=== PATIENT | female | born 1980 | race Caucasian/White ===

== ENCOUNTER 2024-05-27 10:08 | Outpatient (OUT) | payer OTHER, SELFPAY ==
[2024-05-27 11:03] LABS: Basophils Absolute Auto 0.1 10^3/uL (0.0-0.1); Basophils Percent Auto 0.7 % (0.2-2.0); Eosinophils Absolute Auto 0.5 10^3/uL (0.0-0.7); Eosinophils Percent Auto 5.2 % (0.9-7.0); Hematocrit 36.9 % (36.0-48.0); Hemoglobin 12.1 g/dL (12.0-16.0); Immature Granulocytes Abs Auto 0.02 10^3/uL (0.00-0.03); Immature Granulocytes Pct Auto 0.2 % (0.0-0.5); Lymphocytes Percent Auto 33.5 % (20.5-60.0); Mean Corpuscular HGB Conc 32.8 g/dL (29.9-35.2); Mean Corpuscular Hemoglobin 28.7 pg (26.7-34.0); Mean Corpuscular Volume 87.6 fL (81.0-99.0); Mean Platelet Volume 10.4 fL (9.5-13.5); Monocytes Absolute Auto 0.7 10^3/uL (0.3-0.8); Monocytes Percent Auto 7.9 % (1.7-12.0); Neutrophils Absolute Auto 4.7 10^3/uL (1.4-6.5); Neutrophils Percent Auto 52.5 % (43.0-75.0); Platelet Count 289 10^3/uL (150-450); Red Blood Count 4.21 10^6/uL (4.20-5.40); Red Cell Distribution Width 13.2 % (11.0-15.0); White Blood Count 8.9 10^3/uL (4.0-11.0)
[2024-05-27 11:13] LABS: Thyroid Stimulating Hormone 3.139 uIU/mL (0.358-3.740)
[2024-05-27 11:19] LABS: HCG Quantitative <1 mIU/mL
[2024-05-27 11:40] LABS: Estimated Average Glucose 143 mg/dL; Glycohemoglobin A1C 6.6 % (4.5-6.2)
[2024-05-28 04:06] LABS: Prolactin 24.6 ng/mL (4.8-33.4)
== END 2024-05-27 10:09 | disposition home or self-care (01) ==
LOC: LAB 10:13
PROVIDERS: Family Provider Family Medicine; Visit Provider Obstetrics & Gynecology
DX: N83.202 Unspecified ovarian cyst, left side (principal); N94.89 Other specified conditions associated with female genital organs and menstrual cycle; N91.2 Amenorrhea, unspecified; R10.2 Pelvic and perineal pain
CPT/HCPCS: 36415; 83036; 84146; 84443; 84702; 85025

== ENCOUNTER 2024-07-02 09:39 | Outpatient (OUT) | payer OTHER, SELFPAY ==
--- OUTSIDE RECORDS SUMMARY | 2024-07-02 09:54 | XMS_ITS | CCD ---
Author Organization [facility] Care Team Providers Care Associate Store Director Name Role Phone Belgica Naranjo H Referring Unavailable Belgica Naranjo H Attending Unavailable Jarrett Naranjoary H Admitting Unavailable NO FAMILY, PHYSICIAN Primary Care Provider Unava ilable FILIBERTO Geronimo Emergency Provider [phone] Zhen Geronimo Attending Unavailable Zhen Geronimo Admitting Unavailable NO FAMILY, PHYSICIAN Primary Care Unavailable Bonifacio Diehl PA-C Primary Care Provider Sampson Pemberton CNM Unavailable Rosa Mittal MD Primary Care Provider Rosa Mittal MD Primary Care Provider STEFANY MIKE Attending Unavailable ROSA MITTAL Referring Unavailable ROSA MITTAL Primary Care Unavailable CHUY FREDERICK Attending Unavailable THALIA CASTANON Referring Unavailable ROSA MITTAL Primary Care Unavailable BONIFACIO DIEHL Attending Unavailable ROSA MITTAL Referring Unavailable BONIFACIO DIEHL Primary Care Unavailable BONIFACIO DIEHL Attending Unavailable BONIFACIO DIEHL Referring Unavailable BONIFACIO DIEHL Primary Care Unavailable CHUY FREDERICK Attending Unavailable ROSA MITTAL Referring Unavailable BONIFACIO DIEHL Primary Care Unavailable BONIFACIO DIEHL Attending Unavailable BONIFACIO DIEHL Referring Unavailable BONIFACIO DIEHL Primary Care Unavailable BONIFACIO DIEHL Attending Unavailable BONIFACIO DIEHL Referring Unavailable BONIFACIO DIEHL Primary Care Unavailable Bonifacio Celaya Primary Care Provider [phone] KAL ROBERTS Attending Unavailable ROSA MITTAL Primary Care Unavailable KAL ROBERTS Attending Unavailable KAL ROBERTS Referring Unavailable ROSA MITTAL Primary Care Unavailable ROSA MITTAL Referring Unavailable ROSA MITTAL Primary Care Unavailable THALIA CASTANON Attending Unavailable ROSA MITTAL Referring Unavailable ROSA MITTAL Primary Care Unavailable BONIFACIO DIEHL Primary Care Unavailabl e DIEHL, BONIFACIO RAI Referring Unavailabl e DIEHL, BONIFACIO RAI Primary Care Unavailabl e CHUY FREDERICK Referring Unavailable DIEHL, BONIFACIO RAI Referring Unavailabl e DIEHL, BONIFACIO RAI Primary Care Unavailabl e FELICIA, BONIFACIO Valenzuela Primary Care Unavailable BONIFACIO DIEHL Referring Unavailable THALIA CASTANON Attending Unavailable Bonifacio Celaya Primary Care Provider ALEX BLANKENSHIP Attending Unavailable LALO MILLER Attending Unavailab LALO Aguilera Attending Unavailab SHELBI Hill Attending Unavailable JUSTINE GOLDBERG Referring Unavailable FRED COTTER Attending Unavailable TANNER RODRIGUEZ Attending Unavailab juan david MILLER, LALO Gomez Attending Unavailab JUSTINE Krishnamurthy Attending Unavailable SAMPSON PEMBERTON Attending Unavailable SAMPSON PEMBERTON Referring Unavailable TANNER RODRIGUEZ Attending Unavailab RAYMOND Mcdonald Attending Unavailable RAYMOND WHITTAKER Attending Unavailable SAMPSON PEMBERTON Referring Unavailable LALO MILLER Attending Unavailab RAYMOND Mcdonald Attending Unavailable SAMPSON PEMBERTON Attending Unavailable REENA PEMBERTONERIE Cady Referring Unavailable ALEX BLANKENSHIP Attending Unavailable SAMPSON PEMBERTON Referring Unavailable Rosa Mittal MD Primary Care Provider THALIA CASTANON Attending Unavailable ROSA MITTAL Referring Unavailable ROSA MITTAL Primary Care Unavailable JOSÉ CAMPOVERDE M Referring Unavailable ROSA MITTAL Primary Care Unavailable ROSA MITTAL Primary Care Unavailable CLAUDIA CARLSON Attending Unavailable CLAUDIA CARLSON Attending Unavailable CLAUDIA CARLSON Referring Unavailable ROSA MITTAL Primary Care Unavailable CHUY FREDERICK Referring Unavailable ROSA MITTAL Primary Care Unavailable ROSA MITTAL Primary Care Unavailable KIRILL ARIAS Attending Unavailable KIRILL ARIAS Attending Unavailable KIRILL ARIAS Referring Unavailable ROSA MITTAL Primary Care Unavailable BONIFACIO DIEHL Referring Unavailable DIEHLBONIFACIO VILLALOBOS Primary Care Unavailable JOSÉ CAMPOVERDE Referring Unavailable DIEHL BONIFACIO N Primary Care Unavailable DIEHL, BONIFACIO N Referring Unavailable DIEHL, BONIFACIO N Primary Care Unavailable DIEHL, BONIFACIO N Primary Care Unavailable JULIUS HUGHES Attending Unavailable BONIFACIO DIEHL Primary Care Unavailable WINSTON SUERO Attending Unavailable Allergies Allergy Classification Reported Allergen(s) Allergy Type Date of Onset Reaction(s) Facility (20 sources) Sulfamethoxazole; Translations: [SULFAMETHOXAZOLE] Drug Allergy 06-09-19 22 [facility] (20 sources) Sulfamethoxazole / Trimethoprim; Translations: [SULFAMETHOXAZOLE-TR IMETHOPRIM] Drug Allergy 09-28-19 19 [facility] (20 sources) Trimethoprim; Translations: [TRIMETHOPRIM] Drug Allergy 06-09-19 22 Unknown [facility] (19 sources) dulaglutide Drug Allergy 11-02-19 23 Headache [facility] (19 sources) levoFLOXacin Drug Allergy 06-09-19 22 GI intolerance [facility] (19 sources) Sulfamethoxazole Allergy to substance 06-09-19 22 Unknown [facility] (9 sources) luspatercept; Translations: [LUSPATERCEPT-AAMT] Drug Allergy 05-20-19 25 [facility] Medications Current Medications Medication Drug Class(es) Dates Sig (Normalized) Sig (Original) acetaminophen 325 mg oral tablet (8 sources) Start: 03-09-2023 End: 09-12-2023 take 2 tablets by mouth every six hours as needed for pain and fever acetaminophen (TYLENOL) 325 mg tablet Take 2 tablets (650 mg total) by mouth every 6 (six) hours as needed for pain or fever. 03/09/2023 09/12/2023 Discontinued (Discontinued by another clinician) [id number] 200 actuat albuterol 0.09 mg/actuat metered dose inhaler (20 sources) beta2-Adrenergic Agonist Start: 04-25-2024 take 2 puff(s) by inhalation every six hours as needed for wheezing albuterol (PROVENTIL HFA;VENTOLIN HFA) 90 mcg/actuation inhaler Inhale 2 puffs every 6 (six) hours as needed for wheezing. 18 g 2 04/25/2024 Active Start: 01-05-2023 take 2 puff(s) by mo uth every four hours as needed for wheezing albuterol HFA 90 mcg/act inhaler Indications: SOB (shortness of breath) INHALE 2 PUFFS BY MOUTH EVERY 4 HOURS NEEDED FOR WHEEZING 18 g 01/05/2023 Active End: 04-25-2024 take 2 puff(s) by inhalation every six hours as needed for wheezing albuterol (PROVENTIL HFA;VENTOLIN HFA) 90 mcg/actuation inhaler Inhale 2 puffs every 6 (six) hours as needed for wheezing. 04/25/2024 Discontinued (Reorder) allopurinol 300 mg oral tablet (20 sources) Xanthine Oxidase Inhibitor allop urinol (Zyloprim) 300 MG tablet 1 (one) time each day at the same time Active End: 04-02-2024 take 3 tablets by mouth in the morning allopurinoL (ZYLOPRIM) 100 mg tablet Take 3 tablets (300 mg total) by mouth in the morning. 04/02/2024 Discontinued (Therapy completed) take 2 tablets by mo uth in the morning allopurinoL (ZYLOPRIM) 100 mg tablet Take 2 tablets (200 mg total) by mouth in the morning. Active atorvastatin 10 mg oral tablet (20 sources) HMG-CoA Reductase Inhibitor Start: 06-05-2023 End: 11-30-2024 take 1 tablet by mouth in the morning atorvastatin (Lipitor) 10 MG tablet Indications: Hypertriglyceridemia (CMS/HCC) Take 1 tablet (10 mg) by mouth in the morning. 90 tablet 1 06/05/2023 Active azithromycin 250 mg oral tablet (1 source) Macrolide Antimicrobial Start: 05-20-2024 End: 05-25-2024 azithromycin (ZITHROMAX) 250 mg tablet Take 2 tablets the first day, then 1 tablet daily for 4 days. 6 tablet 05/20/2024 05/25/2024 Active Blood Glucose Monitoring Suppl (ONE TOUCH ULTRA 2) w/Device kit (19 sources) Start: 05-04-2022 Blood Glucose Monitoring Suppl (ONE TOUCH ULTRA 2) w/Device kit 05/04/2022 Active 12 hr buPROPion hydrochloride 150 mg extended release oral tablet (20 sources) Aminoketone Start: 01-05-2024 take 1 tablet by mouth once daily in the morning, then take 1 tablet by mouth at bedtime buPROPion SR (Wellbutrin SR) 150 MG 12 hr tablet Indications: Major depressive disorder, single episode, mild (HCC) (CMS/HCC) TAKE 1 TABLET BY MOUTH EVERY MORNING AND 1 BEFORE BEDTIME 180 tablet 1 01/05/2024 Active Start: 10-20-2021 End: 01-05-2024 take 1 tablet by mouth every twelve hours in the morning, then take 1 tablet by mouth at bedtime buPROPion SR (WELLBUTRIN SR) 150 mg 12 hr tablet Take 1 tablet (150 mg total) by mouth in the morning and 1 tablet (150 mg total) before bedtime. 10/20/2021 Active cephalexin 500 mg oral capsule (16 sources) Cephalosporin Antibacterial Start: 11-22-2023 End: 05-27-2024 cephalexin (Keflex) 500 MG capsule Four times daily 11/22/2023 05/27/2024 Discontinued cetirizine hydrochloride 10 mg oral tablet (20 sources) Histamine-1 Receptor Antagonist Start: 07-24-2021 End: 10-22-2024 take 1 tablet by mouth once daily cetirizine (ZyrTEC) 10 MG tablet Indications: Allergic rhinitis due to other allergic trigger, unspecified seasonality Take 1 tablet (10 mg) by mouth Daily 90 tablet 1 01/05/2024 07/03/2024 Active dextromethorphan hydrobromide 10 mg / guaiFENesin 200 mg oral capsule (1 source) Uncompetitive X-mzadgo-M-aspartat e Receptor Antagonist, Sigma-1 Agonist Start: 04-02-2024 End: 04-07-2024 take 1 capsule by mouth every six hours dextromethorphan- guaiFENesin (CORICIDIN HBP CHEST JUSTIN-COUGH) 10-200 mg capsule Indications: URI with cough and congestion Take 1 capsule by mouth every 6 (six) hours for 5 days. 20 each 04/02/2024 04/07/2024 Active doxycycline hyclate 100 mg oral capsule (19 sources) Tetracycline-class Drug Start: 11-22-2023 take 1 capsule by mouth once daily in the morning, then take 1 capsule by mouth at bedtime doxycycline (Vibramycin) 100 MG capsule TAKE 1 CAPSULE BY MOUTH EVERY MORNING AND 1 BEFORE BEDTIME 11/22/2023 Active DULoxetine 60 mg delayed release oral capsule (20 sources) Serotonin and Norepinephrine Reuptake Inhibitor Start: 12-19-2023 End: 05-29-2024 take 1 capsule by mouth in the morning, then take 1 capsule by mouth at bedtime DULoxetine (CYMBALTA) 60 mg capsule Indications: Fibromyalgia Take 1 capsule (60 mg total) by mouth in the morning and 1 capsule (60 mg total) before bedtime. 180 capsule 3 05/29/2024 Active Start: 05-04-2023 take 1 capsule by mo uth in the morning DULoxetine 40 mg capsule,delayed release(DR/EC) Indications: Fibromyalgia Take 40 mg by mouth in the morning and 40 mg before bedtime. 180 capsule 1 09/21/2023 Active Start: 04-12-2023 take 1 capsule by mo uth in the morning DULoxetine (CYMBALTA) 20 mg capsule Indications: Fibromyalgia Take 1 capsule (20 mg total) by mouth in the morning. 30 capsule 5 04/12/2023 Active [id number] 0.3 ml EPINEPHrine 1 mg/ml auto-injector (20 sources) alpha-Adrenergic Agonist, beta-Adrenergic Agonist, Catecholamine Start: 01-05-2023 EPINEPHrine (Epip en) 0.3 MG/0.3ML injection syringe Indications: Allergic reaction to insect bite INJECT INTO THE MIDDLE OF THE OUTER THIGH AND HOLD FOR 3 SECONDS NEEDED FOR SEVERE ALLERGIC REACTION THEN CALL 911 IF USED. 2 each 01/05/2023 Active Start: 01-05-2023 EPINEPHrine (E PIPEN) 0.3 mg/0.3 mL auto-injector 0.3 mL (0.3 mg total) as needed. 01/05/2023 Active ergocalciferol 1.25 mg oral capsule (20 sources) Provitamin D2 Compound Start: 06-28-2023 End: 03-27-2025 ergocalciferol (Vitamin D2) 1.25 MG (06694 UT) capsule Indications: Vitamin D insufficiency TAKE 1 CAPSULE(1.25 MG) BY MOUTH 1 TIME EVERY WEEK 12 capsule 12/21/2023 Active escitalopram 20 mg oral tablet (8 sources) Serotonin Reuptake Inhibitor Start: 09-06-2021 End: 09-12-2023 take 1 tablet by mouth in the morning escitalopram (LEXAPRO) 20 mg tablet Take 1 tablet (20 mg total) by mouth in the morning. 09/06/2021 09/12/2023 Discontinued (Discontinued by another clinician) ferrous sulfate 325 mg oral tablet (20 sources) Start: 03-09-2023 End: 02-14-2025 take 1 tablet by mouth in the morning ferrous sulfate (FeroSul) 325 (65 Fe) MG tablet Indications: Iron deficiency Take 1 tablet (325 mg) by mouth in the morning. 90 tablet 1 01/05/2024 Active Fish Oils (19 sources) take 1 capsule by mouth every twelve hours omega-3 (Fish Oil) 500 MG capsule 1 capsule every 12 (twelve) hours. Active fluticasone propionate 0.05 mg/actuat metered dose nasal spray (20 sources) Corticosteroid Start: 01-05-2024 take 1 spray(s) nasal route once daily fluticasone (Flonase) 50 MCG/ACT nasal spray Indications: Allergic rhinitis due to other allergic trigger, unspecified seasonality Administer 1 spray into each nostril Daily Shake gently. Before first use, prime pump. After use, clean tip and replace cap. 48 g 1 01/05/2024 Active Start: 09-25-2023 End: 01-05-2024 take 1 spray(s) nasal route once daily in the morning fluticasone (Flonase) 50 MCG/ACT nasal spray Indications: Allergic rhinitis due to other allergic trigger, unspecified seasonality INSTILL 1 SPRAY INTO EACH NOSTRIL EVERY MORNING 16 g 3 09/25/2023 01/05/2024 Discontinued (Reorder) take 1 spray(s) nasa l route in the morning fluticasone propionate (FLONASE) 50 mcg/actuation nasal spray Administer 1 spray into each nostril in the morning. Active gabapentin 100 mg oral capsule (20 sources) Anti-epileptic Agent Start: 01-09-2024 End: 04-08-2024 take 6 capsules by mouth once daily at bedtime gabapentin (NEURONTIN) 100 mg capsule Indications: Tingling of both feet Take 6 capsules (600 mg total) by mouth once daily at bedtime for 90 days. 180 capsule 2 01/09/2024 03/04/2024 Discontinued Start: 09-21-2023 End: 12-19-2023 gabapentin (NEURONTIN) 100 m g capsule Indications: Fibromyalgia One capsule in the morning 90 capsule 1 09/21/2023 12/19/2023 Discontinued (Reorder) Start: 04-04-2023 End: 05-27-2024 gabapentin (NEURONTIN) 300 m g capsule Indications: Fibromyalgia One capsule in the morning 90 capsule 1 12/19/2023 Active hydroCHLOROthiazide 50 mg oral tablet (8 sources) Thiazide Diuretic Start: 10-19-2021 End: 09-12-2023 take 1 tablet by mouth once daily hydroCHLOROthiazide (HYDRODIURIL) 50 mg tablet Take 1 tablet (50 mg total) by mouth daily. 10/19/2021 09/12/2023 Discontinued (Discontinued by another clinician) hydroCHLOROthiazide 12.5 mg / losartan potassium 50 mg oral tablet (14 sources) Thiazide Diuretic, Angiotensin 2 Receptor Cruz Start: 04-02-2024 End: 11-30-2024 take 1 tablet by mouth once in the morning losartan-hydroCHLOROth iazide (HYZAAR) 50-12.5 mg per tablet Indications: Primary hypertension , High urine sodium level TAKE 1 TABLET BY MOUTH IN THE MORNING 30 tablet 1 05/29/2024 Active isopropyl alcohol 0.7 ml/ml medicated pad (20 sources) Start: 09-24-2021 ALCOHOL PREP PADS pads, medicated 09/24/2021 Active ketoconazole 20 mg/ml medicated shampoo (19 sources) Azole Antifungal Start: 01-05-2023 ketoconazole (NIZOral) 2 % shampoo Indications: Scalp psoriasis (CMS/HCC) APPLY TO AFFECTED AREA(S) TWICE A WEEK, LEAVE ON FOR 3 TO 5 MINUTES THEN RINSE 120 mL 01/05/2023 Active levothyroxine sodium 0.075 mg oral tablet (20 sources) l-Thyroxine Start: 01-12-2024 End: 11-30-2024 take 1 tablet by mouth once daily levothyroxine (Synthroid) 75 MCG tablet Indications: Acquired hypothyroidism (CMS/HCC) Take 1 tablet (75 mcg) by mouth Daily Take on an empty stomach 90 tablet 01/12/2024 Active Start: 09-28-2021 take 1 tablet by xiao th in the morning levothyroxine (SYNTHROID, LEVOTHROID) 25 MCG tablet Take 1 tablet (25 mcg total) by mouth in the morning. 0 09/28/2021 Active Start: 09-28-2021 End: 04-22-2024 take 1.5 tablets by mouth in the morning levothyroxine (SYNTHROID, LEVOTHROID) 50 MCG tablet Take 1.5 tablets (75 mcg total) by mouth in the morning. 09/28/2021 04/22/2024 Discontinued (Therapy completed) Start: 09-28-2021 End: 07-03-2024 take 1 tablet by mouth in the morning levothyroxine (Synthroid, Levoxyl) 50 MCG tablet Indications: Acquired hypothyroidism (CMS/HCC) Take 1 tablet (50 mcg) by mouth in the morning. on an empty stomach. 90 tablet 1 01/05/2024 01/12/2024 Discontinued (Dose adjustment) 3 ml liraglutide 6 mg/ml pen injector (20 sources) GLP-1 Receptor Agonist Start: 02-06-2024 End: 04-06-2024 VICTOZA 3-KELSI 0.6 mg/0.1 mL (18 mg/3 mL) pen injector Inject 0.3 mL (1.8 mg total) under the skin in the morning for 60 days. 9 mL 1 02/06/2024 04/06/2024 Active Start: 11-15-2023 inject 1.8 mg by sub cutaneous injection once daily liraglutide (Victoza) 18 MG/3ML injection Indications: Morbid (severe) obesity due to excess calories (CMS/HCC) , Type 2 diabetes mellitus without complication, without long-term current use of insulin (CMS/HCC) Inject 1.8 mg under the skin Daily 9 pen 1 11/15/2023 Active lisinopril 10 mg oral tablet (6 sources) Angiotensin Converting Enzyme Inhibitor Start: 08-03-2023 take 1 tablet by mouth in the morning lisinopriL (PRINIVIL,ZESTRIL) 10 mg tablet Take 1 tablet (10 mg total) by mouth in the morning. 08/03/2023 Active losartan potassium 50 mg oral tablet (6 sources) Angiotensin 2 Receptor Cruz Start: 02-20-2024 End: 03-21-2024 take 1 tablet by mouth in the morning losartan (COZAAR) 50 mg tablet Take 1 tablet (50 mg total) by mouth in the morning for 30 days. 30 tablet 02/20/2024 03/21/2024 Active Start: 02-06-2024 End: 02-20-2024 take 1 tablet by mouth in the morning losartan (COZAAR) 25 mg tablet Take 1 tablet (25 mg total) by mouth in the morning for 30 days. 30 tablet 02/06/2024 02/20/2024 Discontinued (Reorder) magnesium oxide 400 mg oral tablet (20 sources) Start: 02-06-2024 take 1.5 tablets by mouth once daily in the morning magnesium oxide (MAGOX) 400 mg tablet Take 1.5 tablets (600 mg total) by mouth in the morning and 1.5 tablets (600 mg total) before bedtime. 1200mg daily. 02/06/2024 Active Start: 02-06-2024 take 2 tablets by mo uth once daily in the morning magnesium oxide (MAGOX) 400 mg tablet Take 2 tablets (800 mg total) by mouth in the morning and 2 tablets (800 mg total) before bedtime. 1600mg daily. 02/06/2024 Active Start: 03-09-2023 magnesium oxid e (Mag-Ox) 400 MG tablet Take 1,200 mg by mouth in the morning. 03/09/2023 Active Start: 03-09-2023 take 1 tablet by xiao in the morning magnesium oxide (MAGOX) 400 mg tablet Take 1 tablet (400 mg total) by mouth in the morning. 14 tablet 03/09/2023 Active 24 hr metFORMIN hydrochloride 500 mg extended release oral tablet (20 sources) Biguanide Start: 04-22-2024 End: 07-21-2024 take 1 tablet by mouth once daily at breakfast metFORMIN XR (GLUCOPHAGE XR) 500 mg 24 hr tablet Indications: Type 2 diabetes mellitus with other diabetic kidney complication, without long-term current use of insulin ([facility]) Take 1 tablet (500 mg total) by mouth daily with breakfast for 90 days. 30 tablet 2 04/22/2024 07/21/2024 Active Start: 11-11-2023 End: 04-02-2024 take 1 tablet by mouth twice daily metFORMIN (Glucophage) 1000 MG tablet Indications: Type 2 diabetes mellitus without complication, without long-term current use of insulin (CMS/HCC) TAKE 1 TABLET BY MOUTH TWICE DAILY 180 tablet 11/11/2023 Active metoprolol tartrate 50 mg oral tablet (20 sources) beta-Adrenergic Cruz Start: 11-07-2023 take 1 tablet by mouth in the morning metoprolol tartrate (Lopressor) 50 MG tablet Indications: Benign essential hypertension (CMS/HCC) Take 1 tablet (50 mg) by mouth in the morning and 1 tablet (50 mg) before bedtime. 180 tablet 1 11/07/2023 Active omeprazole 20 mg delayed release oral capsule (20 sources) Proton Pump Inhibitor Start: 04-25-2024 End: 10-22-2024 take 2 capsules by mouth in the morning omeprazole (PriLOSEC) 20 mg capsule Take 2 capsules (40 mg total) by mouth in the morning for 180 days. 180 capsule 1 04/25/2024 10/22/2024 Active Start: 07-11-2023 take 1 capsule by mo uth in the morning omeprazole (PriLOSEC) [address] capsule Indications: Gastroesophageal reflux disease without esophagitis TAKE 1 CAPSULE(40 MG) BY MOUTH IN THE MORNING. DO NOT CRUSH OR CHEW 90 capsule 1 07/11/2023 Active Start: 10-02-2021 End: 04-25-2024 take 1 capsule by mouth in the morning omeprazole (PriLOSEC) 20 mg capsule Take 1 capsule (20 mg total) by mouth in the morning. 90 capsule 3 03/04/2024 04/25/2024 Discontinued (Reorder) ONETOUCH ULTRA2 METER misc (20 sources) Start: 09-24-2021 ONETOUCH ULTRA 2 METER misc 09/24/2021 Active Start: 09-24-2021 ONETOUCH ULTRA 2 METER misc pregabalin 100 mg oral capsule (20 sources) Start: 06-04-2024 End: 05-30-2025 take 3 capsules by mouth in the morning, then take 3 capsules by mouth at bedtime pregabalin (LYRICA) 50 mg capsule Indications: Neuropathy Take 3 capsules (150 mg total) by mouth in the morning and 3 capsules (150 mg total) before bedtime. Do all this for 360 days. 180 capsule 11 06/04/2024 06/10/2024 Discontinued Start: 04-02-2024 End: 06-10-2025 take 1 capsule by mouth in the morning pregabalin (Lyrica) 100 MG capsule Take 100 mg by mouth in the morning and 100 mg in the evening. 04/02/2024 Active Start: 03-04-2024 End: 03-04-2025 take 1 capsule by mouth in the morning, then take 1 capsule by mouth at bedtime pregabalin (LYRICA) 50 mg capsule Indications: Neuropathy Take 1 capsule (50 mg total) by mouth in the morning and 1 capsule (50 mg total) before bedtime. 180 capsule 2 06/10/2024 Active promethazine hydrochloride 12.5 mg oral tablet (13 sources) Phenothiazine Start: 03-17-2023 take 1 tablet by mouth every six hours as needed for nausea and vomiting promethazine (PHENERGAN) 12.5 mg tablet Take 1 tablet (12.5 mg total) by mouth every 6 (six) hours as needed for nausea or vomiting. 30 tablet 03/17/2023 Active riboflavin 400 mg oral tablet (12 sources) take 1 tablet by mouth in the morning riboflavin, vitamin B2, 400 mg tablet Take 400 mg by mouth in the morning. Active tiZANidine 4 mg oral tablet (20 sources) Central alpha-2 Adrenergic Agonist Start: 06-13-2024 End: 06-13-2024 take 1 tablet by mouth every eight hours for muscle spasms tiZANidine (Zanaflex) 4 MG tablet Indications: Arthralgia of lower leg, unspecified laterality Take 1 tablet (4 mg) by mouth every 8 (eight) hours if needed for muscle spasms 30 tablet 06/13/2024 06/13/2024 Active Start: 05-29-2024 tiZANidine (ZA NAFLEX) 4 mg tablet Indications: Fibromyalgia One tab at 8 PM each night 90 tablet 3 05/29/2024 Active Start: 12-19-2023 tiZANidine (ZA NAFLEX) 4 mg tablet Indications: Fibromyalgia One and half tab at 8:00 p.m.each night 135 tablet 1 12/19/2023 Active Start: 04-12-2023 End: 05-27-2024 tiZANidine (ZANAFLEX) 4 mg t ablet Indications: Fibromyalgia One tab at 8:00 p.m.each night 90 tablet 1 09/21/2023 12/19/2023 Discontinued (Reorder) ubidecarenone 30 mg oral capsule (12 sources) coenzyme Q10 30 mg capsule Take 10 capsules (300 mg total) by mouth 3 (three) times a day. Active vitamin b12 0.1 mg oral tablet (13 sources) Vitamin B12 Start: 04-02-2024 End: 04-02-2024 cyanocobalamin (VITAMIN B-12) 100 MCG tablet Take 10 tablets (1,000 mcg total) by mouth in the morning. 04/02/2024 Active Completed/Discontinued Medications Medication Drug Class(es) Dates Sig (Normalized) Sig (Original) docosahexaenoic acid/epa (FISH OIL ORAL) (20 sources) End: 04-02-2024 docosahexaenoic acid/epa (FISH OIL ORAL) Take by mouth daily. 04/02/2024 Discontinued (Therapy completed) docosahexaenoic acid/epa (FISH OIL ORAL) Take by mouth daily. Active docosahexaenoic acid/epa (FISH OIL ORAL) Take by mouth daily. 0 Active Problems Active Problems Problem Classification Problem Date Documented Date Episodic/Chronic Acquired foot deformities (20 sources) Acquired hallux valgus; Translations: [Hallux valgus (acquired), unspecified foot] Onset: 09-03-2020 11-16-2022 Chronic Allergic reactions (19 sources) Atopic dermatitis; Translations: [Intrinsic (allergic) eczema] Onset: 11-06-2020 11-16-2022 Chronic Anxiety disorders (20 sources) Anxiety; Translations: [Anxiety disorder, unspecified] Onset: 04-19-2015 11-16-2022 Chronic Chronic obstructive pulmonary disease and bronchiectasis (19 sources) Mucopurulent chronic bronchitis; Translations: [Mucopurulent chronic bronchitis] Onset: 04-05-2021 12-05-2022 Chronic Conditions associated with dizziness or vertigo (2 sources) Dizziness and giddiness; Translations: [Dizziness] Onset: 06-26-2024 Episodic Diabetes mellitus with complications (2 sources) Renal disorder due to type 2 diabetes mellitus; Translations: [Type 2 diabetes mellitus with other diabetic kidney complication] 04-22-2024 Chronic Diabetes mellitus without complication (20 sources) Diabetes mellitus; Translations: [Type 2 diabetes mellitus without complications] Onset: 11-16-2022 02-06-2024 Chronic Disorders of lipid metabolism (20 sources) Hypertriglyceridemia; Translations: [Pure hyperglyceridemia] Onset: 05-26-2019 11-16-2022 Chronic Esophageal disorders (1 source) Gastroesophageal reflux disease without esophagitis; Translations: [Gastro-esophageal reflux disease without esophagitis] 02-25-2024 Chronic Essential hypertension (20 sources) Essential hypertension; Translations: [Essential (primary) hypertension] Onset: 04-19-2015 02-20-2024 Chronic Genitourinary symptoms and ill-defined conditions (20 sources) Retained ureteric stent; Translations: [Presence of urogenital implants] Onset: 03-30-2023 03-30-2023 Chronic Headache; including migraine (20 sources) Cluster headache; Translations: [Cluster headache syndrome, unspecified, not intractable] Onset: 04-19-2015 11-16-2022 Chronic Headache; including migraine (1 source) Headache Onset: 06-26-2024 Episodic Headache; including migraine (1 source) Headache; including migraine; Translations: [Headache, unspecified] Onset: 06-26-2024 Hypertension with complications and secondary hypertension (19 sources) Hypertensive emergency; Translations: [Hypertensive emergency] Onset: 12-05-2022 12-05-2022 Chronic Influenza (1 source) Influenza Onset: 04-12-2024 Joint disorders and dislocations; trauma-related (19 sources) Derangement of right knee; Translations: [Unspecified internal derangement of right knee] Onset: 11-16-2022 11-16-2022 Chronic Malaise and fatigue (19 sources) Fatigue; Translations: [Chronic fatigue, unspecified] Onset: 11-16-2022 11-16-2022 Chronic Menstrual disorders (20 sources) Dysmenorrhea; Translations: [Dysmenorrhea, unspecified] Onset: 02-10-2020 02-06-2024 Chronic Mood disorders (20 sources) Mild major depression, single episode; Translations: [Major depressive disorder, single episode, mild] Onset: 11-16-2022 11-16-2022 Chronic Nausea and vomiting (1 source) Nausea; Translations: [Nausea] Onset: 06-26-2024 Episodic Nutritional deficiencies (20 sources) Vitamin D deficiency; Translations: [Vitamin D deficiency, unspecified] Onset: 05-04-2023 05-04-2023 Chronic Osteoarthritis (19 sources) Idiopathic osteoarthritis; Translations: [Primary osteoarthritis, unspecified site] Onset: 02-15-2017 12-05-2022 Chronic Other bone disease and musculoskeletal deformities (19 sources) Osteochondritis dissecans; Translations: [Osteochondritis dissecans of unspecified site] Onset: 04-23-2018 11-16-2022 Chronic Other circulatory disease (1 source) Personal history of other diseases of the circulatory system; Translations: [Personal history of other diseases of the circulatory system] Onset: 06-26-2024 Episodic Other connective tissue disease (3 sources) Fibromyalgia; Translations: [Fibromyalgia] 05-29-2024 Episodic Other ear and sense organ disorders (19 sources) Mixed conductive and sensorineural hearing loss, bilateral; Translations: [Mixed conductive and sensorineural hearing loss, bilateral] Onset: 04-05-2021 11-16-2022 Chronic Other endocrine disorders (20 sources) Polycystic ovary syndrome; Translations: [Polycystic ovarian syndrome] Onset: 07-01-2015 12-05-2022 Chronic Other female genital disorders (1 source) Ovarian pain; Translations: [Other specified conditions associated with female genital organs and menstrual cycle] 05-27-2024 Episodic Other inflammatory condition of skin (19 sources) Scalp psoriasis; Translations: [Psoriasis, unspecified] Onset: 11-16-2022 11-16-2022 Chronic Other nervous system disorders (19 sources) Difficulty walking; Translations: [Difficulty in walking, not elsewhere classified] Onset: 04-23-2018 11-16-2022 Chronic Other nervous system disorders (19 sources) Chronic pain; Translations: [Other chronic pain] Onset: 11-07-2016 11-16-2022 Chronic Other nervous system disorders (6 sources) Neuropathy; Translations: [Polyneuropathy, unspecified] 03-04-2024 Chronic Other nervous system disorders (1 source) Other chronic pain; Translations: [Other chronic pain] Onset: 04-02-2024 Chronic Other nervous system disorders (2 sources) Polyneuropathy, unspecified; Translations: [Polyneuropathy, unspecified] Onset: 12-19-2023 Chronic Other non-traumatic joint disorders (20 sources) Pain in lower limb; Translations: [Pain in unspecified knee] Onset: 02-15-2017 12-05-2022 Episodic Other nutritional; endocrine; and metabolic disorders (20 sources) Disorder of mineral metabolism; 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, unspecified] Onset: 10-19-2022 05-22-2023 Chronic Other nutritional; endocrine; and metabolic disorders (18 sources) Body mass index 40+ - severely obese; Translations: [Body mass index (BMI) 45.0-49.9, adult] Onset: 02-06-2024 02-06-2024 Chronic Other nutritional; endocrine; and metabolic disorders (19 sources) Insulin resistance; Translations: [Insulin resistance] Onset: 10-17-2016 11-16-2022 Chronic Other nutritional; endocrine; and metabolic disorders (20 sources) Obesity caused by energy imbalance; Translations: [Morbid (severe) obesity due to excess calories] Onset: 11-16-2022 11-16-2022 Chronic Other nutritional; endocrine; and metabolic disorders (19 sources) Hypomagnesemia; Translations: [Hypomagnesemia] Onset: 05-04-2023 05-04-2023 Chronic Other nutritional; endocrine; and metabolic disorders (1 source) Severe obesity; Translations: [Morbid (severe) obesity due to excess calories] 05-19-2023 Chronic Other nutritional; endocrine; and metabolic disorders (1 source) Hypomagnesemia; Translations: [Hypomagnesemia] Onset: 07-05-2023 Chronic Other screening for suspected conditions (not mental disorders or infectious disease) (1 source) Abnormal findings on diagnostic imaging of other specified body structures; Translations: [Abnormal findings on diagnostic imaging of other specified body structures] Onset: 06-26-2024 Chronic Other upper respiratory disease (20 sources) Allergic rhinitis; Translations: [Allergic rhinitis, unspecified] Onset: 07-28-2020 11-16-2022 Chronic Other upper respiratory disease (19 sources) Seasonal allergy; Translations: [Other seasonal allergic rhinitis] Onset: 11-16-2022 11-16-2022 Chronic Other upper respiratory disease (19 sources) Chronic rhinitis; Translations: [Chronic rhinitis] Onset: 05-31-2021 12-05-2022 Chronic Other upper respiratory infections (20 sources) Chronic maxillary sinusitis; Translations: [Chronic maxillary sinusitis] Onset: 04-05-2021 11-16-2022 Chronic Other upper respiratory infections (3 sources) Upper respiratory infection; Translations: [Acute upper respiratory infection, unspecified] Onset: 04-02-2024 04-02-2024 Episodic Ovarian cyst (19 sources) Cyst of left ovary; Translations: [Unspecified ovarian cyst, left side] Onset: 02-06-2024 02-06-2024 Episodic Residual codes; unclassified (20 sources) Obstructive sleep apnea syndrome; Translations: [Obstructive sleep apnea (adult) (pediatric)] Onset: 07-02-2020 11-16-2022 Chronic Residual codes; unclassified (1 source) Sleep apnea Onset: 09-06-2023 Chronic Residual codes; unclassified (1 source) Daytime somnolence; Translations: [Other hypersomnia] 05-19-2023 Chronic Residual codes; unclassified (1 source) Insomnia; Translations: [Insomnia, unspecified] 02-20-2024 Episodic Spondylosis; intervertebral disc disorders; other back problems (2 sources) Chronic low back pain; Translations: [Chronic left-sided low back pain without sciatica] 04-02-2024 Episodic Thyroid disorders (20 sources) Hypothyroidism; Translations: [Hypothyroidism, unspecified] Onset: 11-16-2022 02-20-2024 Chronic Unclassified (19 sources) Patient on antidepressant monitoring plan Onset: 02-24-2023 02-24-2023 Unclassified (2 sources) Low back pain, unspecified; Translations: [Low back pain, unspecified] Onset: 04-02-2024 Unclassified (1 source) New Patient Onset: 01-09-2024 Unclassified (1 source) Foot Swelling Onset: 11-21-2023 Unclassified (1 source) Wound Infection Onset: 11-21-2023 Unclassified (1 source) foot swollen Onset: 11-21-2023 Unclassified (1 source) Generalized Body Aches Onset: 06-26-2024 Unclassified (1 source) Acute cough; Translations: [Acute cough] Onset: 04-12-2024 Unclassified (1 source) flank pain, bloody urine Onset: 09-27-2023 Past or Other Problems Problem Classification Problem Date Documented Da te Episodic/Chronic Abdominal pain (4 sources) Pain in female pelvis; Translations: [Pelvic and perineal pain] Onset: 4 01-08-2024 Episodic Acquired foot deformities (2 sources) Acquired deformity of toe of left foot; Translations: [Acquired deformities of toe(s), unspecified, left foot] 12-31-2023 Episodic Acute and unspecified renal failure (20 sources) Acute renal failure syndrome; Translations: [Acute kidney failure, unspecified] Onset: 3 Resolved: 5 03-06-2023 Episodic Administrative/social admission (1 source) Patient encounter status; Translations: [Other specified counseling] 09-12-2023 Episodic Allergic reactions (19 sources) Other insect allergy status; Translations: [Allergy to insects and arachnids] Onset: 1 11-16-2022 Episodic Calculus of urinary tract (20 sources) Uric acid renal calculus; Translations: [Calculus of kidney] Onset: 3 Resolved: 4 02-06-2024 Episodic Cancer of cervix (1 source) Cervicovaginal cytology: Low grade squamous intraepithelial lesion; Translations: [Low grade squamous intraepithelial lesion on cytologic smear of cervix (LGSIL)] 01-08-2024 Episodic Deficiency and other anemia (19 sources) Anemia; Translations: [Anemia, unspecified] Onset: 3 11-16-2022 Episodic Deficiency and other anemia (19 sources) Iron deficiency anemia; Translations: [Other iron deficiency anemias] Onset: 3 05-04-2023 Episodic Fluid and electrolyte disorders (1 source) Hypokalemia; Translations: [Hypokalemia] Onset: 4 Episodic Genitourinary symptoms and ill-defined conditions (20 sources) Dysuria; Translations: [Dysuria] Onset: 3 11-16-2022 Episodic Malaise and fatigue (1 source) Fatigue; Translations: [Other fatigue] 05-19-2023 Episodic Mood disorders (20 sources) Mood disorders Onset: 4 Resolved: 4 02-06-2024 Nonspecific chest pain (2 sources) Chest pain, unspecified; Translations: [Chest pain] Onset: 4 Episodic Nutritional deficiencies (20 sources) Iron deficiency; Translations: [Iron deficiency] Onset: 4 02-20-2024 Episodic Open wounds of extremities (1 source) Puncture wound without foreign body, right foot, initial encounter; Translations: [Puncture wound without foreign body, right foot, initial encounter] Onset: 4 Episodic Other and unspecified benign neoplasm (20 sources) Angiomyolipoma of left kidney; Translations: [Benign lipomatous neoplasm of kidney] Onset: 3 05-22-2023 Episodic Other connective tissue disease (2 sources) Fibromyalgia; Translations: [Fibromyalgia] Onset: 4 Episodic Other gastrointestinal disorders (19 sources) Constipation; Translations: [Constipation, unspecified] Onset: 0 11-16-2022 Episodic Other lower respiratory disease (19 sources) Nodule of lung; Translations: [Solitary pulmonary nodule] Onset: 7 11-16-2022 Episodic Other lower respiratory disease (19 sources) Cough; Translations: [Cough] Onset: 3 12-05-2022 Episodic Other lower respiratory disease (1 source) Snoring; Translations: [Snoring] 05-19-2023 Episodic Other nervous system disorders (19 sources) Skin sensation disturbance; Translations: [Unspecified disturbances of skin sensation] Onset: 0 11-16-2022 Episodic Other nervous system disorders (19 sources) Abnormal gait; Translations: [Other abnormalities of gait and mobility] Onset: 3 12-05-2022 Episodic Other nervous system disorders (19 sources) Paresthesia; Translations: [Paresthesia of skin] Onset: 3 12-05-2022 Episodic Other nervous system disorders (2 sources) Paresthesia of skin; Translations: [Paresthesia of skin] Onset: 4 Episodic Other nervous system disorders (2 sources) Abnormal reflex; Translations: [Abnormal reflex] Onset: 4 Episodic Other nervous system disorders (1 source) Paresthesia of foot ; Translations: [Paresthesia of skin] 01-09-2024 Episodic Other nervous system disorders (1 source) Hyperreflexia; Translations: [Abnormal reflex] 01-09-2024 Episodic Other non-traumatic joint disorders (19 sources) Pain in right knee; Translations: [Pain in joint, lower leg] Onset: 3 12-05-2022 Episodic Other screening for suspected conditions (not mental disorders or infectious disease) (20 sources) Electrocardiogram abnormal; Translations: [Abnormal electrocardiogram [ECG] [EKG]] Onset: 2 Resolved: 4 10-13-2021 Episodic Other upper respiratory disease (19 sources) Perforation of nasal septum; Translations: [Other specified disorders of nose and nasal sinuses] Onset: 3 12-05-2022 Episodic Septicemia (except in labor) (20 sources) Sepsis; Translations: [Sepsis, unspecified organism] Onset: 3 Resolved: 4 02-06-2024 Episodic Skin and subcutaneous tissue infections (20 sources) Cellulitis; Translations: [Cellulitis, unspecified] Onset: 4 11-22-2023 Episodic Urinary tract infections (1 source) Acute cystitis without hematuria; Translations: [Acute cystitis without hematuria] Onset: 4 Episodic Viral infection (20 sources) Condyloma acuminatum of the anogenital region; Translations: [Anogenital (venereal) warts] Onset: 0 11-16-2022 Episodic Results Test Name Value Interpretation Reference Range Facility CBC AND AUTO DIFFon 06-26-19 25 ABSOLUTE BASOPHIL 0.0 X10E9/L Normal 0.0-0.2 [facility] Comment on above: Performed By: #### C BCA, PINR, 50139-5, CMP, 18622-7, 46515-6, THYR, 10976-0 ####[facility] ([id number])[address] [place] [address] 79610 ABSOLUTE NEUTROPHIL 7.8 X10E9/L High 1.5-6.6 [facility] [place] Comment on above: Performed By: #### C BCA, PINR, 09216-7, CMP, 46044-1, 40733-4, THYR, 23080-0 ####[facility] ([id number])[address] [place] [address], [place] [address] Basophils/100 WBC (Bld) 0.5 % Normal [facility] Comment on above: Performed By: #### C BCA, PINR, 27644-6, CMP, 07823-9, 84223-3, THYR, 99936-7 ####[facility] ([id number])[address] [place] [address] 41324 Eosinophils (Bld) [#/Vol] 0.3 10*3/uL Normal 0.0-0.4 [facility] Comment on above: Performed By: #### C BCA, PINR, 88874-9, CMP, 40368-9, 09861-9, THYR, 13758-6 ####[facility] ([id number])[address] [place] [address] 77125 Eosinophils/100 WBC (Bld) 3.1 % Normal [facility] Comment on above: Performed By: #### C BCA, PINR, 26219-2, CMP, 01024-0, 14963-5, THYR, 61984-5 ####[facility] ([id number])[address] [place] [address] 55533 Erythrocyte distribution width (RBC) [Ratio] 14.5 % Normal 11.5-15.0 [facility] Comment on above: Performed By: #### C BCA, PINR, 15790-2, CMP, 00763-6, 88050-8, THYR, 88914-1 ####[facility] ([id number])[address] [place] [address] 25895 Hematocrit (Bld) [Volume fraction] 36.2 % Normal 35-47 [facility] Comment on above: Performed By: #### C BCA, PINR, 90888-3, CMP, 22255-1, 91576-0, THYR, 34725-7 ####[facility] ([id number])[address] [place] [address], [place] [address] Hemoglobin (Bld) [Mass/Vol] 12.1 g/dL Normal 11.7-15.5 [facility] Comment on above: Performed By: #### C BCA, PINR, 25890-9, CMP, 74656-8, 11614-3, THYR, 40476-6 ####[facility] ([id number])[address] [place] [address] 38613 Lymphocytes (Bld) [#/Vol] 0.9 10*3/uL Low 1.0-3.5 [facility] Comment on above: Performed By: #### C BCA, PINR, 16498-0, CMP, 31393-1, 33330-3, THYR, 07932-5 ####[facility] ([id number])[address] [place] [address] 52354 Lymphocytes/100 WBC (Bld) 9.3 % Normal [facility] Comment on above: Performed By: #### C BCA, PINR, 73117-9, CMP, 27513-7, 34871-5, THYR, 06353-5 ####[facility] ([id number])[address] [place] [address] 61014 MCH (RBC) [Entitic mass] 28.5 pg Normal 27-34 [facility] Comment on above: Performed By: #### C BCA, PINR, 02759-6, CMP, 55210-6, 22372-1, THYR, 64804-7 ####[facility] ([id number])[address] [place] [address] 85361 MCHC (RBC) [Mass/Vol] 33.5 g/dL Normal 32-36 [facility] Comment on above: Performed By: #### C BCA, PINR, 06318-2, CMP, 79268-8, 76920-9, THYR, 42050-3 ####[facility] ([id number])[address] [place] [address] 77711 MCV (RBC) [Entitic vol] 85 fL Normal 80-100 [facility] Comment on above: Performed By: #### C BCA, PINR, 75801-2, CMP, 50355-0, 48157-1, THYR, 78871-3 ####[facility] ([id number])[address] [place] [address] 42124 Monocytes (Bld) [#/Vol] 0.5 10*3/uL Normal 0-0.9 [facility] Comment on above: Performed By: #### C BCA, PINR, 89064-1, CMP, 89526-8, 40685-4, THYR, 16447-5 ####[facility] ([id number])[address] [place] [address] 48942 Monocytes/100 WBC (Bld) 5.0 % Normal [facility] Comment on above: Performed By: #### C BCA, PINR, 05133-7, CMP, 53609-6, 55980-9, THYR, 13471-6 ####[facility] ([id number])[address] [place] [address] 39392 Neutrophils/100 WBC (Bld) 82.1 % Normal [facility] Comment on above: Performed By: #### C BCA, PINR, 91503-7, CMP, 01157-2, 84388-6, THYR, 81102-4 ####[facility] ([id number])[address] [place] [address] 57236 Platelet mean volume (Bld) [Entitic vol] 8.0 fL Normal 7-12 [facility] Comment on above: Performed By: #### C BCA, PINR, 82066-9, CMP, 12559-5, 53164-7, THYR, 37404-8 ####[facility] ([id number])[address] [place] [address] 21577 Platelets (Bld) [#/Vol] 250 10*3/uL Normal 150-450 [facility] Comment on above: Performed By: #### C BCA, PINR, 61731-3, CMP, 17178-6, 98531-0, THYR, 73345-2 ####[facility] ([id number])[address] [place] [address] 69491 RBC COUNT 4.25 X10E12/L Normal 3.80-5.20 [facility] Comment on above: Performed By: #### C BCA, PINR, 12300-2, CMP, 68008-9, 75690-8, THYR, 34342-4 ####[facility] ([id number])[address] [place] [address] 00789 WBC (Bld) [#/Vol] 9.5 10*3/uL Normal 4.0-11.0 [facility] Comment on above: Performed By: #### C BCA, PINR, 02823-7, CMP, 56648-0, 63186-8, THYR, 14966-2 ####[facility] ([id number])[address] [place] [address] 55254 COMPREHENSIVE METABOLIC PANE Dayron 06-26-2024 Albumin [Mass/Vol] 3.9 g/dL Normal 3.2-5.3 [facility] Comment on above: Performed By: #### C BCA, PINR, 72473-5, CMP, 02604-1, 32662-1, THYR, 81244-7 ####[facility] ([id number])[address] [place] [address] 04702 ALP [Catalytic activity/Vol] 73 U/L Normal 39-130 [facility] Comment on above: Performed By: #### C BCA, PINR, 63072-4, CMP, 35116-1, 22414-8, THYR, 92969-6 ####[facility] ([id number])[address] [place] [address] 84034 ALT [Catalytic activity/Vol] 47 U/L High 0-31 [facility] Comment on above: Performed By: #### C BCA, PINR, 24088-0, CMP, 75010-6, 15952-1, THYR, 00681-9 ####[facility] ([id number])[address] [place] [address] 52887 Anion gap [Moles/Vol] 14 mmol/L Normal 5-15 [facility] Comment on above: Performed By: #### C BCA, PINR, 61909-4, CMP, 95195-1, 12522-5, THYR, 10593-1 ####[facility] ([id number])[address] [place] [address] 98771 AST [Catalytic activity/Vol] 34 U/L Normal 0-41 [facility] Comment on above: Performed By: #### C BCA, PINR, 80784-7, CMP, 35447-2, 50043-9, THYR, 58290-5 ####[facility] ([id number])[address] [place] [address] 49345 Bilirubin [Mass/Vol] 0.4 mg/dL Normal 0.3-1.2 [facility] [place] Comment on above: Performed By: #### C BCA, PINR, 57622-8, CMP, 47406-7, 38977-9, THYR, 35258-3 ####[facility] ([id number])[address] [place] [address] 13778 Calcium [Mass/Vol] 9.0 mg/dL Normal 8.5-10.5 [facility] Comment on above: Performed By: #### C BCA, PINR, 78125-2, CMP, 21154-2, 27919-0, THYR, 87998-1 ####[facility] ([id number])[address] [place] [address] 30273 Chloride [Moles/Vol] 94 mmol/L Low 98-109 [facility] Comment on above: Performed By: #### C BCA, PINR, 22333-1, CMP, 75783-6, 30183-0, THYR, 69610-0 ####[facility] ([id number])[address] [place] [address] 75581 CO2 [Moles/Vol] 25 mmol/L Normal 22-32 [facility] Comment on above: Performed By: #### C BCA, PINR, 85773-5, CMP, 74432-4, 89941-1, THYR, 99134-9 ####[facility] ([id number])[address] [place] [address] 52225 Creatinine [Mass/Vol] 0.88 mg/dL Normal 0.40-1.00 [facility] Comment on above: Result Comment: METH OD TRACEABLE TO IDMS STANDARD Performed By: #### C BCA, PINR, 86628-8, CMP, 63112-0, 39022-1, THYR, 93035-4 ####[facility] ([id number])[address] [place] [address] 47063 GFR/1.73 sq M.predicted among non-blacks MDRD (S/P/Bld) [Vol rate/Area] 84 mL/min/{1.73_m2} Normal >59 [facility] Comment on above: Result Comment: Reported eGFR is based on the CKD-EPI 2020 equation that does not use a race coefficient. Performed By: #### C BCA, PINR, 70400-9, CMP, 00174-0, 30228-3, THYR, 43552-8 ####[facility] ([id number])[address] [place] [address] 00141 Glucose [Mass/Vol] 107 mg/dL High 65-99 [facility] Comment on above: Performed By: #### C BCA, PINR, 99354-3, CMP, 16707-6, 26837-2, THYR, 87522-9 ####[facility] ([id number])[address] [place] [address] 86279 Potassium [Moles/Vol] 4.0 mmol/L Normal 3.5-5.0 [facility] Comment on above: Performed By: #### C BCA, PINR, 62071-6, CMP, 79441-3, 40381-7, THYR, 61255-2 ####[facility] ([id number])[address] [place] [address] 64612 Protein [Mass/Vol] 7.7 g/dL Normal 6.0-8.0 [facility] Comment on above: Performed By: #### C BCA, PINR, 83140-8, CMP, 43458-5, 01220-5, THYR, 75018-6 ####[facility] ([id number])[address] [place] [address] 51806 Sodium [Moles/Vol] 133 mmol/L Low 134-146 [facility] Comment on above: Performed By: #### C BCA, PINR, 18021-1, CMP, 65772-0, 61953-1, THYR, 50180-4 ####[facility] ([id number])[address] [place] [address] 99697 Urea nitrogen [Mass/Vol] 13 mg/dL Normal 5-23 [facility] Comment on above: Performed By: #### C BCA, PINR, 55848-2, CMP, 86898-7, 92676-9, THYR, 31520-5 ####[facility] ([id number])[address] [place] [address] BRAIN WO CONTon 5 CT BRAIN WO CONT CT BRAIN WO CONT Examination: Noncontrast brain CT Date of Exam:06/26/2024 Clinical History:Chronic headache Comparison:07/02/2015 Procedure: Multi-detector CT performed through the brain without IV contrast. Automatic exposure control (AEC) was utilized. Findings: There is no intracranial hemorrhage, extra-axial fluid collection, mass effect, or hydrocephalus. Cai-white matter differentiation is appropriate. Infarcts may be occult on CT, but grossly no acute infarct identified There is no midline shift. IMPRESSION: 1. No acute findings. All CT scans at this facility use dose modulation, iterative reconstruction, and/or weight based dosing when appropriate to reduce radiation dose to as low as reasonably achievable. Finalized by Silvano Winters MD on 06/26/2024 9:54 PM Normal [facility] CT CTA CHESTon 06-26-[address] CTA CHEST CLINICAL INFORMATION: Pulmonary emboli. Shortness of breath. Chest pain.. COMPARISON: 08/15/2016. PROCEDURE: CT angiography of the chest was performed with IV contrast. Sagittal and coronal reformatted images with 3-D Maximum intensity projection reconstructions constructed under concurrent physician supervision on a independent workstation. Automated exposure control was utilized. 3-D reformatted images confirm the source data findings. All CT scans at this facility dose modulation, iterative reconstruction, and/or weight based dosing when appropriate to reduce radiation dose to as low as reasonably achievable. FINDINGS: The heart is normal in size. No pericardial effusion. No significant atherosclerotic calcification the coronary arteries. No thoracic aortic aneurysm or dissection. The pulmonary arteries are patent. No mediastinal or hilar lymphadenopathy. The trachea and mainstem bronchi are patent. No pleural effusion. No pneumothorax. Benign pleural-based nodule left lower lobe measuring 9 mm with central calcification, likely hamartoma or a benign granuloma. No dedicated follow-up necessary. Unchanged from previous study. No suspicious pulmonary nodules or masses. No acute findings in the partially visualized abdomen. No acute osseous abnormalities. IMPRESSION: No acute findings. No evidence of pulmonary embolus. Finalized by Alex Ott MD on 06/26/2024 11:54 PM Normal [facility] Fibrin D-dimer DDU (PPP) [Ma ss/Vol]on 06-26-2024 D DIMER 331 ng/mL DDU High <255 [facility] Comment on above: Result Comment: Results >=255ng/mL DDU: Results may be indicative of the presence of VTE. The use of the Wells score and further diagnostic tests should be considered. Elevated D-Dimer levels can also be associated with DIC, neoplasm, , trauma and liver disease. Elevated levels of rheumatoid factor may lead to an overestimation of the D-Dimer level. Performed By: #### U A #### [facility] ([id number]) [address], [address] [place] [address] HCG ( test) Ql (U)o n 06-26-2024 Beta HCG ( test) Ql (U) Negative Normal NEG [facility] Comment on above: Performed By: #### U A #### [facility] ([id number]) [address], [address] [place] [address] MAGNESIUMon 06-26-2024 Magnesium [Mass/Vol] 1.1 mg/dL Low 1.8-2.6 [facility] [place] Comment on above: Performed By: #### C BCA, PINR, 94692-4, CMP, 52476-1, 24442-7, THYR, 69644-8 ####[facility] ([id number])[address] [place] [address] PROTIME AND INRon 06-26-2024 INR Coag (PPP) [Relative time] 1.1 {INR} Normal 0.8-1.1 [facility] Comment on above: Performed By: #### C BCA, PINR, 14099-7, CMP, 02171-3, 90464-9, THYR, 87819-6 ####[facility] ([id number])[address] [place] [address] PT Coag (PPP) [Time] 12.6 s Normal 9.8-13.2 [facility] [place] Comment on above: Result Comment: NEW REFERENCE RANGE Performed By: #### C BCA, PINR, 37368-0, CMP, 10521-1, 02783-9, [facility], 68552-7 ####[facility] ([id number])[address] [place] [address] SARS/FLU A+B/RSV by NAAT/Mol ecularon 06-26-2024 SARS/FLU A+B/RSV by NAAT/Molecular FLU A PCR Negative (qualifier value) FLU B PCR Negative (qualifier value) RSV by PCR Negative (qualifier value) SARS CoV 2 Not detected (qualifier value) NOTE The Xpert Xpress SARS-CoV-2/Flu/RSV Plus test is a rapid, multiplexed real-time RT-PCR test intended for the simultaneous qualitative detection and differentiation of SARS-CoV-2, influenza A, influenza B and respiratory syncytial virus (RSV) viral RNA from individuals suspected of respiratory viral infection consistent with COVID-19 by their healthcare provider. This test has not been validated in asymptomatic patients. The Xpert Xpress SARS-CoV-2 test is intended for use by qualified and trained operators who are performing tests using either BISON DX or Rad systems and is limited to laboratories that meet the CLIA requirements to perform high and moderate complexity tests. The Xpert Xpress SARS-CoV-2/Flu/RSV Plus is only for use under the Food and Drug Administration's Emergency Use Authorization. Results are for the simultaneous detection and differentiation of SARS-CoV-2, influenza A, influenza B and RSV nucleic acids in clinical specimens. SARS-CoV-2, influenza A, influenza B and RSV RNA identified by this test are generally detectable in upper respiratory samples during the acute phase of infection. Positive results are indicative of the presence of the identified virus, but do not rule out bacterial infection or co-infection with other pathogens not detected by this test. Clinical correlation with patient history and other diagnostic information is necessary to determine patient infection status. The agent detected may not be the definite cause of disease. Negative results do not preclude SARS-CoV-2, influenza A, influenza B and RSV infection and should not be used as the sole basis for treatment or other patient management decisions. Negative results must be combined with clinical observations, patient history and epidemiological information. An Invalid result may occur with specimen-associated inhibition unable to be resolved with specimen repeat. Fact Sheet for Healthcare Providers: https://www.fda.gov/m edia/096557/download Fact Sheet for Patients: https://www.fda.gov/m edia/778671/download Normal [facility] Comment on above: Performed By: #### U A #### [facility] ([id number]) [address], [address] [place] [address] THYROID PROFILEon 06-26-2024 Free T4 [Mass/Vol] 0.93 ng/dL Normal 0.61-1.60 [facility] Comment on above: Performed By: #### U A #### [facility] ([id number]) [address], [address] [place] [address] TSH 1.80 uIU/mL Normal 0.49-4.67 [facility] Comment on above: Performed By: #### U A #### [facility] ([id number]) [address] [place] [address], [address] [place] [address] Troponin I.cardiac High sens itivity method [Mass/Vol]on 06-26-2024 1 HOUR TROP I, HIGH SENSITIVITY 3 ng/L Normal <16 [facility] Comment on above: Performed By: #### U A #### [facility] ([id number]) [address], [address] [place] [address] TROPONIN I, HIGH SENSITIVITY 3 ng/L Normal <16 [facility] Comment on above: Performed By: #### U A #### [facility] ([id number]) [address], [address] [place] [address] URINE CULTUREon 06-26-2024 Bacteria identified Cx Nom (U) CULTURE RESULTS >100,000 ORGANISMS/mL ESCHERICHIA COLI [ S = SUSCEPTIBLE R = RESISTANT I = INTERMEDIATE S-DO = Susceptible-dose dependent NS = Non-suscceptible NO = No Interpretation ] Organism: ESCHERICHIA COLI Antibiotic Interpretation RADHA Status AMPICILLIN R >=32 F AMP/SULBACTAM I 16/8 F CEFAZOLIN R >=64 F CIPROFLOXACIN S <=0.25 F GENTAMICIN S <=1 F LEVOFLOXACIN S <=0.12 F NITROFURANTOIN S <=16 F PIPERACIL/TAZOBACTAM S <=4 F TOBRAMYCIN S <=1 F TRIMETH/SULFAMETHOXAZ OLE S <=06/02 F Susceptible [facility] Comment on above: Performed By: #### U A #### [facility] ([id number]) [address], [address] [place] [address] URN MACROSCOPIC NURon 2024 BILIRUBIN MARGE Negative Normal NEG [facility] Comment on above: Performed By: #### U A #### [facility] ([id number]) [address], [address] [place] [address] BLOOD/HGB MARGE Negative Normal NEG [facility] Comment on above: Performed By: #### U A #### [facility] ([id number]) [address], [address] [place] [address] GLUCOSE MARGE Negative Normal NEG [facility] Comment on above: Performed By: #### U A #### [facility] ([id number]) [address], [address] [place] [address] KETONES MARGE Negative Normal NEG [facility] Comment on above: Performed By: #### U A #### [facility] ([id number]) [address], [address] [place] [address] LEUKOCYTE ESTERASE MARGE Trace Abnormal NEG [facility] Comment on above: Performed By: #### U A #### [facility] ([id number]) [address], [address] [place] [address] NITRITE MARGE Negative Normal NEG [facility] Comment on above: Performed By: #### U A #### [facility] ([id number]) [address], [address] [place] [address] PH MARGE 6.0 Normal 5.0-8.5 [facility] Comment on above: Performed By: #### U A #### [facility] ([id number]) [address], [address] [place] [address] PROTEIN MARGE Negative Normal NEG [facility] Comment on above: Performed By: #### U A #### [facility] ([id number]) [address], [address] [place] [address] SPECIFIC GRAVITY MARGE 1.015 Normal 1.003-1.035 [facility] Comment on above: Performed By: #### U A #### [facility] ([id number]) [address], [address] [place] [address] UROBILINOGEN MARGE 0.2 eu/dL Normal <1.1 [facility] Comment on above: Performed By: #### U A #### [facility] ([id number]) [address], [address] [place] [address] aPTT Coag (PPP) [Time]on aPTT Coag (Bld) [Time] 36 s Normal 26-37 [facility] Comment on above: Result Comment: NEW REFERENCE RANGE Performed By: #### C BCA, PINR, 04865-2, CMP, 32141-9, 44021-7, THYR, 32980-7 ####[facility] ([id number])[address] [place] [address] ALL CBC WITH AUTO DIFFon BASOPHILS ABSOLUTE AUTO 0.1 [facility] Basophils/100 WBC (Bld) 0.7 % 0.2 - 2.0 % [facility] Eosinophils/100 WBC (Bld) 5.2 % 0.9 - 7.0 % [facility] Erythrocyte distribution width (RBC) [Ratio] 13.2 % 11.0 - 15.0 % [facility] Hematocrit (Bld) [Volume fraction] 36.9 % 36.0 - 48.0 % [facility] Hemoglobin (Bld) [Mass/Vol] 12.1 g/dL 12.0 - 16.0 g/dL [facility] IMMATURE GRANULOCYTES ABS AUTO 0.02 [facility] Immature granulocytes/100 WBC (Bld) 0.2 % 0.0 - 0.5 % [facility] LYMPHOCYTES ABSOLUTE AUTO 3 [facility] Lymphocytes/100 WBC (Bld) 33.5 % 20.5 - 60.0 % [facility] MCH (RBC) [Entitic mass] 28.7 pg 26.7 - 34.0 pg [facility] MCHC (RBC) [Mass/Vol] 32.8 g/dL 29.9 - 35.2 g/dL [facility] MCV (RBC) [Entitic vol] 87.6 fL 81.0 - 99.0 fL [facility] MONOCYTES ABSOLUTE AUTO 0.7 [facility] Monocytes/100 WBC (Bld) 7.9 % 1.7 - 12.0 % [facility] NEUTROPHILS ABSOLUTE AUTO 4.7 [facility] Neutrophils/100 WBC (Bld) 52.5 % 43.0 - 75.0 % [facility] Platelet mean volume (Bld) [Entitic vol] 10.4 fL 9.5 - 13.5 fL [facility] TBH EO # 0.5 [facility] TBH PLT 289 [facility] TB RBC 4.21 [facility] TB WBC 8.9 [facility] CLINIS[facility]NC [facility] CBC AND AUTO DIFFon 04-12-20 24 ABSOLUTE BASOPHIL 0.1 X10E9/L Normal 0.0-0.2 [facility] Comment on above: Performed By: #### C ROQUE MAYORGA, , 35372-8 #### [facility] ([id number]) [address] [place] [address] ABSOLUTE NEUTROPHIL 5.3 X10E9/L Normal 1.5-6.6 [facility] Comment on above: Performed By: #### C ROQUE MAYORGA, , 75618-9 #### [facility] ([id number]) [address] [place] [address] Basophils/100 WBC (Bld) 1.0 % Normal [facility] Comment on above: Performed By: #### C ROQUE MAYORGA, , 28363-6 #### [facility] ([id number]) [address] [place] [address] Eosinophils (Bld) [#/Vol] 0.6 10*3/uL High 0.0-0.4 [facility] Comment on above: Performed By: #### C BCA, CMP, , 98824-0 #### [facility] ([id number]) [address] [place] [address] Eosinophils/100 WBC (Bld) 6.1 % Normal [facility] Comment on above: Performed By: #### Festus MAYORGA, CMP, , #### [facility] ([id number]) [address] [place] [address] Erythrocyte distribution width (RBC) [Ratio] 14.1 % Normal 11.5-15.0 [facility] Comment on above: Performed By: #### Festus MAYORGA, CMP, , 49072-5 #### [facility] ([id number]) [address] [place] [address] Hematocrit (Bld) [Volume fraction] 37.0 % Normal 35-47 [facility] Comment on above: Performed By: #### Festus MAYORGA, CMP, , 44727-1 #### [facility] ([id number]) [address] [place] [address] Hemoglobin (Bld) [Mass/Vol] 12.3 g/dL Normal 11.7-15.5 [facility] Comment on above: Performed By: #### Festus BCA, CMP, , 98391-6 #### [facility] ([id number]) [address] [place] [address]107 Lymphocytes (Bld) [#/Vol] 2.8 10*3/uL Normal 1.0-3.5 [facility] Comment on above: Performed By: #### C BCA, CMP, , 79647-7 #### [facility] ([id number]) [address] [place] [address] 72467 Lymphocytes/100 WBC (Bld) 29.4 % Normal [facility] Comment on above: Performed By: #### C BCA, CMP, , 75525-7 #### [facility] ([id number]) [address] [place] [address]42 MCH (RBC) [Entitic mass] 28.8 pg Normal 27-34 [facility] Comment on above: Performed By: #### C BCA, CMP, , 52971-3 #### [facility] ([id number]) [address] [place] [address]48 MCHC (RBC) [Mass/Vol] 33.3 g/dL Normal 32-36 [facility] Comment on above: Performed By: #### C BCA, CMP, , 95577-0 #### [facility] ([id number]) [address] [place] [address]384 MCV (RBC) [Entitic vol] 86 fL Normal 80-100 [facility] Comment on above: Performed By: #### C BCA, CMP, , 27868-0 #### [facility] ([id number]) [address] [place] [address] Monocytes (Bld) [#/Vol] 0.8 10*3/uL Normal 0-0.9 [facility] Comment on above: Performed By: #### C BCA, CMP, , 92081-3 #### [facility] ([id number]) [address] [place] [address]30 Monocytes/100 WBC (Bld) 8.3 % Normal [facility] Comment on above: Performed By: #### C BCA, CMP, , 36238-2 #### [facility] ([id number]) [address] [place] [address]85 Neutrophils/100 WBC (Bld) 55.2 % Normal [facility] Comment on above: Performed By: #### C BCA, CMP, , 68460-5 #### [facility] ([id number]) [address] [place] [address] 10382 Platelet mean volume (Bld) [Entitic vol] 8.1 fL Normal 7-12 [facility] Comment on above: Performed By: #### C BCA, CMP, , 92496-1 #### [facility] ([id number]) [address] [place] [address] 79094 Platelets (Bld) [#/Vol] 360 10*3/uL Normal 150-450 [facility] Comment on above: Performed By: #### C BCA, CMP, , 44593-3 #### [facility] ([id number]) [address] [place] [address] 06102 RBC COUNT 4.28 X10E12/L Normal 3.80-5.20 [facility] Comment on above: Performed By: #### C BCA, CMP, , 18127-7 #### [facility] ([id number]) [address] [place] [address]803 WBC (Bld) [#/Vol] 9.5 10*3/uL Normal 4.0-11.0 [facility] Comment on above: Performed By: #### C BCA, CMP, , 49946-0 #### [facility] ([id number]) [address] [place] [address]123 COMPREHENSIVE METABOLIC PANE [facility] 04-12-2024 Albumin [Mass/Vol] 3.7 g/dL Normal 3.2-5.3 [facility] Comment on above: Performed By: #### C BCA, CMP ####[facility] ([id number])[address] [place] [address], [place] [address] ALP [Catalytic activity/Vol] 78 U/L Normal 39-130 [facility] Comment on above: Performed By: #### C BCA, CMP ####[facility] ([id number])[address] [place] [address] [place] [address] ALT [Catalytic activity/Vol] 63 U/L High 0-31 [facility] Comment on above: Performed By: #### C BCA, CMP ####[facility] ([id number])[address] [place] [address] [place] [address] Anion gap [Moles/Vol] 10 mmol/L Normal 5-15 [facility] Comment on above: Performed By: #### C BCA, CMP ####[facility] ([id number])[address] [place] [address] [place] [address] AST [Catalytic activity/Vol] 78 U/L High 0-41 [facility] Comment on above: Performed By: #### C BCA, CMP ####[facility] ([id number])[address] [place] [address] [place] [address] Bilirubin [Mass/Vol] 0.3 mg/dL Normal 0.3-1.2 [facility] Comment on above: Performed By: #### C BCA, CMP ####[facility] ([id number])[address] [place] [address] [place] [address] Calcium [Mass/Vol] 9.0 mg/dL Normal 8.5-10.5 [facility] Comment on above: Performed By: #### C BCA, CMP ####[facility] ([id number])[address] [place] [address] [place] [address] Chloride [Moles/Vol] 101 mmol/L Normal 98-109 [facility] Comment on above: Performed By: #### C BCA, CMP ####[facility] ([id number])[address] [place] [address] 478[address] CO2 [Moles/Vol] 25 mmol/L Normal 22-32 [facility] Comment on above: Performed By: #### C BCA, CMP ####[facility] ([id number])[address] [place] [address] Creatinine [Mass/Vol] 0.68 mg/dL Normal 0.40-1.00 [facility] Comment on above: Result Comment: METH OD TRACEABLE TO IDMS STANDARD Performed By: #### C TIERRA, CMP ####[facility] ([id number])[address] [place] [address]331 eGFR (CKD-EPI) NON-RACE DEPENDENT >90 Normal >59 [facility] Comment on above: Result Comment: Reported eGFR is based on the CKD-EPI 2020 equation that does not use a race coefficient. Performed By: #### C BCA, CMP ####[facility] ([id number])[address] [place] [address] 98480 Glucose [Mass/Vol] 110 mg/dL High 65-99 [facility] Comment on above: Performed By: #### C BCA, CMP ####[facility] ([id number])[address] [place] [address] 12717 Potassium [Moles/Vol] 3.9 mmol/L Normal 3.5-5.0 [facility] Comment on above: Performed By: #### C BCA, CMP ####[facility] ([id number])[address] [place] [address] 77479 Protein [Mass/Vol] 7.5 g/dL Normal 6.0-8.0 [facility] Comment on above: Performed By: #### C BCA, CMP ####[facility] ([id number])[address] [place] [address] Sodium [Moles/Vol] 136 mmol/L Normal 134-146 [facility] Comment on above: Performed By: #### C BCA, CMP ####[facility] ([id number])[address] [place] [address] Urea nitrogen [Mass/Vol] 12 mg/dL Normal 5-23 [facility] Comment on above: Performed By: #### C BCA, CMP ####[facility] ([id number])[address] [place] [address] ABDOMEN AND PELVIS WO CON Ton 04-12-2024 CT ABDOMEN AND PELVIS WO CONT CT ABDOMEN AND PELVIS WO CONT CLINICAL INFORMATION: Study: CT abdomen and pelvis without contrast History:Flank pain Protocol:CT abdomen and pelvis without contrast Contrast none COMPARISON:09/27/2023 Findings: Lung bases:Normal Liver:Fatty infiltration of liver Spleen:Normal Gallbladder:Removed Bile ducts:No dilatation Pancreas:Normal Adrenals:Normal Kidneys:Subcentimeter hypodensity in the mid polar left kidney likely cyst too small for further characterization unchanged since prior Ureters:Normal no hydroureter or calculi Bladder:Not well distended limited evaluation Bowel:Stomach unremarkable. No small bowel dilatation. Normal appendix. No large bowel dilatation. Reproductive organs:The ovary appears mildly enlarged on the left side and on the previous examination there appear to be an ovarian cyst. Ultrasonography may be helpful for further evaluation. Mesentry:No adenopathy Peritoneum:No free air or free fluid Retroperitoneum:No adenopathy Vessels:No aortic aneurysm mild atherosclerotic changes Abdominal wall:No hernia Bones:No is made of sclerotic changes around the SI joints bilaterally could represent some sacroiliitis. Correlation with history recommended. IMPRESSION: * Patient has a history of left angiomyolipoma there is a small left renal hypodensity unchanged since previous exam but it does not contain fat and likely represents a cyst * Left ovary is mildly enlarged there is a history of prior left ovarian cyst on previous exam pelvic ultrasonography may be helpful for further evaluation * No is made of sclerotic changes around the SI joints bilaterally could represent some sacroiliitis. Correlation with history recommended All CT scans at this facility use dose modulation, iterative reconstruction, and/or weight based dosing when appropriate to reduce radiation dose to as low as reasonably achievably Finalized by Dallin Campos MD on 04/12/2024 5:45 PM [facility] HCG ( test) Ql (U)o n 04-12-2024 Beta HCG ( test) Ql (U) Negative Normal NEG [facility] Comment on above: Performed By: #### C TIERRA CMP, , 49584-6 #### [facility] ([id number]) [address] [place] [address]257 URINE CULTUREon 04-12-2024 Bacteria identified Cx Nom (U) SPECIMEN NOTES URINE RECEIVED WITHOUT PRESERVATIVE CULTURE RESULTS NO GROWTH AT <1000 CFU/mL [facility] Comment on above: Performed By: #### 6 30-4 ####[facility] ([id number])[address] [place] [address], [address] [address] URN MACROSCOPIC NURon 2023 BILIRUBIN MARGE Negative Normal NEG [facility] Comment on above: Performed By: #### C TIERRA CMP, , 39322-6 #### [facility] ([id number]) [address] [place] [address] 39449 BLOOD/HGB MARGE Negative Normal NEG [facility] Comment on above: Performed By: #### C TIERRA CMP, , 25119-6 #### [facility] ([id number]) [address] [place] [address] 94683 GLUCOSE MARGE Negative Normal [facility] Comment on above: Performed By: #### C TIERRA CMP, , 63102-6 #### [facility] ([id number]) [address] [place] [address] 80073 KETONES MARGE Trace Abnormal NEG [facility] Comment on above: Performed By: #### C BCA, CMP, , 07071-4 #### [facility] ([id number]) [address] [place] [address] 10708 LEUKOCYTE ESTERASE MARGE Negative Normal NEG [facility] Comment on above: Performed By: #### C BCA, CMP, , 23209-0 #### [facility] ([id number]) [address] [place] [address] [place] [address] NITRITE MARGE Negative Normal NEG [facility] Comment on above: Performed By: #### C BCA, CMP, , 07206-9 #### [facility] ([id number]) [address] [place] [address] 23043 PH MARGE 5.5 Normal 5.0-8.5 [facility] Comment on above: Performed By: #### C BCA, CMP, , 02556-0 #### [facility] ([id number]) [address] [place] [address] 61658 PROTEIN MARGE Negative Normal NEG [facility] Comment on above: Performed By: #### C BCA, CMP, , 45420-0 #### [facility] ([id number]) [address] [place] [address] 31769 SPECIFIC GRAVITY MARGE 1.025 Normal 1.003-1.035 [facility] Comment on above: Performed By: #### C BCA, CMP, , 75317-3 #### [facility] ([id number]) [address] [place] [address] 79912 UROBILINOGEN MARGE 0.2 eu/dL Normal <1.1 [facility] Comment on above: Performed By: #### C BCA, CMP, , 53102-0 #### [facility] ([id number]) [address] [place] [address] 99425 US PELVIC WITH TRANSVAGINAL AND DUPLEXon 04-12-2024 US PELVIC WITH TRANSVAGINAL AND DUPLEX US PELVIC WITH TRANSVAGINAL AND DUPLEX CLINICAL INFORMATION: Evaluate for Ovarian Torsion. Pelvic pain TECHNIQUE: Real-time transabdominal and transvaginal sonographic evaluation of the pelvis was performed with cai scale and color flow imaging. Transabdominal imaging performed to evaluate for extra adnexal pelvic pathology. Transvaginal imaging performed for better delineation of the adnexal and endometrial contents. Real time cai scale, color flow imaging and duplex spectral Doppler waveform analysis evaluation was performed of the major arterial inflow and venous outflow structures of the ovaries with arterial and venous spectral waveforms obtained and reviewed in view of the clinical history of Evaluate for Ovarian Torsion pelvic pain. Duplex spectral Doppler document arterial and venous spectral waveforms documented within the major arterial inflow and venous outflow of both ovaries. Arterial and venous Doppler duplex spectral waveforms were evaluated. COMPARISON: Same day CT scan. Ultrasound 06/10/2022 FINDINGS: Uterus measures 8.9 x 3.8 x 5.2 cm. Endometrium measures 1 cm in thickness. Small nabothian cysts at the cervix, largest measuring 7 mm. No dedicated follow-up necessary. The right ovary measures 3.8 x 3.1 x 2.1 cm. Normal arterial and venous wave flow visualized. There is a 2.5 cm simple cyst. No dedicated follow-up necessary. Left ovary measures 5.4 x 4.6 x 3.8 cm. Normal arterial and venous waveform visualized. Simple cyst measuring 4.6 cm. No dedicated follow-up necessary. No free fluid in the pelvis. The arterial and venous waveforms are within normal limits. IMPRESSION: * No acute findings. No evidence of ovarian torsion. * Bilateral benign-appearing ovarian cysts. No dedicated follow-up necessary. Finalized by Alex Ott MD on 04/12/2024 8:08 PM Normal [facility] XR CHEST 1 VWon 04-12-2024 XR CHEST 1 VW XR CHEST 1 VW Portable chest: HISTORY: Cough. Single view the chest was obtained Cardiac and mediastinal contours are within normal limits. Lungs are clear. There is no vascular congestion, effusion, or pneumothorax. Osseous structures appear intact. IMPRESSION: No acute findings. Finalized by Lui Vera MD on 04/12/2024 5:32 PM Normal [facility] XR CHEST 2 VWSon 04-03-2024 XR CHEST 2 VWS XR CHEST 2 VWS Clinical history: Cough and shortness of breath x1 week. Wheezing. Body aches. Comparisons: 01/24/2013 through 07/05/2023. Findings: 2 views of the chest obtained. Heart size and pulmonary vasculature appear within normal limits. Lungs appear clear. There is no pleural effusion nor pneumothorax. IMPRESSION: No evidence for acute cardiopulmonary disease. Finalized by Claudia Cyr MD on 04/03/2024 11:47 AM Normal [facility] POCT Influenza A/Influenza B /SARS-COV-2 Veritoron 04-02-2024 External Poct Influenza A Antigen Negative [facility] External Poct Influenza B Antigen Negative [facility] Interpretation and review of laboratory results Normal [facility] SARS-CoV-2 (COVID-19) Ag IA.rapid Ql (Resp) Negative [facility] 24 HR PHOSPHORUS,URINEon URINE PHOSPHORUS 0.8 g/24h Normal 0.4-1.3 [facility] Comment on above: Performed By: #### C ROQUE MAYORGA, , 46573-9 #### [facility] ([id number]) [address] [place] [address] 30459 24 HR UR MAGNESIUMon 024 URINE MAGNESIUM 63 mg/24h Low 72-182 [facility] Comment on above: Performed By: #### C ROQUE MAYORGA, , 37035-4 #### [facility] ([id number]) [address] [place] [address] 23979 24 HR URINE CALCIUMon 2023 URINE CALCIUM 34 mg/24h Low 50-250 [facility] Comment on above: Performed By: #### C TIERRA CMP, 15235-1, 70954-9 #### [facility] ([id number]) [address] [place] [address] 78429 24 HR URINE CREATININEon URINE CREATININE 1.35 g/24h Normal 0.80-1.80 [facility] Comment on above: Performed By: #### C BCA, CMP, , 74652-4 #### [facility] ([id number]) [address] [place] [address] 55990 24 HR URINE POTASSIUMon 03-15 URINE POTASSIUM 56 mmol/24h Normal 25-100 [facility] Comment on above: Performed By: #### C BCA, CMP, , 30043-0 #### [facility] ([id number]) [address] [place] [address] 49933 24 HR URINE SODIUMon 024 URINE SODIUM 329 mmol/24h High 40-220 [facility] Comment on above: Performed By: #### Festus BCA, CMP, , 99403-2 #### [facility] ([id number]) [address] [place] [address] 09998 24 HR URINE URIC ACIDon 03-15 URINE URIC ACID 0.6 g/24h Normal 0.3-0.8 [facility] Comment on above: Performed By: #### C BCA, CMP, , 27873-4 #### [facility] ([id number]) [address] [place] [address] 41572 Laboratory comment Jeremiah (o rt)on 03-31-2024 UNLISTED LAB TEST Sent to reference lab Normal [facility] Comment on above: Performed By: #### C BCA, CMP, , 91162-1 #### [facility] ([id number]) [address] [place] [address] 34159 Supersaturation Profile, 24h fernanda 03-31-2024 Ammonium, 24 HR, U 30 mmol/24 h Normal 15 - 56 [facility] Comment on above: Result Comment: NOTE ADDITIONAL INFORMATION This test has been modified from the sap enterprise portal consultant's instructions. Its performance characteristics were determined by [facility] in a manner consistent with CLIA requirements. This test has not been cleared or approved by the U.S. Food and Drug Administration. Performed By: #### C ROQUE MAYORGA, , 73415-2 #### [facility] ([id number]) [address] [place] [address] 77774 Body height 165 cm Normal [facility] Comment on above: Result Comment: Donell ected on 04/04 AT 0810: Previously reported as 165.1 Performed By: #### C ROQUE MAYORGA, , 45198-1 #### [facility] ([id number]) [address] [place] [address] 29553 Brushite Crystal NEG 2.34 Normal [facility] Comment on above: Result Comment: NOTE REFERENCE VALUE Reference Mean= -0.11 Performed By: #### C ROQUE MAYORGA, , 54367-1 #### [facility] ([id number]) [address] [place] [address] 90641 Calcium Oxalate Crystal NEG 0.34 Normal Reference Mean= 1.59 [facility] Comment on above: Result Comment: NOTE PDF Report available at: [email or web address] Performed By: #### C ROQUE MAYORGA, , #### [facility] ([id number]) [address] [place] [address] 41519 Calcium, 24 HR, U 29 mg/24 h Normal [facility] Comment on above: Performed By: #### C BCA, CMP, , 91416-5 #### [facility] ([id number]) [address] [place] [address] 60385 Chloride, 24 HR, U 293 mmol/24 h High 34 - 286 [facility] Comment on above: Performed By: #### C BCA, CMP, , 82013-0 #### [facility] ([id number]) [address] [place] [address] 00802 Citrate Excretion, 24 HR, U 288 mg/24 h Low 314 - 1191 [facility] Comment on above: Result Comment: NOTE ADDITIONAL INFORMATION This test was developed and its performance characteristics determined by [facility] in a manner consistent with CLIA requirements. This test has not been cleared or approved by the U.S. Food and Drug Administration. Performed By: #### C BCA, CMP, , 68275-8 #### [facility] ([id number]) [address] [place] [address] 73210 Collection duration (U) 24 h Normal [facility] Comment on above: Performed By: #### C BCA, CMP, , 12466-8 #### [facility] ([id number]) [address] [place] [address] 28559 Creatinine, 24 HR, U 1431 mg/24 h Normal 603 - 1783 Pr [facility] Comment on above: Performed By: #### C BCA, CMP, , 36437-4 #### [facility] ([id number]) [address] [place] [address] 92921 Hydroxyapatite Crystal 1.07 DG Normal Refer ence Mean= 3.62 [facility] Comment on above: Performed By: #### C BCA, CMP, , 45690-0 #### [facility] ([id number]) [address] [place] [address] 20221 Interpretation See Note Normal [facility] Comment on above: Result Comment: NOTE The DG is related to supersaturation. DG is negative for undersaturated solutions, zero for solutions at the solubility product, and positive for saturated solutions. Any value greater than the Reference Mean is considered a risk for the respective crystal type formation. In general, a higher calculated SS means the risk for forming that type of stone is increased. A positive DG value indicates that the urine is supersaturated for that crystal type. SSINT is the reportable component of the orderable test code, SUP24. A full copy of the interpretative report is available as a PDF appended to this cover sheet and is ready to review. Performed By: #### C TIERRA CMP, , 32572-1 #### [facility] ([id number]) [address] [place] [address] 27943 Magnesium, 24 HR, U 73 mg/24 h Normal 51 - [address] [facility] Comment on above: Performed By: #### C BCA, CMP, , 01854-4 #### [facility] ([id number]) [address] [place] [address] 71030 Osmolality, 24 HR, U 717 mOsm/kg Normal 150 - 1150 [facility] Comment on above: Performed By: #### C BCA, CMP, , 13218-6 #### [facility] ([id number]) [address] [place] [address] 49635 Oxalate, (mg/24 HR) 27.3 mg/24 h Normal 9.7 - 40.5 [facility] Comment on above: Performed By: #### C BCA, CMP, , 63685-3 #### [facility] ([id number]) [address] [place] [address] 95680 Oxalate, (mmol/24 HR) 0.31 mmol/24 h Normal 0.11 - 0.4 6 [facility] Comment on above: Result Comment: NOTE ADDITIONAL INFORMATION This test was developed and its performance characteristics determined by [facility] in a manner consistent with CLIA requirements. This test has not been cleared or approved by the U.S. Food and Drug Administration. Performed By: #### C BCA, CMP, , 99465-3 #### [facility] ([id number]) [address] [place] [address] 00724 Patient Surface Area See Note Normal [facility] Comment on above: Result Comment: NOTE Adult values are not corrected for body surface area. Performed By: #### C BCA, CMP, , 46982-4 #### [facility] ([id number]) [address] [place] [address] 47349 pH, 24 HR, U 5.9 Normal 4.5 - 8.0 [facility] Comment on above: Performed By: #### C BCA, CMP, , 34912-6 #### [facility] ([id number]) [address] [place] [address] 68021 Phosphorus, 24 HR, U 818 mg/24 h Normal 226 - 1797 [facility] Comment on above: Performed By: #### C BCA, CMP, , 90861-0 #### [facility] ([id number]) [address] [place] [address] 58598 Potassium, 24 HR, U 55 mmol/24 h Normal 16 - 105 [facility] Comment on above: Performed By: #### C BCA, CMP, , 57887-3 #### [facility] ([id number]) [address] [place] [address] 83682 Protein Catabolic Rate, 24 HR, U 76 g/24 h Normal 56 - 125 [facility] Comment on above: Performed By: #### C BCA, CMP, , 15082-8 #### [facility] ([id number]) [address] [place] [address] 94516 Sodium, 24 HR, U 340 mmol/24 h High 22 - [address] [facility] Comment on above: Performed By: #### C BCA, CMP, , 22636-4 #### [facility] ([id number]) [address] [place] [address] 37335 Sulfate, 24 HR, U 14 mmol/24 h Normal 7 - [address] [facility] Comment on above: Result Comment: NOTE ADDITIONAL INFORMATION This test was developed and its performance characteristics determined by [facility] in a manner consistent with CLIA requirements. This test has not been cleared or approved by the U.S. Food and Drug Administration. Performed By: #### C BCA, CMP, , 25301-4 #### [facility] ([id number]) [address] [place] [address] 82325 Urea Nitrogen, 24 HR, U 8.1 g/24 h Normal 7.0-42.0 [facility] Comment on above: Performed By: #### C BCA, CMP, , 65512-2 #### [facility] ([id number]) [address] [place] [address] 00064 Uric Acid Crystal 1.24 DG Normal Reference Mean= 0.89 [facility] Comment on above: Performed By: #### C BCA, CMP, , 48009-8 #### [facility] ([id number]) [address] [place] [address] 42052 Uric Acid, 24 HR, U 511 mg/24 h Normal 250 - 750 [facility] Comment on above: Performed By: #### C BCA, CMP, , 20615-6 #### [facility] ([id number]) [address] [place] [address] [place] [address] Volume 1460 mL Normal [facility] Comment on above: Performed By: #### C BCA, CMP, , 51569-6 #### [facility] ([id number]) [address] [place] [address] [place] [address] URINE VOLUME AND TIMEon 11-1 TIME 24 h Normal [facility] Comment on above: Performed By: #### C BCA, CMP, , 45247-0 #### [facility] ([id number]) [address] [place] [address] 15791 TOTAL VOLUME 1460 mL Normal [facility] Comment on above: Performed By: #### C BCA, CMP, , 64040-7 #### [facility] ([id number]) [address] [place] [address] 32197 CBC AND AUTO DIFFon 03-27-20 24 ABSOLUTE BASOPHIL 0.0 X10E9/L Normal 0.0-0.2 [facility] Comment on above: Performed By: #### C BCA, CMP, , 38567-1 #### [facility] ([id number]) [address] [place] [address] 67309 ABSOLUTE NEUTROPHIL 3.8 X10E9/L Normal 1.5-6.6 [facility] Comment on above: Performed By: #### C BCA, CMP, , 16771-3 #### [facility] ([id number]) [address] [place] [address] 87854 Basophils/100 WBC (Bld) 0.5 % [facility] Comment on above: Performed By: #### C BCA, CMP, , 07774-8 #### [facility] ([id number]) [address] [place] [address] 37840 Eosinophils (Bld) [#/Vol] 0.4 10*3/uL Normal 0.0-0.4 [facility] Comment on above: Performed By: #### C BCA, CMP, , 54108-8 #### [facility] ([id number]) [address] [place] [address] 89281 Eosinophils/100 WBC (Bld) 6.3 % Normal [facility] Comment on above: Performed By: #### C BCA, CMP, , 15975-4 #### [facility] ([id number]) [address] [place] [address] 48486 Erythrocyte distribution width (RBC) [Ratio] 14.2 % Normal 11.5-15.0 [facility] Comment on above: Performed By: #### C BCA, CMP, , 85025-0 #### [facility] ([id number]) [address] [place] [address] 84065 Hematocrit (Bld) [Volume fraction] 36.2 % Normal 35-47 [facility] Comment on above: Performed By: #### C BCA, CMP, , 41952-1 #### [facility] ([id number]) [address] [place] [address] 31119 Hemoglobin (Bld) [Mass/Vol] 12.2 g/dL Normal 11.7-15.5 [facility] Comment on above: Performed By: #### C BCA, CMP, , 84012-3 #### [facility] ([id number]) [address] [place] [address] 12137 Lymphocytes (Bld) [#/Vol] 2.3 10*3/uL Normal 1.0-3.5 [facility] Comment on above: Performed By: #### C BCA, CMP, , 00752-2 #### [facility] ([id number]) [address] [place] [address] 72204 Lymphocytes/100 WBC (Bld) 31.6 % Normal [facility] Comment on above: Performed By: #### C BCA, CMP, , 26095-9 #### [facility] ([id number]) [address] [place] [address] 41258 MCH (RBC) [Entitic mass] 29.8 pg Normal 27-34 [facility] Comment on above: Performed By: #### C BCA, CMP, , 51349-3 #### [facility] ([id number]) [address] [place] [address] 76874 MCHC (RBC) [Mass/Vol] 33.7 g/dL Normal 32-36 [facility] Comment on above: Performed By: #### C BCA, CMP, , 05932-8 #### [facility] ([id number]) [address] [place] [address] 73401 MCV (RBC) [Entitic vol] 89 fL Normal 80-100 [facility] Comment on above: Performed By: #### C BCA, CMP, , 62571-1 #### [facility] ([id number]) [address] [place] [address] 86378 Monocytes (Bld) [#/Vol] 0.6 10*3/uL Normal 0-0.9 [facility] Comment on above: Performed By: #### C BCA, CMP, , 33913-0 #### [facility] ([id number]) [address] [place] [address] 09257 Monocytes/100 WBC (Bld) 8.4 % Normal [facility] Comment on above: Performed By: #### C BCA, CMP, , 91174-1 #### [facility] ([id number]) [address] [place] [address] 64026 Neutrophils/100 WBC (Bld) 53.2 % Normal [facility] Comment on above: Performed By: #### C BCA, CMP, , 71044-3 #### [facility] ([id number]) [address] [place] [address] 43129 Platelet mean volume (Bld) [Entitic vol] 8.6 fL Normal 7-12 [facility] Comment on above: Performed By: #### C BCA, CMP, , 97634-7 #### [facility] ([id number]) [address] [place] [address] 60815 Platelets (Bld) [#/Vol] 285 10*3/uL Normal 150-450 [facility] Comment on above: Performed By: #### Festus BCA, CMP, , 80925-4 #### [facility] ([id number]) [address] [place] [address] 64287 RBC COUNT 4.09 X10E12/L Normal 3.80-5.20 [facility] Comment on above: Performed By: #### Festus BCA, CMP, , 73794-3 #### [facility] ([id number]) [address] [place] [address] 54259 WBC (Bld) [#/Vol] 7.1 10*3/uL Normal 4.0-11.0 [facility] Comment on above: Performed By: #### Festus BCA, CMP, , 49901-3 #### [facility] ([id number]) [address] [place] [address] 73605 IRON PROFILEon 03-27-2024 Iron [Mass/Vol] 57 ug/dL Normal 50-170 [facility] Comment on above: Performed By: #### C BCA, CMP, 59568-0, 43073-6 #### [facility] ([id number]) [address] [place] [address] 70942 IRON BINDING 473 ug/dL High 250-425 [facility] Comment on above: Performed By: #### C BCA, CMP, , 83740-3 #### [facility] ([id number]) [address] [place] [address] 16193 IRON SATURATION 12 % SATURATION Low 15-50 [facility] Comment on above: Performed By: #### C TIERRA, CMP, , 30526-0 #### [facility] ([id number]) [address] [place] [address] 06948 FERRITINon 03-04-2024 Ferritin [Mass/Vol] 57 ng/mL Normal 11-307 [facility] Comment on above: Performed By: #### B EDOUARD, CBCA #### [facility] ([id number]) [address], [address] [place] [address] Homocysteine [Moles/Vol]on 1 HOMOCYSTEINE 4.95 mcmol/L Normal 3.36-20.44 [facility] Comment on above: Performed By: #### B EDOUARD, CBCA #### [facility] ([id number]) [address], [address] [place] [address] IRON PROFILEon 03-04-2024 Iron [Mass/Vol] 70 ug/dL Normal 50-170 [facility] Comment on above: Performed By: #### B EDOUARD, CBCA #### [facility] ([id number]) [address], [address] [place] [address] IRON BINDING 514 ug/dL High 250-425 [facility] Comment on above: Performed By: #### B EDOUARD, CBCA #### [facility] ([id number]) [address], [address] [place] [address] IRON SATURATION 14 % SATURATION Low 15-50 [facility] Comment on above: Performed By: #### B BRIANNA NUNNA #### [facility] ([id number]) [address], [address] [place] [address] Methylmalonate [Moles/Vol]on 03-04-2024 Methylmalonic Acid, QN, P 0.14 nmol/mL Normal <=0.40 [facility] Comment on above: Result Comment: NOTE ADDITIONAL INFORMATION This test was developed and its performance characteristics determined by [facility] in a manner consistent with CLIA requirements. This test has not been cleared or approved by the U.S. Food and Drug Administration. Test Performed by: [facility] [place] [address] Electronics Research Engineer: Jose Schmitz Ph.D.; CLIA# [id number] Performed By: #### B EDOUARD CBCA #### [facility] ([id number]) [address] [address] VITAMIN B12on 03-04-2024 Cobalamin (Vitamin B12) [Mass/Vol] 669 pg/mL Normal 180-914 [facility] Comment on above: Performed By: #### B EDOUARD CBCA #### [facility] ([id number]) [address] [address] [place] [address] CBC AND AUTO DIFFon 02-06-20 ABSOLUTE BASOPHIL 0.0 X10E9/L Normal 0.0-0.2 [facility] Comment on above: Performed By: #### B EDOUARD CBCA #### [facility] ([id number]) [address] [address] [place] [address] ABSOLUTE NEUTROPHIL 4.4 X10E9/L Normal 1.5-6.6 [facility] Comment on above: Performed By: #### B MP, CBCA #### [facility] ([id number]) [address] [place] [address] Basophils/100 WBC (Bld) 0.3 % Normal [facility] Comment on above: Performed By: #### B MP, CBCA #### [facility] ([id number]) [address], [address] [place] [address] Eosinophils (Bld) [#/Vol] 0.7 10*3/uL High 0.0-0.4 [facility] Comment on above: Performed By: #### B MP, CBCA #### [facility] ([id number]) [address], [address] [place] [address] Eosinophils/100 WBC (Bld) 7.6 % Normal [facility] Comment on above: Performed By: #### B MP, CBCA #### [facility] ([id number]) [address], [address] [place] [address] Erythrocyte distribution width (RBC) [Ratio] 14.4 % Normal 11.5-15.0 [facility] Comment on above: Performed By: #### B MP, CBCA #### [facility] ([id number]) [address], [facility] [address] [place] [address] Hematocrit (Bld) [Volume fraction] 36.0 % Normal 35-47 [facility] Comment on above: Performed By: #### B MP, CBCA #### [facility] ([id number]) [address] [address] [place] [address] Hemoglobin (Bld) [Mass/Vol] 12.3 g/dL Normal 11.7-15.5 [facility] Comment on above: Performed By: #### B MP, CBCA #### [facility] ([id number]) [address], [address] [place] [address] Lymphocytes (Bld) [#/Vol] 2.9 10*3/uL Normal 1.0-3.5 [facility] Comment on above: Performed By: #### B MP, CBCA #### [facility] ([id number]) [address], [address] [place] [address] Lymphocytes/100 WBC (Bld) 33.5 % Normal [facility] Comment on above: Performed By: #### B MP, CBCA #### [facility] ([id number]) [address], [address] [place] [address] MCH (RBC) [Entitic mass] 29.9 pg Normal 27-34 [facility] Comment on above: Performed By: #### B MP, CBCA #### [facility] ([id number]) [address], [address] [place] [address] MCHC (RBC) [Mass/Vol] 34.2 g/dL Normal 32-36 [facility] Comment on above: Performed By: #### B EDOUARD, CBCA #### [facility] ([id number]) [address], [address] [place] [address] MCV (RBC) [Entitic vol] 87 fL Normal 80-100 [facility] Comment on above: Performed By: #### B MP, CBCA #### [facility] ([id number]) [address] [address] [place] [address] Monocytes (Bld) [#/Vol] 0.6 10*3/uL Normal 0-0.9 [facility] Comment on above: Performed By: #### B MP, CBCA #### [facility] ([id number]) [address], [address] [place] [address] Monocytes/100 WBC (Bld) 7.4 % Normal [facility] Comment on above: Performed By: #### B MP, CBCA #### [facility] ([id number]) [address], [address] [place] [address] Neutrophils/100 WBC (Bld) 51.2 % Normal [facility] Comment on above: Performed By: #### B MP, CBCA #### [facility] ([id number]) [address] [address] [place] [address] Platelet mean volume (Bld) [Entitic vol] 8.8 fL Normal 7-12 [facility] Comment on above: Performed By: #### B MP, CBCA #### [facility] ([id number]) [address] [address] [place] [address] Platelets (Bld) [#/Vol] 308 10*3/uL Normal 150-450 [facility] Comment on above: Performed By: #### B MP, CBCA #### [facility] ([id number]) [address], [address] [place] [address] RBC COUNT 4.12 X10E12/L Normal 3.80-5.20 [facility] Comment on above: Performed By: #### B MP, CBCA #### [facility] ([id number]) [address] [address] [place] [address] WBC (Bld) [#/Vol] 8.6 10*3/uL Normal 4.0-11.0 [facility] Comment on above: Performed By: #### B MP, CBCA #### [facility] ([id number]) [address] [address] [place] [address] COMPREHENSIVE METABOLIC PANE Dayron 02-06-2024 Albumin [Mass/Vol] 4.3 g/dL Normal 3.2-5.3 [facility] Comment on above: Performed By: #### B MP, CBCA #### [facility] ([id number]) [address], [address] [place] [address] ALP [Catalytic activity/Vol] 60 U/L Normal 39-130 [facility] Comment on above: Performed By: #### B EDOUARD CBCA #### [facility] ([id number]) [address] [place] [address] ALT [Catalytic activity/Vol] 41 U/L High 0-31 [facility] Comment on above: Performed By: #### B EDOUARD, CBCA #### [facility] ([id number]) [address], [address] [place] [address] Anion gap [Moles/Vol] 12 mmol/L Normal 5-15 [facility] Comment on above: Performed By: #### B EDOUARD CBCA #### [facility] ([id number]) [address], [address] [place] [address] AST [Catalytic activity/Vol] 27 U/L Normal 0-41 [facility] Comment on above: Performed By: #### B EDOUARD CBCA #### [facility] ([id number]) [address], [address] [place] [address] Bilirubin [Mass/Vol] 0.2 mg/dL Low 0.3-1.2 [facility] Comment on above: Performed By: #### B EDOUARD CBCA #### [facility] ([id number]) [address], [address] [place] [address] Calcium [Mass/Vol] 9.4 mg/dL Normal 8.5-10.5 [facility] Comment on above: Performed By: #### B EDOUARD CBCA #### [facility] ([id number]) [address], [address] [place] [address] Chloride [Moles/Vol] 103 mmol/L Normal 98-109 [facility] Comment on above: Performed By: #### B EDOUARD CBCA #### [facility] ([id number]) [address], [address] [place] [address] CO2 [Moles/Vol] 23 mmol/L Normal 22-32 [facility] Comment on above: Performed By: #### B RACHELLE NUNN #### [facility] ([id number]) [address], [address] [place] [address] Creatinine [Mass/Vol] 0.72 mg/dL Normal 0.40-1.00 [facility] Comment on above: Result Comment: METH OD TRACEABLE TO IDMS STANDARD Performed By: #### B RACHELLE NUNN #### [facility] ([id number]) [address] [address] [place] [address] eGFR (CKD-EPI) NON-RACE DEPENDENT >90 Normal >59 [facility] Comment on above: Result Comment: Reported eGFR is based on the CKD-EPI 2020 equation that does not use a race coefficient. Performed By: #### B EDOUARD CBCJason #### [facility] ([id number]) [address] [place] [address] Glucose [Mass/Vol] 108 mg/dL High 65-99 [facility] Comment on above: Performed By: #### B RACHELLE NUNN #### [facility] ([id number]) [address] [address] [place] [address] Potassium [Moles/Vol] 4.8 mmol/L Normal 3.5-5.0 [facility] Comment on above: Performed By: #### B EDOUARD CBCJason #### [facility] ([id number]) [address] [address] [place] [address] Protein [Mass/Vol] 7.3 g/dL Normal 6.0-8.0 [facility] Comment on above: Performed By: #### B EDOUARD CBCA #### [facility] ([id number]) [address], [address] [place] [address] Sodium [Moles/Vol] 138 mmol/L Normal 134-146 [facility] Comment on above: Performed By: #### B EDOUARD, CBCA #### [facility] ([id number]) [address] [place] [address] Urea nitrogen [Mass/Vol] 17 mg/dL Normal 5-23 [facility] Comment on above: Performed By: #### B MP, CBCA #### [facility] ([id number]) [address], [address] [place] [address] FREE T4on 02-06-2024 Free T4 [Mass/Vol] 0.86 ng/dL Normal 0.61-1.60 [facility] Comment on above: Performed By: #### B EDOUARD, CBCA #### [facility] ([id number]) [address], [address] [place] [address] IRON PROFILEon 02-06-2024 Iron [Mass/Vol] 55 ug/dL Normal 50-170 [facility] Comment on above: Performed By: #### B EDOUARD CBCA #### [facility] ([id number]) [address], [address] [place] [address] IRON BINDING 533 ug/dL High 250-425 [facility] Comment on above: Performed By: #### B EDOUARD, CBCA #### [facility] ([id number]) [address], [address] [place] [address] IRON SATURATION 10 % SATURATION Low 15-50 [facility] Comment on above: Performed By: #### B MP, CBCA #### [facility] ([id number]) [address], [address] [place] [address] TSH Qnon 02-06-2024 TSH 3.04 uIU/mL Normal 0.49-4.67 [facility] Comment on above: Performed By: #### B MP, CBCA #### [facility] ([id number]) [address] [facility], [address] [place] [address] MR BRAIN WO CONTon MR BRAIN WO CONT MR BRAIN WO CONT HISTORY: A 43-year-old female with the history of the bilateral foot numbness, fibromyalgia, headaches and hyperreflexia. TECHNIQUE: Multiplanar and multisequence MRI examination of brain is performed without intravenous contrast administration. COMPARISON: Comparison is made with the CT scan of the brain of 07/02/2015. FINDINGS: The ventricular system is normal in size and configuration. There is normal differentiation of cai and white matters. Diffusion-weighted study demonstrates no evidence of restricted diffusion to suggest acute or subacute age of infarction. There is no evidence of intracranial mass, hemorrhage or acute pathology. The cerebellum and brainstem are unremarkable. No mass effect, midline shift of the structures or extra-axial fluid collections are noted. The cavernous carotid and and basilar arteries are patent. There is complete opacification of the left maxillary sinus. Mucosal thickening is seen in the right maxillary and ethmoidal sinuses. Mastoid air cells are clear. IMPRESSION: * No evidence of intracranial mass, hemorrhage or acute pathology. * Chronic bilateral maxillary and ethmoidal sinusitis. There is complete opacification of the left maxillary sinus. Finalized by Benson Rubin MD on 01/24/2024 12:57 PM [facility] MR CERVICAL SPINE WO CONTon 01-24-2024 MR CERVICAL SPINE WO CONT MR CERVICAL SPINE WO CONT HISTORY: A 43-year-old female with the history of the hyperreflexia and bilateral foot numbness. TECHNIQUE: Multiplanar and multisequence MRI examination of the cervical spine is performed. COMPARISON: No relevant prior studies are available for comparison. FINDINGS: Vertebral heights are normal. There is loss of normal cervical lordosis. No evidence of spondylolisthesis or acute bony pathology. Sagittal and axial images reveal no evidence of disc herniation, spinal stenosis or narrowing of the neural foramina. Cervical spinal cord is normal in morphology and signal intensity. No evidence of cord edema or myelomalacia. IMPRESSION: * Unremarkable MRI examination of the brain apart from loss of normal cervical lordosis. Finalized by Benson Rubin MD on 01/24/2024 12:59 PM Normal [facility] US PELVISon 01-10-2024 US PELVIS TITLE OF EXAM: US - US PELVIS COMPLETE REASON FOR EXAM: Pelvic pain TECHNIQUE: Grayscale, color, and spectral Doppler ultrasound evaluation of the pelvis. COMPARISON: Pelvic ultrasound 12/11/2023 FINDINGS: Measurements: Uterus: 8.9 x 4.4 x 4.0 cm Endometrial thickness: 1.0 cm Left ovary: 6.7 x 6.5 x 5.2 cm The uterus is anteverted. There are no appreciable fibroids on the provided images. The endometrial stripe is normal in thickness for late proliferative/preovul atory or secretory phases. The right ovary was not visualized, presumably due to overlying tissues/bowel gas. The left ovary demonstrates physiologic follicles and present color flow. Doppler evaluation not performed. Adjacent thin-walled, anechoic, avascular lesions measure 3.1 x 2.3 x 2.8 cm and 4.2 x 3.7 x 3.9 cm, benign-appearing cysts. There is no appreciable urinary bladder wall thickening. Anechoic luminal contents. Physiologic volume/distribution free fluid in the pelvis. No concerning adnexal mass visualized. IMPRESSION: Simple, benign-appearing adjacent left ovarian cysts, 3.1 cm and 4.2 cm. New or increased in size relative to the comparison study. Present color vascular flow within the left ovary. Doppler evaluation not performed. DICTATED ON: 01/10/2024 9:40 AM This report has been electronically signed and approved by the interpreting radiologist. Electronically Signed Rayo Timmons M.D. 2024-01-10 09:44:24 Normal Not Available TAVARES PANELon 01-09-2024 ANTI-MARCUM AB IGG <0.2 Normal <1.0 [facility] Comment on above: Performed By: #### B RACHELLE NUNN #### [facility] ([id number]) [address] [place] [address] JO1 ANTIBODY <0.2 Normal <1.0 [facility] Comment on above: Performed By: #### B BRIANNA NUNNA #### [facility] ([id number]) [address], [address] [place] [address] DRIER TENDER NAPHTHALENE ANTIBODY IGG 0.6 AI Normal <1.0 [facility] Comment on above: Performed By: #### B EDOUARD, CBCA #### [facility] ([id number]) [address] [place] [address] SCL 70 ANTIBODY <0.2 Normal <1.0 [facility] Comment on above: Performed By: #### B EDOUARD, CBCA #### [facility] ([id number]) [address], [address] [place] [address] SSA ANTIBODY <0.2 Normal <1.0 [facility] Comment on above: Performed By: #### B EDOUARD, CBCA #### [facility] ([id number]) [address], [address] [place] [address] SSB ANTIBODY <0.2 Normal <1.0 [facility] Comment on above: Performed By: #### B EDOUARD, CBCA #### [facility] ([id number]) [address] [address] [place] [address] FREE T4on 01-09-2024 Free T4 [Mass/Vol] 0.73 ng/dL Normal 0.61-1.60 [facility] Comment on above: Performed By: #### B EDOUARD, CBCA #### [facility] ([id number]) [address] [place] [address] HGB A1C (GLYCO-HGB)on 2023 Glucose [Mass/Vol] 123 mg/dL Normal [facility] Comment on above: Performed By: #### E NAP, SPE, TSHR, 3024-7, 2132-9, 00288-0, HA1C, 66790-7, SIFE #### [facility] ([id number]) [address] [address] [place] [address] HbA1c (Bld) [Mass fraction] 5.9 % High 4.4-5.6 [facility] Comment on above: Result Comment: NOTE ADA Guidelines Result HgbA1c Normal : less than 5.7 % Prediabetes : 5.7 % to 6.4 % Diabetes : > 6.4 % Use with caution in patients with abnormal hemoglobin variants as the half-life of red blood cells and in vivo glycation rates are affected. Performed By: #### E NAP, SPE, TSHR, 3023-11, 2132-01, 67432-3, HA1C, 20553-4, SIFE #### [facility] ([id number]) [address] [place] [address], [address] [address] HIV 1+2 Ab+HIV1 p24 Ag IA Ql on 01-09-2024 HIV 1 and 2 Ab/Ag Screen Non-Reactive Normal NRCT [facility] Comment on above: Result Comment: This information has been disclosed to you from confidential records protected from disclosure by state law. You shall make no further disclosure of this information without the specific, written and informed release of the individual to whom it pertains, or as otherwise permitted by state law. A general authorization for the release of medical or other information is not sufficient for the purpose of the release of HIV test results or diagnoses. Performed By: #### E NAP, SPE, TSHR, 3023-11, 2132-01, 54694-6, HA1C, 28331-9, SIFE #### [facility] ([id number]) [address] [place] [address], [address] [place] [address] Homocysteine [Moles/Vol]on 01-09-2024 HOMOCYSTEINE 6.25 mcmol/L Normal 3.36-20.44 [facility] Comment on above: Performed By: #### 1 3965-9 #### [facility] ([id number]) [address] [address] Methylmalonate [Moles/Vol]on 01-09-2024 Methylmalonic Acid, QN, P 0.22 nmol/mL Normal <=0.40 [facility] Comment on above: Result Comment: NOTE ADDITIONAL INFORMATION This test was developed and its performance characteristics determined by [facility] in a manner consistent with CLIA requirements. This test has not been cleared or approved by the U.S. Food and Drug Administration. Test Performed by: [place] [address] Electronics Research Engineer: Jose Schmitz Ph.D.; CLIA# [id number] Performed By: #### B EDOUARD CBCA #### [facility] ([id number]) [address] [address] SERUM IMMUNOFIXATIONon 01-08 IgA [Mass/Vol] mg/dL Low 68-378 [facility] Comment on above: Performed By: #### B EDOUARD CBCA #### [facility] ([id number]) [address] [address] IgG [Mass/Vol] 1004 mg/dL Normal 635-1741 [facility] Comment on above: Performed By: #### B EDOUARD, CBCA #### [facility] ([id number]) [address] [address] IgM [Mass/Vol] 60 mg/dL Normal 45-281 [facility] Comment on above: Performed By: #### B EDOUARD CBCA #### [facility] ([id number]) [address] [address] IMMUNE PROFILE INTERP Unremarkable patte rn and quantitation, no monoclonal bands. Normal [facility] Comment on above: Performed By: #### B EDOUARD, CBCA #### [facility] ([id number]) [address] [place] [address] SERUM PROTEIN ELECTROPHORESI Son 01-09-2024 Albumin [Mass/Vol] 3.9 g/dL Normal 3.4-5.3 [facility] Comment on above: Performed By: #### E NAP, SPE, TSHR, 3023-7, 2131-9, 46064-5, HA1C, 99254-0, SIFE #### [facility] ([id number]) [address] [place] [address] ALPHA 1 GLOBULIN 0.4 g/dL Normal 0.1-0.4 [facility] Comment on above: Performed By: #### E NAP, SPE, TSHR, 3023-7, 2131-9, 22346-5, HA1C, 58348-0, SIFE #### [facility] ([id number]) [address] [place] [address] ALPHA 2 GLOBULIN 1.0 g/dL Normal 0.4-1.1 [facility] Comment on above: Performed By: #### E NAP, SPE, TSHR, 3023-7, 9, 07779-6, HA1C, 11592-7, SIFE #### [facility] ([id number]) [address] [place] [address] BETA GLOBULIN 0.8 g/dL Normal 0.5-1.2 [facility] Comment on above: Performed By: #### E NAP, SPE, TSHR, 3023-7, 2131-9, 92045-0, HA1C, 86284-8, SIFE #### [facility] ([id number]) [address] [place] [address] GAMMA GLOBULIN 0.9 g/dL Normal 0.5-1.6 [facility] Comment on above: Performed By: #### E NAP, SPE, TSHR, 302-7, 2-9, 85416-4, HA1C, 48759-5, SIFE #### [facility] ([id number]) [address] [place] [address] PROT. ELECTROPHORESIS INTERP Unremarkable protein distribution, no monoclonal bands. Normal [facility] Comment on above: Performed By: #### E NAP, SPE, TSHR, 4-7, 2131-9, 27288-2, HA1C, 76999-4, SIFE #### [facility] ([id number]) [address] [facility], [address] [address] Protein [Mass/Vol] 7.0 g/dL Normal 6.0-8.0 [facility] Comment on above: Performed By: #### E NAP, SPE, TSHR, 3023-7, 2131-9, 46772-5, HA1C, 92102-0, SIFE #### [facility] ([id number]) [address], [address] [address] T. pallidum IgG+IgM IA Ql (S )on 01-09-2024 Syphilis Total <0.2 Normal 0.0-0.8 [facility] Comment on above: Result Comment: NON REACTIVE No serologic evidence of infection to Treponema pallidum (syphilis). Repeat testing may be considered in patients with suspected acute or primary syphilis in 2 to 4 weeks. Performed By: #### B MP, CBCA #### [facility] ([id number]) [address], [address] [address] TSH WITH REFLEXon 01-09-2024 TSH 5.61 uIU/mL High 0.49-4.67 [facility] Comment on above: Performed By: #### E NAP, SPE, TSHR, 3024-7, 2-9, 95794-4, HA1C, 96754-4, SIFE #### [facility] ([id number]) [address] [address] VITAMIN B12on 01-09-2024 Cobalamin (Vitamin B12) [Mass/Vol] 179 pg/mL Low 180-914 [facility] Comment on above: Performed By: #### E NAP, SPE, TSHR, 3024-7, 2132-9, 26395-0, HA1C, 57618-5, SIFE #### [facility] ([id number]) [address] [place] [address] US PELVIS TRANSVAGINALon US PELVIS TRANSVAGINAL FINDINGS: Uterus 8.2 x 5.0 x 3.3 cm Endometrium 9 mm (see below) Right ovary Not seen Left ovary 1.7 x 1.6 x 1.1 cm Normal uterine orientation. New heterogeneous hypoechogenic mass posterior uterine segment 2.1 x 1.5 x 1.1 cm Cystic changes of the mildly thickened endometrium extending into the upper body and fundus, 9mm thickness. Several lower uterine segment cervical Nabothian subcentimeter cysts. No pelvic fluid. Right ovary not seen. Normal left ovary IMPRESSION: Abnormal uterine endometrium and myometrium, both findings new from one month earlier. This study can serve as a baseline for follow-up examinations. ELECTRONICALLY SIGNED BY: Raheem Alcaraz MD Normal Not Available XR foot LT min 3V*on 024 XR foot LT min 3V* [facility] [place] [address] [place] [address] XRay Report Signed Patient: Brandy Adamson MR#: [id number] : 1980 Acct:[id number] Age/Sex: 43 / F ADM Date: 11/22/23 Loc: ER Room: Type: [facility] ER Attending Dr: Copies to: Zhen Geronimo APRN Ordering Provider: Zhen Geronimo APRN Date of Service: 11/22/23 XR/XR foot LT min 3V*: Skin/Abscess/Foreign Body LEFT FOOT - 3 views CLINICAL DATA: Left foot wound along the medial first metatarsal phalangeal joint. COMPARISON: None AP, lateral and oblique views were obtained. There is no evidence of fracture or dislocation. No bony destruction is noted. There is minimal degenerative change at the first metatarsal phalangeal joint. There is minor dorsal soft tissue swelling. XR/XR foot LT min 3V* IMPRESSION: NO ACUTE BONY FINDINGS. Impression dictated by: Bety Grant M.D.11/22/2023 6:04 PM Dictation Location: [place] [address] Transcribed By: [facility] 11/22/231803 Dictated By: Bety Grant MD 11/22/231801 Signed By: 11/22/231803 Normal [facility] BASIC METABOLIC PANLon 11-20 Anion gap [Moles/Vol] 13 mmol/L Normal 5-15 [facility] Comment on above: Performed By: #### B BRIANNA NUNNA #### [facility] ([id number]) [address], [address] [place] [address] Calcium [Mass/Vol] 9.3 mg/dL Normal 8.5-10.5 [facility] Comment on above: Performed By: #### B EDOUARD CBCA #### [facility] ([id number]) [address], [address] [place] [address] Chloride [Moles/Vol] 100 mmol/L Normal 98-109 [facility] Comment on above: Performed By: #### B EDOUARD CBCA #### [facility] ([id number]) [address], [address] [place] [address] CO2 [Moles/Vol] 24 mmol/L Normal 22-32 [facility] Comment on above: Performed By: #### B EDOUARD CBCA #### [facility] ([id number]) [address], [address] [place] [address] Creatinine [Mass/Vol] 0.76 mg/dL Normal 0.40-1.00 [facility] Comment on above: Result Comment: METH OD TRACEABLE TO IDMS STANDARD Performed By: #### B EDOUARD CBCA #### [facility] ([id number]) [address] [address] [place] [address] eGFR (CKD-EPI) NON-RACE DEPENDENT >90 Normal >59 [facility] Comment on above: Result Comment: Reported eGFR is based on the CKD-EPI 2020 equation that does not use a race coefficient. Performed By: #### B EDOUARD CBCA #### [facility] ([id number]) [address] [address] [place] [address] Glucose [Mass/Vol] 104 mg/dL High 65-99 [facility] Comment on above: Performed By: #### B EDOUARD CBCA #### [facility] ([id number]) [address] [address] Potassium [Moles/Vol] 3.9 mmol/L Normal 3.5-5.0 [facility] Comment on above: Performed By: #### B EDOUARD CBCA #### [facility] ([id number]) [address] [address] Sodium [Moles/Vol] 137 mmol/L Normal 134-146 [facility] Comment on above: Performed By: #### B EDOUARD CBCA #### [facility] ([id number]) [address] [address] Urea nitrogen [Mass/Vol] 16 mg/dL Normal 5-23 [facility] Comment on above: Performed By: #### B EDOUARD CBCA #### [facility] ([id number]) [address] [address] CBC AND AUTO DIFFon 11-21-19 24 ABSOLUTE BASOPHIL 0.1 X10E9/L Normal 0.0-0.2 [facility] Comment on above: Performed By: #### B EDOUARD CBCA #### [facility] ([id number]) [address] [address] [place] [address] ABSOLUTE NEUTROPHIL 10.1 X10E9/L High 1.5-6.6 [facility] Comment on above: Performed By: #### B MP, CBCA #### [facility] ([id number]) [address] [place] [address] Basophils/100 WBC (Bld) 0.4 % Normal [facility] Comment on above: Performed By: #### B MP, CBCA #### [facility] ([id number]) [address], [address] [place] [address] Eosinophils (Bld) [#/Vol] 0.3 10*3/uL Normal 0.0-0.4 [facility] Comment on above: Performed By: #### B MP, CBCA #### [facility] ([id number]) [address], [address] [place] [address] Eosinophils/100 WBC (Bld) 2.1 % Normal [facility] Comment on above: Performed By: #### B MP, CBCA #### [facility] ([id number]) [address], [address] [place] [address] Erythrocyte distribution width (RBC) [Ratio] 14.3 % Normal 11.5-15.0 [facility] Comment on above: Performed By: #### B EDOUARD, CBCA #### [facility] ([id number]) [address], [address] [place] [address] Hematocrit (Bld) [Volume fraction] 37.6 % Normal 35-47 [facility] Comment on above: Performed By: #### B MP, CBCA #### [facility] ([id number]) [address] [place] [address] Hemoglobin (Bld) [Mass/Vol] 13.2 g/dL Normal 11.7-15.5 [facility] Comment on above: Performed By: #### B MP, CBCA #### [facility] ([id number]) [address], [address] [place] [address] Lymphocytes (Bld) [#/Vol] 2.9 10*3/uL Normal 1.0-3.5 [facility] Comment on above: Performed By: #### B MP, CBCA #### [facility] ([id number]) [address], [address] [place] [address] Lymphocytes/100 WBC (Bld) 20.0 % Normal [facility] Comment on above: Performed By: #### B MP, CBCA #### [facility] ([id number]) [address], [address] [place] [address] MCH (RBC) [Entitic mass] 30.2 pg Normal 27-34 [facility] Comment on above: Performed By: #### B EDOUARD, CBCA #### [facility] ([id number]) [address], [address] [place] [address] MCHC (RBC) [Mass/Vol] 35.0 g/dL Normal 32-36 [facility] Comment on above: Performed By: #### B EDOUARD, CBCA #### [facility] ([id number]) [address], [address] [place] [address] MCV (RBC) [Entitic vol] 86 fL Normal 80-100 [facility] Comment on above: Performed By: #### B MP, CBCA #### [facility] ([id number]) [address], [address] [place] [address] Monocytes (Bld) [#/Vol] 0.9 10*3/uL Normal 0-0.9 [facility] Comment on above: Performed By: #### B MP, CBCA #### [facility] ([id number]) [address] [place] [address] Monocytes/100 WBC (Bld) 6.6 % Normal [facility] Comment on above: Performed By: #### B MP, CBCA #### [facility] ([id number]) [address] [address] Neutrophils/100 WBC (Bld) 70.9 % Normal [facility] Comment on above: Performed By: #### B MP, CBCA #### [facility] ([id number]) [address] [address] Platelet mean volume (Bld) [Entitic vol] 8.6 fL Normal 7-12 [facility] Comment on above: Performed By: #### B MP, CBCA #### [facility] ([id number]) [address] [address] Platelets (Bld) [#/Vol] 319 10*3/uL Normal 150-450 [facility] Comment on above: Performed By: #### B MP, CBCA #### [facility] ([id number]) [address] [address] RBC COUNT 4.36 X10E12/L Normal 3.80-5.20 [facility] Comment on above: Performed By: #### B MP, CBCA #### [facility] ([id number]) [address] [address] WBC (Bld) [#/Vol] 14.3 10*3/uL High 4.0-11.0 [facility] Comment on above: Performed By: #### B MP, CBCA #### [facility] ([id number]) [address] [address] Glucose Glucometer (dC) [M ass/Vol]on 11-21-2023 Glucose [Mass/Vol] 113 mg/dL High 65-99 [facility] XR FOOT LT MIN 3 VWSon 11-20 XR FOOT LT MIN 3 VWS XR FOOT LT MIN 3 VW S XR FOOT LT MIN 3 VWS CLINICAL STATEMENT: 43 years old Female with osteomyelitis. COMPARISON: None. FINDINGS: No acute fracture or dislocation. Visualized joints are adequate anatomic alignment. Mild degenerative change throughout the midfoot. No suspicious osseous lesion. No subcutaneous emphysema. No radiopaque foreign body. IMPRESSION: * No acute osseous abnormality. No radiographic evidence of osteomyelitis. Approved by Resident Buddy Cat DO on 11/21/2023 10:13 PM I, Eduardo Babb MD have personally reviewed the image(s) and agree with and/or edited the report Finalized by Eduardo Babb MD on 11/21/2023 10:21 PM Normal [facility] US PELVIS TRANSVAGINALon US PELVIS TRANSVAGINAL FINDINGS: Uterus 7.8 x 5.0 x 3.7 cm Endometrium 5mm Right Ovary not seen Left Ovary 4.9 x 4.8 x 4.7 cm (see below) Normal uterine orientation, mild anteversion. Normal myometrium and endometrium. Several subcentimeter presumed cervical Nabothian cysts. Right ovary not seen. No right adnexal mass. Left ovarian 4.3x 3.9 x 3.9 cm hypoechogenic homogeneous structure with through transmission, likely minimally complex cyst. No adnexal mass or shadowing. IMPRESSION: Left ovarian 4.0 cm complex cyst, likely benign etiology. TRANSCRIBED BY: ELECTRONICALLY SIGNED BY: Raheem Alcaraz MD Normal Not Available COMPLETE BLOOD COUNTon 09-26 Erythrocyte distribution width (RBC) [Ratio] 14.6 % Normal 11.5-15.0 [facility] Comment on above: Performed By: #### C TIERRA CMP, 32429-2, 06256-7 #### [facility] ([id number]) [address] [place] [address] Hematocrit (Bld) [Volume fraction] 35.7 % Normal 35-47 [facility] Comment on above: Performed By: #### C TIERRA CMP, 07602-7, 38614-6 #### [facility] ([id number]) [address] [place] [address] Hemoglobin (Bld) [Mass/Vol] 12.1 g/dL Normal 11.7-15.5 [facility] Comment on above: Performed By: #### C BCA, CMP, , 58732-7 #### [facility] ([id number]) [address] [place] [address] MCH (RBC) [Entitic mass] 28.8 pg Normal 27-34 [facility] Comment on above: Performed By: #### C BCA, CMP, , 20180-8 #### [facility] ([id number]) [address] [place] [address] MCHC (RBC) [Mass/Vol] 33.8 g/dL Normal 32-36 [facility] Comment on above: Performed By: #### C BCA, CMP, , 33083-5 #### [facility] ([id number]) [address] [place] [address] MCV (RBC) [Entitic vol] 85 fL Normal 80-100 [facility] Comment on above: Performed By: #### C BCA, CMP, , 34396-2 #### [facility] ([id number]) [address] [place] [address] Platelet mean volume (Bld) [Entitic vol] 8.0 fL Normal 7-12 [facility] Comment on above: Performed By: #### C BCA, CMP, , 93595-9 #### [facility] ([id number]) [address] [place] [address] Platelets (Bld) [#/Vol] 323 10*3/uL Normal 150-450 [facility] Comment on above: Performed By: #### C BCA, CMP, , 13229-3 #### [facility] ([id number]) [address] [place] [address] RBC COUNT 4.20 X10E12/L Normal 3.80-5.20 [facility] Comment on above: Performed By: #### C BCA, CMP, , 56321-9 #### [facility] ([id number]) [address] [place] [address] WBC (Bld) [#/Vol] 9.5 10*3/uL Normal 4.0-11.0 [facility] Comment on above: Performed By: #### C BCA, CMP, , 41340-2 #### [facility] ([id number]) [address] [place] [address] COMPREHENSIVE METABOLIC PANE [facility] 09-27-2023 Albumin [Mass/Vol] 3.9 g/dL Normal 3.2-5.3 [facility] Comment on above: Performed By: #### C BCA, CMP, , 16141-9 #### [facility] ([id number]) [address] [place] [address] ALP [Catalytic activity/Vol] 89 U/L Normal 39-130 [facility] Comment on above: Performed By: #### C BCA, CMP, , 18913-2 #### [facility] ([id number]) [address] [place] [address] ALT [Catalytic activity/Vol] 29 U/L Normal 0-31 [facility] Comment on above: Performed By: #### C BCA, CMP, , 51989-6 #### [facility] ([id number]) [address] [place] [address] Anion gap [Moles/Vol] 11 mmol/L Normal 5-15 [facility] Comment on above: Performed By: #### C BCA, CMP, , 38983-3 #### [facility] ([id number]) [address] [place] [address] AST [Catalytic activity/Vol] 19 U/L Normal 0-41 [facility] Comment on above: Performed By: #### C BCA, CMP, , 85456-7 #### [facility] ([id number]) [address] [place] [address] Bilirubin [Mass/Vol] 0.4 mg/dL Normal 0.3-1.2 [facility] Comment on above: Performed By: #### C BCA, CMP, , 84223-2 #### [facility] ([id number]) [address] [place] [address] Calcium [Mass/Vol] 8.8 mg/dL Normal 8.5-10.5 [facility] Comment on above: Performed By: #### C BCA, CMP, , 40283-9 #### [facility] ([id number]) [address] [place] [address] Chloride [Moles/Vol] 99 mmol/L Normal 98-109 [facility] Comment on above: Performed By: #### C BCA, CMP, , 79732-3 #### [facility] ([id number]) [address] [place] [address] CO2 [Moles/Vol] 26 mmol/L Normal 22-32 [facility] Comment on above: Performed By: #### C BCA, CMP, , 26814-3 #### [facility] ([id number]) [address] [place] [address] Creatinine [Mass/Vol] 0.93 mg/dL Normal 0.40-1.00 [facility] Comment on above: Result Comment: METH OD TRACEABLE TO IDMS STANDARD Performed By: #### C BCA, CMP, , 04673-5 #### [facility] ([id number]) [address] [place] [address] GFR/1.73 sq M.predicted among non-blacks MDRD (S/P/Bld) [Vol rate/Area] 79 mL/min/{1.73_m2} Normal >59 [facility] Comment on above: Result Comment: Reported eGFR is based on the CKD-EPI 2020 equation that does not use a race coefficient. Performed By: #### C TIERRA CMP, , 64832-3 #### [facility] ([id number]) [address] [place] [address] Glucose [Mass/Vol] 99 mg/dL Normal 65-99 [facility] Comment on above: Performed By: #### C TIERRA CMP, , 88356-3 #### [facility] ([id number]) [address] [place] [address] Potassium [Moles/Vol] 3.9 mmol/L Normal 3.5-5.0 [facility] Comment on above: Performed By: #### C TIERRA CMP, , 67081-2 #### [facility] ([id number]) [address] [place] [address] Protein [Mass/Vol] 7.6 g/dL Normal 6.0-8.0 [facility] Comment on above: Performed By: #### C TIERRA, CMP, , 28171-6 #### [facility] ([id number]) [address] [place] [address] Sodium [Moles/Vol] 136 mmol/L Normal 134-146 [facility] Comment on above: Performed By: #### C BCA, CMP, , 25441-4 #### [facility] ([id number]) [address] [place] [address] Urea nitrogen [Mass/Vol] 13 mg/dL Normal 5-23 [facility] Comment on above: Performed By: #### C ROQUE MAYORGA, 11750-4, 69073-0 #### [facility] ([id number]) [address] [place] [address] CT ABDOMEN AND PELVIS W CONT on 09-27-2023 CT ABDOMEN AND PELVIS W CONT CT ABDOMEN AND PELVIS W CONT STUDY: ABDOMEN AND PELVIS CT WITH CONTRAST CLINICAL HISTORY: Flank pain COMPARISON: 04/03/2023 CT scan TECHNIQUE: CT abdomen and pelvis with contrast. Coronal and sagittal reformatted images were obtained and reviewed. Automated exposure control was utilized. All CT scans at this facility dose modulation, iterative reconstruction, and/or weight based dosing when appropriate to reduce radiation dose to as low as reasonably achievable. FINDINGS: Stable solid nodule left lower lobe measuring 8 mm. Lung bases otherwise clear. Liver is unremarkable. Surgical clips in the gallbladder fossa. No biliary dilatation. The pancreas, spleen, and adrenal glands are unremarkable. There are bilateral nonobstructing renal calculi, largest measuring 2 mm on the left and 1 mm on the right. The kidneys enhance symmetrically. No definite evidence of polynephritis. No perinephric fluid collection. No hydronephrosis or ureteral obstruction. Left ovarian cyst measuring 4.5 cm, no dedicated follow-up necessary. No intra-abdominal free air or free fluid. The small bowel is normal in caliber, no bowel obstruction. The appendix is normal. Colon is unremarkable by CT. No aortic aneurysm. IVC is right-sided. No acute osseous abnormalities. Sclerosis at the SI joints compatible with likely chronic sacroiliitis IMPRESSION: 1. No acute findings. No CT evidence of polynephritis. 2. Small bilateral nonobstructing renal calculi. Finalized by Alex Ott MD on 09/27/2023 10:55 PM Normal [facility] LIPASEon 09-27-2023 Lipase [Catalytic activity/Vol] 41 U/L High 17-40 [facility] Comment on above: Performed By: #### C ROQUE MAYORGA, 22932-0, 09934-5 #### [facility] ([id number]) [address] [place] [address] URINE CULTUREon 09-27-2023 Bacteria identified Cx Nom (U) CULTURE RESULTS >100,000 ORGANISMS/mL ESCHERICHIA COLI 10,000 to 50,000 ORGANISMS/mL NORMAL URO GENITAL JOHN [ S = SUSCEPTIBLE R = RESISTANT I = INTERMEDIATE S-DO = Susceptible-dose dependent NS = Non-suscceptible NO = No Interpretation ] Organism: ESCHERICHIA COLI Antibiotic Interpretation RADHA Status AMPICILLIN S 4 F AMP/SULBACTAM S <=2/1 F CEFAZOLIN S <=4 F CEFTRIAXONE S <=1 F CIPROFLOXACIN S <=0.25 F GENTAMICIN S <=1 F LEVOFLOXACIN S 1 F NITROFURANTOIN S <=16 F PIPERACIL/TAZOBACTAM S <=4 F TOBRAMYCIN S <=1 F TRIMETH/SULFAMETHOXAZ OLE S <=/19 F Susceptible [facility] Comment on above: Performed By: #### C ROQUE MAYORGA, , 59358-5 #### [facility] ([id number]) [address] [place] [address] URN MACROSCOPIC NURon 2023 BILIRUBIN MARGE Negative Normal NEG [facility] Comment on above: Performed By: #### C ROQUE MAYORGA, , 37701-4 #### [facility] ([id number]) [address] [place] [address] BLOOD/HGB MARGE Negative Normal NEG [facility] Comment on above: Performed By: #### C ROQUE MAYORGA, , 16001-2 #### [facility] ([id number]) [address] [place] [address] [place] [address] GLUCOSE MARGE Negative Normal NEG [facility] Comment on above: Performed By: #### C ROQUE MAYORGA, , 96070-8 #### [facility] ([id number]) [address] [place] [address] KETONES MARGE Negative Normal NEG [facility] Comment on above: Performed By: #### C ROQUE MAYORGA, , 39474-1 #### [facility] ([id number]) [address] [place] [address]698 LEUKOCYTE ESTERASE MARGE MODERATE Abnormal NEG [facility] Comment on above: Performed By: #### C BCA, CMP, , 70378-3 #### [facility] ([id number]) [address] [place] [address] NITRITE MARGE Positive Abnormal NEG [facility] Comment on above: Performed By: #### C BCA, CMP, , 44001-1 #### [facility] ([id number]) [address] [place] [address]49 PH MARGE 5.5 Normal 5.0-8.5 [facility] Comment on above: Performed By: #### C BCA, CMP, , #### [facility] ([id number]) [address] [place] [address] PROTEIN MARGE Negative Normal NEG [facility] Comment on above: Performed By: #### C BCA, CMP, , 55338-8 #### [facility] ([id number]) [address] [place] [address] SPECIFIC GRAVITY MARGE 1.025 Normal 1.003-1.035 [facility] Comment on above: Performed By: #### C BCA, CMP, , 21413-5 #### [facility] ([id number]) [address] [place] [address] UROBILINOGEN MARGE 0.2 eu/dL Normal <1.1 [facility] Comment on above: Performed By: #### C BCA, CMP, , 33075-9 #### [facility] ([id number]) [address] [place] [address] BASIC METABOLIC PANLon 09-20 Anion gap [Moles/Vol] 11 mmol/L Normal 5-15 [facility] Comment on above: Performed By: #### C BCA, BMP, 87884-5, 2777-1, 2731-8, 39983-3 #### [facility] ([id number]) [address], [address] [place] [address] Calcium [Mass/Vol] 9.2 mg/dL Normal 8.5-10.5 [facility] Comment on above: Performed By: #### C BCA, BMP, 78209-7, 2777-1, 2731-8, 27811-9 #### [facility] ([id number]) [address] [place] [address] Chloride [Moles/Vol] 100 mmol/L Normal 98-109 [facility] Comment on above: Performed By: #### C BCA, BMP, 55038-0, 2777-1, 2731-8, 45322-4 #### [facility] ([id number]) [address] [place] [address] CO2 [Moles/Vol] 25 mmol/L Normal 22-32 [facility] Comment on above: Performed By: #### C BCA, BMP, 48152-0, 2777-1, 2731-8, 62378-9 #### [facility] ([id number]) [address] [place] [address] Creatinine [Mass/Vol] 0.89 mg/dL Normal 0.40-1.00 [facility] Comment on above: Result Comment: METH OD TRACEABLE TO IDMS STANDARD Performed By: #### C BCA, BMP, 69382-0, 2777-1, 2731-8, 34832-0 #### [facility] ([id number]) [address] [place] [address] GFR/1.73 sq M.predicted among non-blacks MDRD (S/P/Bld) [Vol rate/Area] 83 mL/min/{1.73_m2} Normal >59 [facility] Comment on above: Result Comment: Reported eGFR is based on the CKD-EPI 2020 equation that does not use a race coefficient. Performed By: #### C BCA, BMP, 12646-1, 2777-1, 2731-8, 76610-4 #### [facility] ([id number]) [address] [place] [address] Glucose [Mass/Vol] 86 mg/dL Normal 65-99 [facility] Comment on above: Performed By: #### C BCA, BMP, 58067-9, 2777-1, 2731-8, 04917-2 #### [facility] ([id number]) [address] [place] [address] Potassium [Moles/Vol] 4.1 mmol/L Normal 3.5-5.0 [facility] Comment on above: Performed By: #### C BCA, BMP, 89859-4, 2777-1, 2731-8, 87561-3 #### [facility] ([id number]) [address] [place] [address] Sodium [Moles/Vol] 136 mmol/L Normal 134-146 [facility] Comment on above: Performed By: #### C BCA, BMP, 00552-4, 2777-1, 2731-8, 71720-3 #### [facility] ([id number]) [address] [place] [address] Urea nitrogen [Mass/Vol] 19 mg/dL Normal 5-23 [facility] Comment on above: Performed By: #### C BCA, BMP, 41523-2, 2777-1, 2731-8, 64167-7 #### [facility] ([id number]) [address] [place] [address] CBC AND AUTO DIFFon 09-21-19 24 ABSOLUTE BASOPHIL 0.1 X10E9/L Normal 0.0-0.2 [facility] Comment on above: Performed By: #### C BCA, BMP, 49177-3, 2776-, 2730-8, 20409-6 #### [facility] ([id number]) [address], [address] [place] [address] ABSOLUTE NEUTROPHIL 4.4 X10E9/L Normal 1.5-6.6 [facility] [place] Comment on above: Performed By: #### C BCA, BMP, 29470-2, 2776-, 2730-8, 63558-9 #### [facility] ([id number]) [address], [address] [place] [address] Basophils/100 WBC (Bld) 0.6 % Normal [facility] Comment on above: Performed By: #### Festus BCA, BMP, 55674-4, 2776-05, 2730-, 69103-9 #### [facility] ([id number]) [address], [address] [place] [address] Eosinophils (Bld) [#/Vol] 0.3 10*3/uL Normal 0.0-0.4 [facility] Comment on above: Performed By: #### Festus BCA, BMP, 03192-7, 2776-, 2730-8, 01099-3 #### [facility] ([id number]) [address], [address] [place] [address] Eosinophils/100 WBC (Bld) 4.2 % Normal [facility] Comment on above: Performed By: #### C BCA, BMP, 21836-5, 2776-, 2730-8, 32262-8 #### [facility] ([id number]) [address], [address] [place] [address] Erythrocyte distribution width (RBC) [Ratio] 14.8 % Normal 11.5-15.0 [facility] Comment on above: Performed By: #### C BCA, BMP, 04253-9, 2777-1, 2731-8, 09381-6 #### [facility] ([id number]) [address], [address] [place] [address] Hematocrit (Bld) [Volume fraction] 36.6 % Normal 35-47 [facility] Comment on above: Performed By: #### C BCA, BMP, 00742-2, 7-1, 2731-8, 47170-1 #### [facility] ([id number]) [address], [address] [place] [address] Hemoglobin (Bld) [Mass/Vol] 12.2 g/dL Normal 11.7-15.5 [facility] Comment on above: Performed By: #### C BCA, BMP, 60877-9, 7-1, 273-8, 90461-8 #### [facility] ([id number]) [address], [address] [place] [address] Lymphocytes (Bld) [#/Vol] 2.9 10*3/uL Normal 1.0-3.5 [facility] Comment on above: Performed By: #### C BCA, BMP, 69962-8, 7-1, 2731-8, 64058-5 #### [facility] ([id number]) [address], [address] [place] [address] Lymphocytes/100 WBC (Bld) 35.8 % Normal [facility] Comment on above: Performed By: #### C BCA, BMP, 02207-3, 7-1, 2731-8, 66425-2 #### [facility] ([id number]) [address], [address] [place] [address] MCH (RBC) [Entitic mass] 28.6 pg Normal 27-34 [facility] Comment on above: Performed By: #### C BCA, BMP, 07192-2, 2777-1, 2731-8, 58687-4 #### [facility] ([id number]) [address], [address] [place] [address] MCHC (RBC) [Mass/Vol] 33.3 g/dL Normal 32-36 [facility] Comment on above: Performed By: #### Festus BCA, BMP, 60321-1, 7-1, 2731-8, 08828-9 #### [facility] ([id number]) [address], [address] [place] [address] MCV (RBC) [Entitic vol] 86 fL Normal 80-100 [facility] Comment on above: Performed By: #### C BCA, BMP, 64619-1, 7-1, 2731-8, 65450-3 #### [facility] ([id number]) [address], [address] [place] [address] Monocytes (Bld) [#/Vol] 0.5 10*3/uL Normal 0-0.9 [facility] Comment on above: Performed By: #### Festus BCA, BMP, 19762-0, 7-1, 2731-8, 19883-7 #### [facility] ([id number]) [address], [address] [place] [address] Monocytes/100 WBC (Bld) 6.1 % Normal [facility] Comment on above: Performed By: #### Festus BCA, BMP, 76148-3, 7-1, 2731-8, 68418-1 #### [facility] ([id number]) [address], [address] [place] [address] Neutrophils/100 WBC (Bld) 53.3 % Normal [facility] Comment on above: Performed By: #### Festus BCA, BMP, 89881-5, 2777-1, 2731-8, 00702-7 #### [facility] ([id number]) [address], [address] [place] [address] Platelet mean volume (Bld) [Entitic vol] 8.6 fL Normal 7-12 [facility] Comment on above: Performed By: #### Festus MAYORGA, BMP, 55291-3, 2777-1, 2731-8, 25280-3 #### [facility] ([id number]) [address], [facility] [address] [place] [address] Platelets (Bld) [#/Vol] 307 10*3/uL Normal 150-450 [facility] Comment on above: Performed By: #### Festus MAYORGA, BMP, 23638-7, 2776-1, 2731-8, 58660-7 #### [facility] ([id number]) [address] [address] [place] [address] RBC COUNT 4.27 X10E12/L Normal 3.80-5.20 [facility] Comment on above: Performed By: #### Festus MAYORGA, BMP, 22869-8, 2776-1, 273-8, 98188-8 #### [facility] ([id number]) [address] [address] [place] [address] WBC (Bld) [#/Vol] 8.2 10*3/uL Normal 4.0-11.0 [facility] Comment on above: Performed By: #### Festus MAYORGA, BMP, 79430-7, 2776-1, 273-8, 25890-6 #### [facility] ([id number]) [address], [facility] [address] [place] [address] MAGNESIUMon 09-21-2023 Magnesium [Mass/Vol] 1.3 mg/dL Low 1.8-2.6 [facility] Comment on above: Performed By: #### Festus MAYORGA, BMP, 31550-3, 7-1, 2731-8, 33185-5 #### [facility] ([id number]) [address] [address] [place] [address] Osmolality (U) [Osmolality]o n 09-21-2023 URINE OSMOLALITY 748 mOsm/kg H2 Normal 300-1300 [facility] Comment on above: Performed By: #### 2 695-5 #### [facility] ([id number]) [address], [address] [place] [address] PHOSPHORUSon 09-21-2023 Phosphate [Mass/Vol] 4.4 mg/dL Normal 2.4-4.9 [facility] Comment on above: Performed By: #### C BCA, CMP, 38703-0, 59189-1 #### [facility] ([id number]) [address] [place] [address] Parathyrin.intact [Mass/Vol] on 09-21-2023 PTH INTACT 42 pg/mL Normal 12-88 [facility] Comment on above: Performed By: #### C BCA, CMP, 26341-2, 30533-7 #### [facility] ([id number]) [address] [place] [address] URINALYSISon 09-21-2023 Bilirubin Ql (U) Negative Normal NEG [facility] Comment on above: Performed By: #### U A #### [facility] ([id number]) [address], [address] [place] [address] BLOOD/HGB Trace Abnormal NEG [facility] Comment on above: Performed By: #### U A #### [facility] ([id number]) [address], [address] [place] [address] Color (U) YELLOW Normal YELLOW [facility] Comment on above: Performed By: #### U A #### [facility] ([id number]) [address], [address] [place] [address] Glucose Ql (U) Negative Normal NEG [facility] Comment on above: Performed By: #### U A #### [facility] ([id number]) [address], [address] [place] [address] Ketones Ql (U) Negative Normal NEG [facility] Comment on above: Performed By: #### U A #### [facility] ([id number]) [address], [address] [place] [address] Leukocyte esterase Test strip Ql (U) Large Abnormal NEG [facility] Comment on above: Performed By: #### U A #### [facility] ([id number]) [address], [address] [place] [address] MUCOUS PRESENT Abnormal NONE [facility] Comment on above: Performed By: #### U A #### [facility] ([id number]) [address], [address] [place] [address] Nitrite Ql (U) Positive Abnormal NEG [facility] Comment on above: Performed By: #### U A #### [facility] ([id number]) [address], [address] [place] [address] pH (U) 6.0 [pH] Normal 5.0-8.5 [facility] Comment on above: Performed By: #### U A #### [facility] ([id number]) [address], [address] [place] [address] Protein Ql (U) Trace Abnormal NEG [facility] Comment on above: Performed By: #### U A #### [facility] ([id number]) [address], [address] [place] [address] R.B.CELLS 4 /hpf Normal 0-5 [facility] Comment on above: Performed By: #### U A #### [facility] ([id number]) [address], [address] [place] [address] Specific gravity (U) [Rel density] 1.021 Normal 1.003-1.035 [facility] Comment on above: Performed By: #### U A #### [facility] ([id number]) [address] [facility] [place] [address] SQUAMOUS EPITHELIUM 8 /hpf High 0-[address] [facility] Comment on above: Performed By: #### U A #### [facility] ([id number]) [address] [place] [address], [address] [place] [address] TURBIDITY HAZY Abnormal CLEAR [facility] Comment on above: Performed By: #### U A #### [facility] ([id number]) [address] [place] [address], [address] [place] [address] Urobilinogen (U) [Mass/Vol] mg/dL Normal <1.1 [facility] Comment on above: Performed By: #### U A #### [facility] ([id number]) [address] [place] [address], [address] [place] [address] W.B.CELLS 124 /hpf High 0-5 [facility] Comment on above: Performed By: #### U A #### [facility] ([id number]) [address] [place] [address], [address] [place] [address] Vitamin D+Metabolites [Mass/ Vol]on 09-21-2023 VITAMIN D 25 HYD TOT 44.7 ng/mL Normal 30-100 [facility] Comment on above: Result Comment: Vitamin D status 25 [place] Vitamin D Deficiency <20 ng/mL Insufficiency 20-29 ng/mL Sufficiency 30-100 ng/mL Toxicity >100 ng/mL NOTE: A pediatric reference range has not been established by the [employer] portal consultant of this kit. The [place] [employer] recommends a Vitamin D level of = or >20ng/mL in infants and children. Performed By: #### C TIERRA, [facility], 90342-4, 03905-1 #### [facility] ([id number]) [address] [place] [address] BI MAMMOGRAM SCREENING TOMOS MIGUEL BILATERALon 08-17-2023 BI MAMMOGRAM SCREENING TOMOSYNTHESIS BILATERAL This is a summary report. The complete report is available in the patient's medical record. If you cannot access the medical record, please contact the sending organization for a detailed fax or copy. EXAMINATION: BI MAMMOGRAM SCREENING TOMOSYNTHESIS BILATERAL CLINICAL HISTORY:screening COMPARISON: June 10, 2022. RESULT: Digital mammography and 3D tomosynthesis of bilateral breasts was performed. Density: Almost entirely fatty [1] Overall appearance is stable. Typically benign calcifications. There is no suspicious mass, asymmetry, architectural distortion, or calcification IMPRESSION: BIRADS 2 - Benign Follow-up: Routine Screening Mamm Board Certified Radiologists. Accredited by the ACR and FDA. MAMMOGRAPHY IS VERY IMPORTANT TO YOUR HEALTH. THE [employer] [place] [employer] GUIDELINES RECOMMEND THAT WOMEN 40 YEARS OF AGE AND OLDER SHOULD HAVE A MAMMOGRAM EVERY YEAR. A REMINDER LETTER WILL BE SENT AT THE APPROPRIATE TIME. THIS FACILITY UTILIZES A REMINDER SYSTEM TO ENSURE ALL PATIENTS RECEIVE REMINDER NOTIFICATIONS AT THE APPROPRIATE TIME BASED ON THE RECOMMENDATIONS OF THIS EXAM. THIS INCLUDES REMINDERS FOR ROUTINE SCREENING MAMMOGRAMS, DIAGNOSTIC MAMMOGRAMS IN WHICH THE PATIENT IS ASKED TO RETURN FOR ADDITIONAL VIEWS, OR OTHER BREAST IMAGING INTERVENTIONS WHEN APPROPRIATE. THE PATIENT WILL BE PLACED IN THE APPROPRIATE REMINDER SYSTEM INCLUDING A REMINDER AT THE APPROPRIATE TIME FOR ANY PENDING ADDITIONAL VIEWS. TRANSCRIBED BY: ELECTRONICALLY SIGNED BY: Raheem Alcaraz MD Normal Not Available CBC AND AUTO DIFFon 07-05-19 24 ABSOLUTE BASOPHIL 0.1 X10E9/L Normal 0.0-0.2 [facility] Comment on above: Performed By: #### C BCA, CMP, 74642-9, 34621-0 #### [facility] ([id number]) [address] [place] [address] ABSOLUTE NEUTROPHIL 5.8 X10E9/L Normal 1.5-6.6 [facility] Comment on above: Performed By: #### C BCA, CMP, 41387-5, 17627-0 #### [facility] ([id number]) [address] [place] [address] Basophils/100 WBC (Bld) 0.6 % Normal [facility] Comment on above: Performed By: #### C BCA, CMP, , 42178-4 #### [facility] ([id number]) [address] [place] [address] Eosinophils (Bld) [#/Vol] 0.3 10*3/uL Normal 0.0-0.4 [facility] Comment on above: Performed By: #### C TIERRA, CMP, , 75707-2 #### [facility] ([id number]) [address] [place] [address] Eosinophils/100 WBC (Bld) 2.8 % Normal [facility] Comment on above: Performed By: #### Festus MAYORGA, CMP, , #### [facility] ([id number]) [address] [place] [address] Erythrocyte distribution width (RBC) [Ratio] 14.7 % Normal 11.5-15.0 [facility] Comment on above: Performed By: #### Festus BCA, CMP, , 08673-0 #### [facility] ([id number]) [address] [place] [address]73 Hematocrit (Bld) [Volume fraction] 36.1 % Normal 35-47 [facility] Comment on above: Performed By: #### Festus BCA, CMP, , 34641-4 #### [facility] ([id number]) [address] [place] [address] Hemoglobin (Bld) [Mass/Vol] 12.2 g/dL Normal 11.7-15.5 [facility] Comment on above: Performed By: #### Festus BCA, CMP, , 91693-5 #### [facility] ([id number]) [address] [place] [address] Lymphocytes (Bld) [#/Vol] 2.4 10*3/uL Normal 1.0-3.5 [facility] Comment on above: Performed By: #### C TIERRA, CMP, , 03293-0 #### [facility] ([id number]) [address] [place] [address]51 Lymphocytes/100 WBC (Bld) 25.9 % Normal [facility] Comment on above: Performed By: #### C TIERRA, CMP, , 74254-3 #### [facility] ([id number]) [address] [place] [address]00 MCH (RBC) [Entitic mass] 28.1 pg Normal 27-34 [facility] Comment on above: Performed By: #### Festus MAYORGA, CMP, , 57588-0 #### [facility] ([id number]) [address] [place] [address] MCHC (RBC) [Mass/Vol] 33.8 g/dL Normal 32-36 [facility] Comment on above: Performed By: #### Festus BCA, CMP, , 69764-1 #### [facility] ([id number]) [address] [place] [address]857 MCV (RBC) [Entitic vol] 83 fL Normal 80-100 [facility] Comment on above: Performed By: #### C BCA, CMP, , 46502-6 #### [facility] ([id number]) [address] [place] [address] 39921 Monocytes (Bld) [#/Vol] 0.6 10*3/uL Normal 0-0.9 [facility] Comment on above: Performed By: #### Festus BCA, CMP, , 75923-2 #### [facility] ([id number]) [address] [place] [address] 10240 Monocytes/100 WBC (Bld) 7.0 % Normal [facility] Comment on above: Performed By: #### C BCA, CMP, 94774-7, 25642-8 #### [facility] ([id number]) [address] [place] [address] 23942 Neutrophils/100 WBC (Bld) 63.7 % Normal [facility] Comment on above: Performed By: #### C BCA, CMP, , 07246-8 #### [facility] ([id number]) [address] [place] [address] 77012 Platelet mean volume (Bld) [Entitic vol] 8.1 fL Normal 7-12 [facility] Comment on above: Performed By: #### C BCA, CMP, , 31601-6 #### [facility] ([id number]) [address] [place] [address] 90011 Platelets (Bld) [#/Vol] 318 10*3/uL Normal 150-450 [facility] Comment on above: Performed By: #### C BCA, CMP, , 21099-1 #### [facility] ([id number]) [address] [place] [address] 08175 RBC COUNT 4.34 X10E12/L Normal 3.80-5.20 [facility] Comment on above: Performed By: #### C BCA, CMP, , 48639-8 #### [facility] ([id number]) [address] [place] [address] 79664 WBC (Bld) [#/Vol] 9.1 10*3/uL Normal 4.0-11.0 [facility] Comment on above: Performed By: #### C BCA, CMP, , 18990-8 #### [facility] ([id number]) [address] [place] [address] 96509 COMPREHENSIVE METABOLIC PANE Dayron 07-05-2023 Albumin [Mass/Vol] 4.2 g/dL Normal 3.2-5.3 [facility] Comment on above: Performed By: #### C BCA, CMP, , 18585-7 #### [facility] ([id number]) [address] [place] [address] 94356 ALP [Catalytic activity/Vol] 84 U/L Normal 39-130 [facility] Comment on above: Performed By: #### C BCA, CMP, , 57029-8 #### [facility] ([id number]) [address] [place] [address] 50877 ALT [Catalytic activity/Vol] 35 U/L High 0-31 [facility] Comment on above: Performed By: #### C BCA, CMP, , 85388-6 #### [facility] ([id number]) [address] [place] [address] 56723 Anion gap [Moles/Vol] 8 mmol/L Normal 5-15 [facility] Comment on above: Performed By: #### C BCA, CMP, , 01416-3 #### [facility] ([id number]) [address] [place] [address] 70055 AST [Catalytic activity/Vol] 26 U/L Normal 0-41 [facility] Comment on above: Performed By: #### C BCA, CMP, , 29073-3 #### [facility] ([id number]) [address] [place] [address] 24291 Bilirubin [Mass/Vol] 0.5 mg/dL Normal 0.3-1.2 [facility] Comment on above: Performed By: #### C BCA, CMP, , 42733-2 #### [facility] ([id number]) [address] [place] [address] 48237 Calcium [Mass/Vol] 8.9 mg/dL Normal 8.5-10.5 [facility] Comment on above: Performed By: #### C BCA, CMP, , 46459-2 #### [facility] ([id number]) [address] [place] [address] 86567 Chloride [Moles/Vol] 101 mmol/L Normal 98-109 [facility] Comment on above: Performed By: #### C BCA, CMP, , 76807-2 #### [facility] ([id number]) [address] [place] [address] 29871 CO2 [Moles/Vol] 24 mmol/L Normal 22-32 [facility] Comment on above: Performed By: #### C TIERRA, CMP, , 17367-1 #### [facility] ([id number]) [address] [place] [address] 50062 Creatinine [Mass/Vol] 0.80 mg/dL Normal 0.40-1.00 [facility] Comment on above: Result Comment: METH OD TRACEABLE TO IDMS STANDARD Performed By: #### C TIERRA, CMP, , 97158-7 #### [facility] ([id number]) [address] [place] [address] 37930 eGFR (CKD-EPI) NON-RACE DEPENDENT >90 Normal >59 [facility] Comment on above: Result Comment: Reported eGFR is based on the CKD-EPI 2020 equation that does not use a race coefficient. Performed By: #### C BCA, CMP, , 03872-5 #### [facility] ([id number]) [address] [place] [address] 15968 Glucose [Mass/Vol] 104 mg/dL High 65-99 [facility] Comment on above: Performed By: #### C TIERRA, CMP, , 87251-8 #### [facility] ([id number]) [address] [place] [address] 68789 Potassium [Moles/Vol] 3.4 mmol/L Low 3.5-5.0 [facility] Comment on above: Performed By: #### C BCA, CMP, , 55922-3 #### [facility] ([id number]) [address] [place] [address] 00524 Protein [Mass/Vol] 7.8 g/dL Normal 6.0-8.0 [facility] Comment on above: Performed By: #### C BCA, CMP, , 00059-3 #### [facility] ([id number]) [address] [place] [address] 49415 Sodium [Moles/Vol] 133 mmol/L Low 134-146 [facility] Comment on above: Performed By: #### C TIERRA, CMP, , 54536-4 #### [facility] ([id number]) [address] [place] [address] 38148 Urea nitrogen [Mass/Vol] 12 mg/dL Normal 5-23 [facility] Comment on above: Performed By: #### C BCA, CMP, , 54087-0 #### [facility] ([id number]) [address] [place] [address] 13373 MAGNESIUMon 07-05-2023 Magnesium [Mass/Vol] 1.5 mg/dL Low 1.8-2.6 [facility] Comment on above: Performed By: #### C BCA, CMP, , 75394-0 #### [facility] ([id number]) [address] [place] [address] 56459 TROPONIN Ion 07-05-2023 Troponin I.cardiac [Mass/Vol] ng/mL Normal 0.00-0.04 [facility] Comment on above: Performed By: #### C [facility], [facility], 19881-5, 11368-7 #### [facility] ([id number]) [address] [place] [address], [place] [address] XR CHEST 1 VWon 07-05-2023 XR CHEST 1 VW XR CHEST 1 VW XR CHEST 1 VW: 07/05/2023 7:24 PM Clinical: Left chest pain Upright portable chest obtained and compared with 04/03/2023. Heart size is normal. No acute consolidation, large effusion, or pneumothorax. IMPRESSION: * No acute disease to limits of this portable exam. Finalized by Lavon Faria MD on 07/05/2023 7:36 PM Normal [facility] US Spleenon 07-12-2022 US Spleen Comparison, renal ultrasound, June 10, 2022. CT chest, June 28, 2022. Findings: Spleen measures 12.6 x 6.6 x 11.5 cm and is normal in size, shape, echogenicity, and color flow. Right kidney measures 13.4 x 6.7 x 5 cm and is normal in size, shape,, and color flow. No hydronephrosis. Nonshadowing hyperechoic foci measuring 12 mm and 5 mm, upper pole, unchanged. IMPRESSION: Negative spleen. Segmental arterial calcification of upper pole right kidney versus nonshadowing calculi, stable. Report reported and signed by Mike Green on 07/12/2022 1108 Normal [facility] CT Chest w/o Contraston 06-15 CT Chest w/o Contrast EXAM: CT chest INDICATION: Shortness of breath TECHNIQUE: Helical CT was performed through the chest without IV contrast. All CT scans at this facility use dose modulation, iterative reconstruction, and/or weight based dosing when appropriate to reduce radiation dose to as low as reasonably achievable. COMPARISON: CT abdomen pelvis dated 03/17/2020 FINDINGS Lungs: There is a stable 9 mm round well-circumscribed solid pleural-based nodule at the left base that is unchanged in appearance from 03/22/2017. Based on Fleischner guidelines this is considered a benign behaving nodule. Pleura: No pleural effusion or thickening Mediastinum: Mediastinum and hilum are normal. No pathologically enlarged lymph nodes. Vascular structures: No thoracic aortic aneurysm or dissection Chest wall: Normal Upper abdomen: Visualized portions of the upper abdomen show no significant abnormality Bones: No aggressive skeletal lesions IMPRESSION: Stable 9 mm left based nodule consistent with a benign nodule. Otherwise negative CT of the chest Report reported and signed by Zhen Lopes on 06/28/2022 [id number] Normal [facility] SCREENING MAMMOGRAM W/MARCUS, BILATERAL*on 06-10-2022 SCREENING MAMMOGRAM W/MARCUS, BILATERAL* COMPARISON: Dating back to July 02, 2021 and January 01, 2021. TECHNIQUE: 2D and 3D Tomosynthesis of the right and left breasts was performed. FINDINGS: Breast composition demonstrates scattered fibroglandular densities. Overall appearance stable. No suspicious microcalcifications, dominant mass lesions, or distortion is present. IMPRESSION: BI-RADS 1- Negative Mammogram Board Certified Radiologist. Accredited by the ACR and FDA. MAMMOGRAPHY IS VERY IMPORTANT TO YOUR HEALTH. THE CURRENT ST [facility] [employer] GUIDELINES RECOMMENDS ANNUAL MAMMOGRAPHY BEGINNING AT AGE 40 THIS FACILITY USES A REMINDER SYSTEM TO ENSURE ALL PATIENTS RECEIVE REMINDER NOTIFICATIONS AT THE APPROPRIATE TIME BASED ON THE RECOMMENDATIONS OF THIS EXAM. Report reported and signed by Raheem Alcaraz on 06/10/2022 0936 Normal [facility] US Liveron 06-10-2022 US Liver Clinical History: Elevated liver enzymes. Technique: Sonography of the right upper quadrant was performed. Images were obtained and stored in a permanent archive. Comparison: CT 03/17/2020. RESULT: Pancreas: Normal sonographic appearance of the visualized portions. Liver: Diffusely increased echogenicity with decreased through-transmission, suggestive of steatosis. No distinct focal lesion. Biliary Ducts: No intrahepatic or extrahepatic biliary duct dilation. Common bile duct: 0.4 cm at the hilum. Gallbladder: Cholecystectomy. Right kidney: Visualized portions unremarkable. Ascites: None. IMPRESSION: Diffuse hepatic steatosis. Cholecystectomy. Report reported and signed by Maciel Murcia on 06/10/2022 1225 Normal [facility] US Renal/Bladderon US Renal/Bladder CLINICAL HISTORY: Left-sided pain. COMPARISON: CT 03/17/2020. TECHNIQUE: Routine sonography of the kidneys and bladder was performed. Images were obtained and stored in a permanent archive. RESULT: Right kidney: Renal length: 12.3 cm Parenchyma: Normal parenchymal echogenicity. Normal parenchymal thickness. Collecting system: No hydronephrosis. Calculus: No echogenic, shadowing calculus. Lesion: None. Left kidney: Renal length: 12.6 cm Parenchyma: Normal parenchymal echogenicity. Normal parenchymal thickness. Collecting system: No hydronephrosis. Calculus: No echogenic, shadowing calculus. Lesion: 1.1 cm rounded hyperechoic lesion, which may represent small angiomyolipoma or cortical calcification. Bladder: No bladder wall thickening. Prevoid volume of 199 ml. Postvoid volume of 1.5 ml. Both ureteral jets visualized. Other: Incidental benign-appearing adnexal cysts measuring 3.5 cm on the left and 1.7 cm on the right. IMPRESSION: No hydronephrosis. Possible small left-sided angiomyolipoma or cortical calcification. Report reported and signed by Maciel Murcia on 06/10/2022 1230 Normal [facility] XR Abdomen 2 Viewson 023 XR Abdomen 2 Views CLINICAL HISTORY: Left lower quadrant abdominal pain. Nausea. COMPARISON: CT 03/17/2020 RESULT: Limitations from patient body habitus. Nonspecific nondilated bowel gas pattern. Surgical clips right upper quadrant. No distinct abnormal calcifications radiographically. No acute osseous findings. Lung bases unremarkable. IMPRESSION: No acute findings radiographically. Report reported and signed by Maciel Murcia on 06/07/2022 1133 Normal [facility] XR Ribs Bilateral w/ PA Ches t*on 06-07-2022 XR Ribs Bilateral w/ PA Chest* CLINICAL HISTORY: Left lower rib pain. COMPARISON: 09/23/2021. RESULT: No consolidation. No pleural effusion. No pneumothorax. Stable cardiomediastinal silhouette. No acute displaced rib fracture. No acute osseous findings. IMPRESSION: No acute radiographic abnormality. Report reported and signed by Maciel Murcia on 06/07/2022 1132 Normal [facility] [employer]ze Machine Operator Outside Recordson 02-17-2022 Outside Records [id number]:127 Normal [facility] Physician Orderon 02-17-2022 Physician Order [id number] .[id number]:127 Normal [facility] XR Knee Complete Right*on XR Knee Complete Right* HISTORY: COMPARISON: TECHNIQUE: AP, lateral, and oblique views. FINDINGS: There is mild tricompartmental joint space and impairing No acute fracture or dislocation. No knee joint effusion. There are soft tissue calcifications superior to the patella and in the intercondylar notch. IMPRESSION: There is no acute fracture. There are calcifications of the soft tissues which may represent intra-articular loose bodies. Report reported and signed by DONALD FRANCISCO on 01/22/2022 1419 Normal [facility] ALT (SGPT)on 2021 ALT [Catalytic activity/Vol] 62 U/L High 6-33 [facility] Comment on above: Result Comment: 04/14 Female reference range changed. Performed By: #### A LT, AST, CBCAD #### [facility] [address], [place] [id number] AST (SGOT)on 2021 AST [Catalytic activity/Vol] 46 U/L High 9-34 [facility] Comment on above: Performed By: #### A LT, AST, CBCAD ####[facility] [address] [place], [place] [id number] Complete Blood Count with Au to Diffon 2021 Basophils (Bld) [#/Vol] 0.08 10*3/uL Normal 0.00-0.20 [facility] Comment on above: Performed By: #### A LT, AST, CBCAD #### [facility] [address], [place] [id number] Basophils/100 WBC (Bld) 0.9 % Normal [facility] Comment on above: Performed By: #### A LT, AST, CBCAD #### [facility] [address], [place] [id number] Eosinophils (Bld) [#/Vol] 0.60 10*3/uL High 0.02-0.50 [facility] Comment on above: Performed By: #### A LT, AST, CBCAD #### [facility] [address], [place] [id number] Eosinophils/100 WBC (Bld) 6.6 % Normal [facility] Comment on above: Performed By: #### A LT, AST, CBCAD #### [facility] [address], [place] [id number] Erythrocyte distribution width (RBC) [Ratio] 15.0 % Normal 11.0-15.0 [facility] Comment on above: Performed By: #### A LT, AST, CBCAD #### [facility] [address], [place] [id number] Hematocrit (Bld) [Volume fraction] 35.7 % Normal 35.0-47.0 [facility] Comment on above: Performed By: #### A LT, AST, CBCAD #### [facility] [address], [place] [id number] Hemoglobin (Bld) [Mass/Vol] 11.1 g/dL Low 11.6-15.5 [facility] Comment on above: Performed By: #### A LT, AST, CBCAD #### [facility] [address], [place] [id number] Lymphocytes (Bld) [#/Vol] 2.9 10*3/uL Normal 0.9-3.9 [facility] Comment on above: Performed By: #### A LT, AST, CBCAD #### [facility] [address], [place] [id number] Lymphocytes/100 WBC (Bld) 31.9 % Normal [facility] Comment on above: Performed By: #### A LT, AST, CBCAD #### [facility] [address], [place] [id number] MCH (RBC) [Entitic mass] 26.6 pg Low 27.0-33.0 [facility] Comment on above: Performed By: #### A LT, AST, CBCAD #### [facility] [address], [place] [id number] MCHC (RBC) [Mass/Vol] 31.1 g/dL Low 32.0-36.0 [facility] Comment on above: Performed By: #### A LT, AST, CBCAD #### [facility] [address], [place] [id number] MCV (RBC) [Entitic vol] 86 fL Normal 80-100 [facility] Comment on above: Performed By: #### A LT, AST, CBCAD #### [facility] [address], [place] [id number] Monocytes (Bld) [#/Vol] 0.6 10*3/uL Normal 0.2-0.9 [facility] Comment on above: Performed By: #### A LT, AST, CBCAD #### [facility] [address], [place] [id number] Monocytes/100 WBC (Bld) 7.0 % Normal [facility] Comment on above: Performed By: #### A LT, AST, CBCAD #### [facility] [address], [place] [id number] Neutrophils (Bld) [#/Vol] 4.8 10*3/uL Normal 1.5-7.8 [facility] Comment on above: Performed By: #### A LT, AST, CBCAD #### [facility] [address], [place] [id number] Neutrophils/100 WBC (Bld) 53.3 % Normal [facility] Comment on above: Performed By: #### A LT, AST, CBCAD #### [facility] [address], [place] [id number] Platelet mean volume (Bld) [Entitic vol] 11.10 fL Normal 7.50-12.50 [facility] Specialist Comment on above: Performed By: #### A LT, AST, CBCAD #### [facility] [address], [place] [id number] Platelets (Bld) [#/Vol] 290 10*3/uL Normal 140-400 [facility] Comment on above: Performed By: #### A LT, AST, CBCAD #### [facility] [address], [place] [id number] RBC (Bld) [#/Vol] 4.17 10*6/uL Normal 3.90-5.20 [facility] Specialist Comment on above: Performed By: #### A LT, AST, CBCAD #### [facility] [address], [place] [id number] RDW-SD 47.0 fL Normal 37.0-50.0 [facility] Comment on above: Performed By: #### A LT, AST, CBCAD #### [facility] [address], [place] [id number] WBC (Bld) [#/Vol] 9.1 10*3/uL Normal 3.8-11.0 [facility] Comment on above: Performed By: #### A LT, AST, CBCAD #### [facility] [address], [place] [id number] TSH w/ Reflex to Free T4on 0 2021 TSH 1.860 uIU/mL Normal 0.400-4.500 [facility] Specialist Comment on above: Performed By: #### T SH reflex FT4 ####[facility] [address] [place], [place] [id number] Complete Blood Count with Au to Diffon 09-23-2021 Basophils (Bld) [#/Vol] 0.05 10*3/uL Normal 0.00-0.20 [facility] Comment on above: Performed By: #### C BCAD, CMP #### [facility] [address], [place] [id number] Basophils/100 WBC (Bld) 0.5 % Normal [facility] Comment on above: Performed By: #### C BCAD, CMP #### [facility] [address], [place] [id number] Eosinophils (Bld) [#/Vol] 0.50 10*3/uL Normal 0.02-0.50 [facility] Comment on above: Performed By: #### C BCAD, CMP #### [facility] [address], [place] [id number] Eosinophils/100 WBC (Bld) 5.0 % Normal [facility] Comment on above: Performed By: #### C BCAD, CMP #### [facility] [address], [place] [id number] Erythrocyte distribution width (RBC) [Ratio] 15.8 % High 11.0-15.0 [facility] Comment on above: Performed By: #### C BCAD, CMP #### [facility] [address], [place] [id number] Hematocrit (Bld) [Volume fraction] 34.6 % Low 35.0-47.0 [facility] Comment on above: Performed By: #### C BCAD, CMP #### [facility] [address], [place] [id number] Hemoglobin (Bld) [Mass/Vol] 10.9 g/dL Low 11.6-15.5 [facility] Comment on above: Performed By: #### C BCAD, CMP #### [facility] [address], [place] [id number] Lymphocytes (Bld) [#/Vol] 2.8 10*3/uL Normal 0.9-3.9 [facility] Comment on above: Performed By: #### C BCAD, CMP #### [facility] [address], [place] [id number] Lymphocytes/100 WBC (Bld) 27.6 % Normal [facility] Comment on above: Performed By: #### C BCAD, CMP #### [facility] [address], [place] [id number] MCH (RBC) [Entitic mass] 26.6 pg Low 27.0-33.0 [facility] Comment on above: Performed By: #### C BCAD, CMP #### [facility] [address], [place] [id number] MCHC (RBC) [Mass/Vol] 31.5 g/dL Low 32.0-36.0 [facility] Comment on above: Performed By: #### C BCAD, CMP #### [facility] [address], [place] [id number] MCV (RBC) [Entitic vol] 84 fL Normal 80-100 [facility] Comment on above: Performed By: #### C BCAD, CMP #### [facility] [address], [place] [id number] Monocytes (Bld) [#/Vol] 0.7 10*3/uL Normal 0.2-0.9 [facility] Comment on above: Performed By: #### C BCAD, CMP #### [facility] [address], [place] [id number] Monocytes/100 WBC (Bld) 7.4 % Normal [facility] Comment on above: Performed By: #### C BCAD, CMP #### [facility] [address], [place] [id number] Neutrophils (Bld) [#/Vol] 5.9 10*3/uL Normal 1.5-7.8 [facility] Comment on above: Performed By: #### C BCAD, CMP #### [facility] [address], [place] [id number] Neutrophils/100 WBC (Bld) 59.0 % Normal [facility] Comment on above: Performed By: #### C BCAThelma, CMP #### [facility] [address], [place] [id number] Platelet mean volume (Bld) [Entitic vol] 10.60 fL Normal 7.50-12.50 [facility] Comment on above: Performed By: #### C KEYSHA, CMP #### [facility] [address], [place] [id number] Platelets (Bld) [#/Vol] 308 10*3/uL Normal 140-400 [facility] Comment on above: Performed By: #### C BCAThelma, CMP #### [facility] [address], [place] [id number] RBC (Bld) [#/Vol] 4.10 10*6/uL Normal 3.90-5.20 [facility] Comment on above: Performed By: #### C BCAD, CMP #### [facility] [address], [place] [id number] RDW-SD 48.4 fL Normal 37.0-50.0 [facility] Comment on above: Performed By: #### C BCAD, CMP #### [facility] [address], [place] [id number] WBC (Bld) [#/Vol] 10.0 10*3/uL Normal 3.8-11.0 [facility] Comment on above: Performed By: #### C BCAD, CMP #### [facility] [address], [place] [id number] Comprehensive Metabolic Pane dayron 09-23-2021 Albumin [Mass/Vol] 4.9 g/dL Normal 3.6-5.1 [facility] Croze Machine Operator Comment on above: Performed By: #### C BCAD, CMP #### [facility] [address], [place] [id number] Albumin/Globulin [Mass ratio] 2.0 {ratio} Normal 1.0-2.5 [facility] Croze Machine Operator Comment on above: Performed By: #### C BCAD, CMP #### [facility] [address], [place] [id number] ALP [Catalytic activity/Vol] 70 U/L Normal 35-119 [facility] Comment on above: Performed By: #### C BCAD, CMP #### [facility] [address], [place] [id number] ALT [Catalytic activity/Vol] 60 U/L High 6-33 [facility] Comment on above: Result Comment: 04/14 Female reference range changed. Performed By: #### C BCAD, CMP #### [facility] [address], [place] [id number] Anion gap [Moles/Vol] 21 mmol/L High 12-20 [facility] Comment on above: Result Comment: Effe ctive 05/20/2019 reference range changed. Performed By: #### C BCAD, CMP #### [facility] [address], [place] [id number] AST [Catalytic activity/Vol] 90 U/L High 9-34 [facility] Comment on above: Performed By: #### C BCAD, CMP #### [facility] [address], [place] [id number] BUN/CREA 26 Ratio High 6-22 [facility] Comment on above: Performed By: #### C BCAD, CMP #### [facility] [address], [place] [id number] Calcium [Mass/Vol] 10.0 mg/dL Normal 8.6-10.2 [facility] [employer] Machine Operator Comment on above: Performed By: #### C BCAD, CMP #### [facility] [address], [place] [id number] Chloride [Moles/Vol] 99 mmol/L Normal 98-107 [facility] Comment on above: Performed By: #### C BCAD, CMP #### [facility] [address] [place], [place] [id number] CO2 [Moles/Vol] 22 mmol/L Normal 20-31 [facility] Comment on above: Performed By: #### C BCAD, CMP #### [facility] [address] [place], [place] [id number] Creatinine [Mass/Vol] 0.6 mg/dL Normal 0.6-1.4 [facility] Comment on above: Performed By: #### C BCAD, CMP #### [facility] [address] [place], [place] [id number] eGFRAA 127 mL/min/1.73m2 Normal >60 [facility] Comment on above: Performed By: #### C BCAD, CMP #### [facility] [address] [place], [place] [id number] eGFRNAA 105 mL/min/1.73m2 Normal >60 [facility] Comment on above: Performed By: #### C BCAD, CMP #### [facility] [address] [place], [place] [id number] Globulin (S) [Mass/Vol] 2.4 g/dL Normal 1.9-3.7 [facility] Comment on above: Performed By: #### C BCAD, CMP #### [facility] [address], [place] [id number] Glucose [Mass/Vol] 97 mg/dL Normal 65-99 [facility] Comment on above: Result Comment: For FASTING Glucose --- ADA reference ranges: Normal 65-99 mg/dl Prediabetes 100-125 Diabetes >/= 126 Performed By: #### C BCAD, CMP #### [facility] [address] [place], [place] [id number] Potassium [Moles/Vol] 4.4 mmol/L Normal 3.5-5.5 [facility] [place] [employer] [facility] Comment on above: Performed By: #### C BCAD, CMP #### [facility] [address] [place], [place] [id number] Protein [Mass/Vol] 7.3 g/dL Normal 6.1-8.1 [facility] [facility] [place] [employer] [facility] Comment on above: Performed By: #### C BCAD, CMP #### [facility] [address] [place], [place] [id number] Sodium [Moles/Vol] 137 mmol/L Normal 135-146 [facility] [place] [employer] Operator Comment on above: Performed By: #### C BCAD, CMP #### [facility] [address] [place], [place] [id number] TBIL <0.3 Normal [facility] Comment on above: Performed By: #### C BCAD, CMP #### [facility] [address], [place] [id number] Urea nitrogen [Mass/Vol] 16 mg/dL Normal 7-25 [facility] Croze Machine Operator Comment on above: Performed By: #### C BCAD, CMP #### [facility] [address], [place] [id number] Free T4on 09-23-2021 Free T4 [Mass/Vol] 1.14 ng/dL Normal 0.80-1.80 [facility] Croze Machine Operator Comment on above: Performed By: #### F T4, TSH reflex FT4 ####[facility] [address] [place], [place] [id number] Hemoglobin A1Con 09-23-2021 EAG 142.72 Normal [facility] Comment on above: Performed By: #### A 1C #### [facility] [address], [place] [id number] HbA1c (Bld) [Mass fraction] 6.6 % High 4.0-6.0 [facility] Croze Machine Operator Comment on above: Performed By: #### A 1C #### [facility] [address], [place] [id number] Q - B-TYPE NATRIURETIC (BNP) on 09-23-2021 Natriuretic peptide B (Bld) [Mass/Vol] 20 pg/mL Normal <100 [facility] Croze Machine Operator Comment on above: Order Comment: Quest performed at: [employer], [employer] [facility], [address] [place] [address], [address] [place] [address], [address], Camouflage Assembler: Tripp Clemons Collection Date/Time: [id number] Results Received Date/Time: [id number] Reported Date/Time: Result Comment: BNP levels increase with age in the general population with the highest values seen in individuals greater than 75 years of age. Reference: J. Am. Jelena. Cardiol. 2002; 40:976-982. Performed By: #### 3 7386F ####[facility] [address] [place] [address] Q - THINPREP(R) TIS AND HPV MRNA E6/E7 RFL HPV 16/18/45on 09-23-2021 CLINICAL INFORMATION: None given Normal [facility] Comment on above: Order Comment: [facility] performed at: [employer], [facility] [place], [address], Camouflage Assembler: Aneta Stewart performed at: [facility], [address] [place] [address], [address] [place] [address], [address] [place] [address], Camouflage Assembler: Tripp Clemons Collection Date/Time: [id number] Results Received Date/Time: [id number] Reported Date/Time: [id number] FASTING: NO Result Comment: [HFK ] Performed By: #### 9 1414 ####[facility] [address] [place] [address] COMMENT SEE NOTE Normal [facility] Comment on above: Order Comment: [facility] performed at: [employer], [facility] [place], [address], Camouflage Assembler: Aneta Stewart performed at: [facility], [address] [place] [address], [address] [place] [address], [phone], Camouflage Assembler: Tripp Clemons Collection Date/Time: [id number] Results Received Date/Time: [id number] Reported Date/Time: FASTING: NO Result Comment: EXPL ANATORY NOTE: The Pap is a screening test for cervical cancer. It is not a diagnostic test and is subject to false negative and false positive results. It is most reliable when a satisfactory sample, regularly obtained, is submitted with relevant clinical findings and history, and when the Pap result is evaluated along with historic and current clinical information. [HFK] Performed By: #### 9 1414 ####[facility] [address] [place] [address] COMMENT: SEE NOTE Normal [facility] Croze Machine Operator Comment on above: Order Comment: [facility] performed at: [facility], [facility], [address] [facility], [place], [place], [address] [place] [address], Camouflage Assembler: Aneta Stewart performed at: [employer], [employer], [address] [place] [address], [address] [place] [address], Camouflage Assembler: Tripp Clemons Collection Date/Time: [id number] Results Received Date/Time: [id number] Reported Date/Time: FASTING: NO Result Comment: This Pap test has been evaluated with computer assisted technology. Suggest clinical correlation and follow-up as clinically appropriate [HFK] Performed By: #### 9 1414 ####[facility] [address] [address] INFORMATION TECHNOLOGY INSTRUCTOR: SEE NOTE Normal See Note: [facility] Specialist Comment on above: Order Comment: [facility] performed at: [facility], [employer], [address], [facility] [place], [address] [place] [address], Camouflage Assembler: Aneta Stewart performed at: [employer], [facility], [address] [place] [address], [address] [place] [address], [address] [place] [address], Camouflage Assembler: Tripp Clemons Collection Date/Time: [id number] Results Received Date/Time: [id number] Reported Date/Time: FASTING: NO Result Comment: Refe rence Range: ZL, CT(ASCP) CT screening location: [email or web address] [address]. [HFK] Performed By: #### 9 1414 ####[facility] [address] [place] [address] GENERAL CATEGORIZATION: EPITHELIAL CELL ABNORMALITY Abnormal [facility] Comment on above: Order Comment: Quest performed at: [employer], [facility], [address] [place] [address], [facility] [place], [address], Camouflage Assembler: Aneta Stewart performed at: [employer], [facility], [address] [place] [address], [address], Camouflage Assembler: Tripp Azevdeo MDQuest Collection Date/Time: [id number] Results Received Date/Time: [id number] Reported Date/Time: FASTING: NO Result Comment: [HFK ] Performed By: #### 9 1414 ####[facility] [address] [place] [address] HPV mRNA E6/E7 Detected Abnormal Not Detected [facility] Comment on above: Order Comment: Quest performed at: [employer], [employer] [facility], [facility], [place], [address], Camouflage Assembler: Aneta Stewart performed at: [facility], [address] [place] [address], [address] [place] [address], [phone], Camouflage Assembler: Tripp Azevedo MDQuest Collection Date/Time: [id number] Results Received Date/Time: [id number] Reported Date/Time: FASTING: NO Result Comment: Meth odology: Iron Worker-Mediated Amplification This assay detects E6/E7 viral messenger RNA (mRNA) from 14 high-risk HPV types (16,18,31,33,35,39,45,51,52,56,58,59,66,68). The analytical performance characteristics of this assay have been determined by [employer]. The modifications have not been cleared or approved by the FDA. This assay has been validated pursuant to the CLIA regulations and is used for clinical purposes. For additional information, please refer to http://education.Space Adventures/faq/YJX713x8 (This link if provided for information/ educational purposes only.) [O6K] Performed By: #### 9 1414 ####[facility] [address] [place], [place] [address] INTERPRETATION/RESULT: Low Grade Squamou s Intraepithelial Lesion (LSIL) Abnormal [facility] Comment on above: Order Comment: [facility] performed at: [address], [address], Camouflage Assembler: Aneta Stewart performed at: [employer], [address], Camouflage Assembler: Tripp Clemons Collection Date/Time: [id number] Results Received Date/Time: [id number] Reported Date/Time: FASTING: NO Result Comment: [HFK ] Performed By: #### 9 1414 ####[facility] Laboratory [address] [place] [address] LMP: None given Normal [facility] Comment on above: Order Comment: Quest performed at: [employer], [address], Camouflage Assembler: Aneta Stewart performed at: [employer], [address], Camouflage Assembler: Tripp Clemons Collection Date/Time: [id number] Results Received Date/Time: [id number] Reported Date/Time: FASTING: NO Result Comment: [HFK ] Performed By: #### 9 1414 ####[facility] [address] [place] [address] PATHOLOGIST: SEE NOTE Normal [facility] [employer] Machine Operator Comment on above: Order Comment: Quest performed at: [facility], [facility], [address], [address], [place], [address], Camouflage Assembler: Aneta Stewart performed at: [facility], [email or web address] [facility], [facility], [address] [place] [address] [place], [address], Camouflage Assembler: Tripp Azevedo MDQuest Collection Date/Time: [id number] Results Received Date/Time: [id number] Reported Date/Time: FASTING: NO Result Comment: Javon Puga MD Board Certified in Anatomic Pathology and Cytopathology (electronic signature) For questions regarding this report call Anatomic Pathology at [phone] Ap Puga MD, [employer] [place], [place] [HFK] Performed By: #### 9 1414 ####[facility] [address] [place] [address] PREV. BX: None given Normal [facility] Croze Machine Operator Comment on above: Order Comment: Quest performed at: [facility], [facility], [address], [address], [place], [address], Camouflage Assembler: Aneta Stewart performed at: [facility], [email or web address] [facility], [address] [place] [address], [address] [place] [address], [phone], Camouflage Assembler: Tripp Azevedo MDQuest Collection Date/Time: [id number] Results Received Date/Time: [id number] Reported Date/Time: FASTING: NO Result Comment: [HFK ] Performed By: #### 9 1414 ####[facility] [address] [place] [address] PREV. PAP: None given Normal [facility] Croze Machine Operator Comment on above: Order Comment: Quest performed at: [facility], [facility], [address], [address], [place], [address], Camouflage Assembler: Aneta BerumenTestflores performed at: [email or web address], [email or web address] [facility], [address] [place] [address], [address] [place] [address], [phone], Camouflage Assembler: Tripp Clemons Collection Date/Time: [id number] Results Received Date/Time: [id number] Reported Date/Time: FASTING: NO Result Comment: [HFK ] Performed By: #### 9 1414 ####[facility] [address] [place] [address] SOURCE: None given Normal [facility] Croze Machine Operator Comment on above: Order Comment: Quest performed at: [facility], [facility], [address] [facility], [place], [address], Camouflage Assembler: Aneta BerumenTestflores performed at: [place], [email or web address] [facility], [address] [place] [address], [address] [place] [address], [phone], Camouflage Assembler: Tripp Clemons Collection Date/Time: [id number] Results Received Date/Time: [id number] Reported Date/Time: FASTING: NO Result Comment: [HFK ] Performed By: #### 9 1414 ####[facility] [address] [place] [id number] STATEMENT OF ADEQUACY: SEE NOTE Normal [place] [employer] Machine Operator Comment on above: Order Comment: Quest performed at: [facility], [facility], [address], [address], [place], [address], Camouflage Assembler: Aneta BerumenTestflores performed at: [employer], [email or web address], [address] [place] [address], [address] [place] [address], [address], Camouflage Assembler: Tripp Clemons Collection Date/Time: [id number] Results Received Date/Time: [id number] Reported Date/Time: [id number] FASTING: NO Result Comment: Sati sfactory for evaluation. Endocervical/transformation zone component present. [HFK] Performed By: #### 9 1414 ####[facility] [address] [place] [address] TSH w/ Reflex to Free T4on 0 09-23-2021 FT4 reflex Free T4 Normal [facility] Croze Machine Operator Comment on above: Performed By: #### F T4, TSH reflex FT4 ####[facility] [address] [place], [place] [id number] TSH 4.680 uIU/mL High 0.400-4.500 [facility] Croze Machine Operator Comment on above: Performed By: #### F T4, TSH reflex FT4 ####[facility] [address] [place], [place] [id number] XR Chest 2 Views*on 09-24-19 22 XR Chest 2 Views* FINDINGS: No acute cardiac or pulmonary disease is identified. No worrisome mass lesions or infiltrates are seen. No pulmonary edema or pneumothorax is present. Cardiac silhouette size is normal. Skeletal structures are normal. IMPRESSION: No acute cardiac or pulmonary disease Report reported and signed by Raheem Alcaraz on 09/23/20211413 Normal [facility] Croze Machine Operator Coding Summary.on 07-21-2021 Coding Summary. CD:[id number] G h0bWw+PGhlYWQ+IO8NODD rF65sjHSprN0YS4yDUX0F LTSDJWHECE7AYP8lwYQ8K TwbM6AlgmKx JaqhmRSdXE37CTs4YQA8h EzsXFtlzH3saFTaO2e5It ZuJD39eJ71JCdoVZHoNuU 3LjZpbjsgbWFy G8ydFrFdxWFxVmd+PHRhY mxlIHdpZHRoPScxMDAlJy QeuZgjVS3zOb3jXGTiSMB vbGxhcHNlOiBj i9ffSGWgEOziXW7xlZhzD 8QviBO7GZRle4s1Bb37aC I+HKOiBXE7vVksKLnyi26 4AgIwt1eeQPS7 fWChUKuoGQG2U06my6K6Q QWgHGSyAFR2uEW9kT1dvX jmtsfeK1MdiOHjBeD1UAB 7hJUtgL3jyBkq affnnX2kPya+N22XYC0JA MXHDI1PAvo9F0PzXlulgW I+HS45TUMpYQ69jJTvyDH xj8ybuYq0TqTf AFOxCUL8tZorLGeqe6WrV AHuO54moSJlu8G4CCGzvP qmyOCzJwCflVQ9sN7rKKp zghksu2aulhxm Jnegi7hjmr08yD90X15wK RfdLVUlMTE4SNSzZONceZ amtq9ksG5wQk3+CQqip8r dk0loxTs9OuIo IQUuhqTulAerWSO0c6TkU s29B6CiuYino9PbVdp3ws 95cEJpz4A1pNV5XHzrYAH tpI8bZRysRmF1 SITgEyXrvS97cTBcCMhlH t3hzPjsyDllFL1wQERrnl pcEMZdgE9tXDZloGHxaMx bDD6xEULbxqph n646WkTiOMY6WZPglIZjK 2WmjK4yPwFzZXKsBWKwZ9 IrxCDxJPauK383ZSeeToM 4FDAeaaAuB9Xl NZSyoZpzNvN8y9V4Xz3Ry 3IidvhlFDQ3QOmzYTBxKm M0QnOfAnC3L5VjWpz4AWR faZryFQ0tF1Xl MLEyakdksbvukLU3PWUcW KRjmA06kJZiULasMp1hx0 P7q182BQIfMPDwzQ93Tk6 udDogMTBwdCBU oX1mshyri5mcqqeuVtVkE LOlCUl6TYw2XJHfmWmdVa NtUUI1EuH3IQX9tGEpaE3 rgZdbpdlowL4y Oyc+E44nxE2yVPZ7BXL7l eynVAWqhuQbFS80JN82R5 RyPjwvdGFibGU+PGRpdiB fzNyaKK1oGjQt l7pkb1FeXQkjY5DqFTHiH BviVxa5MPDoNOJ5mVT4tE 9zICGdDJxqk5G7yAY6R8M mwcNrqe1ub8bk VFJjYTfjR52boCAdz9V1X NHseSO3HFIbsKerQeBmfX 93Oyc+SQUdgKicu0MvLhx ce0ogg1mfbIt8 SpKnTCUfhgDnsKeoORE0s 3FcSq31P84qLHzlODRvTX ZbNGLrWTKpcLsmte4jxZ3 wIi8+PGNvbCB3 hKN5jK7sTXGaInS8AHymZ 237CrSnhLGwHemef3clo8 lgnJy5BpOgYCDxidGsvIa pCKP7y2NgGl35 G95rOHbnWZCjVWCiMQPlA FCrqIxigp7ygW8dPz0+PC 4be2ktxs60wE34eEG+PHR iKYB5jSpgSXom AARpmQ2kLRtbXjV3UONnW tBzgD27jZVgAGyeAm9acR kljYuxXO0tCDDmgggyr03 4OlCcf3ymQIPr yMSrUVpkZPX6Y62gj0T1Y GOsCTHrHAZ4kLS7vP0xpK lnbjogbGVmdDsgdmVydGl qKAlgZDzqK609 IHRvcDsnPlBhdGllbnQgT jFnNBm0K0ZsKek0OSUyzT fnSP8seVXsQXovOi6miHw bkGqiRC0vDIYj qpzhr942XvWdu3zzRSLtz HEwIOeyAVJ4H21ky7X3PG VzMELbLEX3iVM0eJ9xvLt nbjogbGVmdDsg afHgoBsrYPnjJVsgC419A HRvcDsnPkJpcnRoIERhdG T6IG73OC38hVFax3F2oFL 9C3GeLVVkbqou zyncoZU1KZPhROWmwU08P t5ojYlqHe8aRBOdXYK5BX ZbfJKcE0IgbD6aFsFjVGS gWBJoO3TrqHBa XLjcO118ILacUiG8XXQba lTlR6GhINMalGftSoH3o3 P1Tz4YI9Q1ZB74NY95rWQ tx0E2pXG2E9Uy OAKkfwldqmdpiHI1HQRzT FUxmD95Gw0voKavHp0hLL LgPFZ9JDJarPZkV8OdvB3 yOiAjMDAwMDAw T6PnkRVbERzuZ466KNcjA hC4XBNpjyHtS9KkMKZtoY hnHgE4s8I7Xw4BRVc3CK1 6QU15yLDcv9N8 aCE8L6AmHZQgeteatrsez BJ7IAOlXULtcQ94Ue7khF pkQf2dNZDsGRH1AENomTF bX7VguP6eUwIg OHUwXRLeJ4HdlWKkONgrN 099QGfqBbN1BVYkdbDhR5 QdTMGcpSakQmK2q4Q0Za5 PATTpJT29SNM7 hHG7HL85QO05W3OhKrgvi GFibGU+PHRhYmxlIHdpZH RoPScxMDAlJyBzdHlsZT0 zCx0eNIQaMQWp eNxdoGDnQiQis1jrPNDiZ WtgUL5mhXtxC6EzlNY9GY Dqg0h9Bo58S62nZ9EwvQW +DBRjxQF7sIQ4 mH7nNmQoYdS6CCqdI711U jEcfNIdKorjm4eqb0wfpX m9VxW7EKAwnlPqhTabWAX 4o4HfHp04T25j IHdpZHRoPSIxNSUiIHZhb Msnwq5rnF9yLe9+PGNvbC N3vLR2zJ5uBcKkApS6TLc wA625OgJpqPTx Hniiu3ivo4gxyBn0AcCnV KMylhBsuFvjUUO6g3FaKw 17R4ZdtJlnl0HqPqj5ks0 0oXXbt3W8sWU0 Y5KyTULddbyzrCTevYaqB E8hHNRwvqprPIEgsG4oOO HfX9r5PdYiPkK3CGvgP4B qkjO4SXPtiIGn QPniIVA7R55wh4X9OUQmZ ZZdDBK0mIS3uU7siKeqrc ogbGVmdDsgdmVydGljYWw kRMoyG206AGVe xPpcDYUupI7tCZDglIKfe FydLH9bWVGabzzqDwwMEu dPUklBLCBFTUlMWTwvdGQ +CPDqILO5rHdn OCyiPVZrrH9uDQOzK4y4H vUwJpU5GKyrA9WoRUOrso xsFy15mV1aUfYlZuK9DUr zH3LqaaG9HEGd nQDpKStaFHP9X79li0L7B QGpECSaPFD0bPS6nP7vcJ lnbjogbGVmdDsgdmVydGl oYFaeIObcF228 BIQzqBmfMpY7AwMzTuN4N XH9X5GzBsz8FEAgdIvmCV 2whLVvYZwuPo9pdJpxnIl uYH1iKENtdcvi DMAnjU0qMRCvmNRwgJwhW D7rQEKypbmop383QaZxIG B3GWCfeIDgD1HhyF4eDeI oUJCpKVCaW7Wj xQJuNEwpK160YZysUdD4D BCkzoDsF0ZgPCKxtTimUx T3w7G0Wv16PHFZBMKidaw vdGQ+PHRkIHN0 zBslXAxaZVMvbV7dYOMpI 2v2VgIlEvT2MJewW7BeFF ZdrsdcEu79kE3lTkNwTaZ 5AUklC9AuvuX1 LDQcsTTdIZnuKTH5O75bq 5V6ZSPiTOHfDAW7xWW3mI 1hbGlnbjogbGVmdDsgdmV ydGljYWwtYWxp R362RIMufZfcBoLsvVLxQ TwvdGQ+GPZyBWK4kUzpBD ouEXQiyG7gPYYeS7o0FzS eFgP9WLzhZ0Xb RKRdodhzFz38tE4tFoNoU tY5KWkqR0FzeyD9GTNmxJ VvUHhxTYK7N99vt8L5HAV bCAAdIIV5qAW1 pJ7hvZrgjqdocDKptYfyz tBfzCvaWClsRXimU896RY FwdCpqKj30lYBgxLveivV 0H0KlJilyvHQ+ AV25OYRoWT98wHJfjFVaj 1wlbPj8DuIuYBTwYEC1rP gwPCkks7DxQMZqT25wwCY ll7V7ONQpgNld lQOyUaQdjIZ3yT2hDDlni brrz4tnscjzWlqzv1pwxq 80bA11H68kHCbrEIKuKJQ zMCUiIHZhbGln lc4lhR3kHv1+NGKjdPP7v SQ2yM7bKbPwDfM6MIyoN3 68OrXapNPmLmqtn5dyi2r sgPy9GlRjXXPb tcLdoBzyRZF3k7JqBr54Z 29sIHdpZHRoPSIyMCUiIH SjhGkerz6gbD8sFi1+PC9 dh6ejsj24pR51 dHI+MTJtMMD3sXuoSOxmY KLokT5zXAnxWgJ5SPYcFn OkbR83jPMkRZsyKi3wpNy woKyrBV3cEBWn ihoed987HyPiy5zlEWEex TRdPScaJRK1B27fq4J7JT MsEUTjVHR7aPO4cQ9rjEb nbjogbGVmdDsg pkKpoCzbLLofSAfuC798L AWxhLbzNcOslRPrO4shbw ZNIP9aFewwdUW+PHRkIHN 0eWxlPSdwYWRk hL4iWBEnM7s6LzCfCiA9L EyoX5JzrlC1NEYrbVQaJO VvrAWQnP4bfvhbx0ientc gIzAwMDAwMDt0 EGt7VSGnfGxvYkQkHYD1I wG6WYI0aEHkkL0zcEsxwn vuzU0bPwf+RklOOjwvdGQ +GDVbPAG0aZma ZQebXIPkaB9qPUFrW7v0P dJgDuZ7KFpsH9YenjI3NE ZbfGIrGAXauUFXwZ3tduy bx9gdkrneRiLd OCIcQEq0JGc7POWnsAhdK rKiFUE8UlO8YZT6fRCrpB 6tlTlzckgnzY5qGzv+TVJ OOjwvdGQ+PHRk NXU1eDagXDuaVGVhnN1aE XAgA3r7OsQaYlK9WExvV5 UbimJ4AGGbqEQqEBUuoNT ZdV6ozculn0xp avhnXcFvVNBoEWx2SWa5Y IEvmTbpUePkMVT2AfA4FM P6dSKedJ1dtLexnraipP3 wOyc+LIX4VYU2 BI12WO60P1LiQacesBCkq +PHRhYmxlIHdpZHRoPS rmPMDuUlOniQbiTO4nIu4 yZGVyLWNvbGxh cHNl (more content not included)... Normal [facility] CT Maxillofacial w/o Contras ton 07-16-2021 CT Maxillofacial w/o Contrast Exam Date/Time: 07/16/2021 15:19 EST Reason for Exam: J32.4 Report IMPRESSION: THERE IS MILD BILATERAL MUCOPERIOSTEAL THICKENING OF THE MAXILLARY SINUSES CONSISTENT MILD CHRONIC SINUSITIS. THERE IS CORTICAL BREAKTHROUGH OF THE RIGHT LATERAL MAXILLA IN THE REGION OF THE CORD INDENTATION WHICH IS WORRISOME FOR DENTAL CARIES WITH EXTENSION INTO THE SURROUNDING SOFT TISSUES. EVALUATION FOR ABSCESS IS LIMITED ON NONCONTRAST STUDY. EXAM: CT Maxillofacial w/o Contrast DATE: 07/16/2021 3:09 PM CLINICAL HISTORY: J32.4. COMPARISON: None available. TECHNIQUE: Multiple images axial images were obtained without contrast administration. 3-D sagittal and coronal reconstructions were performed. All CT scans at this facility use dose modulation, iterative reconstruction, and/or weight based dosing when appropriate to reduce radiation dose to as low as reasonably achievable. FINDINGS: The visualized intracranial portions are within normal limits. The orbits demonstrate no intra or extraconal lesions, the globes are intact. There is no fracture or subluxation. There are no lytic or sclerotic bone lesions. The frontal sinuses are well aerated. The ethmoid sinuses are within normal limits. The sphenoid sinuses are unremarkable. There is mild mucoperiosteal thickening of the bilateral maxillary sinuses. The ostiomeatal complexes are patent. The nasal cavities are within normal limits. There is no deviation of the nasal septum. Report The mastoid air cells and middle and inner ear spaces are within normal limits. There is poor dentition is noted dental caries. There is cortical breakthrough of the right side of the sella which may represent a periodontal abscess, evaluation (limited on noncontrast study. The soft tissues are within normal limits. FINAL REPORT Dictated: 07/16/2021 4:09 pm Donald Francisco MD, V. Signed (Electronic Signature): 07/16/2021 4:09 pm Signed by: Donald Francisco MD, V. Transcribed by: LINDA Technologist: NAHID [facility] Consent for Treatmenton Consent for Treatment [id number] .[id number]:127 [facility] Physician Orderon 06-28-2021 Physician Order [id number] .00CD:127 [facility] Physician Orderon 05-31-2021 Physician Order [id number] .00CD:127 [facility] Vital Signs Date Time Vital Sign Value Performing Clinician Facility 06-13-2024 10:42-0500 Body mass index (BMI) [Ratio] 52.59 kg/m2 Alex Krzysztof DO Work Phone: [facility] 06-13-2024 10:42-0500 Body weight 143.34 kg Alex Krzysztof DO Work Phone: [facility] 06-13-2024 10:42-0500 Diastolic blood pressure 80 mm[Hg] Alex Krzysztof DO Work Phone: [facility] 06-13-2024 10:42-0500 Systolic blood pressure 130 mm[Hg] Alex Krzysztof DO Work Phone: [facility] 05-27-2024 09:28-0500 Body mass index (BMI) [Ratio] 52.72 kg/m2 Alex Krzysztof DO Work Phone: [facility] 05-27-2024 09:28-0500 Body weight 143.7 kg Alex Krzysztof DO Work Phone: [facility] 05-27-2024 09:28-0500 Diastolic blood pressure 80 mm[Hg] Alex Krzysztof DO Work Phone: [facility] 05-27-2024 09:28-0500 Systolic blood pressure 138 mm[Hg] Alex Krzysztof DO Work Phone: [facility] 05-20-2024 09:16-0500 Diastolic blood pressure 88 mm[Hg] Bonifacio Diehl PA-C Work Phone: [facility] 05-20-2024 09:16-0500 Heart rate 92 /min Bonifacio Diehl PA-C Work Phone: [facility] 05-20-2024 09:16-0500 SaO2% (BldA) [Mass fraction] 96 % Bonifacio Diehl PA-C Work Phone: [facility] 05-20-2024 09:16-0500 Systolic blood pressure 128 mm[Hg] Bonifacio Diehl PA-C Work Phone: [place] [address]-19-2024 16:20-0500 Diastolic blood pressure 80 mm[Hg] Bonifacio Diehl PA-C Work Phone: [facility] 04-02-2024 16:20-0500 Systolic blood pressure 142 mm[Hg] Bonifacio Diehl PA-C Work Phone: [facility] 04-02-2024 15:23-0500 Body height 165.1 cm Bonifacio Diehl PA-C Work Phone: [facility] 04-02-2024 15:23-0500 Body mass index (BMI) [Ratio] 52.42 kg/m2 Bonifacio Diehl PA-C Work Phone: [facility] 04-02-2024 15:23-0500 Body temperature 97.11 [degF] Bonifacio Diehl PA-C Work Phone: [facility] 04-02-2024 15:23-0500 Body weight 142.88 kg Bonifacio Diehl PA-C Work Phone: [facility] 04-02-2024 15:23-0500 Heart rate 100 /min Bonifacio Diehl PA-C Work Phone: [facility] 04-02-2024 15:23-0500 SaO2% (BldA) [Mass fraction] 96 % Bonifacio Diehl PA-C Work Phone: [facility] 04-02-2024 08:27-0500 Body height 165.1 cm Chuy Frederick MD Work Phone: [facility] 04-02-2024 08:27-0500 Body mass index (BMI) [Ratio] 52.52 kg/m2 Chuy Frederick MD Work Phone: [facility] 04-02-2024 08:27-0500 Body weight 143.16 kg Chuy Frederick MD Work Phone: [facility] 04-02-2024 08:27-0500 Diastolic blood pressure 94 mm[Hg] Chuy Frederick MD Work Phone: [facility] 04-02-2024 08:27-0500 Heart rate 88 /min Chuy Frederick MD Work Phone: [facility] 04-02-2024 08:27-0500 Systolic blood pressure 172 mm[Hg] Chuy Frederick MD Work Phone: [facility] 03-31-2024 09:30-0500 Body weight [address] [facility] Comment on above: Result Comment: NOTE Test Performed by: [place] [address] Electronics Research Engineer: Jose Schmitz Ph.D.; CLIA# [id number] Corrected on 04/04 AT 0810: Previously reported as 138.8 Performed By: #### C [facility], [facility], [address]-0, [address]-0 #### [facility] ([id number]) [address] [place] [address] 02-20-2024 08:39-0400 Diastolic blood pressure 86 mm[Hg] Bonifacio Diehl PA-C Work Phone: [facility] 02-20-2024 08:39-0400 Systolic blood pressure 150 mm[Hg] Bonifacio Diehl PA-C Work Phone: [facility] 02-20-2024 07:54-0400 Body height 165.1 cm Bonifacio Diehl PA-C Work Phone: [facility] 02-20-2024 07:54-0400 Body mass index (BMI) [Ratio] 50.92 kg/m2 Bonifacio Diehl PA-C Work Phone: [facility] 02-20-2024 07:54-0400 Body temperature 97.3 [degF] Bonifacio Diehl PA-C Work Phone: [facility] 02-20-2024 07:54-0400 Body weight 138.8 kg Bonifacio Diehl PA-C Work Phone: [facility] 02-20-2024 07:54-0400 Heart rate 89 /min Bonifacio Diehl PA-C Work Phone: [facility] 02-20-2024 07:54-0400 SaO2% (BldA) [Mass fraction] 97 % Bonifacio Diehl PA-C Work Phone: [facility] 01-09-2024 07:59-0400 Body height 165.1 cm Chuy Frederick MD Work Phone: [facility] 01-09-2024 07:59-0400 Body mass index (BMI) [Ratio] 49.14 kg/m2 Chuy Frederick MD Work Phone: [facility] 01-09-2024 07:59-0400 Body weight 133.95 kg Chuy Frederick MD Work Phone: [facility] 01-09-2024 07:59-0400 Diastolic blood pressure 95 mm[Hg] Chuy Frederick MD Work Phone: [facility] 01-09-2024 07:59-0400 Heart rate 83 /min Chuy Frederick MD Work Phone: [facility] 01-09-2024 07:59-0400 Systolic blood pressure 164 mm[Hg] Chuy Frederick MD Work Phone: [facility] 01-08-2024 10:33-0400 Body mass index (BMI) [Ratio] 49.09 kg/m2 Sampson Villao CNM Work Phone: [facility] 01-08-2024 10:33-0400 Body weight 133.81 kg Sampson Villao CNM Work Phone: [facility] 01-08-2024 10:33-0400 Diastolic blood pressure 90 mm[Hg] Sampson Villao CNM Work Phone: [facility] 01-08-2024 10:33-0400 Systolic blood pressure 140 mm[Hg] Sampson Pemberton CNM Work Phone: [facility] 01-04-2024 08:50-0400 Body height 165.1 cm Raymond Whittaker DPM Work Phone: [facility] 01-04-2024 08:50-0400 Body mass index (BMI) [Ratio] 48.42 kg/m2 Raymond Whittaker DPM Work Phone: [facility] 01-04-2024 08:50-0400 Body weight 132 kg Raymond Whittaker DPM Work Phone: [facility] 01-04-2024 08:50-0400 Diastolic blood pressure 79 mm[Hg] Raymond Whittaker DPM Work Phone: [facility] 01-04-2024 08:50-0400 Heart rate 75 /min Raymond Whittaker DPM Work Phone: [facility] 01-04-2024 08:50-0400 Systolic blood pressure 124 mm[Hg] Raymond Whittaker DPM Work Phone: [facility] 12-19-2023 08:36-0400 Body height 165.1 cm Thalia Castanon MD Work Phone: [facility] 12-19-2023 08:36-0400 Body mass index (BMI) [Ratio] 48.09 kg/m2 Thalia Castanon MD Work Phone: [facility] 12-19-2023 08:36-0400 Body weight 131.09 kg Thalia Castanon MD Work Phone: [facility] 12-19-2023 08:36-0400 Diastolic blood pressure 74 mm[Hg] Thalia Castanon MD Work Phone: [facility] 12-19-2023 08:36-0400 Respiratory rate 18 /min Thalia Castanon MD Work Phone: [facility] 12-19-2023 08:36-0400 Systolic blood pressure 128 mm[Hg] Thalia Castanon MD Work Phone: [facility] 11-22-2023 16:34-0400 Body height 165.1 cm PHYSICIAN NO [facility] 11-22-2023 16:34-0400 Body temperature 98.4 [degF] PHYSICIAN NO [facility] 11-22-2023 16:34-0400 Body weight 125.1 kg PHYSICIAN NO [facility] 11-22-2023 16:34-0400 Diastolic blood pressure 85 mm[Hg] PHYSICIAN NO [facility] 11-22-2023 16:34-0400 Heart rate 86 /min PHYSICIAN NO [facility] 11-22-2023 16:34-0400 Respiratory rate 18 /min PHYSICIAN NO [facility] 11-22-2023 16:34-0400 SaO2% (BldA) [Mass fraction] 97 % PHYSICIAN NO [facility] 11-22-2023 16:34-0400 Systolic blood pressure 138 mm[Hg] PHYSICIAN NO [facility] 09-21-2023 09:40-0400 Body mass index (BMI) [Ratio] 45.26 kg/m2 Thalia Castanon MD Work Phone: [facility] 09-21-2023 09:40-0400 Body weight 123.38 kg Thalia Castanon MD Work Phone: [facility] 09-21-2023 09:40-0400 Diastolic blood pressure 90 mm[Hg] Thalia Castanon MD Work Phone: [facility] 09-21-2023 09:40-0400 Heart rate 70 /min Thalia Castanon MD Work Phone: [facility] 09-21-2023 09:40-0400 Respiratory rate 16 /min Thalia Castanon MD Work Phone: [facility] 09-21-2023 09:40-0400 Systolic blood pressure 135 mm[Hg] Thalia Castanon MD Work Phone: [facility] [employer] [facility] 09-06-2023 11:55-0400 Body height 165.1 cm Stefany Mike [employer] Work Phone: [facility] 09-06-2023 11:55-0400 Body mass index (BMI) [Ratio] 45.26 kg/m2 Stefanycindy Mike [employer]LO[employer] TE[employer] Work Phone: [facility] 09-06-2023 11:55-0400 Body weight 123.38 kg Stefanycindy Mike [employer]LO[employer] TE[employer]ER Work Phone: [facility] 09-06-2023 11:55-0400 Diastolic blood pressure 79 mm[Hg] Stefanycindy Mike [employer]LO[employer] TE[employer] FINISHER Work Phone: [facility] 09-06-2023 11:55-0400 Heart rate 80 /min Stefanycindy Mike [employer] TE[employer] Work Phone: [facility] 09-06-2023 11:55-0400 SaO2% (BldA) [Mass fraction] 99 % Stefanycindy Mike [employer] Work Phone: [facility] 09-06-2023 11:55-0400 Systolic blood pressure 131 mm[Hg] Stefany Mike FLOOR TE[employer] FINISHER Work Phone: [facility] 06-20-2023 19:12-0500 Body height 165.1 cm Pmh 1 [facility] 06-20-2023 19:12-0500 Body mass index (BMI) [Ratio] 48.59 kg/m2 P[facility] 1 [facility] [employer] [facility] 06-20-2023 19:12-0500 Body weight 132.45 kg Pmh 1 [facility] 05-22-2023 11:56-0500 Body height 165.1 cm Michael Quintero MD Work Phone: [facility] [employer] [facility] 05-22-2023 11:56-0500 Body mass index (BMI) [Ratio] 48.59 kg/m2 Michael Quintero MD Work Phone: [facility] [employer] 05-22-2023 11:56-0500 Body weight 132.45 kg Michael Quintero MD Work Phone: [facility] [employer] [facility] 05-22-2023 11:56-0500 Diastolic blood pressure 87 mm[Hg] Michael Quintero MD Work Phone: [facility] [employer] 05-22-2023 11:56-0500 Heart rate 83 /min Michael Quintero MD Work Phone: [facility] [employer] 05-22-2023 11:56-0500 Systolic blood pressure 129 mm[Hg] Michael Quintero MD Work Phone: [facility] [employer] [facility] 05-19-2023 09:48-0500 Body height 165.1 cm Stefanycindy Mike FLOOR TECH-LENS FINISHER Work Phone: [facility] [employer] [facility] 05-19-2023 09:48-0500 Body mass index (BMI) [Ratio] 48.71 kg/m2 Stefanycindy Mike FLOOR TECH-LENS FINISHER Work Phone: [facility] [employer] [facility] 05-19-2023 09:48-0500 Body weight 132.77 kg Stefany Jasmingel FLOOR TECH-LENS FINISHER Work Phone: [facility] [employer] [facility] 05-19-2023 09:48-0500 Diastolic blood pressure 100 mm[Hg] Stefany Jasmingel FLOOR TECH-LENS FINISHER Work Phone: [facility] [employer] [facility] 05-19-2023 09:48-0500 Heart rate 88 /min Stefany Jasmingel FLOOR TECH-LENS FINISHER Work Phone: [facility] [employer] [facility] 05-19-2023 09:48-0500 SaO2% (BldA) [Mass fraction] 96 % Stefany Jasmingel FLOOR TECH-LENS FINISHER Work Phone: [facility] [employer] [facility] 05-19-2023 09:48-0500 Systolic blood pressure 139 mm[Hg] Stefanyshar Mike FLOOR TECH-LENS FINISHER Work Phone: [facility] Encounters Encounter Date Encounter Type Care Provider Facility Start: 06-26-2024 End: 06-27-2024 Emergency department patient visit BONIFACIO DIEHL [facility] Start: 06-13-2024 End: 06-13-2024 Bamboo flowsheet Alex Krzysztof DO Work Phone: [facility] Start: 06-13-2024 End: 06-13-2024 Bamboo flowsheet Alex Krzysztof DO Work Phone: [facility] Start: 06-13-2024 End: 06-13-2024 Office outpatient visit 15 minutes Alex Krzysztof DO Work Phone: [facility] Comment on above: Arthralgia of lower leg, unspecified laterality; Pre-op examination; Pelvic pain in female; Left ovarian cyst; Amenorrhea Start: 06-13-2024 End: 06-13-2024 Preprocedural examination done Alex Krzysztof DO Work Phone: [facility] Start: 06-13-2024 End: 06-13-2024 ambulatory ALEX KRZYSZTOF Not Available Start: 06-10-2024 End: 06-10-2024 Orders Only Chuy Frederick MD Work Phone: [facility] Comment on above: Neuropathy (Primary Dx) Start: 06-04-2024 End: 06-04-2024 Orders Only Chuy Frederick MD Work Phone: [facility] Comment on above: Neuropathy (Primary Dx) Start: 06-03-2024 End: 06-03-2024 Telephone encounter Rosa Mittal MD Work Phone: [facility] Start: 05-29-2024 End: 05-29-2024 Refill Bonifacio Diehl PA-C Work Phone: [facility]/Kristopher Godoy MD Comment on above: Primary hypertension ; High urine sodium level Start: 05-29-2024 End: 05-29-2024 Office outpatient visit 25 minutes Thalia Castanon MD Work Phone: [facility] Comment on above: Fibromyalgia Start: 05-29-2024 End: 05-29-2024 ambulatory [facility] Nicolas [facility] Start: 05-28-2024 End: 05-29-2024 Telephone encounter Bonifacio Diehl PA-C Work Phone: [facility]/Kristopher Godoy MD Start: 05-27-2024 End: 05-27-2024 Bamboo flowsheet Alex Krzysztof DO Work Phone: [facility] Start: 05-27-2024 End: 05-27-2024 Bamboo flowsheet Alex Krzysztof DO Work Phone: [facility] Start: 05-27-2024 End: 05-27-2024 Clinisync Result Encounter Alex Krzysztof DO Work Phone: [facility] External Department Unsolicited Start: 05-27-2024 End: 05-27-2024 Office outpatient visit 15 minutes Alex Krzysztof DO Work Phone: [facility] Comment on above: Left ovarian cyst; Pain of ovary; Amenorrhea; Pelvic pain in female Start: 05-27-2024 End: 05-27-2024 ambulatory ALEX KRZYSZTOF Not Available Start: 05-20-2024 End: 05-20-2024 ambulatory [facility] Nicolas DIEHL [facility] Start: 05-20-2024 End: 05-20-2024 Office outpatient visit 25 minutes Bonifacio Diehl PA-C Work Phone: [facility]/Kristopher Godoy MD Comment on above: Primary hypertension (Primary Dx); Iron deficiency; Hypothyroidism, unspecified type; High urine sodium level; Type 2 diabetes mellitus with diabetic polyneuropathy, without long-term current use of insulin ([facility]-HCC); Mineral metabolism disorder; STARR on CPAP; Abnormal EKG Start: 04-25-2024 End: 04-25-2024 Orders Only Bonifacio Diehl PA-C Work Phone: [facility]/Kristopher Godoy MD Start: 04-22-2024 End: 04-22-2024 Telephone encounter Bonifacio Diehl PA-C Work Phone: [facility]/Kristopher Godoy MD Start: 04-16-2024 End: 04-20-2024 Refill Justine Goldberg NP Work Phone: [facility] Comment on above: Vitamin D insufficie ncy; Acquired hypothyroidism (CMS/HCC) Hypertriglyceridemia (CMS/HCC) Start: 04-12-2024 End: 04-12-2024 Emergency department patient visit [facility] Start: 04-03-2024 End: 04-03-2024 ambulatory [facility] Nicolas [facility] Start: 04-02-2024 End: 04-02-2024 Office outpatient visit 25 minutes Bonifacio Diehl PA-C Work Phone: [facility]/Kristopher Godoy MD Comment on above: URI with cough and c ongestion (Primary Dx); Primary hypertension; High urine sodium level; Iron deficiency; Hypothyroidism, unspecified type Start: 04-02-2024 End: 04-02-2024 ambulatory [facility] Nicolas [facility] Start: 04-02-2024 End: 04-02-2024 Office outpatient visit 25 minutes Chuy Frederick MD Work Phone: [facility] Comment on above: Neuropathy (Primary Dx); Chronic left-sided low back pain without sciatica Start: 04-02-2024 End: 04-02-2024 ambulatory CHUY FREDERICK [facility] Start: 03-31-2024 End: 03-31-2024 ambulatory JOSÉ CAMPOVERDE [facility] Start: 03-27-2024 End: 03-27-2024 ambulatory [facility] Start: 03-05-2024 End: 03-05-2024 Refill Bonifacio Diehl PA-C Work Phone: [facility]/Kristopher Godoy MD Start: 03-04-2024 End: 03-04-2024 Orders Only Chuy Frederick MD Work Phone: [facility] Comment on above: Neuropathy (Primary Dx) Iron deficiency (Coty igor Dx) Start: 02-25-2024 End: 02-26-2024 Refill Lalo Miller BMX RIDER Work Phone: [facility] Comment on above: Type 2 diabetes trish itus without complication, without long- term current use of insulin (CMS/HCC); Gastroesophageal reflux disease without esophagitis Start: 02-20-2024 End: 02-20-2024 Office outpatient visit 25 minutes Bonifacio Diehl PA-C Work Phone: [facility]/Kristopher Godoy MD Comment on above: Primary hypertension (Primary Dx); Iron deficiency; Insomnia, unspecified type; Hypothyroidism, unspecified type Start: 02-20-2024 End: 02-20-2024 ambulatory [facility] Start: 02-06-2024 End: 02-06-2024 ambulatory [facility] Start: 02-06-2024 End: 02-06-2024 ambulatory [facility] Start: 02-05-2024 End: 02-06-2024 Refill Justine Goldberg BMX RIDER Work Phone: [facility] Comment on above: Morbid (severe) obes ity due to excess calories (CMS/HCC); Type 2 diabetes mellitus without complication, without long-term current use of insulin (CMS/HCC) Start: 01-24-2024 End: 01-24-2024 ambulatory CHUY FREDERICK [facility] Start: 01-12-2024 End: 01-12-2024 Orders Only Justine Goldberg BMX RIDER Work Phone: [facility] Comment on above: Acquired hypothyroid ism (CMS/HCC) (Primary Dx) Start: 01-10-2024 End: 01-10-2024 Telephone encounter Rosa Mittal MD Work Phone: [facility] Start: 01-10-2024 End: 01-10-2024 ambulatory SAMPSON Cady VILLAO Not Available Start: 01-09-2024 End: 01-09-2024 ambulatory ROSA Brown [facility] Start: 01-09-2024 End: 01-09-2024 Office outpatient new 45 minutes hCuy Frederick MD Work Phone: [facility] Comment on above: Tingling of both fee t (Primary Dx); Neuropathy; Hyperreflexia Start: 01-09-2024 End: 01-09-2024 ambulatory CHUY FREDERICK [facility] Start: 01-08-2024 End: 01-08-2024 Patient encounter procedure Sampson Cady Villao CNM Work Phone: [facility] Comment on above: Pelvic pain in femal e; Low grade squamous intraepithelial lesion on cytologic smear of cervix (LGSIL); High risk HPV infection Start: 01-08-2024 End: 01-08-2024 ambulatory SAMPSON L FLORO Not Available Start: 01-05-2024 End: 01-05-2024 Refill Justine Goldberg BMX RIDER Work Phone: [facility] Comment on above: Major depressive dis order, single episode, mild (HCC) (CMS/HCC) Start: 01-05-2024 End: 01-05-2024 Refill Lalo Miller BMX RIDER Work Phone: [facility] Comment on above: Allergic rhinitis du e to other allergic trigger, unspecified seasonality; Iron deficiency; Acquired hypothyroidism (CMS/HCC) Major depressive dis order, single episode, mild (HCC) (CMS/HCC) Start: 01-04-2024 End: 01-04-2024 Bamboo flowsheet Raymond Whittaker DPM Work Phone: [facility] Start: 01-04-2024 End: 01-04-2024 Bamboo flowsheet Raymond Whittaker DPM Work Phone: [facility] Start: 01-04-2024 End: 01-04-2024 Office outpatient visit 15 minutes Raymond Whittaker DPM Work Phone: [facility] Comment on above: Hav (hallux abducto valgus), left (Primary Dx); Hav (hallux abducto valgus), right; Acquired deformity of left toe; Type 2 diabetes mellitus without complication, without long-term current use of insulin ([facility]) Start: 01-04-2024 End: 01-04-2024 ambulatory RAYMOND WHITTAKER Not Available Start: 12-19-2023 End: 12-19-2023 Office outpatient visit 25 minutes Thalia Castanon MD Work Phone: [facility] Comment on above: Neuropathy (Primary Dx); Fibromyalgia Start: 12-19-2023 End: 12-19-2023 ambulatory ROSA Brown KYRIE [facility] Start: 12-11-2023 End: 12-11-2023 ambulatory LALO MILLER Not Available Start: 12-11-2023 End: 12-11-2023 ambulatory SAMPSON L FLORO Not Available Start: 12-02-2023 End: 12-02-2023 ambulatory RAYMOND WHITTAKER Not Available Start: 11-24-2023 End: 11-24-2023 ambulatory RAYMOND WHITTAKER Not Available Start: 11-22-2023 End: 11-22-2023 Emergency department patient visit PHYSICIAN PATRICIA [facility] Work Phone: Start: 11-21-2023 End: 11-22-2023 Emergency department patient visit KAL Cady ROBERTS [facility] Start: 11-21-2023 End: 11-21-2023 Emergency department patient visit KAL ROBERTS [facility] Start: 11-21-2023 End: 11-21-2023 ambulatory TANNER RODRIGUEZ Not Available Start: 11-08-2023 End: 11-08-2023 ambulatory SAMPSON L FLORO Not Available Start: 11-08-2023 End: 11-08-2023 ambulatory SAMPSON L FLORO Not Available Start: 11-06-2023 End: 11-06-2023 Refill Leandro Chapman FLOOR TECH-LENS FINISHER Work Phone: [facility] Start: 11-06-2023 End: 11-06-2023 ambulatory JUSTINE KAMPFER Not Available Start: 10-16-2023 End: 10-16-2023 ambulatory LALO A HACKENBURG Not Available Start: 10-10-2023 End: 10-10-2023 ambulatory TANNER A JENNIFER Not Available Start: 09-27-2023 End: 09-28-2023 Emergency department patient visit CLAUDIA Chinchilla ROBYN [facility] Start: 09-27-2023 End: 09-27-2023 ambulatory FRED COTTER Not Available Start: 09-21-2023 End: 09-21-2023 Office outpatient visit 25 minutes Thalia Castanon MD Work Phone: [facility] Comment on above: Fibromyalgia Start: 09-21-2023 End: 09-21-2023 ambulatory JOSÉ CAMPOVERDE [facility] Start: 09-15-2023 End: 09-15-2023 Telephone encounter Carly WINTERS [facility] Start: 09-06-2023 End: 09-06-2023 Office outpatient visit 25 minutes Stefany Mike FLOOR TECH-LENS FINISHER Work Phone: [facility] Comment on above: STARR (obstructive sle ep apnea) (Primary Dx); CPAP use counseling; Morbid obesity with body mass index (BMI) of 45.0 to 49.9 in adult ([facility]) Start: 09-06-2023 End: 09-06-2023 [facility] Start: 08-17-2023 End: 08-17-2023 ambulatory JUSTINE KAMPFER Not Available Start: 08-16-2023 End: 08-16-2023 ambulatory SHELBI WELLS Not Available Start: 08-14-2023 End: 08-14-2023 ambulatory LALO A HACKENBURG Not Available Start: 07-07-2023 End: 07-07-2023 ambulatory ALEX BLANKENSHIP Not Available Start: 07-06-2023 End: 07-06-2023 ambulatory LALO RLOLINSJOSE CRUZ Not Available Start: 07-05-2023 End: 07-06-2023 Emergency department patient visit KIRILL ARIAS [facility] Start: 06-22-2023 Refill Karla Smith [facility] Comment on above: STARR (obstructive sle ep apnea) (Primary Dx) Start: 06-20-2023 End: 06-20-2023 Clinical Support [facility] - Sleep Disorders Comment on above: STARR (obstructive sle ep apnea) Start: 05-22-2023 Telephone encounter Stefany christie FLOOR TECH-LENS FINISHER Work Phone: [facility] - Sleep Disorders Comment on above: Sleep Lab (HST) Start: 05-22-2023 End: 05-22-2023 Office outpatient visit 25 minutes Michael Quintero MD Work Phone: [facility] Comment on above: Nephrolithiasis (Coty igor Dx); Angiomyolipoma of left kidney; Mineral metabolism disorder Start: 05-19-2023 End: 05-19-2023 Office outpatient new 45 minutes Stefany Mike FLOOR TECH-LENS FINISHER Work Phone: [facility]Sleep [facility] Comment on above: STARR (obstructive sle ep apnea) (Primary Dx); Fatigue, unspecified type; Class 3 severe obesity with body mass index (BMI) of 45.0 to 49.9 in adult, unspecified obesity type, unspecified whether serious comorbidity present (CMS-HCC); Snoring; Excessive daytime sleepiness Start: 07-16-2021 End: 07-17-2021 ambulatory Belgica Lexis Marcella Facility:[facility] Procedures Date Procedure Procedure Detail Performing Clinician Start: 05-27-2024 ALL CBC WITH AUTO DIFF Alex Blankenship DO Work Phone: Start: 04-02-2024 POCT INFLUENZA A/INF LUENZA B/SARS-COV-2 ANGEL Diehl PA-C Work Phone: Start: 02-20-2024 Follow-up visit Follow-up BONIFACIO DIHEL Start: 02-06-2024 Adult depression scr eening assessment Bonifacio Diehl PA-C Work Phone: Start: 01-09-2024 Adult depression scr eening assessment Chuy Frederick MD Work Phone: Start: 11-22-2023 X-ray of left foot PHYS ICIAN NO FAMILY Start: 11-08-2023 Microscopic observat ion [Identifier] in Cervix by Cyto stain Bonifacio Diehl PA-C Work Phone: Start: 09-21-2023 Follow-up visit Follow-up THALIA CASTANON Start: 08-17-2023 Mammography Raymond rodriguez DPM Work Phone: Start: 06-20-2023 Microalbumin [Mass/v olume] in Urine by Test strip Bonifacio Diehl PA-C Work Phone: Plan of Treatment Date Care Activity Detail Author Start: 11-02-2027 Screening for malignant neoplasm of cervix [facility] Start: 11-07-2026 Screening for malignant neoplasm of cervix Pap Smear [facility] Start: 05-29-2025 Tobacco Screening Tobacco [facility]ening [facility] Start: 05-20-2025 Tobacco Screening Tobacco Screening [facility] Start: 05-05-2025 Glaucoma screening Diabetes: Retinopathy Screening [facility] Start: 04-12-2025 Adult BMI Screening Adult BMI Screening [facility] Start: 04-02-2025 Adult BMI Screening Adult BMI Screening [facility] Start: 04-02-2025 Tobacco Screening Tobacco [facility]ening [facility] Start: 02-19-2025 Adult BMI Screening Adult BMI Screening [facility] Start: 02-19-2025 Tobacco Screening Tobacco Screening [facility] Start: 02-05-2025 Depression Screening Depression [facility]ening [facility] Start: 01-08-2025 Adult BMI Screening Adult BMI Screening [facility] Start: 01-08-2025 Depression Screening [facility] Start: 01-08-2025 Tobacco Screening Tobacco Screening [facility] Start: 12-18-2024 Adult BMI Screening Adult BMI Screening [facility] Start: 12-18-2024 Tobacco Screening Tobacco Screening [facility] Start: 12-11-2024 Urine screening for protein Diabetes: Urine Protein Screening [facility] Start: 10-01-2024 End: 10-01-2024 Patient encounter procedure 10/01/2024 8:30 AM EDT Office Visit [facility] [address] [place] [phone] Chuy Frederick MD [address] [place] [id number] [facility] Start: 09-26-2024 Adult BMI Screening Adult BMI Screening [facility] Start: 09-26-2024 Tobacco Screening Tobacco Screening [facility] Start: 09-20-2024 Adult BMI Screening Adult BMI Screening [facility] Start: 09-20-2024 Tobacco Screening Tobacco Screening [facility] Start: 09-11-2024 Tobacco Screening Tobacco Screening [facility] Start: 09-05-2024 Adult BMI Screening Adult BMI Screening [facility] Start: 09-05-2024 Tobacco Screening Tobacco Screening [facility] Start: 08-16-2024 Screening for malignant neoplasm of breast Mammogram [facility] Start: 07-23-2024 End: 07-23-2024 Patient encounter procedure 07/23/2024 1:00 PM EDT Office Visit [facility] [address] [address] Fior Williamson PA [address] [place] [address] [facility] Start: 07-08-2024 End: 07-08-2024 Patient encounter procedure 07/08/2024 8:30 AM EST Office Visit [facility] [address] [facility] [address] [place] [phone] Jaime Vora MD [address] [facility] [address] [place] [address] [facility] Start: 06-20-2024 Adult BMI Screening [facility] Start: 06-20-2024 Urine screening for protein [facility] Start: 06-20-2024 End: 06-20-2024 Patient encounter procedure 06/20/2024 9:15 AM EST Office Visit [facility] [address] [phone] Thalia Castanon MD [address] [address] [facility] Start: 06-13-2024 End: 06-13-2024 Patient encounter procedure [facility] Comment on above: Arrived Start: 05-29-2024 End: 05-29-2024 Patient encounter procedure 05/29/2024 8:30 AM EST Office Visit [facility] [address] [phone] Thalia Castanon MD [address] [address] [facility] Start: 05-27-2024 End: 05-27-2024 Patient encounter procedure [facility] Comment on above: Left ovarian cyst; Pain of ovary Start: 05-22-2024 Adult BMI Screening [facility] Start: 05-22-2024 Tobacco Screening Tobacco [facility]ening [facility] Start: 05-20-2024 End: 05-20-2024 Patient encounter procedure 05/20/2024 8:00 AM EST Office Visit [facility]/Kristopher Godoy MD [address] [facility] [address] [place] [phone] Bonifacio Diehl, PA-C [address] [place] [address] [facility]/Kristopher Godoy MD Start: 05-19-2024 Adult BMI Screening Adult BMI Screening [facility] Start: 05-19-2024 Tobacco Screening Tobacco Screening [facility] Start: 04-10-2024 Hemoglobin A1c measurement Diabetes: Hemoglobin A1C [facility] Start: 04-10-2024 End: 04-10-2024 Patient encounter procedure 04/10/2024 10:45 AM EST Office Visit [facility] [address] [place] [phone] Stefany Mike, FLOOR TECH-LENS FINISHER [address] [facility], [address] [place] [address] [facility] Start: 04-02-2024 End: 04-02-2024 Patient encounter procedure 04/02/2024 3:30 PM EST Office Visit [facility]/Kristopher Godoy MD [address] [place] [phone] Bonifacio Diehl, PA-C [address] [place] [address] [facility]/Kristopher Godoy MD Start: 04-02-2024 End: 04-02-2025 XR Chest PA and Lateral X-ray chest 2 views Imaging Routine URI with cough and congestion Expected: 04/02/2024, Expires: 04/02/2025 [facility] Work Phone: Comment on above: Expected: 04/02/2024, Expires: Start: 04-02-2024 End: 04-02-2024 Patient encounter procedure 04/02/2024 8:30 AM EST Office Visit [facility] [address] [place] [address] Chuy Frederick MD [address] [place] [address] [facility] Start: 04-01-2024 End: 04-01-2024 Patient encounter procedure 04/01/2024 8:00 AM EST Office Visit [facility]/Kristopher Godoy MD [address] [place] [phone] Bonifacio Diehl, PARiccardoC [address] [place] [address] [facility]/Kristopher Godoy MD Start: 03-28-2024 End: 03-28-2024 Patient encounter procedure 03/28/2024 9:45 AM EST Office Visit [facility] [address] [place] [address] Thalia Castanon MD [address] [phone] [facility] Start: 03-22-2024 End: 02-19-2025 CBC W Auto Differential panel - Blood CBC auto differential Lab Routine Iron deficiency Expected: 03/22/2024 (Approximate), Expires: 02/19/2025 [facility] Work Phone: Comment on above: Expected: 03/22/2024 (Approximate), Expi res: 02/19/2025 Start: 03-22-2024 End: 02-19-2025 Iron and TIBC Iron and TIBC Lab Routine Iron deficiency Expected: 03/22/2024 (Approximate), Expires: 02/19/2025 [facility] [employer] Comment on above: Expected: 03/22/2024 (Approximate), Expi res: 02/19/2025 Start: 03-13-2024 Hemoglobin A1c measurement Diabetes: Hemoglobin A1C [facility] Start: 03-04-2024 End: 03-04-2024 Patient encounter procedure 03/04/2024 8:30 AM EDT Appointment [facility] - Neurophysiology [address] [place] [address] [facility] - Neuro[facility]iology Start: 02-23-2024 End: 01-11-2025 TSH W/REFLEX TO FT4 TSH W/REFLEX TO FT4 Lab Routine Acquired hypothyroidism (CMS/HCC) Expected: 02/23/2024 (Approximate), Expires: 01/11/2025 [facility] Work Phone: Comment on above: Expected: 02/23/2024 (Approximate), Expi res: 01/11/2025 Start: 02-21-2024 End: 02-21-2024 Patient encounter procedure 02/21/2024 10:30 AM EDT Office Visit [facility] [address] [place] [phone] Stefany Mike, FLOOR TECH-LENS FINISHER [address] [facility], [address] [place] [address] [facility] Start: 02-06-2024 End: 02-06-2024 Patient encounter procedure 02/06/2024 9:00 AM EDT Office Visit [facility]/Kristopher Godoy MD [address] [place] [phone] Bonifacio Diehl, PA-C [address] [place], [place] [phone] [facility]/Kristopher Godoy MD Start: 01-24-2024 End: 01-24-2024 Patient encounter procedure [facility] - MRI Imaging Start: 01-14-2024 COVID-19 Vaccine ( season) COVID-19 Vaccine () [facility] Start: 01-14-2024 COVID-19 Vaccine () COVID-19 Vaccine () [facility] Start: 01-14-2024 Influenza vaccination [facility] Start: 01-10-2024 End: 01-10-2024 Professional / ancillary services management 01/10/2024 9:00 AM EDT Ancillary Procedure [facility] [address] [phone] [facility] Start: 01-09-2024 End: 01-08-2025 MR Brain WO contrast MR brain without contrast Imaging Routine Hyperreflexia Expected: 01/09/2024, Expires: 01/08/2025 [facility] Comment on above: Expected: 01/09/2024, Expires: Start: 01-09-2024 End: 01-08-2025 MR Cervical spine WO contrast MR cervical spine without contrast Imaging Routine Hyperreflexia Expected: 01/09/2024, Expires: 01/08/2025 [facility] Comment on above: Expected: 01/09/2024, Expires: Start: 01-08-2024 End: 01-07-2025 Tissue exam Tissue exam Pathology and Cytology Routine Low grade squamous intraepithelial lesion on cytologic smear of cervix (LGSIL) High risk HPV infection Expected: 01/08/2024 (Approximate), Expires: 01/07/2025 [facility] Comment on above: Expected: 01/08/2024 (Approximate), Expi res: 01/07/2025 Start: 01-08-2024 End: 01-07-2025 US Pelvis US pelvis Imaging Routine Pelvic pain in female Expected: 01/08/2024, Expires: 01/07/2025 [facility] Work Phone: Comment on above: Expected: 01/08/2024, Expires: Start: 01-08-2024 End: 01-08-2024 Patient encounter procedure 01/08/2024 10:30 AM EDT Procedure Visit [facility] [address] [place] [address] Sampson Pemberton CNM [address] [place], [place] [phone] [facility] Start: 01-04-2024 End: 01-04-2024 Patient encounter procedure 01/04/2024 2:30 PM EDT Procedure Visit [facility] [address] [place] [phone] Sampson Pemberton, CNM [address] [place], [place] [phone] [facility] Start: 01-04-2024 End: 01-04-2024 Patient encounter procedure 01/04/2024 8:50 AM EDT Office Visit [facility] [address] [facility] [address] [place] [address] Raymond Whittaker, ADOLFO [address] [facility] [address] [place] [address] Hav (hallux abducto valgus), left (Primary Dx); Hav (hallux abducto valgus), right; Acquired deformity of left toe; Type 2 diabetes mellitus without complication, without long-term current use of insulin (CMS/HCC) [facility] Comment on above: Hav (hallux abducto valgus), left (Prima ry Dx); Hav (hallux abducto valgus), right; Acquired deformity of left toe; Type 2 diabetes mellitus without complication, without long-term current use of insulin (CMS/HCC) Start: 11-22-2023 End: 11-22-2023 Patient encounter procedure 11/22/2023 9:30 AM EDT Office Visit [facility] [address] [place] [phone] Stefany Mike, FLOOR TECH-LENS FINISHER [address] [facility], [address] [place] [address] [facility] Start: 09-21-2023 End: 09-21-2023 Patient encounter procedure 09/21/2023 9:45 AM EDT Office Visit [facility] [address] [place] [phone] Thalia Castanon MD [address] [address] [facility] Start: 09-06-2023 End: 09-06-2023 Patient encounter procedure 09/06/2023 11:45 AM EDT Office Visit [facility] [address] [place] [phone] Stefany Mike, FLOOR TECH-LENS FINISHER [address] [facility] [address] [place] [address] [facility] Start: 07-19-2023 End: 07-19-2023 Patient encounter procedure 07/19/2023 11:45 AM EST Office Visit [facility] [address] [place] [address] [address] [facility] [place] [phone] Michael Quintero MD [address] [place] [phone] [facility] Start: 05-22-2023 End: 05-22-2023 Patient encounter procedure 05/22/2023 11:45 AM EST Office Visit [facility] [address] [place] [address] [address] [facility] [place] [phone] Michael Quintero MD [address] [place] [address] [facility] Start: 03-03-2023 DTaP,Tdap and Td Vaccines (8 - Td or Tdap) DTaP,Tdap and Td Vaccines (8 - Td or Tdap) [facility] Start: 01-13-2023 COVID-19 Vaccine ( season) COVID-19 [facility]ine ( season[facility] Start: 2001 Screening for malignant neoplasm of cervix Pap Smear [facility] Start: 1998 Adult BMI Follow Up Plan Adult [facility] Plan [facility] Start: 1998 Diabetic foot examination Diabetic [facility]am [facility] Start: 1992 Depression Screening [facility]ening [facility] Start: 1980 Glaucoma screening Diabetic Ophthalmology [facility]am [facility] CBC W Auto Different ial panel - Blood CBC and differential Lab Routine Left ovarian cyst Pain of ovary Amenorrhea Pelvic pain in female Ordered: 05/27/2024 [facility] Comment on above: Ordered: 05/27/2024 Cobalamin (Vitamin B 12) [Mass/volume] in Serum or Plasma Vitamin B12 Lab Routine Neuropathy 03/04/2024 9:51 AM EDT [facility] Cobalamin (Vitamin B 12) [Mass/volume] in Serum or Plasma Vitamin B12 Lab Routine Tingling of both feet 01/09/2024 9:[address] [facility] End: 03-04-2025 Cyanocobalamin vitamin b-12 Vitamin B12 Lab Routine Neuropathy 1 Occurrences starting 03/04/2024 until 03/04/2025 [facility] Work Phone: Comment on above: 1 Occurrences starting 03/04/2024 until 03/04/2025 End: 01-08-2025 Cyanocobalamin vitamin b-12 Vitamin B12 Lab Routine Tingling of both feet 1 Occurrences starting 01/09/2024 until 01/08/2025 [facility] Comment on above: 1 Occurrences starting 01/09/2024 until 01/08/2025 End: 01-08-2025 EMG NCV EMG NCV Neurology Routine Tingling of both feet 1 Occurrences starting 01/09/2024 until 01/08/2025 [facility] Comment on above: 1 Occurrences starting 01/09/2024 until 01/08/2025 End: 01-08-2025 TAVARES Panel TAVARES Panel Lab Routine Tingling of both feet 1 Occurrences starting 01/09/2024 until 01/08/2025 [facility] Comment on above: 1 Occurrences starting 01/09/2024 until 01/08/2025 TAVARES Panel TAVARES Panel Lab Ro utine Tingling of both feet 01/09/2024 9:13 AM EDT [facility] End: 03-04-2025 Ferritin [Mass/volume] in Serum or Plasma Ferritin Lab Routine Iron deficiency 1 Occurrences starting 03/04/2024 until 03/04/2025 [facility] Work Phone: Comment on above: 1 Occurrences starting 03/04/2024 until 03/04/2025 Ferritin [Mass/volum e] in Serum or Plasma Ferritin Lab Routine Iron deficiency 03/04/2024 9:51 AM EDT [facility] hCG, quantitative, hCG, quantitative, Lab Routine Left ovarian cyst Pain of ovary Amenorrhea Pelvic pain in female Ordered: 05/27/2024 [facility] Comment on above: Ordered: 05/27/2024 Hemoglobin A1c/Hemoglobin.total in Blood Hemoglobin A1c Lab Routine Left ovarian cyst Pain of ovary Amenorrhea Pelvic pain in female Ordered: 05/27/2024 [facility] Comment on above: Ordered: 05/27/2024 End: 01-08-2025 Hemoglobin A1c/Hemoglobin.total in Blood Hemoglobin A1c Lab Routine Tingling of both feet 1 Occurrences starting 01/09/2024 until 01/08/2025 [facility] Work Phone: Comment on above: 1 Occurrences starting 01/09/2024 until 01/08/2025 Hemoglobin A1c/Hemoglobin.total in Blood Hemoglobin A1c Lab Routine Tingling of both feet 01/09/2024 9:13 AM EDT [facility] End: 01-08-2025 HIV 1&2 AB/AG Screen (P24 AG) HIV 1&2 AB/AG Screen (P24 AG) Lab Routine Tingling of both feet 1 Occurrences starting 01/09/2024 until 01/08/2025 [facility] Comment on above: 1 Occurrences starting 01/09/2024 until 01/08/2025 HIV 1+2 Ab+HIV1 p24 Ag [Presence] in Serum or Plasma by Immunoassay HIV 1&2 AB/AG Screen (P24 AG) Lab Routine Tingling of both feet 01/09/2024 9:13 AM EDT [facility] End: 05-19-2024 Home sleep study Home sleep study Sleep Center Routine STARR (obstructive sleep apnea) 1 Occurrences starting 05/19/2023 until 05/19/2024 [facility] Work Phone: Comment on above: 1 Occurrences starting 05/19/2023 until 05/19/2024 Homocysteine [Moles/volume] in Serum or Plasma Homocysteine total Lab Routine Neuropathy 03/04/2024 9:52 AM EDT [facility] Homocysteine [Moles/volume] in Serum or Plasma Homocysteine total Lab Routine Tingling of both feet 01/09/2024 9:14 AM EDT [facility] End: 03-04-2025 Homocysteine total Homocysteine total Lab Routine Neuropathy 1 Occurrences starting 03/04/2024 until 03/04/2025 [facility] Comment on above: 1 Occurrences starting 03/04/2024 until 03/04/2025 End: 01-08-2025 Homocysteine total Homocysteine total Lab Routine Tingling of both feet 1 Occurrences starting 01/09/2024 until 01/08/2025 [facility] Comment on above: 1 Occurrences starting 01/09/2024 until 01/08/2025 End: 03-04-2025 Iron and TIBC Iron and TIBC Lab Routine Iron deficiency 1 Occurrences starting 03/04/2024 until 03/04/2025 [facility] Comment on above: 1 Occurrences starting 03/04/2024 until 03/04/2025 Iron and TIBC Iron and TIBC La b Routine Iron deficiency 03/04/2024 9:51 AM EDT [facility] End: 05-21-2024 [facility] 48 Hour [facility] 48 Hour Lab Routine Nephrolithiasis 1 Occurrences starting 05/22/2023 until 05/21/2024 [facility] Work Phone: Comment on above: 1 Occurrences starting 05/22/2023 until 05/21/2024 Methylmalonate [Moles/volume] in Serum or Plasma Methylmalonic Acid, QN, P Lab Routine Neuropathy 03/04/2024 9:51 AM EDT [facility] Methylmalonate [Moles/volume] in Serum or Plasma Methylmalonic Acid, QN, P Lab Routine Tingling of both feet 01/09/2024 9:13 AM EDT [facility] End: 03-04-2025 Methylmalonic Acid, QN, P Methylmalonic Acid, QN, P Lab Routine Neuropathy 1 Occurrences starting 03/04/2024 until 03/04/2025 [facility] Comment on above: 1 Occurrences starting 03/04/2024 until 03/04/2025 End: 01-08-2025 Methylmalonic Acid, QN, P Methylmalonic Acid, QN, P Lab Routine Tingling of both feet 1 Occurrences starting 01/09/2024 until 01/08/2025 [facility] Comment on above: 1 Occurrences starting 01/09/2024 until 01/08/2025 Patient Education Cellulitis (Sk in Infection), Adult (DC) [facility] Work Phone: Patient referral [facility] Work Phone: Prolactin Prolactin Lab Ro utine Left ovarian cyst Pain of ovary Amenorrhea Pelvic pain in female Ordered: 05/27/2024 [facility] Comment on above: Ordered: 05/27/2024 End: 01-08-2025 Protein electrophoresis, serum Protein electrophoresis, serum Lab Routine Tingling of both feet 1 Occurrences starting 01/09/2024 until 01/08/2025 [facility] Comment on above: 1 Occurrences starting 01/09/2024 until 01/08/2025 Protein electrophoresis, serum Protein electrophoresis, serum Lab Routine Tingling of both feet 01/09/2024 9:13 AM EDT [facility] End: 01-08-2025 Serum Immunofixation Serum Immunofixation Lab Routine Tingling of both feet 1 Occurrences starting 01/09/2024 until 01/08/2025 [facility] Comment on above: 1 Occurrences starting 01/09/2024 until 01/08/2025 Serum Immunofixation Serum Immun ofixation Lab Routine Tingling of both feet 01/09/2024 9:13 AM EDT [facility] End: 01-08-2025 Syphilis Total(Unknown Syphilis Status) Syphilis Total(Unknown Syphilis Status) Lab Routine Tingling of both feet 1 Occurrences starting 01/09/2024 until 01/08/2025 [facility] Comment on above: 1 Occurrences starting 01/09/2024 until 01/08/2025 Thyrotropin [Units/volume] in Serum or Plasma TSH Lab Routine Left ovarian cyst Pain of ovary Amenorrhea Pelvic pain in female Ordered: 05/27/2024 [facility] Work Phone: Comment on above: Ordered: 05/27/2024 Treponema pallidum IgG+IgM Ab [Presence] in Serum by Immunoassay Syphilis Total(Unknown Syphilis Status) Lab Routine Tingling of both feet 01/09/2024 9:13 AM EDT [facility] End: 01-08-2025 TSH with Reflex TSH with Reflex Lab Routine Tingling of both feet 1 Occurrences starting 01/09/2024 until 01/08/2025 [facility] Comment on above: 1 Occurrences starting 01/09/2024 until 01/08/2025 TSH with Reflex TSH with Reflex Lab Routine Tingling of both feet 01/09/2024 9:13 AM EDT [facility] Immunizations Immunization Date Immunization Notes Care Provider [facility] 04-01-2023 influenza, injectabl e, quadrivalent, preservative free Raymond Whittaker DPM Work Phone: [facility] 04-01-2023 influenza virus vacc ine, unspecified formulation Stefany Mike FLOOR TECH-LENS FINISHER Work Phone: [facility] 07-30-2022 Hepatitis B vaccine (recombinant), CpG adjuvanted Raymond Whittaker DPM Work Phone: [facility] 07-30-2022 pneumococcal polysaccharide vaccine, 23 valent Raymond Whittaker DPM Work Phone: [facility] 03-26-2022 Seasonal, quadrivale nt, recombinant, injectable influenza vaccine, preservative free Raymond Whittaker DPM Work Phone: [facility] 02-19-2022 SARS-COV-2 (COVID-19 ) vaccine, mRNA, spike protein, LNP, bivalent, preservative free, 30 mcg/0.3 mL dose, lillie-sucrose formulation Raymond Whittaker DPM Work Phone: [facility] 03-20-2021 Pfizer Purple Cap SARS-CoV-2 Vaccination Raymond Whittaker DPM Work Phone: [facility] 02-04-2021 influenza, injectabl e, quadrivalent, preservative free Raymond Whittaker DPM Work Phone: [facility] 03-03-2020 influenza, injectabl e, quadrivalent, preservative free Raymond Whittaker DPM Work Phone: [facility] 05-23-2019 influenza, injectabl e, quadrivalent, preservative free Raymond Whittaker DPM Work Phone: [facility] 03-18-2019 influenza, injectabl e, quadrivalent, contains preservative Raymond Whittaker DPM Work Phone: [facility] 02-12-2019 hepatitis A vaccine, adult dosage Raymond Whittaker DPM Work Phone: [facility] 02-27-2018 influenza, injectabl e, quadrivalent, preservative free Raymond Whittaker DPM Work Phone: [facility] 03-28-2016 influenza, injectabl e, quadrivalent, preservative free Raymond Whittaker DPM Work Phone: [facility] 08-15-2015 pneumococcal Conjuga te, unspecified formulation Raymond Whittaker DPM Work Phone: [facility] 03-03-2015 influenza, injectabl e, quadrivalent, preservative free Raymond Whittaker DPM Work Phone: [facility] 03-10-2014 influenza, seasonal, injectable, preservative free Raymond Whittaker DPM Work Phone: [facility] 04-05-2013 influenza, seasonal, injectable Raymond Whittaker DPM Work Phone: [facility] 03-03-2013 tetanus toxoid, redu tiffanie diphtheria toxoid, and acellular pertussis vaccine, adsorbed Raymond Whittaker DPM Work Phone: [facility] 12-12-2012 tetanus toxoid, redu tiffanie diphtheria toxoid, and acellular pertussis vaccine, adsorbed Raymond Whittaker DPM Work Phone: [facility] 05-04-2009 novel influenza-H1N1 -09, preservative-free, injectable Raymond Whittaker DPM Work Phone: [facility] 10-26-1998 hepatitis B vaccine, pediatric or pediatric/adolescent dosage Raymond Whittaker DPM Work Phone: [facility] 10-26-1998 TD(adult) unspecifie d formulation Raymond Brown DPM Work Phone: [facility] 05-26-1998 hepatitis B vaccine, pediatric or pediatric/adolescent dosage Raymond Whittaker DPM Work Phone: [facility] 04-22-1998 hepatitis B vaccine, pediatric or pediatric/adolescent dosage Raymond Brown DPM Work Phone: [facility] 07-29-1992 measles, mumps and rubella virus vaccine Raymond Van DPM Work Phone: [facility] 07-29-1992 TD(adult) unspecifie d formulation Raymond Van DPM Work Phone: [facility] 07-29-1992 trivalent poliovirus vaccine, live, oral Raymond Whittaker DPM Work Phone: [facility] 08-24-1982 diphtheria, tetanus toxoids and pertussis vaccine Raymond Whittaker DPM Work Phone: [facility] 08-24-1982 trivalent poliovirus vaccine, live, oral Raymond Brown DPM Work Phone: [facility] 02-04-1982 measles, mumps and rubella virus vaccine Raymond Brown DPM Work Phone: [facility] 05-19-1981 diphtheria, tetanus toxoids and pertussis vaccine Raymond Van DPM Work Phone: [facility] 05-19-1981 trivalent poliovirus vaccine, live, oral Raymond Whtitaker DPM Work Phone: [facility] 02-20-1981 diphtheria, tetanus toxoids and pertussis vaccine Raymond Whittaker DPM Work Phone: [facility] 02-20-1981 trivalent poliovirus vaccine, live, oral Raymond Whittaker DPM Work Phone: [facility] 1980 diphtheria, tetanus toxoids and pertussis vaccine Raymond Whittaker DPM Work Phone: [facility] 1980 trivalent poliovirus vaccine, live, oral Raymond Whittaker DPM Work Phone: [facility] Healthcare Payers Date Payer Category Payer Self-pay 2021 Medicaid [id number] 2021 Unknown [id number] 2020 Medicaid [id number] 2020 Medicaid HMO [facility] [id number] 2020 Private Health Insurance [id number] [id number] 2020 Private Health Insurance [id number] 1980 Unknown [id number] 2.16.840.1.584161.3.579. 2.727 1980 Unknown [id number] 2.16.840.1.321156.3.579. 2.1285 1980 Unknown [id number] 2.16.840.1.407398.3.579. 2.1285 1980 Unknown [id number] 2.840.1.178605.3.579. 2.1285 1980 Unknown [id number] 2.840.1.076525.3.579. 2.1285 1980 Unknown [id number] 2.840.1.616325.3.579. 2.1285 1980 Unknown [id number] 2.840.1.720854.3.579. 2.1285 1980 Unknown [id number] 2.840.1.218711.3.579. 2.1285 1980 Unknown [id number] 2.0.1.666042.3.579. 2.1285 1980 Unknown [id number] 2.840.1.611673.3.579. 2.1285 1980 Unknown [id number] 2.840.1.275359.3.579. 2.1285 1980 Unknown [id number] 2.840.1.524308.3.579. 2.1285 1980 Unknown [id number] 2.840.1.614757.3.579. 2.1285 1980 Unknown [id number] 2.840.1.127630.3.579. 2.1285 1980 Unknown [id number] 2.840.1.805976.3.579. 2.1285 1980 Unknown [id number] 2.840.1.638343.3.579. 2.1285 1980 Unknown [id number] 2.840.1.181569.3.579. 2.1258 1980 Unknown [id number] 2.16840.1.822470.3.579. 2.1258 1980 Unknown [id number] 2.16840.1.126158.3.579. 2.1258 1980 Unknown [id number] 2.16.840.1.349680.3.579. 2.1258 1980 Unknown [id number] 2.16840.1.130602.3.579. 2.1258 1980 Unknown [id number] 2.16840.1.856189.3.579. 2.1258 1980 Unknown [id number] 2.840.1.204191.3.579. 2.1258 1980 Unknown [id number] 2.840.1.921839.3.579. 2.1258 1980 Unknown [id number] 2.840.1.410833.3.579. 2.1258 1980 Unknown [id number] 2.840.1.183524.3.579. 2.1258 1980 Unknown [id number] 2.840.1.499455.3.579. 2.1258 1980 Unknown [id number] 2.840.1.485685.3.579. 2.1258 1980 Unknown [id number] 2.840.1.226099.3.579. 2.1258 1980 Unknown [id number] 2.16840.1.395373.3.579. 2.1258 1980 Unknown [id number] 2.840.1.447540.3.579. 2.1258 1980 Unknown [id number] 2.16840.1.621873.3.579. 2.1258 1980 Unknown [id number] 2.16840.1.332130.3.579. 2.1258 1980 Unknown [id number] 2.16840.1.763224.3.579. 2.1258 1980 Unknown [id number] 2.16.840.1.651398.3.579. 2.1258 1980 Unknown [id number] 2.16.840.1.768356.3.579. 2.1258 1980 Unknown [id number] 2.16.840.1.986041.3.579. 2.1258 1980 Unknown [id number] 2.16.840.1.137382.3.579. 2.1285 1980 Unknown [id number] 2.840.1.604976.3.579. 2.1285 1980 Unknown [id number] 2.840.1.294944.3.579. 2.1285 1980 Unknown [id number] 2.0.1.949757.3.579. 2.1285 1980 Unknown [id number] 2.840.1.482969.3.579. 2.1285 1980 Unknown [id number] 2.840.1.373015.3.579. 2.1285 1980 Unknown [id number] 2.840.1.205823.3.579. 2.1285 1980 Unknown [id number] 2.840.1.518086.3.579. 2.1285 1980 Unknown [id number] 2.840.1.135525.3.579. 2.1285 1980 Unknown [id number] 2.840.1.243949.3.579. 2.1285 1980 Unknown [id number] 2.16840.1.666569.3.579. 2.1285 1980 Unknown [id number] 2.840.1.803628.3.579. 2.1285 1980 Unknown [id number] 2.16840.1.920008.3.579. 2.1286 Unknown Noam BC/BS [id number] Unknown [id number] 2.16.840.1.221792.3.579. 2.531 Social History Date Type Detail Facility Start: 10-20-2021 End: 11-22-2023 Tobacco smoking status NHIS Never smoked tobacco (finding) [facility] Start: 1980 Sex Assigned At Female F [facility] Start: 10-20-2021 End: 11-01-2022 Tobacco use and exposure Smokeless tobacco non-user [facility] Start: 01-09-2024 End: 02-20-2024 Alcoholic beverage intake Lifetime non-drinker (finding) [facility] Start: 06-25-2020 End: 02-20-2024 History of Social function [facility] Start: 06-25-2020 End: 02-20-2024 Tobacco use panel [facility] How hard is it for you to pay for the very basics like food, housing, medical care, and heating Not very hard [facility] Adolescent depressio n screening assessment 14 [facility] Start: 07-27-2022 Gender identity Identifies as female gender (finding) [facility] Start: 10-03-2022 Sexual orientation Heterosexual (fin ding) [facility] Start: 01-08-2024 End: 06-13-2024 Alcoholic beverage intake Ex-drinker (finding) [facility] Are you now , , , , never or living with a partner? Never [facility] Do you feel stress - tense, restless, nervous, or anxious, or unable to sleep at night because your mind is troubled all the time - these days [OSQ] To some extent [facility] Start: 02-07-2023 Alcohol Comment Caffeine intak e : 2-3 times/week, soda/pop [facility] Start: 12-18-2014 Sex Female (finding) [facility] NEGATED: Highlighted rowStart: NINF History of tobacco use Passive smoker [facility] Medical Equipment Procedure Code Equipment Code Equipment Origin al Text Equipment Identifier Dates Stent-03/29/2023 [id number] Start: 03-29-2023 [id number], [id number], [id number], [id number], [id number] Start: 09-24-2021 Goals Date Patient Goal Desired Activity /State Personal health goal Comment on above: Formatting of this n ote might be different from the original. Evaluation of progress towards goal: safe transition from hospital to home with family support. Personal health goal Clinical Notes 05-19-2023 to 06-13-2024 Leyla Valentin - 06/13/2024 10:40 AM ESTTelephone Encounter - Kelinjj Artisa - 06/03/2024 8:39 AM ESTTelephone Encounter - Kelin Graham - 06/03/2024 8:39 AM ESTPatient InstructionsPatient Instructions Note Date & Type Note Facility 06-13-2024 History of Present illness Narrative Reason for Appointment: Patient ID: Brandy Adamson is a 43 y.o. female who presents for Pre-op Visit Patient presents today for Pre Op appointment. Patient is scheduled to undergo Diagnostic Laparoscopy, possible [place], possible FOE, possible BSO and D&C Hysteroscopy, possible Myosure on 07/12/[address] Blankenship at [facility]. MEDICATIONS Current Outpatient Medications Medication Instructions albuterol HFA 90 mcg/act inhaler INHALE 2 PUFFS BY MOUTH EVERY 4 HOURS NEEDED FOR WHEEZING allopurinol (Zyloprim) 300 MG tablet Every 24 hours atorvastatin (LIPITOR) 10 mg, Oral, Daily B-D UF III MINI PEN NEEDLES 31G X 5 MM misc USE EVERY MORNING DIRECTED Blood Glucose Monitoring Suppl (ONE TOUCH ULTRA 2) w/Device kit buPROPion SR (Wellbutrin SR) 150 MG 12 hr tablet TAKE 1 TABLET BY MOUTH EVERY MORNING AND 1 BEFORE BEDTIME cetirizine (ZYRTEC) 10 mg, Oral, Daily doxycycline (Vibramycin) 100 MG capsule TAKE 1 CAPSULE BY MOUTH EVERY MORNING AND 1 BEFORE BEDTIME DULoxetine (CYMBALTA) 40 mg, Oral, Daily, Do not crush or chew. EPINEPHrine (Epipen) 0.3 MG/0.3ML injection syringe INJECT INTO THE MIDDLE OF THE OUTER THIGH AND HOLD FOR 3 SECONDS NEEDED FOR SEVERE ALLERGIC REACTION THEN CALL 911 IF USED. ergocalciferol (Vitamin D2) 1.25 MG (57634 UT) capsule TAKE 1 CAPSULE(1.25 MG) BY MOUTH 1 TIME EVERY WEEK ferrous sulfate (FEROSUL) 325 mg, Oral, Every morning fluticasone (Flonase) 50 MCG/ACT nasal spray 1 spray, Each Nostril, Daily, Shake gently. Before first use, prime pump. After use, clean tip and replace cap. ketoconazole (NIZOral) 2 % shampoo APPLY TO AFFECTED AREA(S) TWICE A WEEK, LEAVE ON FOR 3 TO 5 MINUTES THEN RINSE Lancets (Revstr Delica Plus [id number]) misc TEST EVERY MORNING DIRECTED levothyroxine (SYNTHROID) 75 mcg, Oral, Daily, Take on an empty stomach magnesium oxide (MAG-OX) 1,200 mg, Daily RT metFORMIN (GLUCOPHAGE) 1,000 mg, Oral, 2 times daily metoprolol tartrate (LOPRESSOR) 50 mg, Oral, 2 times daily omega-3 (Fish Oil) 500 MG capsule 1 capsule, Every 12 hours omeprazole (PriLOSEC) [address] capsule TAKE 1 CAPSULE(40 MG) BY MOUTH IN THE MORNING. DO NOT CRUSH OR CHEW Revstr Ultra test strip USE DIRECTED EVERY MORNING pen needle 30G x 5 mm misc 1 each, Subcutaneous, Daily, Use as instructed pregabalin (LYRICA) 100 mg, 2 times daily tiZANidine (ZANAFLEX) 4 mg, Every 8 hours PRN Victoza 1.8 mg, Subcutaneous, Daily ALLERGIES Allergies Allergen Reactions Dulaglutide Headache Levofloxacin GI intolerance Other reaction(s): stomach upset Sulfamethoxazole Unknown Other reaction(s): Unknown Sulfamethoxazole-Trimethoprim Trimethoprim Unknown Other reaction(s): Unknown PROBLEMS Active Ambulatory Problems Diagnosis Date Noted Absolute anemia 11/16/2022 Acquired hallux valgus 09/03/2020 Acquired hypothyroidism ([facility]) 11/16/2022 Allergic reaction to insect bite 01/19/2021 Allergic rhinitis 07/28/2020 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 Anogenital warts 02/20/2020 Anxiety 04/19/2015 Benign essential hypertension ([facility]) 04/19/2015 Chronic fatigue 11/16/2022 Chronic maxillary sinusitis 04/05/2021 Cluster headache, not intractable 10/19/2017 Constipation 05/26/2019 Difficulty walking 04/23/2018 Dysuria 11/16/2022 HTN (hypertension) ([facility]) 10/13/2021 Hypertriglyceridemia ([facility]) 05/26/2019 Insulin resistance 10/17/2016 Intrinsic atopic dermatitis 11/06/2020 Irregular periods 02/10/2020 Lung nodule 11/07/2016 Major depressive disorder, single episode, mild (HCC) ([facility]) 11/16/2022 Mineral metabolism disorder 10/19/2022 Mixed conductive and sensorineural hearing loss of both ears 04/05/2021 Morbid (severe) obesity due to excess calories ([facility]) 11/16/2022 Obstructive sleep apnea 07/02/2020 Osteochondritis dissecans 04/23/2018 Other chronic pain 11/07/2016 Scalp psoriasis ([facility]) 11/16/2022 Seasonal allergic reaction 11/16/2022 Skin sensation disturbance 01/22/2020 Tension-type headache, not intractable 04/19/2015 Type 2 diabetes mellitus without complication, without long-term current use of insulin ([facility]) 11/16/2022 Internal derangement of right knee 11/16/2022 Arthralgia of lower leg 02/15/2017 Abnormal EKG 10/13/2021 Cough 12/05/2022 COVID-19 05/24/2020 Hypertensive emergency ([facility]) 12/05/2022 Impaired gait and mobility 12/05/2022 Mucopurulent chronic bronchitis ([facility]) 04/05/2021 Nephrolithiasis 09/19/2022 Pain in right knee 12/05/2022 Perforation of nasal septum 12/05/2022 Paresthesia of skin 12/05/2022 Polycystic ovarian syndrome 07/01/2015 PTSD (post-traumatic stress disorder) ([facility]) 09/28/2017 Chronic rhinitis 05/31/2021 Primary osteoarthritis 02/15/2017 Chronic pansinusitis 05/31/2021 Cluster headache syndrome 10/19/2017 PCOS (polycystic ovarian syndrome) 07/01/2015 Elevated lactic acid level 03/06/2023 Sepsis ([facility]) 03/06/2023 Ureterolithiasis 03/06/2023 Acute kidney failure, unspecified ([facility]) 05/04/2023 Hypomagnesemia 05/04/2023 Other iron deficiency anemias 05/04/2023 Ureteral stent retained 03/30/2023 Vitamin D deficiency, unspecified 05/04/2023 Mixed obsessional thoughts and acts ([facility]/HCC) 08/16/2023 Cellulitis 12/11/2023 Resolved Ambulatory Problems Diagnosis Date Noted No Resolved Ambulatory Problems Past Medical History: Diagnosis Date Allergic Anemia Chronic kidney disease 03-06-23 Depression (CMS/HCC) Disease of thyroid gland (CMS/HCC) Fibromyalgia GERD (gastroesophageal reflux disease) Hematuria History of medical problems 2006 Hyperlipidemia (CMS/HCC) Hypertension (CMS/HCC) Nasal septum perforation Neuromuscular disorder (CMS/[facility]) Obesity Polycystic ovary HISTORY PAST MEDICAL HISTORY SOCIAL HISTORY Past Medical History: Diagnosis Date Allergic Anemia Anxiety Chronic kidney disease 03-06-23 Chronic pansinusitis Chronic rhinitis COVID-19 04/2020 Depression ([facility]/HCC) Disease of thyroid gland (CMS/HCC) Fibromyalgia GERD (gastroesophageal reflux disease) Hematuria History of medical problems 2006 Hole in septum of nose Hyperlipidemia (CMS/[facility]) Hypertension (CMS/HCC) Insulin resistance Nasal septum perforation Neuromuscular disorder ([facility]) Obesity Polycystic ovary Sepsis ([facility]) Social History Tobacco Use Smoking status: Never Passive exposure: Never Smokeless tobacco: Never Vaping Use Vaping status: Never Used Substance Use Topics Alcohol use: Not Currently Comment: Caffeine intake : 2-3 times/week, soda/pop Drug use: Never FAMILY HISTORY Family History Problem Relation Name Age of Onset Thyroid disease Mother Yris Hypertension Mother Yris Arthritis Mother Yris Depression Mother Yris Hypertension Father [place] Thyroid disease Father [place] Hyperlipidemia Father [place] SURGICAL HISTORY Past Surgical History: Procedure Laterality Date CHOLECYSTECTOMY 2009 CYSTOSTOMY Right 03/06/2023 DENTAL SURGERY 11/2019 tooth pulled LITHOTRIPSY 03/29/2023 PAP SMEAR 2019 TONSILLECTOMY 1992 VAGINAL DELIVERY WRIST SURGERY 2005 Tendonitis surgery right wrist REVIEW OF SYSTEMS Review of Systems: Review of Systems Constitutional: Negative. HENT: Negative. Eyes: Negative. Respiratory: Negative. Cardiovascular: Negative. Gastrointestinal: Negative. Genitourinary: Positive for pelvic pain. Musculoskeletal: Negative. Skin: Negative. Neurological: Negative. All other systems reviewed and are negative. Hematological: Negative. Endocrine: Negative. Allergic/Immunologic: Negative. OBJECTIVE Objective: Physical Exam Constitutional: Appearance: Normal appearance. She is well-developed. Cardiovascular: Rate and Rhythm: Normal rate and regular rhythm. Pulmonary: Effort: Pulmonary effort is normal. Breath sounds: Normal breath sounds. Abdominal: General: Bowel sounds are normal. There is no distension. Palpations: Abdomen is soft. Tenderness: There is no abdominal tenderness. There is no guarding or rebound. Musculoskeletal: General: No swelling. Normal range of motion. Right lower leg: No edema. Left lower leg: No edema. Neurological: Mental Status: She is alert and oriented to person, place, and time. Skin: General: Skin is warm and dry. Psychiatric: Mood and Affect: Mood normal. Behavior: Behavior normal. Vitals and nursing note reviewed. Exam conducted with a log buyer present. Vitals: Estimated body mass index is 52.59 kg/m as calculated from the following: Height as of 01/04/24: 5' 5 . Weight as of this encounter: 316 lb. BP: 130/80 Patient's last menstrual period was 06/11/2024. ASSESSMENT & PLAN ICD-10-CM 1. Arthralgia of lower leg, unspecified laterality M25.569 tiZANidine (Zanaflex) 4 MG tablet 2. Pre-op examination Z01.818 3. Pelvic pain in female R10.2 4. Left ovarian cyst N83.202 5. Amenorrhea N91.2 Pre Op: Patient is doing well but has complaints of left ovarian cyst, pelvic pain, and amenorrhea. I have discussed conservative management vs. surgical management with the patient in detail and patient desires surgical management at this time. Patient will undergo Diagnostic Laparoscopy, possible JUAN DIEGO, possible FOE, possible BSO and D&C Hysteroscopy, possible Myosure on 07/12/2024. Surgical consents were signed, mmc was reviewed, and patient is to proceed to [facility] OR. Follow Up: Patient is to follow up between 1-2 weeks post operative to assess proper healing and recovery from procedure. Documented by Larissa Peña LPN on behalf of: Alex Blankenship DO documented in this encounter [facility] 06-03-2024 Telephone encounter Note Pt transferred out of practice last Jan when Nga left and now wants to come back into practice. I explained that when a patient transferes out of practice they could not return. She wanted to get your approval. As she states that it was previously approved. Current appointment has been cancelled until your decision. [facility] 06-03-2024 Miscellaneous Notes Pt transferred out of practice last Jan when Nga left and now wants to come back into practice. I explained that when a patient transferes out of practice they could not return. She wanted to get your approval. As she states that it was previously approved. Current appointment has been cancelled until your decision. documented in this encounter [facility] 05-29-2024 History of Present illness Narrative Images from the original note were not included. [address] [id number] This virtual visit was made in the [facility] Date of Service: 05/29/2024 Subjective: Brandy Adamson is a 43 y.o. female who presents today for evaluation positive DAVID. Patient is seen at the request of BONIFACIO DIEHL PA-C. This is follow-up visit with this patient who is 43-year-old female patient presenting today as an established patient for follow-up of positive DAVID and fibromyalgia was seen 1st time on 07/01/2022. Last time the clinic was 12/19/2023 Patient's history dates back to 2019 when she started having joints pain, involving the, joints of the hands ,knees ,feet and ankles. Autoimmune /Systemic screening: Negative Raynaud's, positive for for oral/ ocular sicca,no recurrent oral ulcers, no alopecia, no butterfly rash, or ocular inflammation such as uveitis . No history of cytopenia, or pericarditis, pleuritis or DVT/PE Systemic involvement such as anorexia, wt loss, recurrent unexplained fever. Lab results done on DAVID screen positive, AST ALT elevated Lab tests done 06/07/2022 revealed CMP normal except for for mildly elevated AST and ALT, DAVID IFA 1:80 CBC hemoglobin mild low, urinalysis dipstick normal,, Past medical past On metformin,hypothyroidism,HTN,hig h lipids Past surgical Gall bladder removal Current medications including Zanaflex and Lyrica, duloxetine Today the May 29, 2024 patient said that she has been satisfied on current medications The following portions of the patient's history were reviewed and updated as appropriate: allergies, current medications, past family history, past medical history, past social history, past surgical history and problem list. Review of Systems: Review of Systems Constitutional: Negative for fatigue. Musculoskeletal: Negative for arthralgias. Allergic/Immunologic: Negative. Psychiatric/Behavioral: Positive for sleep disturbance. Current Outpatient Medications Medication Sig Dispense Refill albuterol (PROVENTIL HFA;VENTOLIN HFA) 90 mcg/actuation inhaler Inhale 2 puffs every 6 (six) hours as needed for wheezing. 18 g 2 ALCOHOL PREP PADS pads, medicated atorvastatin (LIPITOR) 10 mg tablet Take 1 tablet (10 mg total) by mouth in the morning for 180 days. 90 tablet 1 buPROPion SR (WELLBUTRIN SR) 150 mg 12 hr tablet Take 1 tablet (150 mg total) by mouth in the morning and 1 tablet (150 mg total) before bedtime. cetirizine (ZyrTEC) 10 mg tablet Take 1 tablet (10 mg total) by mouth in the morning for 180 days. 90 tablet 1 coenzyme Q10 30 mg capsule Take 10 capsules (300 mg total) by mouth 3 (three) times a day. cyanocobalamin (VITAMIN B-12) 100 MCG tablet Take 10 tablets (1,000 mcg total) by mouth in the morning. DULoxetine (CYMBALTA) 60 mg capsule Take 1 capsule (60 mg total) by mouth in the morning and 1 capsule (60 mg total) before bedtime. 180 capsule 3 EPINEPHrine (EPIPEN) 0.3 mg/0.3 mL auto-injector 0.3 mL (0.3 mg total) as needed. ergocalciferol (DRISDOL) 1,250 mcg (50,000 unit) capsule Take 1 capsule (50,000 Units total) by mouth once a week for 336 days. 12 capsule 3 ferrous sulfate 325 (65 FE) mg tablet Take 1 tablet (325 mg total) by mouth in the morning and 1 tablet (325 mg total) in the evening. Take with meals. Do all this for 360 days. 180 tablet 3 fluticasone propionate (FLONASE) 50 mcg/actuation nasal spray Administer 1 spray into each nostril in the morning. levothyroxine (SYNTHROID, LEVOTHROID) 75 MCG tablet Take 1 tablet (75 mcg total) by mouth in the morning for 180 days. 90 tablet 1 losartan-hydroCHLOROthiazide (HYZAAR) 50-12.5 mg per tablet Take 1 tablet by mouth in the morning for 60 days. 30 tablet 1 magnesium oxide (MAGOX) 400 mg tablet Take 1.5 tablets (600 mg total) by mouth in the morning and 1.5 tablets (600 mg total) before bedtime. 1200mg daily. metFORMIN XR (GLUCOPHAGE XR) 500 mg 24 hr tablet Take 1 tablet (500 mg total) by mouth daily with breakfast for 90 days. 30 tablet 2 metoprolol tartrate (LOPRESSOR) 50 mg tablet Take 1 tablet (50 mg total) by mouth in the morning and 1 tablet (50 mg total) before bedtime. omeprazole (PriLOSEC) 20 mg capsule Take 2 capsules (40 mg total) by mouth in the morning for 180 days. 180 capsule 1 ONETOUCH DELICA PLUS LANCET [facility] ULTRA TEST strip ONETOUCH ULTRA2 METER mis pregabalin (LYRICA) 100 mg capsule Take 1 capsule (100 mg total) by mouth in the morning and 1 capsule (100 mg total) before bedtime. 180 capsule 3 riboflavin, vitamin B2, 400 mg tablet Take 400 mg by mouth in the morning. tiZANidine (ZANAFLEX) 4 mg tablet One tab at 8 PM each night 90 tablet 3 VICTOZA 3-KELSI 0.6 mg/0.1 mL (18 mg/3 mL) pen injector ADMINISTER 1.8 MG UNDER THE SKIN IN THE MORNING 9 mL 1 No current facility-administered medications for this visit. Physical Exam: KINNEY-28 (If Applicable) There is currently no information documented on the homunculus. Go to the Rheumatology activity and complete the homunculus joint exam. KINNEY-28 (CRP): -- KINNEY-28 (ESR): -- Tender (KINNEY-28): -- Swollen (KINNEY-28): -- There were no vitals taken for this visit.: reviewed Labs and Imaging: reviewed and discussed with the patient during the visit.I Lab Results Component Value Date WBC 9.5 04/12/2024 HGB 12.3 04/12/2024 HCT 37.0 04/12/2024 MCV 86 04/12/2024 CRP <0.1 02/16/2017 GFR >60 07/29/2016 GFR >60 07/29/2016 AST 78 (H) 04/12/2024 Imaging: Assessment and Plan: Brandy Adamson is a 43 y.o. female patient with: 1. Fibromyalgia - DULoxetine (CYMBALTA) 60 mg capsule; Take 1 capsule (60 mg total) by mouth in the morning and 1 capsule (60 mg total) before bedtime. Dispense: 180 capsule; Refill: 3 - tiZANidine (ZANAFLEX) 4 mg tablet; One tab at 8 PM each night Dispense: 90 tablet; Refill: 3 This point patient has been taking Cymbalta as well as Lyrica, Zanaflex was discontinued by the neurologist. Patient said that she has been having issues with sleep and would like to go back on Zanaflex. Will keep her on Cymbalta as well as Lyrica . Return to clinic 6 months This visit is being conducted via Video at the request of the patient and for regular follow-up care. This is a vidio encountetrt is being used in lieu of a [id number] encounter because of current pandemic situation related to Covid-19. This is to avoid niwp-cr-zsmk contact whenever possible and limit spread of the virus. This visit is considered a video visit, which is to help assess your current healthcare needs and to determine the appropriate care you may require. This visit may be a billable service through the insurance company. Patient has consented to moving forward with this tele video visit? Yes This note was created with the assistance of a speech recognition program. While intending to generate a timely document that accurately reflects the content of the visit, no guarantee can be provided that every grammatical or spelling mistake has been or will be identified or corrected. Thank you for your understanding. [facility] Dr. Thalia Castanon MD [address] [facility], [address] [place] [id number] Office: [phone] [facility] Miscellaneous Notes Please see Patient's message 05/27/2024 Noted A1C of 6.6 via charcoal unloader. Brandy was off metformin 500mg qd for a while for her pcos when it was found her glucose was raising as a diabetic condition in addition to pcos. We restarted metformin. No surprising to see her A1C jumped up. Anything under 7.0 is still excellent. Follow low carb, low sugar diet. No further medication increases at this time. Make appt for in 3 months, continue metformin 500mg once daily. documented in this encounter [facility] 05-28-2024 Telephone encounter Note Please see Patient's message 05/27/2024 [facility]28-[facility]24 Telephone encounter Note Noted A1C of 6.6 via charcoal unloader. Brandy was off metformin 500mg qd for a while for her pcos when it was found her glucose was raising as a diabetic condition in addition to pcos. We restarted metformin. No surprising to see her A1C jumped up. Anything under 7.0 is still excellent. Follow low carb, low sugar diet. No further medication increases at this time. Make appt for in 3 months, continue metformin 500mg once daily. [facility] History of Present illness Narrative Reason for Appointment: Patient ID: Brandy Adamson is a 43 y.o. female who presents for ovary pain Patient presents today for Consult appointment. MEDICATIONS Current Outpatient Medications Medication Instructions albuterol HFA 90 mcg/act inhaler INHALE 2 PUFFS BY MOUTH EVERY 4 HOURS NEEDED FOR WHEEZING allopurinol (Zyloprim) 300 MG tablet Every 24 hours atorvastatin (LIPITOR) 10 mg, Oral, Daily B-D UF III MINI PEN NEEDLES 31G X 5 MM misc USE EVERY MORNING DIRECTED Blood Glucose Monitoring Suppl (ONE TOUCH ULTRA 2) w/Device kit buPROPion SR (Wellbutrin SR) 150 MG 12 hr tablet TAKE 1 TABLET BY MOUTH EVERY MORNING AND 1 BEFORE BEDTIME cetirizine (ZYRTEC) 10 mg, Oral, Daily doxycycline (Vibramycin) 100 MG capsule TAKE 1 CAPSULE BY MOUTH EVERY MORNING AND 1 BEFORE BEDTIME DULoxetine (CYMBALTA) 40 mg, Oral, Daily, Do not crush or chew. EPINEPHrine (Epipen) 0.3 MG/0.3ML injection syringe INJECT INTO THE MIDDLE OF THE OUTER THIGH AND HOLD FOR 3 SECONDS NEEDED FOR SEVERE ALLERGIC REACTION THEN CALL 911 IF USED. ergocalciferol (Vitamin D2) 1.25 MG (45442 UT) capsule TAKE 1 CAPSULE(1.25 MG) BY MOUTH 1 TIME EVERY WEEK ferrous sulfate (FEROSUL) 325 mg, Oral, Every morning fluticasone (Flonase) 50 MCG/ACT nasal spray 1 spray, Each Nostril, Daily, Shake gently. Before first use, prime pump. After use, clean tip and replace cap. ketoconazole (NIZOral) 2 % shampoo APPLY TO AFFECTED AREA(S) TWICE A WEEK, LEAVE ON FOR 3 TO 5 MINUTES THEN RINSE Lancets (Revstr Delica Plus [id number]) misc TEST EVERY MORNING DIRECTED levothyroxine (SYNTHROID) 75 mcg, Oral, Daily, Take on an empty stomach magnesium oxide (MAG-OX) 1,200 mg, Daily RT metFORMIN (GLUCOPHAGE) 1,000 mg, Oral, 2 times daily metoprolol tartrate (LOPRESSOR) 50 mg, Oral, 2 times daily omega-3 (Fish Oil) 500 MG capsule 1 capsule, Every 12 hours omeprazole (PriLOSEC) [address] capsule TAKE 1 CAPSULE(40 MG) BY MOUTH IN THE MORNING. DO NOT CRUSH OR CHEW Revstr Ultra test strip USE DIRECTED EVERY MORNING pen needle 30G x 5 mm misc 1 each, Subcutaneous, Daily, Use as instructed pregabalin (LYRICA) 100 mg, 2 times daily Victoza 1.8 mg, Subcutaneous, Daily ALLERGIES Allergies Allergen Reactions Dulaglutide Headache Levofloxacin GI intolerance Other reaction(s): stomach upset Sulfamethoxazole Unknown Other reaction(s): Unknown Sulfamethoxazole-Trimethoprim Trimethoprim Unknown Other reaction(s): Unknown PROBLEMS Active Ambulatory Problems Diagnosis Date Noted Absolute anemia 11/16/2022 Acquired hallux valgus 09/03/2020 Acquired hypothyroidism ([facility]) 11/16/2022 Allergic reaction to insect bite 01/19/2021 Allergic rhinitis 07/28/2020 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 Anogenital warts 02/20/2020 Anxiety 04/19/2015 Benign essential hypertension ([facility]) 04/19/2015 Chronic fatigue 11/16/2022 Chronic maxillary sinusitis 04/05/2021 Cluster headache, not intractable 10/19/2017 Constipation 05/26/2019 Difficulty walking 04/23/2018 Dysuria 11/16/2022 HTN (hypertension) ([facility]) 10/13/2021 Hypertriglyceridemia ([facility]) 05/26/2019 Insulin resistance 10/17/2016 Intrinsic atopic dermatitis 11/06/2020 Irregular periods 02/10/2020 Lung nodule 11/07/2016 Major depressive disorder, single episode, mild (HCC) ([facility]) 11/16/2022 Mineral metabolism disorder 10/19/2022 Mixed conductive and sensorineural hearing loss of both ears 04/05/2021 Morbid (severe) obesity due to excess calories ([facility]) 11/16/2022 Obstructive sleep apnea 07/02/2020 Osteochondritis dissecans 04/23/2018 Other chronic pain 11/07/2016 Scalp psoriasis ([facility]) 11/16/2022 Seasonal allergic reaction 11/16/2022 Skin sensation disturbance 01/22/2020 Tension-type headache, not intractable 04/19/2015 Type 2 diabetes mellitus without complication, without long-term current use of insulin ([facility]) 11/16/2022 Internal derangement of right knee 11/16/2022 Arthralgia of lower leg 02/15/2017 Abnormal EKG 10/13/2021 Cough 12/05/2022 COVID-19 05/24/2020 Hypertensive emergency ([facility]) 12/05/2022 Impaired gait and mobility 12/05/2022 Mucopurulent chronic bronchitis (CMS/HCC) 04/05/2021 Nephrolithiasis 09/19/2022 Pain in right knee 12/05/2022 Perforation of nasal septum 12/05/2022 Paresthesia of skin 12/05/2022 Polycystic ovarian syndrome 07/01/2015 PTSD (post-traumatic stress disorder) ([facility] [place]) 09/28/2017 Chronic rhinitis 05/31/2021 Primary osteoarthritis 02/15/2017 Chronic pansinusitis 05/31/2021 Cluster headache syndrome 10/19/2017 PCOS (polycystic ovarian syndrome) 07/01/2015 Elevated lactic acid level 03/06/2023 Sepsis (CMS/[facility]) 03/06/2023 Ureterolithiasis 03/06/2023 Acute kidney failure, unspecified (CMS/[facility]) 05/04/2023 Hypomagnesemia 05/04/2023 Other iron deficiency anemias 05/04/2023 Ureteral stent retained 03/30/2023 Vitamin D deficiency, unspecified 05/04/2023 Mixed obsessional thoughts and acts ([facility]) 08/16/2023 Cellulitis 12/11/2023 Resolved Ambulatory Problems Diagnosis Date Noted No Resolved Ambulatory Problems Past Medical History: Diagnosis Date Allergic Anemia Chronic kidney disease 03-06-23 Depression (CMS/HCC) Disease of thyroid gland (CMS/HCC) Fibromyalgia GERD (gastroesophageal reflux disease) Hematuria History of medical problems 2006 Hyperlipidemia (CMS/HCC) Hypertension (CMS/HCC) Nasal septum perforation Neuromuscular disorder (CMS/HCC) Obesity Polycystic ovary HISTORY PAST MEDICAL HISTORY SOCIAL HISTORY Past Medical History: Diagnosis Date Allergic Anemia Anxiety Chronic kidney disease 03-06-23 Chronic pansinusitis Chronic rhinitis COVID-19 04/2020 Depression (CMS/HCC) Disease of thyroid gland (CMS/HCC) Fibromyalgia GERD (gastroesophageal reflux disease) Hematuria History of medical problems 2006 Hole in septum of nose Hyperlipidemia (CMS/HCC) Hypertension (CMS/HCC) Insulin resistance Nasal septum perforation Neuromuscular disorder (CMS/HCC) Obesity Polycystic ovary Sepsis (CMS/[facility]) Social History Tobacco Use Smoking status: Never Passive exposure: Never Smokeless tobacco: Never Vaping Use Vaping status: Never Used Substance Use Topics Alcohol use: Not Currently Comment: Caffeine intake : 2-3 times/week, soda/pop Drug use: Never FAMILY HISTORY Family History Problem Relation Name Age of Onset Thyroid disease Mother Yris Hypertension Mother Yris Arthritis Mother Yris Depression Mother Yris Hypertension Father [place] Thyroid disease Father [place] Hyperlipidemia Father [place] SURGICAL HISTORY Past Surgical History: Procedure Laterality Date CHOLECYSTECTOMY 2009 CYSTOSTOMY Right 03/06/2023 DENTAL SURGERY 11/2019 tooth pulled LITHOTRIPSY 03/29/2023 PAP SMEAR 2019 TONSILLECTOMY 1992 VAGINAL DELIVERY WRIST SURGERY 2005 Tendonitis surgery right wrist REVIEW OF SYSTEMS Review of Systems: Review of Systems Genitourinary: Positive for pelvic pain. All other systems reviewed and are negative. OBJECTIVE Objective: Physical Exam Constitutional: Appearance: Normal appearance. She is well-developed. Cardiovascular: Rate and Rhythm: Normal rate and regular rhythm. Pulmonary: Effort: Pulmonary effort is normal. Breath sounds: Normal breath sounds. Abdominal: General: Bowel sounds are normal. There is no distension. Palpations: Abdomen is soft. Tenderness: There is no abdominal tenderness. There is no guarding or rebound. Musculoskeletal: General: No swelling. Normal range of motion. Right lower leg: No edema. Left lower leg: No edema. Neurological: Mental Status: She is alert and oriented to person, place, and time. Skin: General: Skin is warm and dry. Psychiatric: Mood and Affect: Mood normal. Behavior: Behavior normal. Vitals and nursing note reviewed. Exam conducted with a log buyer present. Vitals: Estimated body mass index is 52.72 kg/m as calculated from the following: Height as of 01/04/24: 5' 5 . Weight as of this encounter: 316 lb 12.8 oz. BP: 138/80 Patient's last menstrual period was 12/14/2023. ASSESSMENT & PLAN ICD-10-CM 1. Left ovarian cyst N83.202 Ambulatory referral to Obstetrics / Gynecology 2. Pain of ovary N94.89 Ambulatory referral to Obstetrics / Gynecology Patient presents today for consult for pelvic pain, ovarian cyst and absence of cycles since December 2023. Discussed PCOS and weight management as well. Order labs to have drawn prior to surgical management and patient will setup for hysteroscopy D&C to see causes of amenorrhea and pelvic pain. Patient has recent scans that are in ER report. Documented by Larissa Peña LPN on behalf of: Alex Blankenship DO documented in this encounter [facility] 05-20-2024 History of Present illness Narrative Subjective Patient ID: Brandy Adamson is a 43 y.o. female. Chief Complaint Chief Complaint Patient presents with Hypertension Diabetes BP med change, restarted metformin, sinus Previously scheduled office visit was converted to a telephone visit given winter weather advisory with advanced consent from the patient. Date of Service: 05/20/2023 8:15-8:36am. Length of visit in minutes: This call is considered a telephone visit, which is to help assess your current healthcare needs and to determine the appropriate care you may require. This visit may be a billable service through your insurance company. There are limitations of visit including visualization, vitals, and complete physical exam which may be unintentionally detrimental to. Do you consent to moving forward with this telephone visit? Yes HPI HPI Htn, hypothyroid, iron deficiency, nephrolithiasis pt with insomnia. STARR not using cpap, elevated sodium in urine, b12 deficiency with mild peripheral neuropathy. 4th visit, 6 wk recheck: HTN: Started losartan/hctz 50/12.5mg qd. BP's have been good! 125-130/80's. No SE's. Less headache Iron def: Increased Ferrous sulfate to twice daily. Insomnia: Started melatonin 10mg at HS. B12 def: B12 was 179 up to 669 (caused some neuropathy). Started on lyrica, has helped neuropathy. Insulin resistance, glucose: 116-120's am fasting. Restarted metformin 500mg for insulin resistance. Briefly off she has glucose 140-200's. Taking MG 800mg BID increased by neurologist, MG of 63. Causes some gi upset 03/04/24 EMG - Neuropathy from B12 def. No compression fx. Started B12, CoQ10. CC: Since 03/30/24 continues with sinus pressure/congestion. Started as a uri. [place] hbp helped but didn't resolve. Reports no taste and some smell. Yellow/green/blood from nose. Labs: 03/2024 TSH-3.92 11/2023. CMP-glucose of 112. Cr-0.71/GFR up 108. A1C-6.0 Sed rate- 24 DAVID- Positive 01/24/2024 Brain MRI- Normal. Specialist: Dr. José Campoverde- interactive graphic designer. Dr. Quintero, urologist. Reena Pemberton- 01/08/24 colposcopy. Repeat in [address] Romero-Ramu dental chair assembler Dr. Frederick-neurologist Dr. Fonseca-Slot Router. Echo UTD 01/2023- normal. No yearly recheck advised. Past Medical Hisory Past Medical History: Diagnosis Date Abnormal EKG Acute kidney injury ([facility]) 03/06/23 DAVID positive 12/2023 COVID-19 04/2020 Diabetes mellitus ([facility]) Elevated lactic acid level 03/06/2023 Fibromyalgia High cholesterol HTN (hypertension) Insulin resistance Kidney stones 03/05/2023 Uric Acid stone (allopurinol). 9mm obstructing right kidney, Tmax 103. Sepsis, IP 5 days. Left ovarian cyst 01/06/2024 pelvic US Nephrolithiasis 09/19/2022 Skin to stone distance 15-16 cm. Would probably preclude ESWL ==== 05/22/2023 ==== status post ureteroscopy stone treatment stent removal. Doing well. Ultrasound negative for hydro. ==== 10/19/2022 ==== stones can be visualized on KUB. Discussed ureteroscopy verses observation. She is to contemplate. Further discuss when we see her back after mineral metabolism workup. ==== 09/19/2022 ==== d Obesities, morbid ([facility]) Pneumonia diagnosed with double pneumonia 03/10/23 Sepsis, due to unspecified organism, unspecified whether acute organ dysfunction present ([facility]) 03/06/2023 Sleep apnea Does not use CPAP Tachycardia Ureterolithiasis 03/06/2023 Visual impairment Past Surgical History Past Surgical History: Procedure Laterality Date CHOLECYSTECTOMY CYSTOSCOPY EXCHANGE STENT URETER Right 03/29/2023 Performed by Michael Quintero MD at [facility] CYSTOSCOPY INSERTION STENT URETER Right 03/06/2023 Performed by Michael Quintero MD at [facility] CYSTOSCOPY REMOVAL STENT Right 04/10/2023 Performed by Michael Quintero MD at [facility] LASER HOLMIUM URETEROSCOPY RENAL STONES < OR=1CM Right 03/29/2023 Performed by Michael Quintero MD at [facility] WRIST SURGERY Right tendonitis surgery Family History Family History Problem Relation Age of Onset Hypertension Mother Hypothyroidism Mother Hyperthyroidism Father Social History Social History Socioeconomic History Marital status: Single Spouse name: Not on file Number of children: Not on file Years of education: Not on file Highest education level: Not on file Occupational History Not on file Tobacco Use Smoking status: Never Smokeless tobacco: Never Vaping Use Vaping status: Never Used Substance and Sexual Activity Alcohol use: Never Drug use: Never Sexual activity: Defer Other Topics Concern Caffeine Use No Social History Narrative Not on file Social Drivers of Health Financial Resource Strain: Low Risk (01/30/2024) Overall Financial Resource Strain (CARDIA) Difficulty of Paying Living Expenses: Not very hard Food Insecurity: No Food Insecurity (02/06/2024) Hunger Screening Food Insecurity - Worry: Never True Food Insecurity - Inability: Never True Transportation Needs: No Transportation Needs (01/30/2024) PRAPARE - Transportation Lack of Transportation (Medical): No Lack of Transportation (Non-Medical): No Physical Activity: Unknown (11/21/2023) Received from [facility] Exercise Vital Sign Days of Exercise per Week: 5 days Minutes of Exercise per Session: Not on file Stress: Stress Concern Present (11/16/2022) Received from [facility] [place] of Occupational Health - Occupational Stress Questionnaire Feeling of Stress : To some extent Social Connections: Unknown (11/16/2022) Received from [facility], [facility] Social Connection and Isolation Panel [NHANES] Frequency of Communication with Friends and Family: More than three times a week Frequency of Social Gatherings with Friends and Family: More than three times a week Attends Taoism Services: Patient declined Active Member of Clubs or Organizations: Patient declined Attends Club or Organization Meetings: Patient declined Marital Status: Never Interpersonal Safety: Patient Declined (11/16/2022) Received from [facility], [facility] Humiliation, Afraid, Rape, and Kick questionnaire Fear of Current or Ex-Partner: Patient declined Emotionally Abused: Patient declined Physically Abused: Patient declined Sexually Abused: Patient declined Housing Instability: Low Risk (01/30/2024) Housing Instability Housing Instability: No Allergies Allergies Allergen Reactions Luspatercept-Aamt Sulfamethoxazole Other reaction(s): Unknown Sulfamethoxazole-Trimethoprim Trimethoprim Other reaction(s): Unknown Current Medications Current Outpatient Medications Medication Sig Dispense Refill albuterol (PROVENTIL HFA;VENTOLIN HFA) 90 mcg/actuation inhaler Inhale 2 puffs every 6 (six) hours as needed for wheezing. 18 g 2 ALCOHOL PREP PADS pads, medicated atorvastatin (LIPITOR) 10 mg tablet Take 1 tablet (10 mg total) by mouth in the morning for 180 days. 90 tablet 1 azithromycin (ZITHROMAX) 250 mg tablet Take 2 tablets the first day, then 1 tablet daily for 4 days. 6 tablet 0 buPROPion SR (WELLBUTRIN SR) 150 mg 12 hr tablet Take 1 tablet (150 mg total) by mouth in the morning and 1 tablet (150 mg total) before bedtime. cetirizine (ZyrTEC) 10 mg tablet Take 1 tablet (10 mg total) by mouth in the morning for 180 days. 90 tablet 1 coenzyme Q10 30 mg capsule Take 10 capsules (300 mg total) by mouth 3 (three) times a day. cyanocobalamin (VITAMIN B-12) 100 MCG tablet Take 10 tablets (1,000 mcg total) by mouth in the morning. DULoxetine (CYMBALTA) 60 mg capsule Take 1 capsule (60 mg total) by mouth in the morning and 1 capsule (60 mg total) before bedtime. 180 capsule 1 EPINEPHrine (EPIPEN) 0.3 mg/0.3 mL auto-injector 0.3 mL (0.3 mg total) as needed. ergocalciferol (DRISDOL) 1,250 mcg (50,000 unit) capsule Take 1 capsule (50,000 Units total) by mouth once a week for 336 days. 12 capsule 3 ferrous sulfate 325 (65 FE) mg tablet Take 1 tablet (325 mg total) by mouth in the morning and 1 tablet (325 mg total) in the evening. Take with meals. Do all this for 360 days. 180 tablet 3 fluticasone propionate (FLONASE) 50 mcg/actuation nasal spray Administer 1 spray into each nostril in the morning. levothyroxine (SYNTHROID, LEVOTHROID) 75 MCG tablet Take 1 tablet (75 mcg total) by mouth in the morning for 180 days. 90 tablet 1 losartan-hydroCHLOROthiazide (HYZAAR) 50-12.5 mg per tablet Take 1 tablet by mouth in the morning for 60 days. 30 tablet 1 magnesium oxide (MAGOX) 400 mg tablet Take 1.5 tablets (600 mg total) by mouth in the morning and 1.5 tablets (600 mg total) before bedtime. 1200mg daily. metFORMIN XR (GLUCOPHAGE XR) 500 mg 24 hr tablet Take 1 tablet (500 mg total) by mouth daily with breakfast for 90 days. 30 tablet 2 metoprolol tartrate (LOPRESSOR) 50 mg tablet Take 1 tablet (50 mg total) by mouth in the morning and 1 tablet (50 mg total) before bedtime. omeprazole (PriLOSEC) 20 mg capsule Take 2 capsules (40 mg total) by mouth in the morning for 180 days. 180 capsule 1 ONETOUCH DELICA PLUS LANCET 30 gauge misc ONETOUCH ULTRA TEST strip ONETOUCH ULTRA2 METER [facility] pregabalin (LYRICA) 100 mg capsule Take 1 capsule (100 mg total) by mouth in the morning and 1 capsule (100 mg total) before bedtime. 180 capsule 3 riboflavin, vitamin B2, 400 mg tablet Take 400 mg by mouth in the morning. VICTOZA 3-KELSI 0.6 mg/0.1 mL (18 mg/3 mL) pen injector ADMINISTER 1.8 MG UNDER THE SKIN IN THE MORNING 9 mL 1 No current facility-administered medications for this visit. Review of Systems Review of Systems Constitutional: Negative for appetite change, fatigue and fever. HENT: Positive for congestion, sinus pressure and sinus pain. Negative for ear pain and sore throat. Respiratory: Negative for cough, shortness of breath and wheezing. Cardiovascular: Negative for chest pain, palpitations and leg swelling. Gastrointestinal: Negative for abdominal pain, diarrhea, nausea and vomiting. Genitourinary: Negative for dysuria and flank pain. Musculoskeletal: Positive for myalgias. Negative for back pain and neck pain. Skin: Negative for rash and wound. Neurological: Negative for dizziness, weakness, numbness and headaches. Psychiatric/Behavioral: Negative for confusion and sleep disturbance. The patient is not nervous/anxious. Objective Vitals BP 128/88 Pulse 92 SpO2 96% Physical Exam: T/E. Sinus/Nasal congested voice, non-toxic, no cough, non-labored. Appears well. Recent Pertinent Labs and Radiology Assessment/Plan 1. Primary hypertension 2. Iron deficiency 3. Hypothyroidism, unspecified type 4. High urine sodium level 5. Type 2 diabetes mellitus with diabetic polyneuropathy, without long-term current use of insulin ([facility]) 6. Mineral metabolism disorder 7. STARR on CPAP 8. Abnormal EKG There are no discontinued medications. Patient Instructions Routine visit: HTN: Continue losartan 50/12.5mg daily Iron Def: Improved, continue BID ferrous sulfate B12 def: Improved with B12 oral supplementation STARR: Known STARR. CPAP compliance stress. Insomnia: Continue melatonin 10mg at night. Insulin Resistant: Remain on metformin 500mg qd. So you have some smell but no taste good Bonifacio Diehl PA-C 05/20/24 0923 documented in this encounter [facility] 05-20-2024 Instructions Bonifacio Diehl PA-C - 05/20/2024 8:15 AM EST Routine visit: HTN: Continue losartan 50/12.5mg daily Iron Def: Improved, continue BID ferrous sulfate B12 def: Improved with B12 oral supplementation STARR: Known STARR. CPAP compliance stress. Insomnia: Continue melatonin 10mg at night. Insulin Resistant: Remain on metformin 500mg qd. documented in this encounter [facility] 04-25-2024 History of Present illness Narrative Med refills sent Bonifacio Diehl PA-C 04/25/24 1322 documented in this encounter [facility] 04-22-2024 Miscellaneous Notes Good afternoon, I just wanted to inform you that I have had some blood sugars in the 170's the past week. Today it was 171 and I felt awful. Do you think I should start taking my Metformin 1,000mg again? Maybe it actually was controlling my blood sugars. I also have an appointment with Dr. Blankenship on May 27 for the cyst on my left ovary. Reena sent the referral and I am hoping he can help or just take everything out inside of me. Have a great day! Restart as metformin 500mg qd. Message sent to pt. documented in this encounter [facility] 04-22-2024 Telephone encounter Note Good afternoon, I just wanted to inform you that I have had some blood sugars in the 170's the past week. Today it was 171 and I felt awful. Do you think I should start taking my Metformin 1,000mg again? Maybe it actually was controlling my blood sugars. I also have an appointment with Dr. Blankenship on May 27 for the cyst on my left ovary. Reena sent the referral and I am hoping he can help or just take everything out inside of me. Have a great day! [facility] 04-22-2024 Telephone encounter Note Restart as metformin 500mg qd. Message [facility] to pt. [facility] 04-02-2024 History of Present illness Narrative Images from the original note were not included. Subjective Patient ID: Brandy Adamson is a 43 y.o. female. Chief Complaint Chief Complaint Patient presents with Follow-up 6 week f/u, EMG completed, MRI brain comp, neurologist, nephrology appt today, labs comp HPI HPI Htn, hypothyroid, iron deficiency, nephrolithiasis pt with insomnia. STARR not using cpap, elevated sodium in urine, b12 deficiency with mild peripheral neuropathy. 3rd visit, 6 wk recheck: HTN: Increased losartan to 50mg qd. BP's have been good! 130/80's. No SE's. Less headaches. Iron def: Increased Ferrous sulfate to twice daily. Insomnia: Tried Tylenol PM at bedtime, not much improvement. Will switch to melatonin B12 def: was 179 up to 669 (caused some neuropathy). Started on lyrica instead of gabapentin. Lyrica has helped neuropathy. Insulin resistance, glucose: 116-120's am fasting. Was on metformin for insulin resistance. Taking MG 800mg BID increased by neurologist, MG of 63. Causes some gi upset 03/04/24 EMG - Neuropathy from B12 def. No compression fx. Started B12, CoQ10. CC: Day #3 of cough, wheezing, mild sob, body aches. No fevers. 3 y/o in house with cough. Labs: 11/2023 TSH-3.92 11/2023. CMP-glucose of 112. Cr-0.71/GFR up 108. A1C-6.0 Sed rate- 24 DAVID- Positive 01/24/2024 Brain MRI- Normal. Specialist: Dr. José Campoverde- interactive graphic designer. Dr. Quintero, urologist. Reena Niecy- 01/08/24 colposcopy. Repeat in [address] Romero-Ramu dental chair assembler Dr. Frederick-neurologist Dr. Fonseac-Slot Router. Echo UTD 01/2023- normal. No yearly recheck advised. Past Medical History Past Medical History: Diagnosis Date Abnormal EKG Acute kidney injury ([facility]) 03/06/23 DAVID positive 12/2023 COVID-19 04/2020 Diabetes mellitus ([facility]) Elevated lactic acid level 03/06/2023 Fibromyalgia High cholesterol HTN (hypertension) Insulin resistance Kidney stones 03/05/2023 Uric Acid stone (allopurinol). 9mm obstructing right kidney, Tmax 103. Sepsis, IP 5 days. Left ovarian cyst 01/06/2024 pelvic US Nephrolithiasis 09/19/2022 Skin to stone distance 15-16 cm. Would probably preclude ESWL ==== 05/22/2023 ==== status post ureteroscopy stone treatment stent removal. Doing well. Ultrasound negative for hydro. ==== 10/19/2022 ==== stones can be visualized on KUB. Discussed ureteroscopy verses observation. She is to contemplate. Further discuss when we see her back after mineral metabolism workup. ==== 09/19/2022 ==== d Obesities, morbid ([facility]) Pneumonia diagnosed with double pneumonia 03/10/23 Sepsis, due to unspecified organism, unspecified whether acute organ dysfunction present ([facility]) 03/06/2023 Sleep apnea Does not use CPAP Tachycardia Ureterolithiasis 03/06/2023 Visual impairment Past Surgical History Past Surgical History: Procedure Laterality Date CHOLECYSTECTOMY CYSTOSCOPY EXCHANGE STENT URETER Right 03/29/2023 Performed by Michael Quintero MD at [facility] CYSTOSCOPY INSERTION STENT URETER Right 03/06/2023 Performed by Michael Quintero MD at [facility] CYSTOSCOPY REMOVAL STENT Right 04/10/2023 Performed by Michael Quintero MD at [facility] LASER HOLMIUM URETEROSCOPY RENAL STONES < OR=1CM Right 03/29/2023 Performed by Michael Quintero MD at [facility] WRIST SURGERY Right tendonitis surgery Family History Family History Problem Relation Age of Onset Hypertension Mother Hypothyroidism Mother Hyperthyroidism Father Social History Social History Socioeconomic History Marital status: Single Spouse name: Not on file Number of children: Not on file Years of education: Not on file Highest education level: Not on file Occupational History Not on file Tobacco Use Smoking status: Never Smokeless tobacco: Never Vaping Use Vaping status: Never Used Substance and Sexual Activity Alcohol use: Never Drug use: Never Sexual activity: Defer Other Topics Concern Caffeine Use No Social History Narrative Not on file Social Drivers of Health Financial Resource Strain: Low Risk (01/30/2024) Overall Financial Resource Strain (CARDIA) Difficulty of Paying Living Expenses: Not very hard Food Insecurity: No Food Insecurity (02/06/2024) Hunger Screening Food Insecurity - Worry: Never True Food Insecurity - Inability: Never True Transportation Needs: No Transportation Needs (01/30/2024) PRAPARE - Transportation Lack of Transportation (Medical): No Lack of Transportation (Non-Medical): No Physical Activity: Unknown (11/21/2023) Received from [facility] Exercise Vital Sign Days of Exercise per Week: 5 days Minutes of Exercise per Session: Not on file Stress: Stress Concern Present (11/16/2022) Received from [facility] [place] of Occupational Health - Occupational Stress Questionnaire Feeling of Stress : To some extent Social Connections: Unknown (11/16/2022) Received from [facility] Social Connection and Isolation Panel [NHANES] Frequency of Communication with Friends and Family: More than three times a week Frequency of Social Gatherings with Friends and Family: More than three times a week Attends Taoism Services: Patient declined Active Member of Clubs or Organizations: Patient declined Attends Club or Organization Meetings: Patient declined Marital Status: Never Interpersonal Safety: Patient Declined (11/16/2022) Received from [facility], [facility] Humiliation, Afraid, Rape, and Kick questionnaire Fear of Current or Ex-Partner: Patient declined Emotionally Abused: Patient declined Physically Abused: Patient declined Sexually Abused: Patient declined Housing Instability: Low Risk (01/30/2024) Housing Instability Housing Instability: No Allergies Allergies Allergen Reactions Sulfamethoxazole Other reaction(s): Unknown Sulfamethoxazole-Trimethoprim Trimethoprim Other reaction(s): Unknown Current Medications Current Outpatient Medications Medication Sig Dispense Refill albuterol (PROVENTIL HFA;VENTOLIN HFA) 90 mcg/actuation inhaler Inhale 2 puffs every 6 (six) hours as needed for wheezing. ALCOHOL PREP PADS pads, medicated atorvastatin (LIPITOR) 10 mg tablet Take 1 tablet (10 mg total) by mouth in the morning. buPROPion SR (WELLBUTRIN SR) 150 mg 12 hr tablet Take 1 tablet (150 mg total) by mouth in the morning and 1 tablet (150 mg total) before bedtime. cetirizine (ZyrTEC) 10 mg tablet Take 1 tablet (10 mg total) by mouth in the morning. coenzyme Q10 30 mg capsule Take 10 capsules (300 mg total) by mouth 3 (three) times a day. cyanocobalamin (VITAMIN B-12) 100 MCG tablet Take 10 tablets (1,000 mcg total) by mouth in the morning. DULoxetine (CYMBALTA) 60 mg capsule Take 1 capsule (60 mg total) by mouth in the morning and 1 capsule (60 mg total) before bedtime. 180 capsule 1 EPINEPHrine (EPIPEN) 0.3 mg/0.3 mL auto-injector 0.3 mL (0.3 mg total) as needed. ergocalciferol (DRISDOL) 1,250 mcg (50,000 unit) capsule Take 1 capsule (50,000 Units total) by mouth once a week. ferrous sulfate 325 (65 FE) mg tablet Take 1 tablet (325 mg total) by mouth in the morning and 1 tablet (325 mg total) in the evening. Take with meals. Do all this for 360 days. 180 tablet 3 fluticasone propionate (FLONASE) 50 mcg/actuation nasal spray Administer 1 spray into each nostril in the morning. levothyroxine (SYNTHROID, LEVOTHROID) 50 MCG tablet Take 1.5 tablets (75 mcg total) by mouth in the morning. magnesium oxide (MAGOX) 400 mg tablet Take 1.5 tablets (600 mg total) by mouth in the morning and 1.5 tablets (600 mg total) before bedtime. 1200mg daily. metoprolol tartrate (LOPRESSOR) 50 mg tablet Take 1 tablet (50 mg total) by mouth in the morning and 1 tablet (50 mg total) before bedtime. omeprazole (PriLOSEC) 20 mg capsule Take 1 capsule (20 mg total) by mouth in the morning. (Patient taking differently: Take 2 capsules (40 mg total) by mouth in the morning.) 90 capsule 3 ONETOUCH DELICA PLUS LANCET 30 gauge [facility] ONETOUCH ULTRA TEST strip pregabalin (LYRICA) 100 mg capsule Take 1 capsule (100 mg total) by mouth in the morning and 1 capsule (100 mg total) before bedtime. 180 capsule 3 riboflavin, vitamin B2, 400 mg tablet Take 400 mg by mouth in the morning. VICTOZA 3-KELSI 0.6 mg/0.1 mL (18 mg/3 mL) pen injector Inject 0.3 mL (1.8 mg total) under the skin in the morning for 60 days. 9 mL 1 dextromethorphan-guaiFENesin (CORICIDIN HBP CHEST JUSTIN-COUGH) 10-200 mg capsule Take 1 capsule by mouth every 6 (six) hours for 5 days. 20 each 0 losartan-hydroCHLOROthiazide (HYZAAR) 50-12.5 mg per tablet Take 1 tablet by mouth in the morning for 60 days. 30 tablet 1 ONETOUCH ULTRA2 METER [facility] tiZANidine (ZANAFLEX) 4 mg tablet One and half tab at 8:00 p.m.each night 135 tablet 1 No current facility-administered medications for this visit. Review of Systems Review of Systems Constitutional: Positive for fatigue. Negative for appetite change and fever. HENT: Positive for congestion. Negative for ear pain and sore throat. Respiratory: Positive for cough (day #3. chest cough, + prod mucous/clear. No fevers.) and shortness of breath. Negative for wheezing. Cardiovascular: Negative for chest pain, palpitations and leg swelling. Gastrointestinal: Negative for abdominal pain, diarrhea, nausea and vomiting. Genitourinary: Negative for dysuria and flank pain. Musculoskeletal: Positive for myalgias. Negative for back pain and neck pain. Skin: Negative for rash and wound. Neurological: Negative for dizziness, weakness, numbness and headaches. Psychiatric/Behavioral: Negative for confusion and sleep disturbance. The patient is not nervous/anxious. Objective Vitals BP 142/80 Pulse 100 Temp 36.2 C (97.1 F) Ht 165.1 cm (5' 5 ) Wt (!) 142.9 kg (315 lb) SpO2 96% BMI 52.42 kg/m Wt Readings from Last 3 Encounters: 04/02/24 (!) 142.9 kg (315 lb) 04/02/24 (!) 143.2 kg (315 lb 9.6 oz) 02/20/24 (!) 138.8 kg (306 lb) Physical Exam Physical Exam Vitals and nursing note reviewed. Constitutional: General: She is not in acute distress. Appearance: She is well-developed. She is obese. She is not ill-appearing. HENT: Head: Normocephalic and atraumatic. Right Ear: Tympanic membrane and ear canal normal. Left Ear: Tympanic membrane and ear canal normal. Nose: Nose normal. Right Sinus: No maxillary sinus tenderness or frontal sinus tenderness. Left Sinus: No maxillary sinus tenderness or frontal sinus tenderness. Mouth/Throat: Mouth: Mucous membranes are moist. Pharynx: Oropharynx is clear. Uvula midline. No posterior oropharyngeal erythema. Eyes: Conjunctiva/sclera: Conjunctivae normal. Pupils: Pupils are equal, round, and reactive to light. Neck: Thyroid: No thyroid mass or thyromegaly. Vascular: No carotid bruit or JVD. Trachea: Trachea normal. Meningeal: Kernig's sign absent. Cardiovascular: Rate and Rhythm: Normal rate and regular rhythm. Pulses: Normal pulses. Radial pulses are 2+ on the right side and 2+ on the left side. Heart sounds: Normal heart sounds, S1 normal and S2 normal. No murmur heard. Pulmonary: Effort: Pulmonary effort is normal. No respiratory distress. Breath sounds: Normal breath sounds. No decreased breath sounds, wheezing, rhonchi or rales. Abdominal: General: Abdomen is flat. Bowel sounds are normal. Palpations: Abdomen is soft. There is no mass. Tenderness: There is no abdominal tenderness. There is no right CVA tenderness or left CVA tenderness. Negative signs include Mckeon's sign, Rovsing's sign, McBurney's sign and psoas sign. Hernia: No hernia is present. Musculoskeletal: General: Normal range of motion. Cervical back: Full passive range of motion without pain and normal range of motion. No rigidity or tenderness. Thoracic back: Normal. No tenderness. Lumbar back: Normal. No tenderness. Right lower leg: No edema. Left lower leg: No edema. Right ankle: No swelling. Left ankle: No swelling. Lymphadenopathy: Cervical: Right cervical: No superficial cervical adenopathy. Left cervical: No superficial cervical adenopathy. Upper Body: Right upper body: No supraclavicular adenopathy. Left upper body: No supraclavicular adenopathy. Skin: General: Skin is warm and dry. Capillary Refill: Capillary refill takes less than 2 seconds. Findings: No ecchymosis or rash. Nails: There is no clubbing. Neurological: General: No focal deficit present. Mental Status: She is alert and oriented to person, place, and time. Cranial Nerves: No cranial nerve deficit. Sensory: No sensory deficit. Motor: No tremor. Coordination: Coordination normal. Gait: Gait normal. Psychiatric: Mood and Affect: Mood normal. Speech: Speech normal. Behavior: Behavior is cooperative. Thought Content: Thought content normal. Judgment: Judgment normal. Recent Pertinent Labs and Radiology Reading Physician Reading Date Result Priority Chuy Frederick MD [phone] 03/04/2024 Routine Narrative Purpose: Evaluation of a 43 y.o. patient with a relevant PMH of kidney stones, migraine, STARR on CPAP, pre-DM, hypothyroidism, and fibromyalgia, as well as newly-discovered B12 deficiency (level of 179; MMA normal) presenting with feet pain. See 01/09/24 clinic visit for full H&P. Since our last visit, she tried GBP 600 mg QHS which was unhelpful. She reports improved LUCERO since changing her HTN regimen. She also reports that she is on iron supplements due to a low iron level; notably, she endorses that her feet pain is associated with a desire to move, though the symptoms are not purely nocturnal. Query: polyneuropathy. Procedure: Bilateral peroneal and tibial motor nerve conduction studies, and bilateral superficial peroneal and sural sensory nerve conduction studies were performed with surface electrodes. EMG studies of the left leg were performed with concentric needle electrodes. Description: The results of the nerve conduction studies are abnormal for absent bilateral superficial peroneal sensory nerve action potentials (SNAPs). The results of the EMG studies are normal. 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 There is no electrodiagnostic evidence of left lumbosacral radiculopathy as clinically queried. See comment. COMMENT: I will order repeat B12 testing as well as a ferritin level today. I will change her GBP to Lyrica 50 mg BID. She will continue iron and B12 supplementation. She will follow up with me next month in clinic. The data tables of this study will be uploaded to [employer]. Electromyographer: Calculus of kidney [N20.0] Vitamin D deficiency, unspecified [E55.9] Contains abnormal data Sodium, urine, 24 hour Order: [id number] Status: Final result Visible to patient: Yes (seen) Next appt: 04/10/2024 at 10:45 AM in Pulmonary Medicine ([facility], [facility]) Dx: Calculus of kidney; Vitamin D deficie... 0 Result Notes Component Ref Range & Units 03/31/24 0930 Urine sodium 40 - 220 mmol/24h 329 High Lab Results Component Value Date WBC 7.1 03/27/2024 HGB 12.2 03/27/2024 HCT 36.2 03/27/2024 MCV 89 03/27/2024 PLT 285 03/27/2024 Lab Results Component Value Date GLU 108 (H) 02/06/2024 CALCIUM 9.4 02/06/2024 SODIUM 138 02/06/2024 K 4.8 02/06/2024 CO2 23 02/06/2024 BUN 17 02/06/2024 CREATININE 0.72 02/06/2024 Lab Results Component Value Date HGBA1C 5.9 (H) 01/09/2024 Assessment/Plan 1. URI with cough and congestion - X-ray chest 2 views; Future - POCT Influenza A/Influenza B/SARS-COV-2 Veritor - dextromethorphan-guaiFENesin (CORICIDIN HBP CHEST JUSTIN-COUGH) 10-200 mg capsule; Take 1 capsule by mouth every 6 (six) hours for 5 days. Dispense: 20 each; Refill: 0 2. Primary hypertension - losartan-hydroCHLOROthiazide (HYZAAR) 50-12.5 mg per tablet; Take 1 tablet by mouth in the morning for 60 days. Dispense: 30 tablet; Refill: 1 3. High urine sodium level - losartan-hydroCHLOROthiazide (HYZAAR) 50-12.5 mg per tablet; Take 1 tablet by mouth in the morning for 60 days. Dispense: 30 tablet; Refill: 1 4. Iron deficiency 5. Hypothyroidism, unspecified type Medications Discontinued During This Encounter Medication Reason allopurinoL (ZYLOPRIM) 100 mg tablet Therapy completed docosahexaenoic acid/epa (FISH OIL ORAL) Therapy completed metFORMIN (GLUCOPHAGE) 1000 mg tablet Therapy completed Patient Instructions Routine visit: HTN: Stop losartan 50mg, instead begin losartan 50/12.5mg daily (high sodium urine). Mild fluid overload, wt up. Iron Def: Improved, continue BID ferrous sulfate B12 def: Improved with B12 oral supplementation Insomnia: Known STARR. CPAP compliance. Trial melatonin at night. Remain off metformin for insulin resistance due to gi upset. Discharge diagnosis of Viral Upper Respiratory Infection. Today vitals are normal, oxygen level normal. Covid 19, Influenza A/B negative. Obtain CXR. STAY HOME and quarentine 72 hours from onset. Begin Coricidan HBP for cough and congestion. This is an over the counter medication to help with symptoms. This is a viral illness. An antibiotic is not indicated, as those are for bacterial infections. Take Tylenol 500mg 1-2 every 4-6 hours as needed for body aches, do not exceed 6 doses or 3000mg daily. Push fluids to 60 ounces per day or more. Push fluids at least 8 ounces per day with electrolyte replacement with gatorade, powerade bottle advised at least once daily. Rest Consider Vitamins: Begin Vitamin D3 1000 IU daily advised x 14 days if not already taking. Consider Zinc and Vitamin C as well. Steps to take: Watch for fever(100.4 degress F),cough, shortness of breath. If possible, stay away from others, especially people who are higher risk for getting very sick If you would develop fever > 100.5, dizziness, shortness of breath, dehydration due to severe vomiting or diarrhea go to Emergency Room while wearing a mask. Bonifacio Diehl PA-C 04/02/24 1630 documented in this encounter [facility] [place] 04-02-2024 Instructions Bonifacio Diehl PA-C - 04/02/2024 3:30 PM EST Routine visit: HTN: Stop losartan 50mg, instead begin losartan 50/12.5mg daily (high sodium urine). Mild fluid overload, wt up. Iron Def: Improved, continue BID ferrous sulfate B12 def: Improved with B12 oral supplementation Insomnia: Known STARR. CPAP compliance. Trial melatonin at night. Remain off metformin for insulin resistance due to gi upset. Discharge diagnosis of Viral Upper Respiratory Infection. Today vitals are normal, oxygen level normal. Covid 19, Influenza A/B negative. Obtain CXR. STAY HOME and quarentine 72 hours from onset. Begin Coricidan HBP for cough and congestion. This is an over the counter medication to help with symptoms. This is a viral illness. An antibiotic is not indicated, as those are for bacterial infections. Take Tylenol 500mg 1-2 every 4-6 hours as needed for body aches, do not exceed 6 doses or 3000mg daily. Push fluids to 60 ounces per day or more. Push fluids at least 8 ounces per day with electrolyte replacement with gatorade, powerade bottle advised at least once daily. Rest Consider Vitamins: Begin Vitamin D3 1000 IU daily advised x 14 days if not already taking. Consider Zinc and Vitamin C as well. Steps to take: Watch for fever(100.4 degress F),cough, shortness of breath. If possible, stay away from others, especially people who are higher risk for getting very sick If you would develop fever > 100.5, dizziness, shortness of breath, dehydration due to severe vomiting or diarrhea go to Emergency Room while wearing a mask. The following attachments cannot be sent through [facility] Every[facility].Viral Upper Respiratory Infection Discharge Instructions, Adult ([place])documented in this encounter [facility] [place] 04-02-2024 History of Present illness Narrative Images from the original note were not included. [address] [facility] [id number] Brandy Adamson is a 43 y.o. right-handed female with a relevant PMH of kidney stones, migraine, STARR on CPAP, pre-DM, hypothyroidism, and fibromyalgia presenting with feet pain. Review of prior history: The patient has had subtle sensory changes in her feet for a couple of years. She had an episode of sepsis last year due to kidney stones. Sometime after this episode, she started having worsening of her feet pain. Specifically, she has shooting pain in her toes, sometimes up to her mid-nguy[place]. There is allodynia. Standing makes it worse. It is also worse at night, and moving her feet makes it worse. She thinks she has been sweating more than previously. She also notes trouble with memory recently. She takes tizanidne 6 mg QHS and duloxetine 60 mg BID. Amitriptyline was not helpful and caused LUCERO. She has taken Gbp in the daytime but this causes too much sedation. She also endorses LUCERO's which occur 3-4 times per week which are bifrontal and radiate to her jaw, which she attributes to jaw clenching. They last for several hours, are worse with bright lights, and sometimes are associated with nausea. She sometimes takes APAP for this. 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 I sent neuropathy labs which showed low B12, which increased with oral supplementation. I ordered an MRI head/neck for hyperreflexia which was normal. I started nutraceuticals for LUCERO. I started GBP for neuropathy, which I later changed to Lyrica. Today, she reports initial improvement with Lyrica which has since reverted to the mean. Her main problem is lack of sleep which is in part because of the feet pain, and other times because she wakes up for unclear reasons or due to bone pain in her knees, hands, elbows, low back, and feet. Her current dose of Lyrica is 50 mg BID. She is also on duloxetine 60 mg BID. She is on nutraceuticals (including MgOx 1200 mg per day per her interactive graphic designer, as her serum Mg is persistently low) and her LUCERO have improved. She also has left LBP which is worse when standing long periods. Current Outpatient Medications Medication Sig Dispense Refill albuterol (PROVENTIL HFA;VENTOLIN HFA) 90 mcg/actuation inhaler Inhale 2 puffs every 6 (six) hours as needed for wheezing. atorvastatin (LIPITOR) 10 mg tablet Take 1 tablet (10 mg total) by mouth in the morning. buPROPion SR (WELLBUTRIN SR) 150 mg 12 hr tablet Take 1 tablet (150 mg total) by mouth in the morning and 1 tablet (150 mg total) before bedtime. cetirizine (ZyrTEC) 10 mg tablet Take 1 tablet (10 mg total) by mouth in the morning. DULoxetine (CYMBALTA) 60 mg capsule Take 1 capsule (60 mg total) by mouth in the morning and 1 capsule (60 mg total) before bedtime. 180 capsule 1 EPINEPHrine (EPIPEN) 0.3 mg/0.3 mL auto-injector 0.3 mL (0.3 mg total) as needed. ergocalciferol (DRISDOL) 1,250 mcg (50,000 unit) capsule Take 1 capsule (50,000 Units total) by mouth once a week. ferrous sulfate 325 (65 FE) mg tablet Take 1 tablet (325 mg total) by mouth in the morning and 1 tablet (325 mg total) in the evening. Take with meals. Do all this for 360 days. 180 tablet 3 fluticasone propionate (FLONASE) 50 mcg/actuation nasal spray Administer 1 spray into each nostril in the morning. levothyroxine (SYNTHROID, LEVOTHROID) 50 MCG tablet Take 1.5 tablets (75 mcg total) by mouth in the morning. magnesium oxide (MAGOX) 400 mg tablet Take 1.5 tablets (600 mg total) by mouth in the morning and 1.5 tablets (600 mg total) before bedtime. 1200mg daily. metFORMIN (GLUCOPHAGE) 1000 mg tablet Take 1 tablet (1,000 mg total) by mouth in the morning and 1 tablet (1,000 mg total) in the evening. Take with meals. 90 tablet 3 metoprolol tartrate (LOPRESSOR) 50 mg tablet Take 1 tablet (50 mg total) by mouth in the morning and 1 tablet (50 mg total) before bedtime. omeprazole (PriLOSEC) 20 mg capsule Take 1 capsule (20 mg total) by mouth in the morning. (Patient taking differently: Take 2 capsules (40 mg total) by mouth in the morning.) 90 capsule 3 ONETOUCH DELICA PLUS LANCET 30 gauge misc ONETOUCH ULTRA TEST strip riboflavin, vitamin B2, 400 mg tablet Take 400 mg by mouth in the morning. VICTOZA 3-KELSI 0.6 mg/0.1 mL (18 mg/3 mL) pen injector Inject 0.3 mL (1.8 mg total) under the skin in the morning for 60 days. 9 mL 1 ALCOHOL PREP PADS pads, medicated allopurinoL (ZYLOPRIM) 100 mg tablet Take 3 tablets (300 mg total) by mouth in the morning. coenzyme Q10 30 mg capsule Take 10 capsules (300 mg total) by mouth 3 (three) times a day. cyanocobalamin (VITAMIN B-12) 100 MCG tablet Take 10 tablets (1,000 mcg total) by mouth in the morning. docosahexaenoic acid/epa (FISH OIL ORAL) Take by mouth daily. ONETOUCH ULTRA2 METER mis pregabalin (LYRICA) 100 mg capsule Take 1 capsule (100 mg total) by mouth in the morning and 1 capsule (100 mg total) before bedtime. 180 capsule 3 tiZANidine (ZANAFLEX) 4 mg tablet One and half tab at 8:00 p.m.each night 135 tablet 1 No current facility-administered medications for this visit. Past Medical History: Diagnosis Date Abnormal EKG Acute kidney injury ([facility]) 03/06/23 DAVID positive 12/2023 COVID-19 04/2020 Diabetes mellitus ([facility]) Elevated lactic acid level 03/06/2023 Fibromyalgia High cholesterol HTN (hypertension) Insulin resistance Kidney stones 03/05/2023 Uric Acid stone (allopurinol). 9mm obstructing right kidney, Tmax 103. Sepsis, IP 5 days. Left ovarian cyst 01/06/2024 pelvic US Nephrolithiasis 09/19/2022 Skin to stone distance 15-16 cm. Would probably preclude ESWL ==== 05/22/2023 ==== status post ureteroscopy stone treatment stent removal. Doing well. Ultrasound negative for hydro. ==== 10/19/2022 ==== stones can be visualized on KUB. Discussed ureteroscopy verses observation. She is to contemplate. Further discuss when we see her back after mineral metabolism workup. ==== 09/19/2022 ==== d Obesities, morbid ([facility]) Pneumonia diagnosed with double pneumonia 03/10/23 Sepsis, due to unspecified organism, unspecified whether acute organ dysfunction present ([facility]) 03/06/2023 Sleep apnea Does not use CPAP Tachycardia Ureterolithiasis 03/06/2023 Visual impairment Family History Problem Relation Age of Onset Hypertension Mother Hypothyroidism Mother Hyperthyroidism Father Past Surgical History: Procedure Laterality Date CHOLECYSTECTOMY CYSTOSCOPY EXCHANGE STENT URETER Right 03/29/2023 Performed by Michael Quintero MD at [facility] CYSTOSCOPY INSERTION STENT URETER Right 03/06/2023 Performed by Michael Quintero MD at [facility] CYSTOSCOPY REMOVAL STENT Right 04/10/2023 Performed by Michael Quintero MD at [facility] LASER HOLMIUM URETEROSCOPY RENAL STONES < OR=1CM Right 03/29/2023 Performed by Michael Quintero MD at [facility] WRIST SURGERY Right tendonitis surgery Allergies Allergen Reactions Sulfamethoxazole Other reaction(s): Unknown Sulfamethoxazole-Trimethoprim Trimethoprim Other reaction(s): Unknown Social History Socioeconomic History Marital status: Single Spouse name: Not on file Number of children: Not on file Years of education: Not on file Highest education level: Not on file Occupational History Not on file Tobacco Use Smoking status: Never Smokeless tobacco: Never Vaping Use Vaping status: Never Used Substance and Sexual Activity Alcohol use: Never Drug use: Never Sexual activity: Defer Other Topics Concern Caffeine Use No Social History Narrative Not on file Social Drivers of Health Financial Resource Strain: Low Risk (01/30/2024) Overall Financial Resource Strain (CARDIA) Difficulty of Paying Living Expenses: Not very hard Food Insecurity: No Food Insecurity (02/06/2024) Hunger Screening Food Insecurity - Worry: Never True Food Insecurity - Inability: Never True Transportation Needs: No Transportation Needs (01/30/2024) PRAPARE - Transportation Lack of Transportation (Medical): No Lack of Transportation (Non-Medical): No Physical Activity: Unknown (11/21/2023) Received from [facility] Exercise Vital Sign Days of Exercise per Week: 5 days Minutes of Exercise per Session: Not on file Stress: Stress Concern Present (11/16/2022) Received from [facility] [place] [facility] - Occupational Stress Questionnaire Feeling of Stress : To some extent Social Connections: Unknown (11/16/2022) Received from [facility] Social Connection and Isolation Panel [NHANES] Frequency of Communication with Friends and Family: More than three times a week Frequency of Social Gatherings with Friends and Family: More than three times a week Attends Taoism Services: Patient declined Active Member of Clubs or Organizations: Patient declined Attends Club or Organization Meetings: Patient declined Marital Status: Never Interpersonal Safety: Patient Declined (11/16/2022) Received from [facility] Humiliation, Afraid, Rape, and Kick questionnaire Fear of Current or Ex-Partner: Patient declined Emotionally Abused: Patient declined Physically Abused: Patient declined Sexually Abused: Patient declined Housing Instability: Low Risk (01/30/2024) Housing Instability Housing Instability: No Hospital Outpatient Visit on 03/31/2024 Component Date Value Ref Range Status Unlisted lab test 03/31/2024 Sent to reference lab Final Potassium, 24H Ur 03/31/2024 56 25 - 100 mmol/24h Final Urine sodium 03/31/2024 329 (H) 40 - 220 mmol/24h Final Uric Acid, 24H Ur 03/31/2024 0.6 0.3 - 0.8 g/24h Final Urine creatinine 03/31/2024 1.35 0.80 - 1.80 g/24h Final Calcium, 24H Urine 03/31/2024 34 (L) 50 - 250 mg/24h Final Magnesium, 24H Ur 03/31/2024 63 (L) 72 - 182 mg/24h Final Phosphorus, 24H Ur 03/31/2024 0.8 0.4 - 1.3 g/24h Final Time 03/31/2024 24 h Final Total volume 03/31/2024 1,460 mL Final Time 03/31/2024 24 h Final Total volume 03/31/2024 1,460 mL Final Time 03/31/2024 24 h Final Total volume 03/31/2024 1,460 mL Final Time 03/31/2024 24 h Final Total volume 03/31/2024 1,460 mL Final Hospital Outpatient Visit on 03/27/2024 Component Date Value Ref Range Status Iron 03/27/2024 57 50 - 170 ug/dL Final Tibc-calc only do not order 03/27/2024 473 (H) 250 - 425 ug/dL Final Iron Saturation 03/27/2024 12 (L) 15 - 50 % SATURATION Final White Blood Cells 03/27/2024 7.1 4.0 - 11.0 X10E9/L Final RBC count 03/27/2024 4.09 3.80 - 5.20 X10E12/L Final Hemoglobin 03/27/2024 12.2 11.7 - 15.5 g/dL Final Hematocrit 03/27/2024 36.2 35 - 47 % Final MCV 03/27/2024 89 80 - 100 fL Final MCH 03/27/2024 29.8 27 - 34 pg Final MCHC 03/27/2024 33.7 32 - 36 g/dL Final RDW 03/27/2024 14.2 11.5 - 15.0 % Final Platelets 03/27/2024 285 150 - 450 X10E9/L Final MPV 03/27/2024 8.6 7 - 12 fL Final % neutrophils 03/27/2024 53.2 % Final % lymphocytes 03/27/2024 31.6 % Final % monocytes 03/27/2024 8.4 % Final % eosinophils 03/27/2024 6.3 % Final % Basophils 03/27/2024 0.5 % Final Neutrophils Absolute (A) 03/27/2024 3.8 1.5 - 6.6 X10E9/L Final Lymphocytes Absolute 03/27/2024 2.3 1.0 - 3.5 X10E9/L Final Monocytes Absolute 03/27/2024 0.6 0 - 0.9 X10E9/L Final Eosinophils Absolute 03/27/2024 0.4 0.0 - 0.4 X10E9/L Final Basophils Absolute 03/27/2024 0.0 0.0 - 0.2 X10E9/L Final Hospital Outpatient Visit on 03/04/2024 Component Date Value Ref Range Status Iron 03/04/2024 70 50 - 170 ug/dL Final Tibc-calc only do not order 03/04/2024 514 (H) 250 - 425 ug/dL Final Iron Saturation 03/04/2024 14 (L) 15 - 50 % SATURATION Final Ferritin 03/04/2024 57 11 - 307 ng/mL Final Homocysteine 03/04/2024 4.95 3.36 - 20.44 mcmol/L Final Methylmalonic Acid, QN, P 03/04/2024 0.14 <=0.40 nmol/mL Final Vitamin B-12 03/04/2024 669 180 - 914 pg/mL Final Hospital Outpatient Visit on 02/06/2024 Component Date Value Ref Range Status Iron 02/06/2024 55 50 - 170 ug/dL Final Tibc-calc only do not order 02/06/2024 533 (H) 250 - 425 ug/dL Final Iron Saturation 02/06/2024 10 (L) 15 - 50 % SATURATION Final White Blood Cells 02/06/2024 8.6 4.0 - 11.0 X10E9/L Final RBC count 02/06/2024 4.12 3.80 - 5.20 X10E12/L Final Hemoglobin 02/06/2024 12.3 11.7 - 15.5 g/dL Final Hematocrit 02/06/2024 36.0 35 - 47 % Final MCV 02/06/2024 87 80 - 100 fL Final MCH 02/06/2024 29.9 27 - 34 pg Final MCHC 02/06/2024 34.2 32 - 36 g/dL Final RDW 02/06/2024 14.4 11.5 - 15.0 % Final Platelets 02/06/2024 308 150 - 450 X10E9/L Final MPV 02/06/2024 8.8 7 - 12 fL Final % neutrophils 02/06/2024 51.2 % Final % lymphocytes 02/06/2024 33.5 % Final % monocytes 02/06/2024 7.4 % Final % eosinophils 02/06/2024 7.6 % Final % Basophils 02/06/2024 0.3 % Final Neutrophils Absolute (A) 02/06/2024 4.4 1.5 - 6.6 X10E9/L Final Lymphocytes Absolute 02/06/2024 2.9 1.0 - 3.5 X10E9/L Final Monocytes Absolute 02/06/2024 0.6 0 - 0.9 X10E9/L Final Eosinophils Absolute 02/06/2024 0.7 (H) 0.0 - 0.4 X10E9/L Final Basophils Absolute 02/06/2024 0.0 0.0 - 0.2 X10E9/L Final TSH 02/06/2024 3.04 0.49 - 4.67 uIU/mL Final T4, free 02/06/2024 0.86 0.61 - 1.60 ng/dL Final Sodium 02/06/2024 138 134 - 146 mmol/L Final Potassium, Bld 02/06/2024 4.8 3.5 - 5.0 mmol/L Final Chloride 02/06/2024 103 98 - 109 mmol/L Final CO2 02/06/2024 23 22 - 32 mmol/L Final Anion gap 02/06/2024 12 5 - 15 mmol/L Final BUN 02/06/2024 17 5 - 23 mg/dL Final Creatinine 02/06/2024 0.72 0.40 - 1.00 mg/dL Final Glucose 02/06/2024 108 (H) 65 - 99 mg/dL Final Calcium 02/06/2024 9.4 8.5 - 10.5 mg/dL Final Total Protein 02/06/2024 7.3 6.0 - 8.0 g/dL Final Albumin 02/06/2024 4.3 3.2 - 5.3 g/dL Final Alkaline Phosphatase 02/06/2024 60 39 - 130 U/L Final AST 02/06/2024 27 0 - 41 U/L Final ALT 02/06/2024 41 (H) 0 - 31 U/L Final Total bilirubin 02/06/2024 0.2 (L) 0.3 - 1.2 mg/dL Final eGFR (CKD-EPI)non-race dependent 02/06/2024 >90 >59 ml/min/1.73sq.m Final Hospital Outpatient Visit on 01/09/2024 Component Date Value Ref Range Status TSH 01/09/2024 5.61 (H) 0.49 - 4.67 uIU/mL Final Homocysteine 01/09/2024 6.25 3.36 - 20.44 mcmol/L Final Methylmalonic Acid, QN, P 01/09/2024 0.22 <=0.40 nmol/mL Final Ss-a/ro antibodies IgG 01/09/2024 <0.2 <1.0 AI Final Ss-b/la antibodies IgG 01/09/2024 <0.2 <1.0 AI Final Anti-marcum AB IgG 01/09/2024 <0.2 <1.0 AI Final Anti DRIER TENDER NAPHTHALENE 01/09/2024 0.6 <1.0 AI Final Scleroderma scl-70 01/09/2024 <0.2 <1.0 AI Final Anti RAIMLA-1 01/09/2024 <0.2 <1.0 AI Final Total Protein 01/09/2024 7.0 6.0 - 8.0 g/dL Final Albumin 01/09/2024 3.9 3.4 - 5.3 g/dL Final Alpha 1 01/09/2024 0.4 0.1 - 0.4 g/dL Final Alpha 2 01/09/2024 1.0 0.4 - 1.1 g/dL Final Beta 01/09/2024 0.8 0.5 - 1.2 g/dL Final Gamma Globulin 01/09/2024 0.9 0.5 - 1.6 g/dL Final Prot. electrophoresis interp 01/09/2024 Unremarkable protein distribution, no monoclonal bands. Final IgA 01/09/2024 <10 (L) 68 - 378 mg/dL Final IgG 01/09/2024 1,004 635 - 1,741 mg/dL Final IgM 01/09/2024 60 45 - 281 mg/dL Final Immune profile inter 01/09/2024 Unremarkable pattern and quantitation, no monoclonal bands. Final HIV 1&2 AB/AG 01/09/2024 Non-Reactive Non-Reactive^Non-Reactive Final Syphilis Total 01/09/2024 <0.2 0.0 - 0.8 AI Final Vitamin B-12 01/09/2024 179 (L) 180 - 914 pg/mL Final Hemoglobin A1C 01/09/2024 5.9 (H) 4.4 - 5.6 % Final Average glucose 01/09/2024 123 mg/dL Final T4, free 01/09/2024 0.73 0.61 - 1.60 ng/dL Final Family history: Aunt with MS, otherwise no family history of neurologic disease. Social History: Denies EtOH, tobacco, or drug use. Works as heavy mobile equipment repairer. NEURO EXAM: Mental Status: alert, oriented to situation; fluent speech; normal comprehension of common spoken language; memory intact to the details of the history; follows axial and appendicular commands. Cranial Nerves: Face symmetric, no dysarthria, shoulder shrug symmetric. Motor Exam: no pronator drift. Finger taps fast and symmetric. No resting/postural/kinetic/intenti on tremor or other extraneous movements. Delt Biceps Triceps WE FE FDI ADM APB Right 5 5 5 5 5 5 5 5 Left 5 5 5 5 5 5 5 5 IP Ham Quads TA Right 5 5 5 5 Left 5 5 5 5 Sensory Exam: Deferred Reflexes: R/L: Deferred Coordination: Intact on reach Gait: Normal narrow based gait with normal arm swing, turn, and stride length. IMPRESSION/PLAN: 1. Neuropathy - pregabalin (LYRICA) 100 mg capsule; Take 1 capsule (100 mg total) by mouth in the morning and 1 capsule (100 mg total) before bedtime. Dispense: 180 capsule; Refill: 3 2. Chronic left-sided low back pain without sciatica - [facility] - [place] [facility] [place] - [place], [place]; Future Brandy Adamson is a 43 y.o. right-handed female with a relevant PMH of kidney stones, migraine, pre-DM, hypothyroidism, and fibromyalgia presenting with feet pain. She has a large fiber neuropathy, likely due to low B12 which is being successfully orally repleted. Today we will increase Lyrica. She will also start melatonin 3 mg for sleep. She also has left LBP with a negative LLE EMG. I will refer to pain management for consideration of treatment interventions. Her migraines are improved on nutraceuticals Plan: -Start melatonin 3 mg -Continue B12 as well as nutraceuticals for migraine -Pain management referral placed -Increase Lyrica to 100 mg BID -f/u belkys Frederick MD Network Cable Installer of Neurology [facility] 04/02/24 I spent 34 minutes of total time on the day of the visit. This time was spent preparing for the visit, obtaining and reviewing any outside history/data, taking a history, performing an exam/evaluation, counseling and educating the patient/family about the diagnosis and plan, performing medical decision making, referring to and communicating with other health care referrals, independently interpreting results and documenting in the EMR, and coordinating care. Please see the additional documentation in this note for specific details. documented in this encounter [facility] 04-02-2024 Instructions Chuy Frederick MD - 04/02/2024 8:30 AM EST It was a pleasure seeing you in clinic today. Your neurologist: Dr. Chuy Frederick Your diagnosis: Polyneuropathy Plan: -Start melatonin 3 mg -Continue B12 at a dose of 1,000 mcg daily -Continue nutraceuticals for migraine -Pain management referral placed -Increase Lyrica to 100 mg BID Thank you for entrusting me with your care. Chuy Frederick MD Network Cable Installer of Neurology [facility] 04/02/24 documented in this encounter [facility] 02-20-2024 History of Present illness Narrative Subjective Patient ID: Brandy Adamson is a 43 y.o. female. Chief Complaint Chief Complaint Patient presents with Follow-up 2 week f/u, did not check BP at home, weight gain, not sleeping, labs completed HPI HPI 2nd visit with new pt. HTN, uncontrolled last visit. Started losartan 25mg qd, no se's. Continues losartan 50mg qd. She regained the wt she had lost last year when IP for renal stones/sepsis. States she does not fall asleep and stay asleep. Used to take trazodone. Currently prescribed gabapentin 600 mg at bedtime, taking 300 mg at bedtime as prescribed by dental chair assembler. Discussed patient we not prescribed both same time. Labs reviewed, iron deficiency noted. ROS: Awake 2-3 times at night. Not awake to void. Past Medical History Past Medical History: Diagnosis Date Abnormal EKG Acute kidney injury (CMS-HCC) 03/06/23 DAVID positive 12/2023 COVID-19 04/2020 Diabetes mellitus (CMS-HCC) Elevated lactic acid level 03/06/2023 Fibromyalgia High cholesterol HTN (hypertension) Insulin resistance Kidney stones 03/05/2023 Uric Acid stone (allopurinol). 9mm obstructing right kidney, Tmax 103. Sepsis, IP 5 days. Left ovarian cyst 01/06/2024 pelvic US Nephrolithiasis 09/19/2022 Skin to stone distance 15-16 cm. Would probably preclude ESWL ==== 05/22/2023 ==== status post ureteroscopy stone treatment stent removal. Doing well. Ultrasound negative for hydro. ==== 10/19/2022 ==== stones can be visualized on KUB. Discussed ureteroscopy verses observation. She is to contemplate. Further discuss when we see her back after mineral metabolism workup. ==== 09/19/2022 ==== d Obesities, morbid ([facility]) Pneumonia diagnosed with double pneumonia 03/10/23 Sepsis, due to unspecified organism, unspecified whether acute organ dysfunction present ([facility]) 03/06/2023 Sleep apnea Does not use CPAP Tachycardia Ureterolithiasis 03/06/2023 Visual impairment Past Surgical History Past Surgical History: Procedure Laterality Date CHOLECYSTECTOMY CYSTOSCOPY EXCHANGE STENT URETER Right 03/29/2023 Performed by Michael Quintero MD at [facility] CYSTOSCOPY INSERTION STENT URETER Right 03/06/2023 Performed by Michael Quintero MD at [facility] CYSTOSCOPY REMOVAL STENT Right 04/10/2023 Performed by Michael Quintero MD at [facility] LASER HOLMIUM URETEROSCOPY RENAL STONES < OR=1CM Right 03/29/2023 Performed by Michael Quintero MD at [facility] WRIST SURGERY Right tendonitis surgery Family History Family History Problem Relation Age of Onset Hypertension Mother Hypothyroidism Mother Hyperthyroidism Father Social History Social History Socioeconomic History Marital status: Single Spouse name: Not on file Number of children: Not on file Years of education: Not on file Highest education level: Not on file Occupational History Not on file Tobacco Use Smoking status: Never Smokeless tobacco: Never Vaping Use Vaping status: Never Used Substance and Sexual Activity Alcohol use: Never Drug use: Never Sexual activity: Defer Other Topics Concern Caffeine Use No Social History Narrative Not on file Social Determinants of Health Financial Resource Strain: Low Risk (01/30/2024) Overall Financial Resource Strain (CARDIA) Difficulty of Paying Living Expenses: Not very hard Food Insecurity: No Food Insecurity (02/06/2024) Hunger Screening Food Insecurity - Worry: Never True Food Insecurity - Inability: Never True Transportation Needs: No Transportation Needs (01/30/2024) PRAPARE - Transportation Lack of Transportation (Medical): No Lack of Transportation (Non-Medical): No Physical Activity: Unknown (11/21/2023) Received from [facility] Exercise Vital Sign Days of Exercise per Week: 5 days Minutes of Exercise per Session: Not on file Stress: Stress Concern Present (11/16/2022) Received from [facility] of Occupational Health - Occupational Stress Questionnaire Feeling of Stress : To some extent Social Connections: Unknown (11/16/2022) Received from [facility] Social Connection and Isolation Panel [NHANES] Frequency of Communication with Friends and Family: More than three times a week Frequency of Social Gatherings with Friends and Family: More than three times a week Attends Taoism Services: Patient declined Active Member of Clubs or Organizations: Patient declined Attends Club or Organization Meetings: Patient declined Marital Status: Never Interpersonal Safety: Patient Declined (11/16/2022) Received from [facility] Humiliation, Afraid, Rape, and Kick questionnaire Fear of Current or Ex-Partner: Patient declined Emotionally Abused: Patient declined Physically Abused: Patient declined Sexually Abused: Patient declined Housing Instability: Low Risk (01/30/2024) Housing Instability Housing Instability: No Allergies Allergies Allergen Reactions Sulfamethoxazole Other reaction(s): Unknown Sulfamethoxazole-Trimethoprim Trimethoprim Other reaction(s): Unknown Current Medications Current Outpatient Medications Medication Sig Dispense Refill albuterol (PROVENTIL HFA;VENTOLIN HFA) 90 mcg/actuation inhaler Inhale 2 puffs every 6 (six) hours as needed for wheezing. ALCOHOL PREP PADS pads, medicated allopurinoL (ZYLOPRIM) 100 mg tablet Take 3 tablets (300 mg total) by mouth in the morning. atorvastatin (LIPITOR) 10 mg tablet Take 1 tablet (10 mg total) by mouth in the morning. buPROPion SR (WELLBUTRIN SR) 150 mg 12 hr tablet Take 1 tablet (150 mg total) by mouth in the morning and 1 tablet (150 mg total) before bedtime. cetirizine (ZyrTEC) 10 mg tablet Take 1 tablet (10 mg total) by mouth in the morning. docosahexaenoic acid/epa (FISH OIL ORAL) Take by mouth daily. DULoxetine (CYMBALTA) 60 mg capsule Take 1 capsule (60 mg total) by mouth in the morning and 1 capsule (60 mg total) before bedtime. 180 capsule 1 EPINEPHrine (EPIPEN) 0.3 mg/0.3 mL auto-injector 0.3 mL (0.3 mg total) as needed. ergocalciferol (DRISDOL) 1,250 mcg (50,000 unit) capsule Take 1 capsule (50,000 Units total) by mouth once a week. fluticasone propionate (FLONASE) 50 mcg/actuation nasal spray Administer 1 spray into each nostril in the morning. gabapentin (NEURONTIN) 100 mg capsule Take 6 capsules (600 mg total) by mouth once daily at bedtime for 90 days. 180 capsule 2 gabapentin (NEURONTIN) 300 mg capsule One capsule in the morning 90 capsule 1 levothyroxine (SYNTHROID, LEVOTHROID) 50 MCG tablet Take 1.5 tablets (75 mcg total) by mouth in the morning. magnesium oxide (MAGOX) 400 mg tablet Take 2 tablets (800 mg total) by mouth in the morning and 2 tablets (800 mg total) before bedtime. 1600mg daily. metFORMIN (GLUCOPHAGE) 1000 mg tablet Take 1 tablet (1,000 mg total) by mouth in the morning and 1 tablet (1,000 mg total) in the evening. Take with meals. metoprolol tartrate (LOPRESSOR) 50 mg tablet Take 1 tablet (50 mg total) by mouth in the morning and 1 tablet (50 mg total) before bedtime. omeprazole (PriLOSEC) 20 mg capsule Take 1 capsule (20 mg total) by mouth in the morning. ONETOUCH DELICA PLUS LANCET 30 gauge [facility] ONETOUCH ULTRA TEST strip ONETOUCH ULTRA2 METER [facility] tiZANidine (ZANAFLEX) 4 mg tablet One and half tab at 8:00 p.m.each night 135 tablet 1 VICTOZA 3-KELSI 0.6 mg/0.1 mL (18 mg/3 mL) pen injector Inject 0.3 mL (1.8 mg total) under the skin in the morning for 60 days. 9 mL 1 ferrous sulfate 325 (65 FE) mg tablet Take 1 tablet (325 mg total) by mouth in the morning and 1 tablet (325 mg total) in the evening. Take with meals. Do all this for 360 days. 180 tablet 3 losartan (COZAAR) 50 mg tablet Take 1 tablet (50 mg total) by mouth in the morning for 30 days. 30 tablet 0 No current facility-administered medications for this visit. Review of Systems Review of Systems Constitutional: Negative for appetite change, fatigue and fever. HENT: Negative for ear pain and sore throat. Respiratory: Negative for cough and shortness of breath. Cardiovascular: Negative for chest pain, palpitations and leg swelling. Gastrointestinal: Negative for abdominal pain, diarrhea, nausea and vomiting. Genitourinary: Negative for dysuria and flank pain. Musculoskeletal: Negative for back pain and neck pain. Skin: Negative for rash and wound. Neurological: Negative for dizziness, weakness, numbness and headaches. Psychiatric/Behavioral: Negative for confusion and sleep disturbance. The patient is not nervous/anxious. Objective Vitals BP 150/86 Pulse 89 Temp 36.3 C (97.3 F) Ht 165.1 cm (5' 5 ) Wt (!) 138.8 kg (306 lb) LMP 12/14/2023 (Approximate) SpO2 97% BMI 50.92 kg/m Physical Exam Physical Exam Vitals and nursing note reviewed. Constitutional: General: She is not in acute distress. Appearance: She is well-developed. She is obese. She is not ill-appearing. HENT: Head: Normocephalic and atraumatic. Right Ear: Tympanic membrane and ear canal normal. Left Ear: Tympanic membrane and ear canal normal. Nose: Nose normal. Right Sinus: No maxillary sinus tenderness or frontal sinus tenderness. Left Sinus: No maxillary sinus tenderness or frontal sinus tenderness. Mouth/Throat: Mouth: Mucous membranes are moist. Pharynx: Oropharynx is clear. Uvula midline. No posterior oropharyngeal erythema. Eyes: Conjunctiva/sclera: Conjunctivae normal. Pupils: Pupils are equal, round, and reactive to light. Neck: Thyroid: No thyroid mass or thyromegaly. Vascular: No carotid bruit or JVD. Trachea: Trachea normal. Meningeal: Kernig's sign absent. Cardiovascular: Rate and Rhythm: Normal rate and regular rhythm. Pulses: Normal pulses. Radial pulses are 2+ on the right side and 2+ on the left side. Heart sounds: Normal heart sounds, S1 normal and S2 normal. No murmur heard. Pulmonary: Effort: Pulmonary effort is normal. No respiratory distress. Breath sounds: Normal breath sounds. No decreased breath sounds, wheezing, rhonchi or rales. Abdominal: General: Bowel sounds are normal. Palpations: Abdomen is soft. There is no mass. Tenderness: There is no abdominal tenderness. Negative signs include Mckeon's sign and McBurney's sign. Hernia: No hernia is present. Musculoskeletal: General: Normal range of motion. Cervical back: Full passive range of motion without pain and normal range of motion. No rigidity or tenderness. Thoracic back: Normal. No tenderness. Lumbar back: Normal. No tenderness. Right lower leg: No edema. Left lower leg: No edema. Right ankle: No swelling. Left ankle: No swelling. Lymphadenopathy: Cervical: Right cervical: No superficial cervical adenopathy. Left cervical: No superficial cervical adenopathy. Upper Body: Right upper body: No supraclavicular adenopathy. Left upper body: No supraclavicular adenopathy. Skin: General: Skin is warm and dry. Capillary Refill: Capillary refill takes less than 2 seconds. Findings: No ecchymosis or rash. Nails: There is no clubbing. Neurological: General: No focal deficit present. Mental Status: She is alert and oriented to person, place, and time. Cranial Nerves: No cranial nerve deficit. Sensory: No sensory deficit. Motor: No tremor. Coordination: Coordination normal. Gait: Gait normal. Psychiatric: Mood and Affect: Mood normal. Speech: Speech normal. Behavior: Behavior is cooperative. Thought Content: Thought content normal. Judgment: Judgment normal. Recent Pertinent Labs and Radiology Assessment/Plan 1. Primary hypertension 2. Iron deficiency - ferrous sulfate 325 (65 FE) mg tablet; Take 1 tablet (325 mg total) by mouth in the morning and 1 tablet (325 mg total) in the evening. Take with meals. Do all this for 360 days. Dispense: 180 tablet; Refill: 3 - CBC auto differential; Future - Iron and TIBC; Future 3. Insomnia, unspecified type 4. Hypothyroidism, unspecified type Medications Discontinued During This Encounter Medication Reason losartan (COZAAR) 25 mg tablet Reorder ferrous sulfate 325 (65 FE) mg tablet Reorder Patient Instructions HTN: Increase losartan to 50mg qd. Iron def: Increase Ferrous sulfate to twice daily. Insomnia: Consider adding Tylenol PM at bedtime. Would not suggest starting trazodone. D/W specialist gabapentin lack of effectiveness at both the 300mg HS and 600mg HS dose. Await up coming EMG. Wt Readings from Last 3 Encounters: 02/20/24 (!) 138.8 kg (306 lb) 02/06/24 136.1 kg (300 lb) 01/09/24 133.9 kg (295 lb 4.8 oz) Bonifacio Diehl PA-C 02/20/24 1142 [facility]-20-2024 Instructions Bonifacio Diehl PA-C - 02/20/2024 8:00 AM EDT HTN: Increase losartan to 50mg qd. Iron def: Increase Ferrous sulfate to twice daily. Insomnia: Consider adding Tylenol PM at bedtime. Would not suggest starting trazodone. D/W specialist gabapentin lack of effectiveness at both the 300mg HS and 600mg HS dose. Await up coming EMG. Wt Readings from Last 3 Encounters: 02/20/24 (!) 138.8 kg (306 lb) 02/06/24 136.1 kg (300 lb) 01/09/24 133.9 kg (295 lb 4.8 oz) The following attachments cannot be sent through Care Everywhere.Good Food Sources of Iron ([place])[facility]-10-2024 Telephone encounter Note Pt has questions about her lab results. She had received some but not all results [phone] [facility] 01-10-2024 Miscellaneous Notes Pt has questions about her lab results. She had received some but not all results [phone] documented in this encounter [facility] 01-09-2024 History of Present illness Narrative Images from the original note were not included. [address] [facility] [id number] Brandy Adamson is a 43 y.o. right-handed female with a relevant PMH of kidney stones, migraine, STARR on CPAP, pre-DM, hypothyroidism, and fibromyalgia presenting with feet pain. The patient has had subtle sensory changes in her feet for a couple of years. She had an episode of sepsis last year due to kidney stones. Sometime after this episode, she started having worsening of her feet pain. Specifically, she has shooting pain in her toes, sometimes up to her mid-nguy[place]. There is allodynia. Standing makes it worse. It is also worse at night, and moving her feet makes it worse. She thinks she has been sweating more than previously. She also notes trouble with memory recently. She takes GBP 300 mg QHS and tizanidne 6 mg QHS, and duloxetine 60 mg BID. Amitriptyline was not helpful and caused LUCERO. She has taken Gbp 100 mg in the daytime but this causes too much sedation. The patient has not had a prior EMG. She also endorses LUCERO's which occur 3-4 times per week which are bifrontal and radiate to her jaw, which she attributes to jaw clenching. They last for several hours, are worse with bright lights, and sometimes are associated with nausea. She sometimes takes APAP for this. Current Outpatient Medications Medication Sig Dispense Refill albuterol (PROVENTIL HFA;VENTOLIN HFA) 90 mcg/actuation inhaler Inhale 2 puffs every 6 (six) hours as needed for wheezing. ALCOHOL PREP PADS pads, medicated allopurinoL (ZYLOPRIM) 100 mg tablet Take 3 tablets (300 mg total) by mouth in the morning. atorvastatin (LIPITOR) 10 mg tablet Take 1 tablet (10 mg total) by mouth in the morning. buPROPion SR (WELLBUTRIN SR) 150 mg 12 hr tablet Take 1 tablet (150 mg total) by mouth in the morning and 1 tablet (150 mg total) before bedtime. cetirizine (ZyrTEC) 10 mg tablet Take 1 tablet (10 mg total) by mouth in the morning. docosahexaenoic acid/epa (FISH OIL ORAL) Take by mouth daily. DULoxetine (CYMBALTA) 60 mg capsule Take 1 capsule (60 mg total) by mouth in the morning and 1 capsule (60 mg total) before bedtime. 180 capsule 1 EPINEPHrine (EPIPEN) 0.3 mg/0.3 mL auto-injector 0.3 mL (0.3 mg total) as needed. ergocalciferol (DRISDOL) 1,250 mcg (50,000 unit) capsule Take 1 capsule (50,000 Units total) by mouth once a week. ferrous sulfate 325 (65 FE) mg tablet Take 1 tablet (325 mg total) by mouth daily with breakfast. 30 tablet 0 fluticasone propionate (FLONASE) 50 mcg/actuation nasal spray Administer 1 spray into each nostril in the morning. gabapentin (NEURONTIN) 300 mg capsule One capsule in the morning 90 capsule 1 levothyroxine (SYNTHROID, LEVOTHROID) 50 MCG tablet Take 1 tablet (50 mcg total) by mouth in the morning. magnesium oxide (MAGOX) 400 mg tablet Take 1 tablet (400 mg total) by mouth in the morning. (Patient taking differently: Take 2 tablets (800 mg total) by mouth in the morning and 2 tablets (800 mg total) before bedtime. 1200mg daily.) 14 tablet 0 metFORMIN (GLUCOPHAGE) 1000 mg tablet Take 1 tablet (1,000 mg total) by mouth in the morning and 1 tablet (1,000 mg total) in the evening. Take with meals. metoprolol tartrate (LOPRESSOR) 50 mg tablet Take 1 tablet (50 mg total) by mouth in the morning and 1 tablet (50 mg total) before bedtime. omeprazole (PriLOSEC) 20 mg capsule Take 1 capsule (20 mg total) by mouth in the morning. ONETOUCH DELICA PLUS LANCET 30 gauge [facility] ONETOUCH ULTRA TEST strip ONETOUCH ULTRA2 METER [facility] tiZANidine (ZANAFLEX) 4 mg tablet One and half tab at 8:00 p.m.each night 135 tablet 1 DULoxetine (CYMBALTA) 20 mg capsule Take 1 capsule (20 mg total) by mouth in the morning. (Patient taking differently: Take 2 capsules (40 mg total) by mouth in the morning.) 30 capsule 5 DULoxetine 40 mg capsule,delayed release(DR/EC) Take 40 mg by mouth in the morning and 40 mg before bedtime. 180 capsule 1 gabapentin (NEURONTIN) 100 mg capsule Take 6 capsules (600 mg total) by mouth once daily at bedtime for 90 days. 180 capsule 2 lisinopriL (PRINIVIL,ZESTRIL) 10 mg tablet Take 1 tablet (10 mg total) by mouth in the morning. promethazine (PHENERGAN) 12.5 mg tablet Take 1 tablet (12.5 mg total) by mouth every 6 (six) hours as needed for nausea or vomiting. (Patient not taking: Reported on 09/21/2023) 30 tablet 0 No current facility-administered medications for this visit. Past Medical History: Diagnosis Date Abnormal EKG Acute kidney injury ([facility]) 03/06/23 Diabetes mellitus ([facility]) Fibromyalgia High cholesterol HTN (hypertension) Insulin resistance Kidney stones Obesities, morbid ([facility]) Pneumonia diagnosed with double pneumonia 03/10/23 Sleep apnea Does not use CPAP Tachycardia Visual impairment History reviewed. No pertinent family history. Past Surgical History: Procedure Laterality Date CHOLECYSTECTOMY CYSTOSCOPY EXCHANGE STENT URETER Right 03/29/2023 Performed by Michael Quintero MD at [facility] CYSTOSCOPY INSERTION STENT URETER Right 03/06/2023 Performed by Michael Quintero MD at [facility] CYSTOSCOPY REMOVAL STENT Right 04/10/2023 Performed by Michael Quintero MD at [facility] LASER HOLMIUM URETEROSCOPY RENAL STONES < OR=1CM Right 03/29/2023 Performed by Michael Quintero MD at [facility] WRIST SURGERY Right tendonitis surgery Allergies Allergen Reactions Sulfamethoxazole Other reaction(s): Unknown Sulfamethoxazole-Trimethoprim Trimethoprim Other reaction(s): Unknown Social History Socioeconomic History Marital status: Single Spouse name: Not on file Number of children: Not on file Years of education: Not on file Highest education level: Not on file Occupational History Not on file Tobacco Use Smoking status: Never Smokeless tobacco: Never Vaping Use Vaping status: Never Used Substance and Sexual Activity Alcohol use: Never Drug use: Never Sexual activity: Defer Other Topics Concern Caffeine Use No Social History Narrative Not on file Social Determinants of Health Financial Resource Strain: Patient Declined (11/16/2022) Received from [facility], [facility] Overall Financial Resource Strain (CARDIA) Difficulty of Paying Living Expenses: Patient declined Food Insecurity: No Food Insecurity (01/09/2024) Hunger Screening Food Insecurity - Worry: Never True Food Insecurity - Inability: Never True Transportation Needs: Patient Declined (11/16/2022) Received from [facility] - Transportation Lack of Transportation (Medical): Patient declined Lack of Transportation (Non-Medical): Patient declined Physical Activity: Unknown (11/21/2023) Received from [facility] Exercise Vital Sign Days of Exercise per Week: 5 days Minutes of Exercise per Session: Not on file Stress: Stress Concern Present (11/16/2022) Received from [facility] of Occupational Health - Occupational Stress Questionnaire Feeling of Stress : To some extent Social Connections: Unknown (11/16/2022) Received from [facility] Social Connection and Isolation Panel [NHANES] Frequency of Communication with Friends and Family: More than three times a week Frequency of Social Gatherings with Friends and Family: More than three times a week Attends Taoism Services: Patient declined Active Member of Clubs or Organizations: Patient declined Attends Club or Organization Meetings: Patient declined Marital Status: Never Interpersonal Safety: Patient Declined (11/16/2022) Received from [facility] Humiliation, Afraid, Rape, and Kick questionnaire Fear of Current or Ex-Partner: Patient declined Emotionally Abused: Patient declined Physically Abused: Patient declined Sexually Abused: Patient declined Housing Instability: Low Risk (03/09/2023) Housing Instability Housing Instability: No Admission on 11/21/2023, Discharged on 11/21/2023 Component Date Value Ref Range Status Sodium 11/21/2023 137 134 - 146 mmol/L Final Potassium, Bld 11/21/2023 3.9 3.5 - 5.0 mmol/L Final Chloride 11/21/2023 100 98 - 109 mmol/L Final CO2 11/21/2023 24 22 - 32 mmol/L Final Anion gap 11/21/2023 13 5 - 15 mmol/L Final BUN 11/21/2023 16 5 - 23 mg/dL Final Creatinine 11/21/2023 0.76 0.40 - 1.00 mg/dL Final Glucose 11/21/2023 104 (H) 65 - 99 mg/dL Final Calcium 11/21/2023 9.3 8.5 - 10.5 mg/dL Final eGFR (CKD-EPI)non-race dependent 11/21/2023 >90 >59 ml/min/1.73sq.m Final White Blood Cells 11/21/2023 14.3 (H) 4.0 - 11.0 X10E9/L Final RBC count 11/21/2023 4.36 3.80 - 5.20 X10E12/L Final Hemoglobin 11/21/2023 13.2 11.7 - 15.5 g/dL Final Hematocrit 11/21/2023 37.6 35 - 47 % Final MCV 11/21/2023 86 80 - 100 fL Final MCH 11/21/2023 30.2 27 - 34 pg Final MCHC 11/21/2023 35.0 32 - 36 g/dL Final RDW 11/21/2023 14.3 11.5 - 15.0 % Final Platelets 11/21/2023 319 150 - 450 X10E9/L Final MPV 11/21/2023 8.6 7 - 12 fL Final % neutrophils 11/21/2023 70.9 % Final % lymphocytes 11/21/2023 20.0 % Final % monocytes 11/21/2023 6.6 % Final % eosinophils 11/21/2023 2.1 % Final % Basophils 11/21/2023 0.4 % Final Neutrophils Absolute (A) 11/21/2023 10.1 (H) 1.5 - 6.6 X10E9/L Final Lymphocytes Absolute 11/21/2023 2.9 1.0 - 3.5 X10E9/L Final Monocytes Absolute 11/21/2023 0.9 0 - 0.9 X10E9/L Final Eosinophils Absolute 11/21/2023 0.3 0.0 - 0.4 X10E9/L Final Basophils Absolute 11/21/2023 0.1 0.0 - 0.2 X10E9/L Final Bedside glucose 11/21/2023 113 (H) 65 - 99 mg/dL Final Family history: Aunt with MS, otherwise no family history of neurologic disease. Social History: Denies EtOH, tobacco, or drug use. Works as heavy mobile equipment repairer. NEURO EXAM: Mental Status: alert, oriented to situation; fluent speech; normal comprehension of common spoken language; memory intact to the details of the history; follows axial and appendicular commands. Cranial Nerves: VFFTC, PERRL, EOMI without nystagmus, facial strength intact, tongue/palate midline, no dysarthria, tongue bulk and strength normal, shoulder shrug symmetric. Motor Exam: normal bulk and tone, no pronator drift. Finger and foot taps fast and symmetric. No resting/postural/kinetic/intenti on tremor or other extraneous movements. Delt Biceps Triceps WE FE FDI ADM APB Right 5 5 5 5 5 5 5 5 Left 5 5 5 5 5 5 5 5 IP Ham Quads TA EHL Gastroc Right 5 5 5 5 5 5 Left 5 5 5 5 5 5 Sensory Exam: intact to LT in the hands, and causes paresthesias in the ankles and feet. Vibration intact at the bilateral great toes. Reflexes: R/L: Bi 3+/2+, Tri 2+/2+, Patella 2+/2+, Ankle jerks 2+/2+, , bilaterally positive Alston's sign (stronger on right). Coordination: FTN without dysmetria. Gait: Normal narrow based gait with normal arm swing, turn, and stride length. Negative Romberg. IMPRESSION/PLAN: 1. Neuropathy - [facility] [place], [place] 2. Tingling of both feet - Hemoglobin A1c; Future - Vitamin B12; Future - Syphilis Total(Unknown Syphilis Status); Future - HIV 1&2 AB/AG Screen (P24 AG); Future - Serum Immunofixation; Future - Protein electrophoresis, serum; Future - TAVARES Panel; Future - Methylmalonic Acid, QN, P; Future - Homocysteine total; Future - EMG NCV; Future - TSH with Reflex; Future - gabapentin (NEURONTIN) 100 mg capsule; Take 6 capsules (600 mg total) by mouth once daily at bedtime for 90 days. Dispense: 180 capsule; Refill: 2 3. Hyperreflexia - MR brain without contrast; Future - MR cervical spine without contrast; Future Brandy Adamson is a 43 y.o. right-handed female with a relevant PMH of kidney stones, migraine, pre-DM, hypothyroidism, and fibromyalgia presenting with feet pain. The ddx for her feet pain includes large fiber neuropathy, SFN, or cervical stenosis (given her Alston's). We will proceed with labwork, EMG, and MRI brain/C-spine. Her cognitive complaints may relate to poor sleep 2/2 to her foot pain. For treatment, we will increase her GBP to 600 mg QHS. Additionally, I provided information about nutraceuticals for migraine ppx. Plan: -Please get blood work done today -Please call to schedule your MRI of the neck and brain. -Please schedule your EMG. I do these here on Monday and Monday mornings. -Try gabapentin 600 mg at bedtime. If this is too much, I have prescribed 100 mg tablets and you can try 400 mg at night instead. -Start the following medications: Riboflavin (also called Vitamin B2) 400 mg daily and Coenzyme Q10 200-300 mg daily. These are daily medications and only work if taken every day. These can be purchased over the counter, but Passado is the most reliable way to find them. If you have the option of multiple different brands, I recommend using brands that are GROUP HOME certified (though this option does not exist for all supplements--for example, I have not found a brand of riboflavin that is GROUP HOME certified). -Please keep a headache diary. This can be done via an tre, or by marking a calendar on days you have headaches. Tracking your headache frequency is important in order to figure out if a medication is working. -Increase GBP to 600 mg QHS. If this causes too much sedation Chuy Frederick MD [employer] Installer of Neurology [facility] 01/09/24 I spent >45 minutes of total time on the day of the visit. This time was spent preparing for the visit, obtaining and reviewing any outside history/data, taking a history, performing an exam/evaluation, counseling and educating the patient/family about the diagnosis and plan, performing medical decision making, referring to and communicating with other health care referrals, independently interpreting results and documenting in the EMR, and coordinating care. Please see the additional documentation in this note for specific details. [facility] Instructions Chuy Frederick MD - 01/09/2024 8:00 AM EDT It was a pleasure seeing you in clinic today. Your neurologist: Dr. Chuy Frederick Your diagnosis: Tingling of feet Plan: -Please get blood work done today -Please call to schedule your MRI of the neck and brain. I am looking to rule out cervical stenosis. -Please schedule your EMG. I do these here on Monday and Monday mornings. -Try gabapentin 600 mg at bedtime. If this is too much, I have prescribed 100 mg tablets and you can try 400 mg at night instead. -Start the following medications: Riboflavin (also called Vitamin B2) 400 mg daily and Coenzyme Q10 200-300 mg daily. These are daily medications and only work if taken every day. These can be purchased over the counter, but [employer] is the most reliable way to find them. If you have the option of multiple different brands, I recommend using brands that are GROUP HOME certified (though this option does not exist for all supplements--for example, I have not found a brand of riboflavin that is GROUP HOME certified). -Please keep a headache diary. This can be done via an tre, or by marking a calendar on days you have headaches. Tracking your headache frequency is important in order to figure out if a medication is working. Thank you for entrusting me with your care. Chuy Frederick MD Network [employer] Installer of Neurology [facility] 01/09/24 [facility] History of Present illness Narrative PROBLEM VISIT Brandy Adamson is 43 y.o. a patient of [facility] Here for colposcopy Last pap: Last mammogram: No LMP recorded. History: Past Medical History: Diagnosis Date Allergic Anemia Anxiety Chronic kidney disease 03-06-23 Chronic pansinusitis Chronic rhinitis COVID-19 04/2020 Depression (CMS/HCC) Disease of thyroid gland (CMS/HCC) Fibromyalgia GERD (gastroesophageal reflux disease) Hematuria History of medical problems 2006 Hole in septum of nose Hyperlipidemia (CMS/HCC) Hypertension (CMS/HCC) Insulin resistance Nasal septum perforation Neuromuscular disorder (CMS/HCC) Obesity Polycystic ovary Sepsis (CMS/HCC) Past Surgical History: Procedure Laterality Date CHOLECYSTECTOMY 2009 CYSTOSTOMY Right 03/06/2023 DENTAL SURGERY 11/2019 tooth pulled LITHOTRIPSY 03/29/2023 PAP SMEAR 2019 TONSILLECTOMY 1992 VAGINAL DELIVERY WRIST SURGERY 2005 Tendonitis surgery right wrist Family History Problem Relation Name Age of Onset Thyroid disease Mother Yris Hypertension Mother Yris Arthritis Mother Yris Depression Mother Yris Hypertension Father [place] Thyroid disease Father [place] Hyperlipidemia Father [place] @[email or web address]@ Allergies: Allergies Allergen Reactions Dulaglutide Headache Levofloxacin GI intolerance Other reaction(s): stomach upset Sulfamethoxazole Unknown Other reaction(s): Unknown Sulfamethoxazole-Trimethoprim Trimethoprim Unknown Other reaction(s): Unknown Medications: Current Outpatient Medications on File Prior to Visit Medication Sig Dispense Refill albuterol HFA 90 mcg/act inhaler INHALE 2 PUFFS BY MOUTH EVERY 4 HOURS NEEDED FOR WHEEZING 18 g 0 allopurinol (Zyloprim) 300 MG tablet 1 (one) time each day at the same time atorvastatin (Lipitor) 10 MG tablet Take 1 tablet (10 mg) by mouth in the morning. 90 tablet 1 B-D UF III MINI PEN NEEDLES 31G X 5 MM misc USE EVERY MORNING DIRECTED Blood Glucose Monitoring Suppl (ONE TOUCH ULTRA 2) w/Device kit buPROPion SR (Wellbutrin SR) 150 MG 12 hr tablet TAKE 1 TABLET BY MOUTH EVERY MORNING AND 1 BEFORE BEDTIME 180 tablet 1 cephalexin (Keflex) 500 MG capsule Four times daily cetirizine (ZyrTEC) 10 MG tablet Take 1 tablet (10 mg) by mouth Daily 90 tablet 1 doxycycline (Vibramycin) 100 MG capsule TAKE 1 CAPSULE BY MOUTH EVERY MORNING AND 1 BEFORE BEDTIME DULoxetine (Cymbalta) [address] capsule Take 1 capsule (40 mg) by mouth in the morning. Do not crush or chew.. (Patient taking differently: Take 40 mg by mouth in the morning and 40 mg before bedtime. Do not crush or chew..) 90 capsule 1 EPINEPHrine (Epipen) 0.3 MG/0.3ML injection syringe INJECT INTO THE MIDDLE OF THE OUTER THIGH AND HOLD FOR 3 SECONDS NEEDED FOR SEVERE ALLERGIC REACTION THEN CALL 911 IF USED. 2 each 0 ergocalciferol (Vitamin D2) 1.25 MG (02855 UT) capsule TAKE 1 CAPSULE(1.25 MG) BY MOUTH 1 TIME EVERY WEEK 12 capsule 0 ferrous sulfate (FeroSul) 325 (65 Fe) MG tablet Take 1 tablet (325 mg) by mouth in the morning. 90 tablet 1 fluticasone (Flonase) 50 MCG/ACT nasal spray Administer 1 spray into each nostril Daily Shake gently. Before first use, prime pump. After use, clean tip and replace cap. 48 g 1 gabapentin (Neurontin) 300 MG capsule Take 1 capsule (300 mg) by mouth at bedtime. 90 capsule 1 ketoconazole (NIZOral) 2 % shampoo APPLY TO AFFECTED AREA(S) TWICE A WEEK, LEAVE ON FOR 3 TO 5 MINUTES THEN RINSE 120 mL 0 Lancets (Revstr DelHiMom Plus [id number]) misc TEST EVERY MORNING DIRECTED 100 each 1 levothyroxine (Synthroid, Levoxyl) 50 MCG tablet Take 1 tablet (50 mcg) by mouth in the morning. on an empty stomach. 90 tablet 1 liraglutide (Victoza) 18 MG/3ML injection Inject 1.8 mg under the skin Daily 9 pen 1 magnesium oxide (Mag-Ox) 400 MG tablet Take 1,200 mg by mouth in the morning. metFORMIN (Glucophage) 1000 MG tablet TAKE 1 TABLET BY MOUTH TWICE DAILY 180 tablet 0 metoprolol tartrate (Lopressor) 50 MG tablet Take 1 tablet (50 mg) by mouth in the morning and 1 tablet (50 mg) before bedtime. 180 tablet 1 omega-3 (Fish Oil) 500 MG capsule 1 capsule every 12 (twelve) hours. omeprazole (PriLOSEC) [address] capsule TAKE 1 CAPSULE(40 MG) BY MOUTH IN THE MORNING. DO NOT CRUSH OR CHEW 90 capsule 1 Revstr Ultra test strip USE DIRECTED EVERY MORNING 100 strip 1 pen needle 30G x 5 mm misc Inject 1 each under the skin in the morning. Use as instructed. 100 each 3 tiZANidine (Zanaflex) 4 MG tablet Take 1 tablet (4 mg) by mouth every 8 (eight) hours if needed for muscle spasms 30 tablet 0 [DISCONTINUED] buPROPion SR (Wellbutrin SR) 150 MG 12 hr tablet Take 1 tablet (150 mg) by mouth in the morning and 1 tablet (150 mg) before bedtime. Do not crush, chew, or split.. 180 tablet 1 [DISCONTINUED] cetirizine (ZyrTEC) 10 MG tablet Take 1 tablet (10 mg) by mouth in the morning. 90 tablet 3 [DISCONTINUED] ferrous sulfate (FeroSul) 325 (65 Fe) MG tablet Take 1 tablet (325 mg) by mouth in the morning. 90 tablet 1 [DISCONTINUED] fluticasone (Flonase) 50 MCG/ACT nasal spray INSTILL 1 SPRAY INTO EACH NOSTRIL EVERY MORNING 16 g 3 [DISCONTINUED] levothyroxine (Synthroid, Levoxyl) 50 MCG tablet Take 1 tablet (50 mcg) by mouth in the morning. on an empty stomach. 90 tablet 1 No current facility-administered medications on file prior to visit. There were no vitals filed for this visit. HPI: history of abnormal pap, LSIL with +HPV, presents today for colposcopy ROS: Review of Systems Colposcopy: Patient is doing well and has no complaints. Pap results have been reviewed with the patient in great detail and patient voiced understanding. Patient presents today for a Colposcopy with ECC. Patient was placed in dorsal lithotomy position with feet in stirrups, a sterile speculum was placed into the vagina and the cervix was visualized. Cervix was cleansed with betadine swab. Sterile ECC instrument was introduced into cervical os and ECC biopsy obtained without difficulty. 5% acetric acid was then placed onto the cervix for 2-3 mins. Sterile mini tischler was used to obtain biopsies from 6:00 oclock, 9 o'clock and 11 o'clock without difficulty. Hemostasis noted at the end of procedure. Patient tolerated procedure well. Postprocedural instructions given and patient is to avoid intercourse for seven days, and if bleeding is enough to change a pad every hour patient should go to the nearest ED. All if patients questions answered and she expressed understanding. Advised to call in interim with questions or concerns. Follow Up: Patient is to return for repeat annual Pap or sooner depending on colposcopyresults. Physical exam: Physical Exam Assessment and Plan: There are no diagnoses linked to this encounter. Patient c/o pain on the left side of her abdomen. She has not seen family medicine for this pain and states she does occasionally have constipation. No diarrhea. She does have a h/o ovarian cyst and we will repeat the US if pain continues or US is abnormal I will refer her to Dr Blankenship., Patient is in agreement to see him if referral needed. No follow-ups on file. There are no Patient Instructions on file for this visit. Rosa Milian MA,01/08/2024 10:40 AM documented in this encounter [facility] 01-04-2024 History of Present illness Narrative Patient: Brandy Adamson : 1980 PCP: Rosa Mittal MD SUBJECTIVE This is a 43 y.o. female that has had issues with foot deformity of bunions b/l in shoe gear with hammertoe deformities and has tried shoe gear modications for wider shoes with some improvement. She presents today for orthotics. 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 Hyperlipidemia (CMS/HCC) Hypertension (CMS/HCC) Insulin resistance Nasal septum perforation Neuromuscular disorder (CMS/HCC) Obesity Polycystic ovary Sepsis (CMS/HCC) Medications: Current Outpatient Medications: albuterol HFA 90 mcg/act inhaler, INHALE 2 PUFFS BY MOUTH EVERY 4 HOURS NEEDED FOR WHEEZING, Disp: 18 g, Rfl: 0 allopurinol (Zyloprim) 300 MG tablet, 1 (one) time each day at the same time, Disp: , Rfl: atorvastatin (Lipitor) 10 MG tablet, Take 1 tablet (10 mg) by mouth in the morning., Disp: 90 tablet, Rfl: 1 B-D UF III MINI PEN NEEDLES 31G X 5 MM [facility], USE EVERY MORNING DIRECTED, Disp: , Rfl: Blood Glucose Monitoring Suppl (ONE TOUCH ULTRA 2) w/Device kit, , Disp: , Rfl: buPROPion SR (Wellbutrin SR) 150 MG 12 hr tablet, Take 1 tablet (150 mg) by mouth in the morning and 1 tablet (150 mg) before bedtime. Do not crush, chew, or split.., Disp: 180 tablet, Rfl: 1 cephalexin (Keflex) 500 MG capsule, Four times daily, Disp: , Rfl: cetirizine (ZyrTEC) 10 MG tablet, Take 1 tablet (10 mg) by mouth in the morning., Disp: 90 tablet, Rfl: 3 doxycycline (Vibramycin) 100 MG capsule, TAKE 1 CAPSULE BY MOUTH EVERY MORNING AND 1 BEFORE BEDTIME, Disp: , Rfl: DULoxetine (Cymbalta) [address] capsule, Take 1 capsule (40 mg) by mouth in the morning. Do not crush or chew.. (Patient taking differently: Take 40 mg by mouth in the morning and 40 mg before bedtime. Do not crush or chew..), Disp: 90 capsule, Rfl: 1 EPINEPHrine (Epipen) 0.3 MG/0.3ML injection syringe, INJECT INTO THE MIDDLE OF THE OUTER THIGH AND HOLD FOR 3 SECONDS NEEDED FOR SEVERE ALLERGIC REACTION THEN CALL 911 IF USED., Disp: 2 each, Rfl: 0 ergocalciferol (Vitamin D2) 1.25 MG (55182 UT) capsule, TAKE 1 CAPSULE(1.25 MG) BY MOUTH 1 TIME EVERY WEEK, Disp: 12 capsule, Rfl: 0 ferrous sulfate (FeroSul) 325 (65 Fe) MG tablet, Take 1 tablet (325 mg) by mouth in the morning., Disp: 90 tablet, Rfl: 1 fluticasone (Flonase) 50 MCG/ACT nasal spray, INSTILL 1 SPRAY INTO EACH NOSTRIL EVERY MORNING, Disp: 16 g, Rfl: 3 gabapentin (Neurontin) 300 MG capsule, Take 1 capsule (300 mg) by mouth at bedtime., Disp: 90 capsule, Rfl: 1 ketoconazole (NIZOral) 2 % shampoo, APPLY TO AFFECTED AREA(S) TWICE A WEEK, LEAVE ON FOR 3 TO 5 MINUTES THEN RINSE, Disp: 120 mL, Rfl: 0 Lancets ([employer] Delica Plus [id number]) [facility], TEST EVERY MORNING DIRECTED, Disp: 100 each, Rfl: 1 levothyroxine (Synthroid, Levoxyl) 50 MCG tablet, Take 1 tablet (50 mcg) by mouth in the morning. on an empty stomach., Disp: 90 tablet, Rfl: 1 liraglutide (Victoza) 18 MG/3ML injection, Inject 1.8 mg under the skin Daily, Disp: 9 pen , Rfl: 1 magnesium oxide (Mag-Ox) 400 MG tablet, Take 1,200 mg by mouth in the morning., Disp: , Rfl: metFORMIN (Glucophage) 1000 MG tablet, TAKE 1 TABLET BY MOUTH TWICE DAILY, Disp: 180 tablet, Rfl: 0 metoprolol tartrate (Lopressor) 50 MG tablet, Take 1 tablet (50 mg) by mouth in the morning and 1 tablet (50 mg) before bedtime., Disp: 180 tablet, Rfl: 1 omega-3 (Fish Oil) 500 MG capsule, 1 capsule every 12 (twelve) hours., Disp: , Rfl: omeprazole (PriLOSEC) [address] capsule, TAKE 1 CAPSULE(40 MG) BY MOUTH IN THE MORNING. DO NOT CRUSH OR CHEW, Disp: 90 capsule, Rfl: 1 OneTouch Ultra test strip, USE DIRECTED EVERY MORNING, Disp: 100 strip, Rfl: 1 pen needle 30G x 5 mm misc, Inject 1 each under the skin in the morning. Use as instructed., Disp: 100 each, Rfl: 3 tiZANidine (Zanaflex) 4 MG tablet, Take 1 tablet (4 mg) by mouth every 8 (eight) hours if needed for muscle spasms, Disp: 30 tablet, Rfl: 0 Social History: Social History Socioeconomic History Marital status: Never Spouse name: Not on file Number of children: Not on file Years of education: Not on file Highest education level: Not on file Occupational History Not on file Tobacco Use Smoking status: Never Passive exposure: Never Smokeless tobacco: Never Vaping Use Vaping status: Never Used Substance and Sexual Activity Alcohol use: Not Currently Comment: Caffeine intake : 2-3 times/week, soda/pop Drug use: Never Sexual activity: Not Currently Partners: Male control/protection: None Comment: Periods; every month, heavy to start. LMP: 09/01/2021 Other Topics Concern Not on file Social History Narrative Exercise: 3-4 times/week; walking Social Determinants of Health Financial Resource Strain: Patient Declined (11/16/2022) Overall Financial Resource Strain (CARDIA) Difficulty of Paying Living Expenses: Patient declined Food Insecurity: No Food Insecurity (11/21/2023) Received from [facility] Hunger Screening Within the past 12 months we worried whether our food would run out before we got money to buy more.: Never True Within the past 12 months the food we bought just didn't last and we didn't have money to get more.: Never True Transportation Needs: Patient Declined (11/16/2022) PRAPARE - Transportation Lack of Transportation (Medical): Patient declined Lack of Transportation (Non-Medical): Patient declined Physical Activity: Unknown (11/21/2023) Exercise Vital Sign Days of Exercise per Week: 5 days Minutes of Exercise per Session: Not on file Stress: Stress Concern Present (11/16/2022) [employer] [place] [employer] - Occupational Stress Questionnaire Feeling of Stress : To some extent Social Connections: Unknown (11/16/2022) Social Connection and Isolation Panel [NHANES] Frequency of Communication with Friends and Family: More than three times a week Frequency of Social Gatherings with Friends and Family: More than three times a week Attends Taoism Services: Patient declined Active Member of Clubs or Organizations: Patient declined Attends Club or Organization Meetings: Patient declined Marital Status: Never Intimate Partner Violence: Patient Declined (11/16/2022) Humiliation, Afraid, Rape, and Kick questionnaire Fear of Current or Ex-Partner: Patient declined Emotionally Abused: Patient declined Physically Abused: Patient declined Sexually Abused: Patient declined Housing Stability: Low Risk (03/09/2023) [facility] [place] [place] Housing Instability Are you worried or concerned that in the next two months you may not have stable housing that you own, rent or stay in as a part of a household?: No ROS: General: denies fever, chills, fatigue, malaise GI: denies loose or watery stool on antibiotic OBJECTIVE LE EXAM: DERM: Positive hair growth to b/l feet with good skin turgor noted. Negative openings in skin. slight rubor to dorsal medial eminence bilateral with HAV deformities. PIPJ rubor to the left 2nd toe at the PIPJ Negative VASC: Palpable pedal pulsed b/l with warm to cool tibia to toes b/l NEURO: 5.07 Albers Janet monofilament test positive to digits and forefoot bilaterally 125Hz tuning fork positive to 1st MPJ bilaterally ORTHO: +5/5 DF/PF/IN/EV right, +5/5 DF/PF/IN/EV left. 20 degrees inversion and 10 degrees eversion STJ b/l. Ankle ROM less than 10 degrees b/l. Negative pain on palpation to the left 1st metatarsal region of cellulitis HAV deformites b/l that are reducible with 2nd digital flexion deformites. ASSESSMENT . 1. Hav (hallux abducto valgus), left 2. Hav (hallux abducto valgus), right 3. Acquired deformity of left toe 4. Type 2 diabetes mellitus without complication, without long-term current use of insulin ([facility] PLAN Patient to continue with oral anti - inflammatories as needed for pain and recommended OTC medications such as tylenol or Ibuprofen Pt was fitted for custom made orthotics today. Orthotics were deemed to fit appropriately and patient was informed of proper break in of devices. Patient education on break in of device. ABN signed and in chart if warranted. Raymond Whittaker DPM documented in this encounter [facility] 12-19-2023 History of Present illness Narrative Images from the original note were not included. [address] [id number] Date of Service: 12/19/2023 Subjective: Brandy Adamson is a 43 y.o. female who presents today for evaluation positive DAVID. Patient is seen at the request of Rosa Mittal MD. This is follow-up visit with this patient who is 42-year-old female patient presenting today as an established patient for follow-up of positive DAVID and fibromyalgia was seen 1st time on 07/01/2022. Last time the clinic was 09/21/2023 Patient's history dates back to 2019 when she started having joints pain, involving the, joints of the hands ,knees ,feet and ankles. Autoimmune /Systemic screening: Negative Raynaud's, positive for for oral/ ocular sicca,no recurrent oral ulcers, no alopecia, no butterfly rash, or ocular inflammation such as uveitis . No history of cytopenia, or pericarditis, pleuritis or DVT/PE Systemic involvement such as anorexia, wt loss, recurrent unexplained fever. Lab results done on DAVID screen positive, AST ALT elevated Lab tests done 06/07/2022 revealed CMP normal except for for mildly elevated AST and ALT, DAVID IFA 1:80 CBC hemoglobin mild low, urinalysis dipstick normal,, Past medical past On metformin,hypothyroidism,HTN,hig h lipids Past surgical Gall bladder removal Current medications including Zanaflex and gabapentin duloxetine Today the 12/19/2023 patient said that she has been satisfied on current medications however she continued to have some pain as well as poor sleep. The following portions of the patient's history were reviewed and updated as appropriate: allergies, current medications, past family history, past medical history, past social history, past surgical history and problem list. Review of Systems: Review of Systems Constitutional: Positive for fatigue. Musculoskeletal: Positive for arthralgias. Allergic/Immunologic: Negative. Psychiatric/Behavioral: Negative for dysphoric mood and sleep disturbance. Current Outpatient Medications Medication Sig Dispense Refill albuterol (PROVENTIL HFA;VENTOLIN HFA) 90 mcg/actuation inhaler Inhale 2 puffs every 6 (six) hours as needed for wheezing. ALCOHOL PREP PADS pads, medicated allopurinoL (ZYLOPRIM) 100 mg tablet Take 2 tablets (200 mg total) by mouth in the morning. atorvastatin (LIPITOR) 10 mg tablet Take 1 tablet (10 mg total) by mouth in the morning. buPROPion SR (WELLBUTRIN SR) 150 mg 12 hr tablet Take 1 tablet (150 mg total) by mouth in the morning and 1 tablet (150 mg total) before bedtime. cetirizine (ZyrTEC) 10 mg tablet Take 1 tablet (10 mg total) by mouth in the morning. docosahexaenoic acid/epa (FISH OIL ORAL) Take by mouth daily. DULoxetine (CYMBALTA) 20 mg capsule Take 1 capsule (20 mg total) by mouth in the morning. (Patient taking differently: Take 2 capsules (40 mg total) by mouth in the morning.) 30 capsule 5 DULoxetine 40 mg capsule,delayed release(DR/EC) Take 40 mg by mouth in the morning and 40 mg before bedtime. 180 capsule 1 EPINEPHrine (EPIPEN) 0.3 mg/0.3 mL auto-injector 0.3 mL (0.3 mg total) as needed. ergocalciferol (DRISDOL) 1,250 mcg (50,000 unit) capsule Take 1 capsule (50,000 Units total) by mouth once a week. ferrous sulfate 325 (65 FE) mg tablet Take 1 tablet (325 mg total) by mouth daily with breakfast. 30 tablet 0 fluticasone propionate (FLONASE) 50 mcg/actuation nasal spray Administer 1 spray into each nostril in the morning. levothyroxine (SYNTHROID, LEVOTHROID) 50 MCG tablet Take 1 tablet (50 mcg total) by mouth in the morning. lisinopriL (PRINIVIL,ZESTRIL) 10 mg tablet Take 1 tablet (10 mg total) by mouth in the morning. magnesium oxide (MAGOX) 400 mg tablet Take 1 tablet (400 mg total) by mouth in the morning. (Patient taking differently: Take 2 tablets (800 mg total) by mouth in the morning and 2 tablets (800 mg total) before bedtime.) 14 tablet 0 metFORMIN (GLUCOPHAGE) 1000 mg tablet Take 1 tablet (1,000 mg total) by mouth in the morning and 1 tablet (1,000 mg total) in the evening. Take with meals. metoprolol tartrate (LOPRESSOR) 50 mg tablet Take 1 tablet (50 mg total) by mouth in the morning and 1 tablet (50 mg total) before bedtime. omeprazole (PriLOSEC) 20 mg capsule Take 1 capsule (20 mg total) by mouth in the morning. ONETOUCH DELICA PLUS LANCET 30 gauge [facility] ONETOUCH ULTRA TEST strip ONETOUCH ULTRA2 METER [facility] DULoxetine (CYMBALTA) 60 mg capsule Take 1 capsule (60 mg total) by mouth in the morning and 1 capsule (60 mg total) before bedtime. 180 capsule 1 gabapentin (NEURONTIN) 300 mg capsule One capsule in the morning 90 capsule 1 promethazine (PHENERGAN) 12.5 mg tablet Take 1 tablet (12.5 mg total) by mouth every 6 (six) hours as needed for nausea or vomiting. (Patient not taking: Reported on 09/21/2023) 30 tablet 0 tiZANidine (ZANAFLEX) 4 mg tablet One and half tab at 8:00 p.m.each night 135 tablet 1 No current facility-administered medications for this visit. Physical Exam: Physical Exam Vitals and nursing note reviewed. Constitutional: Appearance: She is well-developed. Comments: Overweight HENT: Head: Normocephalic and atraumatic. Right Ear: External ear normal. Nose: Nose normal. Eyes: Pupils: Pupils are equal, round, and reactive to light. Neck: Thyroid: No thyromegaly. Vascular: No JVD. Pulmonary: Effort: Pulmonary effort is normal. Musculoskeletal: General: No tenderness or deformity. Normal range of motion. Cervical back: Normal range of motion. Comments: Symmetrical tender trigger points No synovitis Skin: General: Skin is warm and dry. Coloration: Skin is not pale. Findings: No erythema or rash. Neurological: Mental Status: She is alert and oriented to person, place, and time. Cranial Nerves: No cranial nerve deficit. Coordination: Coordination normal. Psychiatric: Behavior: Behavior normal. Thought Content: Thought content normal. KINNEY-28 (If Applicable) There is currently no information documented on the homunculus. Go to the Rheumatology activity and complete the homunculus joint exam. KINNEY-28 (CRP): -- KINNEY-28 (ESR): -- Tender (KINNEY-28): -- Swollen (KINNEY-28): -- BP 128/74 Resp 18 Ht 165.1 cm (5' 5 ) Wt 131.1 kg (289 lb) LMP 11/16/2023 (Exact Date) BMI 48.09 kg/m : reviewed Labs and Imaging: reviewed and discussed with the patient during the visit.I Lab Results Component Value Date WBC 14.3 (H) 11/21/2023 HGB 13.2 11/21/2023 HCT 37.6 11/21/2023 MCV 86 11/21/2023 CRP <0.1 02/16/2017 GFR >60 07/29/2016 GFR >60 07/29/2016 AST 19 09/27/2023 Imaging: Assessment and Plan: Brandy Adamson is a 43 y.o. female patient with: 1. Fibromyalgia - tiZANidine (ZANAFLEX) 4 mg tablet; One and half tab at 8:00 p.m.each night Dispense: 135 tablet; Refill: 1 - gabapentin (NEURONTIN) 300 mg capsule; One capsule in the morning Dispense: 90 capsule; Refill: 1 - DULoxetine (CYMBALTA) 60 mg capsule; Take 1 capsule (60 mg total) by mouth in the morning and 1 capsule (60 mg total) before bedtime. Dispense: 180 capsule; Refill: 1 2. Neuropathy [facility] [place] [place] At this point patient is having flare up of fibromyalgia. Will increase the dose of Zanaflex as well as Cymbalta. Patient does have neuropathic pain both feet. Referral to Neurology. . Return to clinic 6 months This note was created with the assistance of a speech recognition program. While intending to generate a timely document that accurately reflects the content of the visit, no guarantee can be provided that every grammatical or spelling mistake has been or will be identified or corrected. Thank you for your understanding. [facility] Rhe[facility] Dr. Thalia Castanon MD [address] [facility], [address] [place] [address] Office: [phone] documented in this encounter [facility] 09-21-2023 History of Present illness Narrative Images from the original note were not included. [address] [facility] [id number] Date of Service: 09/21/2023 Subjective: Brandy Adamson is a 42 y.o. female who presents today for evaluation positive DAVID. Patient is seen at the request of Rosa Mittal MD. This is follow-up visit with this patient who is 42-year-old female patient presenting today as an established patient for follow-up of positive DAVID and fibromyalgia was seen 1st time on 07/01/2022. Last time the clinic was 04/12/2023 Patient's history dates back to 2019 when she started having joints pain, involving the, joints of the hands ,knees ,feet and ankles. Autoimmune /Systemic screening: Negative Raynaud's, positive for for oral/ ocular sicca,no recurrent oral ulcers, no alopecia, no butterfly rash, or ocular inflammation such as uveitis . No history of cytopenia, or pericarditis, pleuritis or DVT/PE Systemic involvement such as anorexia, wt loss, recurrent unexplained fever. Lab results done on DAVID screen positive, AST ALT elevated Lab tests done 06/07/2022 revealed CMP normal except for for mildly elevated AST and ALT, DAVID IFA 1:80 CBC hemoglobin mild low, urinalysis dipstick normal,, Past medical past On metformin,hypothyroidism,HTN,hig h lipids Past surgical Gall bladder removal Current medications including Zanaflex and gabapentin duloxetine Today 09/21/2023 patient said that she has been satisfied on current medications however she continued to have some pain as well as poor sleep. The following portions of the patient's history were reviewed and updated as appropriate: allergies, current medications, past family history, past medical history, past social history, past surgical history and problem list. Review of Systems: Review of Systems Constitutional: Positive for fatigue. Musculoskeletal: Positive for arthralgias. Allergic/Immunologic: Negative. Psychiatric/Behavioral: Negative for dysphoric mood and sleep disturbance. Current Outpatient Medications Medication Sig Dispense Refill albuterol (PROVENTIL HFA;VENTOLIN HFA) 90 mcg/actuation inhaler Inhale 2 puffs every 6 (six) hours as needed for wheezing. ALCOHOL PREP PADS pads, medicated allopurinoL (ZYLOPRIM) 100 mg tablet Take 2 tablets (200 mg total) by mouth in the morning. atorvastatin (LIPITOR) 10 mg tablet Take 1 tablet (10 mg total) by mouth in the morning. buPROPion SR (WELLBUTRIN SR) 150 mg 12 hr tablet Take 1 tablet (150 mg total) by mouth in the morning and 1 tablet (150 mg total) before bedtime. cetirizine (ZyrTEC) 10 mg tablet Take 1 tablet (10 mg total) by mouth in the morning. docosahexaenoic acid/epa (FISH OIL ORAL) Take by mouth daily. EPINEPHrine (EPIPEN) 0.3 mg/0.3 mL auto-injector 0.3 mL (0.3 mg total) as needed. ergocalciferol (DRISDOL) 1,250 mcg (50,000 unit) capsule Take 1 capsule (50,000 Units total) by mouth once a week. ferrous sulfate 325 (65 FE) mg tablet Take 1 tablet (325 mg total) by mouth daily with breakfast. 30 tablet 0 fluticasone propionate (FLONASE) 50 mcg/actuation nasal spray Administer 1 spray into each nostril in the morning. levothyroxine (SYNTHROID, LEVOTHROID) 50 MCG tablet Take 1 tablet (50 mcg total) by mouth in the morning. magnesium oxide (MAGOX) 400 mg tablet Take 1 tablet (400 mg total) by mouth in the morning. (Patient taking differently: Take 2 tablets (800 mg total) by mouth in the morning and 2 tablets (800 mg total) before bedtime.) 14 tablet 0 metFORMIN (GLUCOPHAGE) 1000 mg tablet Take 1 tablet (1,000 mg total) by mouth in the morning and 1 tablet (1,000 mg total) in the evening. Take with meals. metoprolol tartrate (LOPRESSOR) 50 mg tablet Take 1 tablet (50 mg total) by mouth in the morning and 1 tablet (50 mg total) before bedtime. omeprazole (PriLOSEC) 20 mg capsule Take 1 capsule (20 mg total) by mouth in the morning. ONETOUCH DELICA PLUS LANCET [facility] ON[facility] ULTRA TEST strip ONETOUCH ULTRA2 METER mis DULoxetine (CYMBALTA) 20 mg capsule Take 1 capsule (20 mg total) by mouth in the morning. (Patient taking differently: Take 2 capsules (40 mg total) by mouth in the morning.) 30 capsule 5 DULoxetine 40 mg capsule,delayed release(DR/EC) Take 40 mg by mouth in the morning and 40 mg before bedtime. 180 capsule 1 gabapentin (NEURONTIN) 100 mg capsule One capsule in the morning 90 capsule 1 gabapentin (NEURONTIN) 300 mg capsule One capsule at 8 PM 90 capsule 1 lisinopriL (PRINIVIL,ZESTRIL) 10 mg tablet Take 1 tablet (10 mg total) by mouth in the morning. (Patient not taking: Reported on 09/21/2023) promethazine (PHENERGAN) 12.5 mg tablet Take 1 tablet (12.5 mg total) by mouth every 6 (six) hours as needed for nausea or vomiting. (Patient not taking: Reported on 09/21/2023) 30 tablet 0 tiZANidine (ZANAFLEX) 4 mg tablet One tab at 8:00 p.m.each night 90 tablet 1 No current facility-administered medications for this visit. Physical Exam: Physical Exam Vitals and nursing note reviewed. Constitutional: Appearance: She is well-developed. Comments: Overweight HENT: Head: Normocephalic and atraumatic. Right Ear: External ear normal. Nose: Nose normal. Eyes: Pupils: Pupils are equal, round, and reactive to light. Neck: Thyroid: No thyromegaly. Vascular: No JVD. Pulmonary: Effort: Pulmonary effort is normal. Musculoskeletal: General: No tenderness or deformity. Normal range of motion. Cervical back: Normal range of motion. Comments: Symmetrical tender trigger points No synovitis Skin: General: Skin is warm and dry. Coloration: Skin is not pale. Findings: No erythema or rash. Neurological: Mental Status: She is alert and oriented to person, place, and time. Cranial Nerves: No cranial nerve deficit. Coordination: Coordination normal. Psychiatric: Behavior: Behavior normal. Thought Content: Thought content normal. KINNEY-28 (If Applicable) There is currently no information documented on the homunculus. Go to the Rheumatology activity and complete the homunculus joint exam. KINNEY-28 (CRP): -- KINNEY-28 (ESR): -- Tender (KINNEY-28): -- Swollen (KINNEY-28): -- BP 135/90 Pulse 70 Resp 16 Wt 123.4 kg (272 lb) BMI 45.26 kg/m : reviewed Labs and Imaging: reviewed and discussed with the patient during the visit.I Lab Results Component Value Date WBC 9.1 07/05/2023 HGB 12.2 07/05/2023 HCT 36.1 07/05/2023 MCV 83 07/05/2023 CRP <0.1 02/16/2017 GFR >60 07/29/2016 GFR >60 07/29/2016 AST 26 07/05/2023 Imaging: Assessment and Plan: Brandy Adamson is a 42 y.o. female patient with: 1. Fibromyalgia - tiZANidine (ZANAFLEX) 4 mg tablet; One tab at 8:00 p.m.each night Dispense: 90 tablet; Refill: 1 - gabapentin (NEURONTIN) 300 mg capsule; One capsule at 8 PM Dispense: 90 capsule; Refill: 1 - gabapentin (NEURONTIN) 100 mg capsule; One capsule in the morning Dispense: 90 capsule; Refill: 1 - DULoxetine 40 mg capsule,delayed release(DR/EC); Take 40 mg by mouth in the morning and 40 mg before bedtime. Dispense: 180 capsule; Refill: 1 At this point patient has been comfortable although she still has poor sleep and pain and fatigue. She wanted to add low-dose gabapentin during daytime and Will increase Cymbalta to twice daily. Meanwhile patient has been losing weight and has been exercising, I encouraged her. . Return to clinic 6 months This note was created with the assistance of a speech recognition program. While intending to generate a timely document that accurately reflects the content of the visit, no guarantee can be provided that every grammatical or spelling mistake has been or will be identified or corrected. Thank you for your understanding. [facility] Dr. Thalia Castanon MD [address] [facility] [address] [place] [address] Office: [phone] documented in this encounter [facility] 09-15-2023 Miscellaneous Notes FAXED PAP SUPPLY ALONG WITH SUPPORTIVE DOCUMENTATION TO [facility]. documented in this encounter [facility] 09-15-2023 Telephone encounter Note FAXED PAP SUPPLY ALONG WITH SUPPORTIVE DOCUMENTATION TO [facility]. [facility] 09-06-2023 History of Present illness Narrative Images from the original note were not included. Chief Complaint: Brandy Adamson [facility] to the [facility] for follow up on 09/06/2023. She is a 42 y.o. female followed at the [facility] Clinic for STARR, for which auto-CPAP 5-20 cm H2O was prescribed. At the time of the last visit on 05/19/23, the plan was to continue APAP. HPI: The patient reports that she is adherent to her nocturnal ventilatory support for 6.5 hours a night 7 days per week. She reports feeling the benefits of wearing it nightly and denies any am fatigue or excessive daytime sleepiness. Denies any aerophagia. Denies any issues with mask fit or PAP machine. She denies any dyspnea, fevers, chills, hemoptysis, wheezing, or chest pain. Overall, she is very pleased with her current status. She denies sleepiness while driving. Supplemental O2 use: none Current PAP interface: She uses a Full Face Mask. She does not use a chinstrap. She does use the heated inline humidifier. Cleaning supplies with soap and water. Fleischmanns Sleepiness Scale: Sitting and Reading: Slight Chance Watching TV: (!) Moderate Chance Sitting inactive in a public place (theater, meeting): Never As a passenger in a car for an hour without a break: Never Lying down in the afternoon to rest: (!) Moderate Chance Sitting and talking to someone: Never Sitting quietly after lunch (without alcohol): Never In a car, while stopped for a few minutes in traffic: Never Total: 5 OARRS: Reviewed: no PMH: Pertinent History: Her pertinent medical history includes Past Medical History: Diagnosis Date Abnormal EKG Acute kidney injury ([facility]) 03/06/23 Diabetes mellitus ([facility]) Fibromyalgia High cholesterol HTN (hypertension) Insulin resistance Kidney stones Obesities, morbid ([facility]) Pneumonia diagnosed with double pneumonia 03/10/23 Sleep apnea Does not use CPAP Tachycardia Visual impairment Medications: Reviewed with patient. Current Outpatient Medications: albuterol (PROVENTIL HFA;VENTOLIN HFA) 90 mcg/actuation inhaler, Inhale 2 puffs every 6 (six) hours as needed for wheezing., Disp: , Rfl: ALCOHOL PREP PADS pads, medicated, , Disp: , Rfl: allopurinoL (ZYLOPRIM) 100 mg tablet, Take 2 tablets (200 mg total) by mouth in the morning., Disp: , Rfl: atorvastatin (LIPITOR) 10 mg tablet, Take 1 tablet (10 mg total) by mouth in the morning., Disp: , Rfl: buPROPion SR (WELLBUTRIN SR) 150 mg 12 hr tablet, Take 1 tablet (150 mg total) by mouth in the morning and 1 tablet (150 mg total) before bedtime., Disp: , Rfl: cetirizine (ZyrTEC) 10 mg tablet, Take 1 tablet (10 mg total) by mouth in the morning., Disp: , Rfl: docosahexaenoic acid/epa (FISH OIL ORAL), Take by mouth daily., Disp: , Rfl: DULoxetine (CYMBALTA) 20 mg capsule, Take 1 capsule (20 mg total) by mouth in the morning. (Patient taking differently: Take 2 capsules (40 mg total) by mouth in the morning.), Disp: 30 capsule, Rfl: 5 EPINEPHrine (EPIPEN) 0.3 mg/0.3 mL auto-injector, 0.3 mL (0.3 mg total) as needed., Disp: , Rfl: ergocalciferol (DRISDOL) 1,250 mcg (50,000 unit) capsule, Take 1 capsule (50,000 Units total) by mouth once a week., Disp: , Rfl: ferrous sulfate 325 (65 FE) mg tablet, Take 1 tablet (325 mg total) by mouth daily with breakfast., Disp: 30 tablet, Rfl: 0 fluticasone propionate (FLONASE) 50 mcg/actuation nasal spray, Administer 1 spray into each nostril in the morning., Disp: , Rfl: gabapentin (NEURONTIN) 300 mg capsule, One capsule at 8 PM, Disp: 90 capsule, Rfl: 1 levothyroxine (SYNTHROID, LEVOTHROID) 50 MCG tablet, Take 1 tablet (50 mcg total) by mouth in the morning., Disp: , Rfl: lisinopriL (PRINIVIL,ZESTRIL) 10 mg tablet, Take 1 tablet (10 mg total) by mouth in the morning., Disp: , Rfl: magnesium oxide (MAGOX) 400 mg tablet, Take 1 tablet (400 mg total) by mouth in the morning. (Patient taking differently: Take 2 tablets (800 mg total) by mouth in the morning and 2 tablets (800 mg total) before bedtime.), Disp: 14 tablet, Rfl: 0 metFORMIN (GLUCOPHAGE) 1000 mg tablet, Take 1 tablet (1,000 mg total) by mouth in the morning and 1 tablet (1,000 mg total) in the evening. Take with meals., Disp: , Rfl: metoprolol tartrate (LOPRESSOR) 50 mg tablet, Take 1 tablet (50 mg total) by mouth in the morning and 1 tablet (50 mg total) before bedtime., Disp: , Rfl: omeprazole (PriLOSEC) 20 mg capsule, Take 1 capsule (20 mg total) by mouth in the morning., Disp: , Rfl: ONETOUCH DELICA PLUS LANCET 30 gauge misc, , Disp: , Rfl: ONETOUCH ULTRA TEST strip, , Disp: , Rfl: ONETOUCH ULTRA2 METER mis, , Disp: , Rfl: promethazine (PHENERGAN) 12.5 mg tablet, Take 1 tablet (12.5 mg total) by mouth every 6 (six) hours as needed for nausea or vomiting., Disp: 30 tablet, Rfl: 0 tiZANidine (ZANAFLEX) 4 mg tablet, One tab at 8:00 p.m.each night, Disp: 90 tablet, Rfl: 1 acetaminophen (TYLENOL) 325 mg tablet, Take 2 tablets (650 mg total) by mouth every 6 (six) hours as needed for pain or fever. (Patient not taking: Reported on 04/10/2023), Disp: , Rfl: escitalopram (LEXAPRO) 20 mg tablet, Take 1 tablet (20 mg total) by mouth in the morning. (Patient not taking: Reported on 04/10/2023), Disp: , Rfl: hydroCHLOROthiazide (HYDRODIURIL) 50 mg tablet, Take 1 tablet (50 mg total) by mouth daily. (Patient not taking: Reported on 04/12/2023), Disp: , Rfl: Vitals: 09/06/23 1155 BP: 131/79 Pulse: 80 SpO2: 99% Weight: 123.4 kg (272 lb) Height: 165.1 cm (5' 5 ) Allergies: Reviewed with patient. Sulfamethoxazole, Sulfamethoxazole-trimethoprim, and Trimethoprim Family History: History reviewed. No pertinent family history. Social History: Social History Socioeconomic History Marital status: Single Tobacco Use Smoking status: Never Smokeless tobacco: Never Vaping Use Vaping status: Never Used Substance and Sexual Activity Alcohol use: Never Drug use: Never Sexual activity: Defer Other Topics Concern Caffeine Use No Social Determinants of Health Financial Resource Strain: Patient Declined (11/16/2022) [facility] Overall Financial Resource Strain (CARDIA) Difficulty of Paying Living Expenses: Patient declined Food Insecurity: No Food Insecurity (07/05/2023) Hunger Screening Food Insecurity - Worry: Never True Food Insecurity - Inability: Never True Transportation Needs: Patient Declined (11/16/2022) Re[facility] from [facility] PRAPARE - Transportation Lack of Transportation (Medical): Patient declined Lack of Transportation (Non-Medical): Patient declined Physical Activity: Patient Declined (11/16/2022) Received from [facility] Exercise Vital Sign Days of Exercise per Week: Patient declined Minutes of Exercise per Session: Patient declined Stress: Stress Concern Present (11/16/2022) Received from [facility] of Occupational Health - Occupational Stress Questionnaire Feeling of Stress : To some extent Social Connections: Unknown (11/16/2022) Received from [facility] Social Connection and Isolation Panel [NHANES] Frequency of Communication with Friends and Family: More than three times a week Frequency of Social Gatherings with Friends and Family: More than three times a week Attends Taoism Services: Patient declined Active Member of Clubs or Organizations: Patient declined Attends Club or Organization Meetings: Patient declined Marital Status: Never Interpersonal Safety: Patient Declined (11/16/2022) Received from [facility] Humiliation, Afraid, Rape, and Kick questionnaire Fear of Current or Ex-Partner: Patient declined Emotionally Abused: Patient declined Physically Abused: Patient declined Sexually Abused: Patient declined Housing Instability: Low Risk (03/09/2023) Housing Instability Housing Instability: No Travel History: Denies recent travel. ROS: All 11 systems have been reviewed: Review of Systems Constitutional: Negative for chills, fatigue and fever. Respiratory: Negative for cough, shortness of breath and wheezing. Cardiovascular: Negative for chest pain/discomfort. All other systems are reviewed and are negative except as noted. Physical Examination: Vital signs BP 131/79 Pulse 80 Ht 165.1 cm (5' 5 ) Wt 123.4 kg (272 lb) SpO2 99% BMI 45.26 kg/m Physical Exam Vitals and nursing note reviewed. Constitutional: Appearance: Normal appearance. She is obese. Cardiovascular: Heart sounds: Normal heart sounds. Pulmonary: Breath sounds: Normal breath sounds. Musculoskeletal: Cervical back: Neck supple. Skin: General: Skin is warm and dry. Neurological: Mental Status: She is alert and oriented to person, place, and time. Psychiatric: Mood and Affect: Mood normal. Behavior: Behavior normal. Laboratory DATA: Lab Results Component Value Date CO2 24 07/05/2023 Lab Results Component Value Date WBC 9.1 07/05/2023 HGB 12.2 07/05/2023 HCT 36.1 07/05/2023 MCV 83 07/05/2023 PLT 318 07/05/2023 Lab Results Component Value Date FERRITIN 81 03/08/2023 Chemistry Component Value Date/Time K 3.4 (L) 07/05/20231853 CL 101 07/05/2023 185 CO2 24 07/05/20231853 BUN 12 07/05/20231853 CREATININE 0.80 07/05/20231853 GLU 104 (H) 07/05/20231853 Component Value Date/Time CALCIUM 8.9 07/05/2023 185 ALKPHOS 84 07/05/20231853 AST 26 07/05/20231853 ALT 35 (H) 07/05/20231853 No results found for: TSH Echo complete W/ contrast Result Date: 03/01/2023 Left Ventricle: Left ventricle appears normal in size. There is mild increased wall thickness/hypertrophy. Systolic function is low normal to mildly decreased with an ejection fraction of 50-55%. Right Ventricle: Right ventricular size appears normal. The right ventricular basal diameter is 37.0 mm. Systolic function is normal. No significant valvular stenosis or regurgitation. DATA: HST 06/25/20 ANGI 6 Min SpO2: 83% 06/20/23 HST: ANGI (3%)=31.6 events/hour; ANGI (4%)=22.5 events/hour; Ji SpO2=73.0%; APAP 5-20 DME: [facility] Data card was available for PAP usage data download. PAP compliance is excellent. IMAGING/PFT X-ray chest 1 view Result Date: 07/05/2023 XR CHEST 1 VW: 07/05/2023 7:24 PM Clinical: Left chest pain Upright portable chest obtained and compared with 04/03/2023. Heart size is normal. No acute consolidation, large effusion, or pneumothorax. IMPRESSION: * No acute disease to limits of this portable exam. Finalized by Lavon Faria MD on 07/05/2023 7:36 PM X-ray chest 1 view XR CHEST 1 VW: 07/05/2023 7:24 PM Clinical: Left chest pain Upright portable chest obtained and compared with 04/03/2023. Heart size is normal. No acute consolidation, large effusion, or pneumothorax. IMPRESSION: * No acute disease to limits of this portable exam. Finalized by Lavon Faria MD on 07/05/2023 7:36 PM Echo complete W/ contrast Result Date: 03/01/2023 Left Ventricle: Left ventricle appears normal in size. There is mild increased wall thickness/hypertrophy. Systolic function is low normal to mildly decreased with an ejection fraction of 50-55%. Right Ventricle: Right ventricular size appears normal. The right ventricular basal diameter is 37.0 mm. Systolic function is normal. No significant valvular stenosis or regurgitation. Impression: There are no diagnoses linked to this encounter. STARR with adherence to nocturnal ventilatory support on a nightly basis. Obesity Body mass index is 45.26 kg/m . HTN Fibromyalgia DM Plan: Discussed diagnosis, its evaluation, treatment and usual course. All questions answered. Educational material distributed. No orders of the defined types were placed in this encounter. Orders Placed or Reconciled This Encounter Medications allopurinoL (ZYLOPRIM) 100 mg tablet Sig: Take 2 tablets (200 mg total) by mouth in the morning. EPINEPHrine (EPIPEN) 0.3 mg/0.3 mL auto-injector Si.3 mL (0.3 mg total) as needed. ergocalciferol (DRISDOL) 1,250 mcg (50,000 unit) capsule Sig: Take 1 capsule (50,000 Units total) by mouth once a week. lisinopriL (PRINIVIL,ZESTRIL) 10 mg tablet Sig: Take 1 tablet (10 mg total) by mouth in the morning. She is to continue APAP 5-20 cm H20 on a nightly basis. New mask and supplies as needed. Independently reviewed and interpreted data download and ESS Diet and exercise were discussed in detail. Any age appropriate or routine screening per PCP. Follow up in 6 Months time. If her condition should change prior to this she is encouraged to give our office a call. Discussed triggers to call back before follow up including weight change > 10%, major medical issues including stroke, arrhythmia or heart attack, or significant change in symptoms. EDUCATION: Driving precautions were reviewed. I advised the patient not to drive if sleepy, and to ice puller if sleepiness occurs while driving. Above plan as discussed with the patient who acknowledged understanding and agreement. Health risks associated with untreated STARR were discussed (cardiopulmonary, cerebrovascular, and anesthesia/sedative-related). Discussed triggers to call back before next visit including weight change > 10%, major medical issues including stroke, arrhythmia or heart attack, or significant change in symptoms. This note is dictated with the use of M*Modal.Please note that this dictation was completed with computer voice recognition software. Quite often unanticipated grammatical, syntax, homophones, and other interpretive errors are inadvertently transcribed by the computer software. Please disregard these errors. Please excuse any errors that have escaped final proofreading. Stefany Mike [facility] Office: [phone] 8:42 AM on 09/12/2023 CC: MD Stefany Ramirez APRN-CNP 09/12/23 0849 documented in this encounter [facility] 09-06-2023 Instructions KRISTINA Pope - 09/06/2023 11:45 AM EDT If you re looking for general health and wellness resources, please visit [email or web address]. documented in this encounter [facility] 06-22-2023 Miscellaneous Notes Received results message from with 06/20/23 HST yusra can for APAP 5-20 per SK. Images from the original note were not included. Faxed all information to [facility] for APAP setup. Patient informed through MyChart and by phone. RV with rescheduled from 11/22/23 to 09/06/23 for compliance. Confirmation received. documented in this encounter [facility] 06-22-2023 Telephone encounter Note Received results message from with 06/20/23 HST interp, ok for APAP 5-20 per SK. [facility] 06-22-2023 Telephone encounter Note Images from the original note were not included. Faxed all information to [facility] for APAP setup. Patient informed through MyChart and by phone. RV with SK rescheduled from 11/22/23 to 09/06/23 for compliance. Confirmation received. [facility] 05-22-2023 Miscellaneous Notes Litholink order placed for 24hr x2 documented in this encounter [facility] 05-22-2023 Telephone encounter Note Litholink order placed for 24hr x2 [facility] 05-22-2023 Evaluation + Plan note Associated Problem(s): Mineral metabolism disorder Litho link did not further ever particular reason process or specimen. This will be reordered. Will see her back. Taking into consideration the make up for stone. [facility] 05-22-2023 Miscellaneous Notes Associated Problem(s): Mineral metabolism disorder Litho link did not further ever particular reason process or specimen. This will be reordered. Will see her back. Taking into consideration the make up for stone. documented in this encounter [facility] 05-22-2023 History of Present illness Narrative Images from the original note were not included. [address] [place] [address] [facility] [id number] Patient: Brandy Adamson Date of : 1980 Encounter Date: 05/22/2023 History of Present Illness: The patient is a 42 y.o. female, an established patient, and is here for history stones. Afebrile. Had ultrasound performed after stent removed. No renal colic. Stone analysis as below.. Urinalysis today: No results for input(s): EXTPOCURCO , EXTPOCURCH , EXTPOCAPP , EXTPOCURBS , EXTPOCURBIL , EXTPOCUKET , EXTPOCUSPG , EXTPOCUHGB , EXTPOCUPRO , EXTPOCUURO , EXTPOCULEU , EXTPOCUNIT , EXTPOCUWBC , EXTPOCUBLD , EXTPOCURBC , EXTPOCUCRY , EXTPOCUBAC , EXTPOCUTREP , EXTPOCUPH in the last 72 hours. Last BUN and creatinine: Lab Results Component Value Date BUN 19 04/03/2023 Lab Results Component Value Date CREATININE 1.03 (H) 04/03/2023 Last PSA: No results found for: PSA No results found for: PROSTATICSP Past Medical, Family, and Social History Update: The following portions of the patient's history were reviewed and updated as appropriate: allergies, current medications, past family history, past medical history, past social history, past surgical history and problem list. Past Medical History: Diagnosis Date Abnormal EKG Acute kidney injury ([facility]) 03/06/23 Diabetes mellitus ([facility]) Fibromyalgia High cholesterol HTN (hypertension) Insulin resistance Kidney stones Obesities, morbid ([facility]) Pneumonia diagnosed with double pneumonia 03/10/23 Sleep apnea Does not use CPAP Tachycardia Visual impairment Past Surgical History: Procedure Laterality Date CHOLECYSTECTOMY CYSTOSCOPY EXCHANGE STENT URETER Right 03/29/2023 Performed by Michael Quintero MD at [facility] CYSTOSCOPY INSERTION STENT URETER Right 03/06/2023 Performed by Michael Quintero MD at [facility] CYSTOSCOPY REMOVAL STENT Right 04/10/2023 Performed by Michael Quintero MD at [facility] LASER HOLMIUM URETEROSCOPY RENAL STONES < OR=1CM Right 03/29/2023 Performed by Michael Quintero MD at [facility] WRIST SURGERY Right tendonitis surgery History reviewed. No pertinent family history. Current Outpatient Medications Medication Sig Dispense Refill albuterol (PROVENTIL HFA;VENTOLIN HFA) 90 mcg/actuation inhaler Inhale 2 puffs every 6 (six) hours as needed for wheezing. ALCOHOL PREP PADS pads, medicated atorvastatin (LIPITOR) 10 mg tablet Take 1 tablet (10 mg total) by mouth in the morning. buPROPion SR (WELLBUTRIN SR) 150 mg 12 hr tablet Take 1 tablet (150 mg total) by mouth in the morning and 1 tablet (150 mg total) before bedtime. cetirizine (ZyrTEC) 10 mg tablet Take 1 tablet (10 mg total) by mouth in the morning. docosahexaenoic acid/epa (FISH OIL ORAL) Take by mouth daily. DULoxetine (CYMBALTA) 20 mg capsule Take 1 capsule (20 mg total) by mouth in the morning. (Patient taking differently: Take 2 capsules (40 mg total) by mouth in the morning.) 30 capsule 5 ferrous sulfate 325 (65 FE) mg tablet Take 1 tablet (325 mg total) by mouth daily with breakfast. 30 tablet 0 fluticasone propionate (FLONASE) 50 mcg/actuation nasal spray Administer 1 spray into each nostril in the morning. gabapentin (NEURONTIN) 300 mg capsule One capsule at 8 PM 90 capsule 1 levothyroxine (SYNTHROID, LEVOTHROID) 25 MCG tablet Take 1 tablet (25 mcg total) by mouth in the morning. magnesium oxide (MAGOX) 400 mg tablet Take 1 tablet (400 mg total) by mouth in the morning. (Patient taking differently: Take 1 tablet (400 mg total) by mouth in the morning and 1 tablet (400 mg total) before bedtime.) 14 tablet 0 metFORMIN (GLUCOPHAGE) 1000 mg tablet Take 1 tablet (1,000 mg total) by mouth in the morning and 1 tablet (1,000 mg total) in the evening. Take with meals. metoprolol tartrate (LOPRESSOR) 50 mg tablet Take 1 tablet (50 mg total) by mouth in the morning and 1 tablet (50 mg total) before bedtime. omeprazole (PriLOSEC) 20 mg capsule Take 1 capsule (20 mg total) by mouth in the morning. ONETOUCH DELICA PLUS LANCET 30 gauge [facility] ONETOUCH ULTRA TEST strip ONETOUCH ULTRA2 METER misc promethazine (PHENERGAN) 12.5 mg tablet Take 1 tablet (12.5 mg total) by mouth every 6 (six) hours as needed for nausea or vomiting. 30 tablet 0 tiZANidine (ZANAFLEX) 4 mg tablet One tab at 8:00 p.m.each night 90 tablet 1 acetaminophen (TYLENOL) 325 mg tablet Take 2 tablets (650 mg total) by mouth every 6 (six) hours as needed for pain or fever. (Patient not taking: Reported on 04/10/2023) escitalopram (LEXAPRO) 20 mg tablet Take 1 tablet (20 mg total) by mouth in the morning. (Patient not taking: Reported on 04/10/2023) hydroCHLOROthiazide (HYDRODIURIL) 50 mg tablet Take 1 tablet (50 mg total) by mouth daily. (Patient not taking: Reported on 04/12/2023) No current facility-administered medications for this visit. (All medications reviewed and updated by provider since last office visit or hospitalization) Allergies: Sulfamethoxazole, Sulfamethoxazole-trimethoprim, and Trimethoprim Tobacco History: Social History Tobacco Use Smoking Status Never Smokeless Tobacco Never (If patient a smoker, smoking cessation counseling offered) Social History: Social History Substance and Sexual Activity Alcohol Use Never Review of Systems: General: Negative for chills and fever. Cardiovascular: Negative for chest pain and shortness of breath. Gastrointestinal: Negative for constipation, diarrhea, nausea, and vomitting. Physical Exam: BP 129/87 Pulse 83 Ht 165.1 cm (5' 5 ) Wt 132.5 kg (292 lb) BMI 48.59 kg/m General Alert., Cooperative. Not in acute distress. Non-toxic. Orientation - Oriented X3. Head and Neck Normocephalic, atraumatic with no lesions. No abnormal movements. Trachea - midline. Eye Sclera/Conjunctiva - Bilateral - Normal. Pupil - Bilateral - Normal. EOMI-Lu Integumentary Normal coloration of skin. Skin Moisture - normal skin moisture. Chest and Lung Exam Quiet, even and easy respiratory effort with no use of accessory muscles. Neurologic Coordination - Normal. Gait - Normal. Assessment and Plan: Brandy was seen today for follow-up. 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 Would probably preclude ESWL ==== 05/22/2023 ==== status post ureteroscopy stone treatment stent removal. Doing well. Ultrasound negative for hydro. ==== 10/19/2022 ==== stones can be visualized on KUB. Discussed ureteroscopy verses observation. She is to contemplate. Further discuss when we see her back after mineral metabolism workup. ==== 09/19/2022 ==== distant history stones. Unsure if you past. Does have bilateral calculi right side more than left about 7 mm. Hounsfield units about 300. Difficult to see if this can be visualized on KUB. Relevant Orders Litholink 48 Hour Mineral metabolism disorder Overview ==== 05/22/2023 ==== #### stones 100% uric acid. ==== 10/19/2022 ==== patient presents with bilateral calculi. Calcified based on KUB. Grandfather had stones. Serum calcium 9 half. Plan: Litho link x2. Current Assessment & Plan Litho link did not further ever particular reason process or specimen. This will be reordered. Will see her back. Taking into consideration the make up for stone. Angiomyolipoma of left kidney Overview ==== 05/22/2023 ==== most recent ultrasound stable AML. ==== 09/19/2022 ==== CT scans confirms LEFT angiomyolipoma 1.1 cm. She understands the potential risk of growth in bleeding risk as time progresses. Repeat ultrasound 1 year ==== 08/08/2022 ==== approximately 1.1 cm or so left angiomyolipoma vs cortical calcification. Based on ultrasound. Plan: CT scan with contrast to confirm. Follow-up: Michael Quintero MD 2 or more chronic urologic conditions addressed today. Reviewed creatinine. Reviewed stone analysis. Reordered a 24 urine litho link x2. This note was created with the assistance of a speech recognition program. While intending to generate a timely document that accurately reflects the content of the visit, no guarantee can be provided that every grammatical or spelling mistake has been or will be identified or corrected. Thank you for your understanding. documented in this encounter [facility] 05-22-2023 Miscellaneous Notes 05/19 received HST order 05/22 Called PT LM to schedule sleep study. HST order and 05/19 Kregel notes in epic documented in this encounter [facility] 05-22-2023 Telephone encounter Note 05/19 received HST order 05/22 Called PT LM to schedule sleep study. HST order and 05/19 Kregel notes in epic [facility] 05-19-2023 History of Present illness Narrative Chief Complaint: Brandy Adamson is a 42 y.o. female present for initial visit regarding suspected STARR. [facility] Sleep Questionnaire 05/19/2023 9:56 AM EST - Filed by VIANEY Moreno Have you previously had a sleep study? Yes Do you have a partner (girlfriend/boyfriend, spouse, etc) ? No Do you or your bed partner currently notice any of the following symptoms? Excessive daytime sleepiness Yes Frequent snoring Yes Snore yourself awake from sleep Yes Witnessed apneas (holding breath during sleep) No Waking up choking, gasping or short of breath Yes Excessively sweating overnight No Waking up with dry mouth or sore throat Yes Morning headaches Yes Waking up to urinate at night Yes Nighttime heartburn interfering with sleep No Frequent disturbing dreams or nightmares Yes Sleep walking No Unusual behaviors during sleep No Injury to yourself or partner during sleep No Imagine seeing or hearing things that are not real as you fall asleep or wake up No Momentary inability to move body (paralysis) as falling askeep or waking up No Insomnia (difficulty falling asleep or staying asleep) Yes Teeth clenching/grinding Yes Waking up disoriented / confused Yes Do you currently receive medical equipment for sleep conditions? No Have you had any other treatments for sleep apnea? No How likely are you to doze off or fall asleep in the following situations, in contrast to feeling just tired? Sitting and reading moderate chance of dozing Watching TV moderate chance of dozing Sitting inactive in a public place (e.g. a theater or a meeting) slight chance of dozing As a passenger in a car for an hour without a break moderate chance of dozing Lying down to rest in the afternoon when circumstances permit high chance of dozing Sitting and talking to someone no chance of dozing Sitting quietly after a lunch without alcohol slight chance of dozing In a car, while stopped for a few minutes in traffic no chance of dozing Weekday Sleep Schedule What time do you get into bed? 9:30 PM What time do you try to go to sleep? 10:00 PM Time it takes to fall asleep (minutes) 30 What time do you wake up? 7:00 AM What time do you get out of bed? 7:00 AM Weekend Sleep Schedule What time do you get into bed? 10:00 PM What time do you try to go to sleep? 10:00 PM Time it takes to fall asleep (minutes) 30 What time do you wake up weekends? 8:00 AM What time do you get out of bed? 8:00 AM Do you watch TV, read or use phone/computer in bed? Yes Number of [id number]-night awakenings per night? 2-3 Cause of awakenings (if applicable): Bathroom or just wakes up Total average number of hours of sleep per night: 7 How many naps do you take a day and for how long? Only on weekends, usually 1 nap for 2 hours Do you feel refreshed after your naps? Sometimes Do you do shift work or work overnights? No ETOH: none Marijuana: none Sleep Medications: None Family history of STARR: none Denies any dyspnea, fevers, chills,chest pain or hemoptysis. Previous history of + HST 06/25/20 ANGI 6 Min SpO2: 83% no changes in weight since study. EPWORTH SLEEPINESS SCALE Sitting and Reading: (!) Moderate Chance Watching TV: (!) Moderate Chance Sitting inactive in a public place (theater, meeting): Slight Chance As a passenger in a car for an hour without a break: (!) Moderate Chance Lying down in the afternoon to rest: (!) High Chance Sitting and talking to someone: Never Sitting quietly after lunch (without alcohol): Slight Chance In a car, while stopped for a few minutes in traffic: Never Total: 11 OARRS REVIEWED Reviewed: no PMH PERTINENT HISTORY Her pertinent medical history includes Past Medical History: Diagnosis Date Abnormal EKG Acute kidney injury ([facility]) 03/06/23 Diabetes mellitus ([facility]) Fibromyalgia High cholesterol HTN (hypertension) Insulin resistance Kidney stones Obesities, morbid ([facility]) Pneumonia diagnosed with double pneumonia 03/10/23 Sleep apnea Does not use CPAP Tachycardia Visual impairment CURRENT MEDICATIONS Reviewed with patient. Current Outpatient Medications: albuterol (PROVENTIL HFA;VENTOLIN HFA) 90 mcg/actuation inhaler, Inhale 2 puffs every 6 (six) hours as needed for wheezing., Disp: , Rfl: ALCOHOL PREP PADS pads, medicated, , Disp: , Rfl: atorvastatin (LIPITOR) 10 mg tablet, Take 1 tablet (10 mg total) by mouth in the morning., Disp: , Rfl: buPROPion SR (WELLBUTRIN SR) 150 mg 12 hr tablet, Take 1 tablet (150 mg total) by mouth in the morning and 1 tablet (150 mg total) before bedtime., Disp: , Rfl: cetirizine (ZyrTEC) 10 mg tablet, Take 1 tablet (10 mg total) by mouth in the morning., Disp: , Rfl: docosahexaenoic acid/epa (FISH OIL ORAL), Take by mouth daily., Disp: , Rfl: DULoxetine (CYMBALTA) 20 mg capsule, Take 1 capsule (20 mg total) by mouth in the morning. (Patient taking differently: Take 2 capsules (40 mg total) by mouth in the morning.), Disp: 30 capsule, Rfl: 5 ferrous sulfate 325 (65 FE) mg tablet, Take 1 tablet (325 mg total) by mouth daily with breakfast., Disp: 30 tablet, Rfl: 0 fluticasone propionate (FLONASE) 50 mcg/actuation nasal spray, Administer 1 spray into each nostril in the morning., Disp: , Rfl: gabapentin (NEURONTIN) 300 mg capsule, One capsule at 8 PM, Disp: 90 capsule, Rfl: 1 levothyroxine (SYNTHROID, LEVOTHROID) 25 MCG tablet, Take 1 tablet (25 mcg total) by mouth in the morning., Disp: , Rfl: magnesium oxide (MAGOX) 400 mg tablet, Take 1 tablet (400 mg total) by mouth in the morning. (Patient taking differently: Take 1 tablet (400 mg total) by mouth in the morning and 1 tablet (400 mg total) before bedtime.), Disp: 14 tablet, Rfl: 0 metFORMIN (GLUCOPHAGE) 1000 mg tablet, Take 1 tablet (1,000 mg total) by mouth in the morning and 1 tablet (1,000 mg total) in the evening. Take with meals., Disp: , Rfl: metoprolol tartrate (LOPRESSOR) 50 mg tablet, Take 1 tablet (50 mg total) by mouth in the morning and 1 tablet (50 mg total) before bedtime., Disp: , Rfl: omeprazole (PriLOSEC) 20 mg capsule, Take 1 capsule (20 mg total) by mouth in the morning., Disp: , Rfl: ONETOUCH DELICA PLUS LANCET 30 gauge [facility], , Disp: , Rfl: ONETOUCH ULTRA TEST strip, , Disp: , Rfl: ONETOUCH ULTRA2 METER [facility], , Disp: , Rfl: promethazine (PHENERGAN) 12.5 mg tablet, Take 1 tablet (12.5 mg total) by mouth every 6 (six) hours as needed for nausea or vomiting., Disp: 30 tablet, Rfl: 0 tiZANidine (ZANAFLEX) 4 mg tablet, One tab at 8:00 p.m.each night, Disp: 90 tablet, Rfl: 1 acetaminophen (TYLENOL) 325 mg tablet, Take 2 tablets (650 mg total) by mouth every 6 (six) hours as needed for pain or fever. (Patient not taking: Reported on 04/10/2023), Disp: , Rfl: escitalopram (LEXAPRO) 20 mg tablet, Take 1 tablet (20 mg total) by mouth in the morning. (Patient not taking: Reported on 04/10/2023), Disp: , Rfl: hydroCHLOROthiazide (HYDRODIURIL) 50 mg tablet, Take 1 tablet (50 mg total) by mouth daily. (Patient not taking: Reported on 04/12/2023), Disp: , Rfl: Vitals: 05/19/23 0948 BP: (!) 139/100 Pulse: 88 SpO2: 96% Weight: 132.8 kg (292 lb 11.2 oz) Height: 165.1 cm (5' 5 ) ALLERGIES Reviewed with patient. Sulfamethoxazole, Sulfamethoxazole-trimethoprim, and Trimethoprim FAMILY HISTORY History reviewed. No pertinent family history. SOCIAL HISTORY Social History Socioeconomic History Marital status: Single Spouse name: Not on file Number of children: Not on file Years of education: Not on file Highest education level: Not on file Occupational History Not on file Tobacco Use Smoking status: Never Smokeless tobacco: Never Vaping Use Vaping Use: Never used Substance and Sexual Activity Alcohol use: Never Drug use: Never Sexual activity: Defer Other Topics Concern Caffeine Use No Social History Narrative Not on file Social Determinants of Health Financial Resource Strain: Not on file Food Insecurity: No Food Insecurity (04/03/2023) Hunger Screening Food Insecurity - Worry: Never True Food Insecurity - Inability: Never True Transportation Needs: Not on file Physical Activity: Not on file Stress: Not on file Social Connections: Not on file Interpersonal Safety: Not on file TRAVEL HISTORY Denies recent travel. ROS All 11 systems have been reviewed: Review of Systems Constitutional: Positive for fatigue. Negative for chills and fever. Respiratory: Negative for cough, shortness of breath and wheezing. Cardiovascular: Negative for chest pain/discomfort. All other systems are reviewed and are negative except as noted. PHYSICAL EXAM Vital signs BP (!) 139/100 Pulse 88 Ht 165.1 cm (5' 5 ) Wt 132.8 kg (292 lb 11.2 oz) SpO2 96% BMI 48.71 kg/m Physical Exam Vitals and nursing note reviewed. Constitutional: Appearance: Normal appearance. She is obese. Cardiovascular: Heart sounds: Normal heart sounds. Pulmonary: Breath sounds: Normal breath sounds. Musculoskeletal: Cervical back: Neck supple. Skin: General: Skin is warm and dry. Neurological: Mental Status: She is alert and oriented to person, place, and time. Psychiatric: Mood and Affect: Mood normal. Behavior: Behavior normal. Assessment: Neurological alert and oriented PFT not obtained PERTINENT LAB RESULTS Lab Results Component Value Date CO2 24 04/03/2023 IMAGING no studies completed Ultrasound retroperitoneal complete Result Date: 05/10/2023 US RETROPERITONEAL COMPLETE HISTORY: Status post stone treatment and stent removal, ureteral stent retained COMPARISON: CT 04/03/2023 TECHNIQUE: Grayscale and color Doppler sonographic images of the urinary bladder and both kidneys. FINDINGS: Right kidney: * 12.5 x 6.3 x 5.8 cm * Cortex: Normal echogenicity. * No hydronephrosis, mass, or calculi demonstrated. Left kidney: * 13.2 x 5.9 x 5.1 cm * Cortex: Hyperechoic, round region with peripheral flow in the midpole measuring 0.6 x 0.6 x 0.9 cm consistent with angiomyolipoma as seen on prior study. Otherwise, normal echogenicity. * Echogenic focus with twinkle artifact in the midpole measuring 0.3 cm consistent with a renal calculus. * No hydronephrosis. The urinary bladder is within normal limits. Prevoid volume 112.3 mL. Bilateral ureteral jets visualized. Diffusely increased hepatic echogenicity compatible with hepatocellular disease. Although nonspecific, this is most likely secondary to steatosis. Within these limits, no focal hepatic lesion demonstrated. IMPRESSION: * No evidence of hydronephrosis with visualization of the bilateral ureteral jets. 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 * Left nephrolithiasis. * Although nonspecific, diffusely increased hepatic echogenicity is most likely secondary to hepatic steatosis. Approved by Resident Yakelin Yañez DO on 05/10/2023 8:04 AM IBenson MD have personally reviewed the image(s) and agree with and/or edited the report Finalized by Benson Rubin MD on 05/10/2023 11:14 AM Echo complete W/ contrast Result Date: 03/01/2023 Left Ventricle: Left ventricle appears normal in size. There is mild increased wall thickness/hypertrophy. Systolic function is low normal to mildly decreased with an ejection fraction of 50-55%. Right Ventricle: Right ventricular size appears normal. The right ventricular basal diameter is 37.0 mm. Systolic function is normal. No significant valvular stenosis or regurgitation. IMPRESSION History obstructive sleep apnea syndrome A.M. Fatigue Excessive daytime sleepiness Obesity Body mass index is 48.71 kg/m . HTN Snoring Fibromyalgia PLAN Discussed diagnosis, its evaluation, treatment and usual course. All questions answered. Educational material distributed. Consideration of CO2 monitoring (if BMI > 35 and serum CO2 > 27: BMI Readings from Last 1 Encounters: 05/19/23 48.71 kg/m Lab Results Component Value Date CO2 24 04/03/2023 ] Orders Placed This Encounter Procedures Home sleep study Standing Status: Future Standing Expiration Date: 05/19/2024 Order Specific Question: Follow Up Answer: [facility] Sleep Medicine to read and follow patient. Order Specific Question: Reason for Study? Answer: G47.19 Excessive daytime sleepiness Order Specific Question: Reason for Study? Answer: G47.33 Obstructive sleep apnea No orders of the defined types were placed in this encounter. A HST is ordered. Diet and exercise were discussed in detail Any age-appropriate routine screenings to be completed per PCP Follow up in 6 Months time. If her condition should change prior to this she is encouraged to give our office a call. EDUCATION: Pathophysiology of STARR was explained. Health risks associated with untreated STARR were discussed (cardiopulmonary, cerebrovascular, and anesthesia/sedative-related). Risks associated with excessive daytime sleepiness, particularly while driving/operating machinery were discussed. The patient was instructed to avoid such activities if feeling sleepy, and to stop the activity if sleepiness occurs (ice puller at the next safe opportunity if driving). STARR treatment options were discussed. CPAP is the most predictably effective treatment. If indicated and prescribed, CPAP must be used every night, all night for full benefits. It may take several weeks until fully accustomed to using the treatment, and before benefits (improved sleep quality and daytime alertness) are noticeable. Potential problems with CPAP were reviewed. Interim measures to reduce obstructive sleep apnea severity were recommended (avoidance of the supine position and elevation of the upper body and during sleep). CC: MD Stefany Ramirez [facility] Office: [phone] 10:11 AM on 05/19/2023 This note is dictated with the use of M*Modal.Please note that this dictation was completed with computer voice recognition software. Quite often unanticipated grammatical, syntax, homophones, and other interpretive errors are inadvertently transcribed by the computer software. Please disregard these errors. Please excuse any errors that have escaped final proofreading. KRISTINA Pope 05/19/23 1012 documented in this encounter [facility] 05-19-2023 Instructions KRISTINA Pope - 05/19/2023 9:45 AM EST If you re looking for general health and wellness resources, please visit [email or web address]. documented in this encounter [facility] Evaluation note No assessment inform ation available [facility] Work Phone: Evaluation note Diagnosis Primary hypertension- Primary Unspecified essential hypertension Iron deficiency Disorders of iron metabolism Insomnia, unspecified type Hypothyroidism, unspecified type 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 Neuropathy- Primary Mononeuritis of unspecified site documented in this encounter [facility]* Diagnosis Nephrolithiasis- Primary Calculus of kidney 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 Iron deficiency- Primary Disorders of iron metabolism documented in this encounter [facility]* Diagnosis Nephrolithiasis- Primary Calculus of kidney 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 Neuropathy- Primary Mononeuritis of unspecified site Chronic left-sided low back pain without sciatica documented in this encounter [facility]* Diagnosis Nephrolithiasis- Primary Calculus of kidney 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 URI with cough and congestion- Primary Primary hypertension Unspecified essential hypertension High urine sodium level Iron deficiency Disorders of iron metabolism Hypothyroidism, unspecified type documented in this encounter [facility]* Diagnosis Vitamin D insufficiency Acquired hypothyroidism (CMS/HCC) Unspecified hypothyroidism documented in this encounter [facility]* Diagnosis Hypertriglyceridemia (CMS/HCC) Pure hyperglyceridemia documented in this encounter [facility]* Diagnosis Nephrolithiasis- Primary Calculus of kidney 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, without long- term current use of insulin ([facility])- Primary [facility]* Diagnosis Hav (hallux abducto valgus), left- Primary Hav (hallux abducto valgus), right Acquired deformity of left toe Type 2 diabetes mellitus without complication, without long-term current use of insulin (CMS/HCC) documented [facility] encounter [facility]* Diagnosis Major depressive disorder, single episode, mild (HCC) ([facility]/HCC) Major depressive disorder, single episode, mild documented [facility]* Diagnosis Allergic rhinitis due to other allergic trigger, unspecified seasonality Iron deficiency Disorders of iron metabolism Acquired hypothyroidism (CMS/HCC) Unspecified hypothyroidism documented [facility] encounter [facility]* Diagnosis Pelvic pain in female Unspecified symptom associated with female genital organs Low grade squamous intraepithelial lesion on cytologic smear of cervix (LGSIL) High risk HPV infection documented in [facility] encounter [facility]* Diagnosis Major depressive disorder, single episode, mild (HCC) ([facility]) Major depressive disorder, single episode, mild documented in [facility] encounter [facility]* Diagnosis Acquired hypothyroidism (CMS/HCC)- Primary Unspecified hypothyroidism documented [facility]* Diagnosis Morbid (severe) obesity due to excess calories (CMS/HCC) Type 2 diabetes mellitus without complication, without long-term current use of insulin (CMS/HCC) documented [facility] encounter [facility]* Diagnosis Nephrolithiasis- Primary Calculus of kidney 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 Primary hypertension- Primary Unspecified essential hypertension Iron deficiency Disorders of iron metabolism Hypothyroidism, unspecified type High urine sodium level Type 2 diabetes mellitus with diabetic polyneuropathy, without long-term current use of insulin ([facility]) 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 STARR on CPAP Abnormal EKG Nonspecific abnormal electrocardiogram (ECG) (EKG) documented in this encounter [facility]* Diagnosis Left ovarian cyst Other and unspecified ovarian cyst Pain of ovary Amenorrhea Absence of menstruation Pelvic pain in female Unspecified symptom associated with female genital organs documented [facility] encounter [facility]* Diagnosis Nephrolithiasis- Primary Calculus of kidney 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 Neuropathy- Primary Mononeuritis of unspecified site documented in this encounter [facility]* Diagnosis Arthralgia of lower leg, unspecified laterality Pre-op examination Pelvic pain in female Unspecified symptom associated with female genital organs Left ovarian cyst Other and unspecified ovarian cyst Amenorrhea Absence of menstruation [facility] STARR (obstructive sleep apnea)- Primary Obstructive sleep apnea (adult) (pediatric) Fatigue, unspecified type Class 3 severe obesity with body mass index (BMI) of 45.0 to 49.9 in adult, unspecified obesity type, unspecified whether serious comorbidity present ([facility]) Snoring Other dyspnea and respiratory abnormality Excessive daytime sleepiness documented in this encounter [facility]* Diagnosis STARR (obstructive sleep apnea)- Primary Obstructive sleep apnea (adult) (pediatric) CPAP use counseling Morbid obesity with body mass index (BMI) of 45.0 to 49.9 in adult ([facility]) documented in this encounter [facility]* Diagnosis Nephrolithiasis- Primary Calculus of kidney 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 Diagnosis Fibromyalgia Unspecified myalgia and myositis [facility]* Diagnosis STARR (obstructive sleep apnea) Obstructive sleep apnea (adult) (pediatric) [facility] Diagnosis STARR (obstructive sleep apnea)- Primary Obstructive sleep apnea (adult) (pediatric) [facility] Diagnosis Neuropathy- Primary Mononeuritis of unspecified site Fibromyalgia Unspecified myalgia and myositis [facility] Diagnosis Tingling of both feet- Primary Neuropathy Mononeuritis of unspecified site Hyperreflexia Abnormal reflex [facility] filedocumented in [facility] on filedocumented in this encounter [facility] on filedocumented in this encounter [facility] on filedocumented in this encounter [facility] on filedocumented in this encounter [facility] on filedocumented in this encounter [facility] on filedocumented in this encounter [facility] on filedocumented in this encounter [facility] on filedocumented in this encounter [facility] on filedocumented in this encounter [facility]Not on filedocumented in this encounter [facility]Not on filedocumented in this encounter [facility]ructionsNot on filedocumented in this encounter [facility]ructionsNot on filedocumented in this encounter [facility] System[facility]ructionsNot on filedocumented in this encounter [facility] SystemInstructionsNot on filedocumented in this encounter [facility] SystemReason for referral (narrative)* Consultation (Routine) - Pending Review Specialty Diagnoses / Procedures Referred By Mahesh granados Referred To Contact Neurology Diagnoses Neuropathy Thalia Castanon MD [address] [address] [facility] Neurology [address] [place] [address] Referral ID Status Reason Start Date Expiration Date Visits Requested Visits Authorized Pending Review Specialty Services Required 12/19/2023 12/18/2024 1 1 * Medication Prior Authorization - Closed Specialty Diagnoses / Procedures Referred By Contac t Referred To Contact Diagnoses Fibromyalgia Thalia Castanon MD [address] [address] Referral ID Status Reason Start Date Expiration Date Visits Re quested Visits Authorized [id number] Closed 1 1 [facility] Summary Purpose Family History No Family History Records FoundNo Family History Records FoundNo Family History Records FoundNo Family History Records FoundNo Family History Records FoundNo Family History Records FoundNo Family History Records Found Advance Directives Advance Directive Response Recorded Date/ Time Advance Directives No November 21 5:14pm Date Activated Date Inactivated Comments 03/06/2023 4:22 PM 03/09/2023 4:27 PM Date Activated Date Inactivated Comments 03/06/2023 4:22 PM 03/09/2023 4:27 PM Latest Code Status on File Code Status Date Activated Date Inactivated Comments Full Code 03/06/2023 4:22 PM 03/09/2023 4:27 PM Latest Code Status on File Code Status Date Activated Date Inactivated Comments Full Code 03/06/2023 4:22 PM 03/09/2023 4:27 PM Chief Complaint and Reason for Visit Chief Complaint L foot pain/numbness Reason for Referral Specialty Diagnoses / Procedures Referred By Contac t Referred To Contact Diagnoses STARR (obstructive sleep apnea) Procedures Home sleep study Stefany Mike, [place] [address] [place] [address], [address] [place] [id number] Referral ID Status Reason Start Date Expiration Date V isits Requested Visits Authorized [id number] Pending Review 05/19/2023 05/18/2024 1 1 Specialty Diagnoses / Procedures Referred By Contleroy t Referred To Contact Diagnoses Fibromyalgia Thalia Castanon MD [address] [address] Referral ID Status Reason Start Date Expiration Date Visits Re quested Visits Authorized [id number] Closed 1 1 Referral ID Status Reason Start Date Expiration Date Visits Re quested Visits Authorized [id number] Closed 1 1 Specialty Diagnoses / Procedures Referred By Mahesh granados Referred To Contact Diagnoses Tingling of both feet Chuy Frederick MD [address] [place] [address] Referral ID Status Reason Start Date Expiration Date V isits Requested Visits Authorized [id number] Pending Review 1 1 Specialty Diagnoses / Procedures Referred By Mahesh granados Referred To Contact Diagnoses Tingling of both feet Procedures EMG NCV Chuy Frederick MD [address] [place] [id number] Referral ID Status Reason Start Date Expiration Date V isits Requested Visits Authorized [id number] Pending Review 01/09/2024 01/08/2025 1 1 Specialty Diagnoses / Procedures Referred By Mahesh granados Referred To Contact Radiology Diagnoses Hyperreflexia Procedures MR cervical spine without contrast Chuy Frederick MD [address] [place] [address] [id number] [place] [address] Phone: [phone] Referral ID Status Reason Start Date Expiration Date V isits Requested Visits Authorized [id number] Pending Review 01/09/2024 01/08/2025 1 1 Specialty Diagnoses / Procedures Referred By Mahesh granados Referred To Contact Radiology Diagnoses Hyperreflexia Procedures MR brain without contrast Chuy Frederick MD [address] [place] [id number] [id number] [place] [address] Phone: [phone] Referral ID Status Reason Start Date Expiration Date V isits Requested Visits Authorized [id number] Pending Review 01/09/2024 01/08/2025 1 1 Additional Source Comments INFORMATION SOURCE (unrecogn ized section and content) DATE CREATED AUTHOR 02/18/2022 [facility] DATE CREATED AUTHOR AUTHOR'S ORGANIZ ATION 07/13/2022 [facility] DATE CREATED AUTHOR AUTHOR'S ORGANIZ ATION 11/29/2023 [facility] DATE CREATED AUTHOR AUTHOR'S ORGANIZ ATION 05/26/2024 [facility] DATE CREATED AUTHOR AUTHOR'S ORGANIZ ATION 06/01/2024 [facility] DATE CREATED AUTHOR AUTHOR'S ORGANIZ ATION 06/15/2024 [facility] EPIC DATE CREATED AUTHOR AUTHOR'S ORGANIZ ATION 07/01/2024 [facility] Care Teams (unrecognized sec tion and content) Team Status: Active Member Role Status Dates PHYSICIAN NO FAMILY Primary Care Provider Active Team Status: Inactive Member Role Status Dates PHYSICIAN NO FAMILY Primary Care Provider Active Start: November 22, 2023 End: November 22, 2023 Zhen Geronimo APRN Emergency Provider Active Start: November 22, 2023 End: November 22, 2023 Associate Store Director Relationship Specialty Start Date End Date Bonifacio Diehl PA-C [address] [place] [address] PCP - General Physician Tray Casting Machine Operator 02/06/24 Associate Store Director Relationship Specialty Start Date End Date Sampson Pemberton CNM [address] [place] [address] Obstetrics and Gynecology 11/01/22 Associate Store Director Relationship Specialty Start Date End Date Bonifacio Diehl PA-C [address] [place] [address] PCP - General Physician Tray Casting Machine Operator 02/06/24 Associate Store Director Relationship Specialty Start Date End Date Bonifacio Diehl PA-C [address] [place] [address] PCP - General Physician Tray Casting Machine Operator 02/06/24 Associate Store Director Relationship Specialty Start Date End Date Bonifacio Diehl PA-C [address] [place] [address] PCP - General Physician Tray Casting Machine Operator 02/06/24 Associate Store Director Relationship Specialty Start Date End Date Bonifacio Diehl PA-C [address] [place] [address] PCP - General Physician Tray Casting Machine Operator 02/06/24 Associate Store Director Relationship Specialty Start Date End Date Sampson Pemberton CNM [address] [place] [facility] [place] [address] Obstetrics and Gynecology 11/01/22 Associate Store Director Relationship Specialty Start Date End Date Bonifacio Diehl PA-C [address] [place] [address] PCP - General Physician Tray Casting Machine Operator 02/06/24 Associate Store Director Relationship Specialty Start Date End Date Bonifacio Diehl PA-C [address] [place] [address] PCP - General Physician Tray Casting Machine Operator 02/06/24 Associate Store Director Relationship Specialty Start Date End Date Bonifacio Diehl PA-C [address] [place] [address] PCP - General Physician Tray Casting Machine Operator 02/06/24 Associate Store Director Relationship Specialty Start Date End Date Rosa Mittal MD [address] [place] [address] PCP - General Family Medicine 11/01/22 Sampson Pemberton CNM [address] [place] [address] Obstetrics and Gynecology 11/01/22 Associate Store Director Relationship Specialty Start Date End Date Rosa Mittal MD [address] [place] [address] PCP - General Family Medicine 11/01/22 Sampson Pemberton CNM [address] [place] [address] Obstetrics and Gynecology 11/01/22 Associate Store Director Relationship Specialty Start Date End Date Rosa Mittal MD [address] [place] [address] PCP - General Family Medicine 11/01/22 Sampson Pemberton CNM [address] [place] [address] Obstetrics and Gynecology 11/01/22 Associate Store Director Relationship Specialty Start Date End Date Rosa Mittal MD [address] [place] [address] PCP - General Family Medicine 11/01/22 Sampson Pemberton CNM [address] [place] [address] Obstetrics and Gynecology 11/01/22 Associate Store Director Relationship Specialty Start Date End Date Rosa Mittal MD [address] [place] [address] PCP - General Family Medicine 11/01/22 Sampson Pemberton CNM [address] [place] [address] Obstetrics and Gynecology 11/01/22 Associate Store Director Relationship Specialty Start Date End Date Rosa Mittal MD [address] [facility] [place] [address] PCP - General Family Medicine 11/01/22 Sampson Pemberton CNM [address] [place] [address] Obstetrics and Gynecology 11/01/22 Associate Store Director Relationship Specialty Start Date End Date Rosa Mittal MD [address] [facility] [place] [address] PCP - General Family Medicine 11/01/22 02/05/24 Sampson Pemberton CNM [address] [place] [address] Obstetrics and Gynecology 11/01/22 Associate Store Director Relationship Specialty Start Date End Date Bonifacio Diehl PA-C [address] [place] [address] PCP - General Physician Tray Casting Machine Operator 02/06/24 Associate Store Director Relationship Specialty Start Date End Date Bonifacio Diehl PA [address] [place] [address] PCP - General Family Medicine 05/27/24 Sampson Pemberton CNM [address] [facility] [place] [address] Obstetrics and Gynecology 11/01/22 Associate Store Director Relationship Specialty Start Date End Date Bonifacio Diehl PA [address] [place] [address] PCP - General Family Medicine 05/27/24 Sampson Pemberton CNM [address] [place] [address] Obstetrics and Gynecology 11/01/22 Associate Store Director Relationship Specialty Start Date End Date Bonifacio Diehl PA [address] [place] [address] PCP - General Family Medicine 05/27/24 Sampson Pemberton CNM [address] [place] [address] Obstetrics and Gynecology 11/01/22 Associate Store Director Relationship Specialty Start Date End Date Bonifacio Diehl PA-C [address] [place] [address] PCP - General Physician Tray Casting Machine Operator 02/06/24 Associate Store Director Relationship Specialty Start Date End Date Bonifacio Diehl PA [address] [place] [address] PCP - General Family Medicine 06/03/24 Sampson Pemberton CNM [address] [place] [address] Obstetrics and Gynecology 11/01/22 Associate Store Director Relationship Specialty Start Date End Date Bonifacio Diehl PA-C [address] [place] [address] PCP - General Physician Tray Casting Machine Operator 02/06/24 Associate Store Director Relationship Specialty Start Date End Date Bonifacio Diehl PA-C [address] [place] [address] PCP - General Physician Tray Casting Machine Operator 02/06/24 Associate Store Director Relationship Specialty Start Date End Date Bonifacio Diehl PA [address] [place] [address] PCP - General Family Medicine 06/03/24 Sampson Pemberton CNM [address] [place] [address] Obstetrics and Gynecology 11/01/22 Associate Store Director Relationship Specialty Start Date End Date Bonifacio Diehl PA [address] [place] [address] PCP - General Family Medicine 06/03/24 Sampson Pemberton CNM [facility] [place] [address] Obstetrics and Gynecology 11/01/22 Associate Store Director Relationship Specialty Start Date End Date Rosa Mittal MD [address] [place] [address] PCP - General Family Medicine 04/03/23 Associate Store Director Relationship Specialty Start Date End Date Rosa Mittal MD [address] [place] [address] PCP - General Family Medicine 04/03/23 Associate Store Director Relationship Specialty Start Date End Date Rosa Mittal MD [address] [place] [address] PCP - General Family Medicine 04/03/23 Associate Store Director Relationship Specialty Start Date End Date Rosa Mittal MD [address] [place] [address] PCP - General Family Medicine 04/03/23 Associate Store Director Relationship Specialty Start Date End Date Rosa Mittal MD [address] [place] [address] PCP - General Family Medicine 04/03/23 Associate Store Director Relationship Specialty Start Date End Date Rosa Mittal MD [address] [place] [address] PCP - General Family Medicine 04/03/23 Associate Store Director Relationship Specialty Start Date End Date Rosa Mittal MD [address] [place] [address] PCP - General Family Medicine 04/03/23 Associate Store Director Relationship Specialty Start Date End Date Rosa Mittal MD [address] [place] [address] PCP - General Family Medicine 04/03/23 Associate Store Director Relationship Specialty Start Date End Date Rosa Mittal MD [address] [place] [address] PCP - General Family Medicine 04/03/23 Associate Store Director Relationship Specialty Start Date End Date Rosa Mittal MD [address] [place] [address] PCP - General Family Medicine 04/03/23 Associate Store Director Relationship Specialty Start Date End Date Rosa Mittal MD [address] [place] [address] PCP - General Family Medicine 04/03/23 Goals (unrecognized section and content) Goals may be documented in a n alternate section Reason for Visit (unrecogniz ed section and content) Reason Comments Follow-up 2 week f/u, did not check BP at home, weight gain, not sleeping, labs completed Reason Comments Med Refill Reason Onset Date Comments Med Refill 03/04/2024 Reason Onset Date Comments Med Refill 03/05/2024 Reason Comments Follow-up Reason Comments Follow-up 6 week f/u, EMG comp leted, MRI brain comp, neurologist, nephrology appt today, labs comp Reason Comments Foot Orthotics Orthotics P/U, cellu litis F/U Reason Onset Date Comments Med Refill 01/05/2024 Reason Comments Hypertension Diabetes BP med change, resta rted metformin, sinus Reason Comments ovary pain Specialty Diagnoses / Procedures Referred By Mahesh granados Referred To Contact Obstetrics and Gynecology Diagnoses Left ovarian cyst Pain of ovary Procedures NV OFFICE/OUTPATIENT NEW HIGH MDM Sampson Pemberton, CNM [address] [place] [address] Phone: tel: fax: Alex Blankenship, [address] [place] [address] Phone: tel: fax: Referral ID Status Reason Start Date Expiration Date Visits Requested Visits Authorized [id number] Pending Review Specialty Services Required 04/15/2024 10/12/2024 1 1 Reason Comments Pre-op Visit Reason Comments New Patient SnoringHST: 07/05/19 21Not on PAP Therapy Reason Comments Sleep Apnea ComplianceSetup: HST: 4DME: [facility] Reason Onset Date Comments Sleep Lab 05/22/2023 HST Reason Comments Follow-up Reason Comments Follow-up Specialty Diagnoses / Procedures Referred By Mahesh granados Referred To Contact Diagnoses STARR (obstructive sleep apnea) Procedures Home sleep study Stefany Mike, FLOOR TECH-LENS FINISHER [address] [facility], [address] [place] [address] Referral ID Status Reason Start Date Expiration Date Visits Re quested Visits Authorized [id number] Closed 05/19/2023 05/18/2024 1 1 Reason Onset Date Comments Med Refill 06/22/2023 Reason Comments New Patient Specialty Diagnoses / Procedures Referred By Mahesh granados Referred To Contact Neurology Diagnoses Neuropathy Thalia Castanon MD [address] [address] [facility] Neurology [address] [place] [address] Referral ID Status Reason Start Date Expiration Date Visits Requested Visits Authorized [id number] Pending Review Specialty Services Required 12/19/2023 12/18/2024 1 1 FOR RECORDS PERTAINING TO PATIENTS WHO ARE OR HAVE BEEN ENROLLED IN A CHEMICAL DEPENDENCY/SUBSTANCEABUSE PROGRAM, SOME INFORMATION MAY BE OMITTED. This clinical summary was aggregated from multiple sources. Caution should be exercised in using it in the provision of clinical care. This summary normalizes information from multiple sources, and as a consequence, information in this document may materially change the coding, format and clinical context of patient data. In addition, data may be omitted in some cases. CLINICAL DECISIONS SHOULD BE BASED ON THE PRIMARY CLINICAL RECORDS. [employer] provides no warranty or guarantee of the accuracy or completeness of information in this document.
[2024-07-02 11:13] LABS: Basophils Absolute Auto 0.1 10^3/uL (0.0-0.1); Basophils Percent Auto 0.7 % (0.2-2.0); Eosinophils Absolute Auto 0.6 10^3/uL (0.0-0.7); Hematocrit 38.2 % (36.0-48.0); Hemoglobin 12.5 g/dL (12.0-16.0); Immature Granulocytes Abs Auto 0.04 10^3/uL (0.00-0.03); Immature Granulocytes Pct Auto 0.4 % (0.0-0.5); Lymphocytes Absolute Auto 3.4 10^3/uL (1.2-3.8); Lymphocytes Percent Auto 35.7 % (20.5-60.0); Mean Corpuscular HGB Conc 32.7 g/dL (29.9-35.2); Mean Corpuscular Hemoglobin 28.1 pg (26.7-34.0); Mean Corpuscular Volume 85.8 fL (81.0-99.0); Mean Platelet Volume 9.9 fL (9.5-13.5); Monocytes Absolute Auto 0.8 10^3/uL (0.3-0.8); Neutrophils Absolute Auto 4.6 10^3/uL (1.4-6.5); Neutrophils Percent Auto 49.2 % (43.0-75.0); Platelet Count 359 10^3/uL (150-450); Red Blood Count 4.45 10^6/uL (4.20-5.40); Red Cell Distribution Width 13.6 % (11.0-15.0); White Blood Count 9.4 10^3/uL (4.0-11.0)
[2024-07-02 11:17] LABS: Anion Gap 11.5; BUN Creatinine Ratio 20.9; Calcium 9.9 mg/dL (8.5-10.1); Carbon Dioxide 28.3 mmol/L (21.0-32.0); Chloride 99 mmol/L (98-107); Estimated GFR (African America >60 (>=60 mL/min/1.73m^2); Estimated GFR (Non-African Ame >60 (>=60 mL/min/1.73m^2); Glucose 108 mg/dL (74-106); Potassium 4.8 mmol/L (3.5-5.1); Sodium 134 mmol/L (136-145)
[2024-07-02 11:18] LABS: Magnesium 1.5 mg/dL (1.8-2.4)
== END 2024-07-02 09:40 | disposition home or self-care (01) ==
LOC: PST 09:40
PROVIDERS: Family Provider Family Medicine; Visit Provider Obstetrics & Gynecology
DX: Z01.812 Encounter for preprocedural laboratory examination (principal); R10.2 Pelvic and perineal pain; N83.202 Unspecified ovarian cyst, left side; N91.2 Amenorrhea, unspecified
CPT/HCPCS: 80048; 83735; 85025

== ENCOUNTER 2024-07-12 06:03 | Day surgery (SDC) | payer OTHER, SELFPAY ==
[2024-07-02 10:49] VITALS: BP 127/84; PULSE 80; TEMP 36.4; O2SAT 97; BMI 52.2
[2024-07-12] VITALS (12 sets, daily range): BP systolic 106–147; BP diastolic 54–84; PULSE 83–91; TEMP 36.3–37; O2SAT 92–99; BMI 53.1
--- OUTSIDE RECORDS SUMMARY | 2024-07-12 06:07 | XMS_ITS | CCD ---
Author Organization [facility] Care Team Providers Care Yard Coordinator Name Role Phone Belgica Naranjo H Referring Unavailable Carloss Belgica H Attending Unavailable Marcella Belgica H Admitting Unavailable NO FAMILY, PHYSICIAN Primary Care Provider Unava ilable FILIBERTO Geronimo Emergency Provider Zhen Geronimo Attending Unavailable Zhen Geronimo Admitting Unavailable NO FAMILY, PHYSICIAN Primary Care Unavailable Sampson Pemberton CNM Unavailable Bonifacio Diehl PA-C Primary Care Provider Rosa Mittal MD Primary Care Provider Rosa Mittal MD Primary Care Provider Bonifacio Celaya Primary Care Provider KAL ROBERTS Attending Unavailable ROSA MITTAL Primary Care Unavailable KAL ROBERTS Attending Unavailable KAL ROBERTS Referring Unavailable ROSA MITTAL Primary Care Unavailable ROSA MITTAL Referring Unavailable ROSA MITTAL Primary Care Unavailable THALIA CASTANON Attending Unavailable ROSA MITTAL Referring Unavailable ROSA MITTAL Primary Care Unavailable BONIFACIO DIEHL Primary Care Unavailabl BONIFACIO Cruz Referring Unavailabl BONIFACIO Cruz Primary Care Unavailabl CHUY Hou Referring Unavailable BONIFACIO DIEHL Referring Unavailabl e BONIFACIO DIEHL Primary Care Unavailabl e BONIFACIO DIEHL Primary Care Unavailable BONIFACIO DIEHL Referring Unavailable TYRA, THALIA Attending Unavailable Bonifacio Celaya Primary Care Provider ALEX BLANKENSHIP Attending Unavailable LALO MILLER Attending Unavailab le ANEGLA, LALO Gomez Attending Unavailab SHELBI Hill Attending Unavailable JUSTINE GOLDBERG Referring Unavailable FRED COTTER Attending Unavailable JENNIFER, TANNER Gomez Attending Unavailab juan david MILLER, LALO A Attending Unavailab le JUSTINE GOLDBERG Attending Unavailable SAMPSON PEMBERTON Attending Unavailable SAMPSON PEMBERTON Referring Unavailable JENNIFER, TANNER Gomez Attending Unavailab juan david WHITTAKER, RAYMOND Gomez Attending Unavailable RAYMOND WHITTAKER Attending Unavailable SAMPSON PEMBERTON Referring Unavailable ANGELA, LALO Gomez Attending Unavailab juan david WHITTAKER, RAYMOND Gomez Attending Unavailable SAMPSON PEMBERTON Attending Unavailable SAMPSON PEMBERTON Referring Unavailable ALEX BLANKENSHIP Attending Unavailable SAMPSON PEMBERTON Referring Unavailable Rosa Mittal MD Primary Care Provider [phone] THALIA CASTANON Attending Unavailable ROSA MITTAL Referring Unavailable ROSA MITTAL Primary Care Unavailable MAGSI, JOSÉ M Referring Unavailable ROSA MITTAL Primary Care [...] Primary Care Unavailable BONIFACIO DIEHL Referring Unavailable DIEHL BONIFACIO N Primary Care Unavailable MAGSI, JOSÉ M Referring Unavailable DIEHL, BONIFACIO N Primary Care Unavailable DIEHLBONIFACIO VILLALOBOS N Referring Unavailable DIEHL, BONIFACIO N Primary Care Unavailable DIEHL, BONIFACIO N Primary Care Unavailable JULIUS HUGHES Attending Unavailable BONIFACIO DIEHL N Primary Care Unavailable WINSTON SUERO Attending Unavailable STEFANY MIKE Attending Unavailable ROSA MITTAL Referring Unavailable ROSA MITTAL Primary Care Unavailable CHUY FREDERICK Attending Unavailable THALIA CASTANON Referring Unavailable ROSA MITTAL Primary Care Unavailable BONIFACIO DIEHL Attending Unavailable ROSA MITTAL Referring Unavailable BONIFACIO DIEHL Primary Care Unavailable BONIFACIO DIEHL Attending Unavailable DIEHL, BONIFACIO Valenzuela Referring Unavailable DIEHL, BONIFACIO Valenzuela Primary Care Unavailable HAZELCHUY BRYANT Attending Unavailable ROSA MITTAL Referring Unavailable DIEHL, BONIFACIO Valenzuela Primary Care Unavailable DIEHL, BONIFACIO Valenzuela Attending Unavailable DIEHL, BONIFACIO Valenzuela Referring Unavailable DIEHL, BONIFACIO N Primary Care Unavailable DIEHL, BONIFACIO Valenzuela Attending Unavailable DIEHL, BONIFACIO Valenzuela Referring Unavailable DIEHL, BONIFACIO Valenzuela Primary Care Unavailable DIEHL, BONIFACIO Valenzuela Attending Unavailable DIEHL, BONIFACIO Valenzuela Referring Unavailable DIEHL, BONIFACIO Valenzuela Primary Care Unavailable Diehl Bonifacio ESCOBAR Primary Care Provider Allergies Allergy Classification Reported Allergen(s) Allergy Type Date of Onset Reaction(s) Facility (20 sources) dulaglutide Drug Allergy 11-02-19 23 Headache [facility] (20 sources) levoFLOXacin Drug Allergy 06-09-19 22 GI intolerance [facility] (20 sources) Sulfamethoxazole; Translations: [SULFAMETHOXAZOLE] Allergy to substance 06-09-19 22 Unknown [facility] (20 sources) Sulfamethoxazole / Trimethoprim; Translations: [SULFAMETHOXAZOLE-TR IMETHOPRIM] Drug Allergy 09-28-19 19 [facility] (20 sources) Trimethoprim; Translations: [TRIMETHOPRIM] Drug Allergy 06-09-19 22 Unknown [facility] (20 sources) Sulfamethoxazole Drug Allergy 06-09-19 22 [facility] (13 sources) luspatercept; Translations: [LUSPATERCEPT-AAMT] Drug Allergy 05-20-19 25 [facility] Medications Current Medications Medication Drug Class(es) [...] 03/09/2023 09/12/2023 Discontinued (Discontinued by another clinician) [id number] 200 actuat albuterol 0.09 mg/actuat metered dose [...] tablet by mouth in the morning atorvastatin (LIPITOR) 10 mg tablet Take 1 tablet (10 mg total) by mouth in the morning for 180 days. 90 tablet 1 06/03/2024 11/30/2024 Active azithromycin 250 mg oral tablet (1 source) Macrolide Antimicrobial Start: 05-20-2024 End: 05-25-2024 azithromycin (ZITHROMAX) 250 mg tablet Take 2 tablets the first day, then 1 tablet daily for 4 days. 6 tablet 05/20/2024 05/25/2024 Active Blood Glucose Monitoring Suppl (ONE TOUCH ULTRA 2) w/Device kit (20 sources) Start: 05-04-2022 Blood Glucose Monitoring Suppl [...] tablet 1 01/05/2024 Active Start: 10-20-2021 End: 12-29-2024 take 1 tablet by mouth every twelve hours in the morning, then take 1 tablet by mouth at bedtime buPROPion SR (WELLBUTRIN SR) 150 mg 12 hr tablet Take 1 tablet (150 mg total) by mouth in the morning and 1 tablet (150 mg total) before bedtime. Do all this for 180 days. 180 tablet 1 07/02/2024 12/29/2024 Active cephalexin 500 mg oral capsule (17 sources) Cephalosporin Antibacterial Start: 11-22-2023 End: 07-02-2024 cephalexin (Keflex) 500 MG capsule Four times daily 11/22/2023 05/27/2024 Discontinued cetirizine hydrochloride 10 mg oral tablet (20 sources) Histamine-1 Receptor Antagonist Start: 07-24-2021 End: 10-22-2024 take 1 tablet by mouth in the morning cetirizine (ZyrTEC) 10 mg tablet Take 1 tablet (10 mg total) by mouth in the morning for 180 days. 90 tablet 1 04/25/2024 10/22/2024 Active dextromethorphan hydrobromide 10 mg / guaiFENesin 200 mg oral capsule (1 source) Uncompetitive U-skrjyw-E-aspartat e Receptor Antagonist, Sigma-1 Agonist Start: 04-02-2024 End: 04-07-2024 take 1 capsule by mouth every six hours dextromethorphan- guaiFENesin (CORICIDIN HBP CHEST JUSTIN-COUGH) 10-200 mg capsule Indications: URI with cough and congestion Take 1 capsule by mouth every 6 (six) hours for 5 days. 20 each 04/02/2024 04/07/2024 Active doxycycline hyclate 100 mg oral capsule (20 sources) Tetracycline-class Drug Start: 11-22-2023 take 1 [...] 180 capsule 3 05/29/2024 Active Start: 05-04-2023 End: 02-06-2024 take 1 capsule by mouth in the morning DULoxetine (Cymbalta) [address] capsule Indications: Major depressive disorder, single episode, mild (HCC) (CMS/HCC) Take 1 capsule (40 mg) by mouth in the morning. Do not crush or chew.. 90 capsule 1 05/04/2023 Active Start: 04-12-2023 End: 02-06-2024 take 1 capsule by mouth in the morning DULoxetine (CYMBALTA) 20 mg capsule Indications: Fibromyalgia Take 1 capsule (20 mg total) by mouth in the morning. 30 capsule 5 04/12/2023 02/06/2024 Discontinued (Alternate therapy) [id number] 0.3 ml EPINEPHrine 1 mg/ml auto-injector (20 sources) alpha-Adrenergic Agonist, beta-Adrenergic Agonist, Catecholamine Start: 01-05-2023 EPINEPHrine (EPIP EN) 0.3 mg/0.3 mL auto-injector 0.3 mL (0.3 mg total) as needed. 01/05/2023 Active Start: 01-05-2023 EPINEPHrine (E pipen) 0.3 MG/0.3ML injection syringe Indications: Allergic reaction to insect bite INJECT INTO THE MIDDLE OF THE OUTER THIGH AND HOLD FOR 3 SECONDS NEEDED FOR SEVERE ALLERGIC REACTION THEN CALL 911 IF USED. 2 each 01/05/2023 Active ergocalciferol 1.25 mg oral capsule (20 sources) Provitamin D2 Compound Start: 06-28-2023 End: 03-27-2025 take 1 capsule by mouth every week ergocalciferol (DRISDOL) 1,250 mcg (50,000 unit) capsule Take 1 capsule (50,000 Units total) by mouth once a week for 336 days. 12 capsule 3 04/25/2024 03/27/2025 Active escitalopram 20 mg oral tablet (8 [...] take 1 tablet by mouth in the morning, then take 1 tablet by mouth at mealtime ferrous sulfate 325 (65 FE) mg tablet Indications: Iron deficiency Take 1 tablet (325 mg total) by mouth in the morning and 1 tablet (325 mg total) in the evening. Take with meals. Do all this for 360 days. 180 tablet 3 02/20/2024 02/14/2025 Active Fish Oils (20 sources) take 1 capsule by mouth every [...] / losartan potassium 50 mg oral tablet (20 sources) Thiazide Diuretic, Angiotensin 2 Receptor Cruz [...] 09/24/2021 Active ketoconazole 20 mg/ml medicated shampoo (20 sources) Azole Antifungal Start: 01-05-2023 ketoconazole (NIZOral) 2 % shampoo Indications: Scalp psoriasis (CMS/HCC) APPLY TO AFFECTED AREA(S) TWICE A WEEK, LEAVE ON FOR 3 TO 5 MINUTES THEN RINSE 120 mL 01/05/2023 Active levothyroxine sodium 0.075 mg oral tablet (20 sources) l-Thyroxine Start: 01-12-2024 End: 11-30-2024 take 1 tablet by mouth in the morning levothyroxine (SYNTHROID, LEVOTHROID) 75 MCG tablet Take 1 tablet (75 mcg total) by mouth in the morning for 180 days. 90 tablet 1 06/03/2024 11/30/2024 Active Start: 09-28-2021 take 1 tablet by [...] mL 1 02/06/2024 04/06/2024 Active Start: 11-15-2023 VICTOZA 3-KELSI 0.6 mg/0.1 mL (18 mg/3 mL) pen injector ADMINISTER 1.8 MG UNDER THE SKIN IN THE MORNING 9 mL 1 04/20/2024 Active losartan potassium 50 mg oral tablet (7 sources) Angiotensin 2 Receptor Cruz Start: 02-20-2024 End: 03-21-2024 take 1 tablet by mouth in the morning losartan (COZAAR) 50 mg tablet Take 1 tablet (50 mg total) by mouth in the morning for 30 days. 30 tablet 02/20/2024 03/21/2024 Active Start: 02-06-2024 End: 03-07-2024 take 1 tablet by mouth in the [...] in the morning. 03/09/2023 Active Start: 03-09-2023 End: 02-06-2024 take 1 tablet by mouth in the morning magnesium oxide (MAGOX) 400 mg tablet Take 1 tablet (400 mg total) by mouth in the morning. 14 tablet 03/09/2023 02/06/2024 Discontinued (Reorder) 24 hr metFORMIN hydrochloride 500 mg extended release oral tablet (20 sources) Biguanide Start: 04-22-2024 End: 07-21-2024 take 1 tablet by mouth once daily at breakfast metFORMIN XR (GLUCOPHAGE XR) 500 mg 24 hr tablet Indications: Type 2 diabetes mellitus with other diabetic kidney complication, without long-term current use of insulin ([facility]) Take 1 tablet (500 mg total) by [...] before bedtime. 180 tablet 1 11/07/2023 Active nitrofurantoin, macrocrystals 25 mg / nitrofurantoin, monohydrate 75 mg oral capsule (3 sources) Nitrofuran Antibacterial Start: 07-02-2024 End: 07-09-2024 take 1 capsule by mouth in the morning, then take 1 capsule by mouth at bedtime nitrofurantoin, macrocrystal-mono hydrate, (MACROBID) 100 mg capsule Take 1 capsule (100 mg total) by mouth in the morning and 1 capsule (100 mg total) before bedtime. Do all this for 7 days. 14 capsule 07/02/2024 07/09/2024 Active omeprazole 20 mg delayed release oral capsule (20 sources) Proton Pump Inhibitor Start: 04-25-2024 End: 10-22-2024 take 2 capsules by mouth in the morning omeprazole (PriLOSEC) 20 mg capsule Take 2 capsules (40 mg total) by mouth in the morning for 180 days. 180 capsule 1 04/25/2024 10/22/2024 Active Start: 07-11-2023 take 1 capsule by mo ut in the morning omeprazole (PriLOSEC) 40 MG [...] 90 capsule 3 03/04/2024 04/25/2024 Discontinued (Reorder) ondansetron 4 mg disintegrating oral tablet (4 sources) Serotonin-3 Receptor Antagonist Start: 06-27-2024 take 1 tablet by mouth every eight hours as needed for nausea and vomiting ondansetron ODT (ZOFRAN ODT) 4 mg disintegrating tablet Dissolve 1 tablet (4 mg total) on tongue every 8 (eight) hours as needed for nausea or vomiting. 20 tablet 06/27/2024 Active ONETOUCH ULTRA2 METER misc (20 sources) Start: 09-24-2021 ONETOUCH ULTRA2 METER misc 09/24/2021 Active Start: 09-24-2021 ONETOUCH ULTRA 2 METER misc pregabalin 50 mg oral capsule (20 sources) Start: 06-04-2024 [...] capsule by mouth at bedtime pregabalin (LYRICA) 100 mg capsule Indications: Neuropathy Take 1 capsule (100 mg total) by mouth in the morning and 1 capsule (100 mg total) before bedtime. 180 capsule 2 06/10/2024 06/10/2025 Active Start: 03-04-2024 End: 03-04-2025 take 1 capsule by mouth in the morning, then take 1 capsule by mouth at bedtime pregabalin (LYRICA) 50 mg capsule Indications: Neuropathy Take 1 capsule (50 mg total) by mouth in the morning and 1 capsule (50 mg total) before bedtime. 180 capsule 2 06/10/2024 Active riboflavin 400 mg oral tablet (16 sources) take 1 tablet by mouth in the morning riboflavin, vitamin B2, 400 mg tablet Take 400 mg by mouth in the morning. Active tiZANidine 4 mg oral tablet (20 sources) Central alpha-2 Adrenergic Agonist Start: End: tiZANidine (ZANAFLEX) 4 mg tablet Indications: Fibromyalgia One tab at 8 PM each night 90 tablet 3 05/29/2024 Active Start: 04-12-2023 End: 05-27-2024 tiZANidine (ZANAFLEX) 4 mg t ablet Indications: Fibromyalgia One and half tab at 8:00 p.m.each night 135 tablet 1 12/19/2023 04/22/2024 Discontinued (Therapy completed) ubidecarenone 30 mg oral capsule (16 sources) coenzyme Q10 30 mg capsule Take 10 capsules (300 mg total) by mouth 3 (three) times a day. Active vitamin b12 0.1 mg oral tablet (17 sources) Vitamin B12 Start: 04-02-2024 End: 04-02-2024 cyanocobalamin (VITAMIN B-12) 100 MCG tablet Take 10 tablets (1,000 mcg total) by mouth in the morning. 04/02/2024 Active Completed/Discontinued Medications Medication Drug Class(es) Dates Sig (Normalized) Sig (Original) diazePAM 2 mg oral tablet (1 source) Benzodiazepine Start: 01-11-2024 End: 02-06-2024 diazePAM (VALIUM) 2 mg tablet Indications: Claustrophobia Take 1 tablet (2 mg total) by mouth 2 (two) times a day as needed for anxiety (Bring with you to MRI appt. Take one tab when instructed by MRI staff. They may have you take a second dose as well. Do not take this medication until instructed. You will need to arrange transport on the day of your MRI scan.) for up to 2 doses. 2 tablet 01/11/2024 02/06/2024 Discontinued (Therapy completed) docosahexaenoic acid/epa (FISH OIL ORAL) (20 sources) End: 04-02-2024 docosahexaenoic acid/epa (FISH OIL ORAL) Take by mouth daily. 04/02/2024 Discontinued (Therapy completed) docosahexaenoic acid/epa (FISH OIL ORAL) Take by mouth daily. Active docosahexaenoic acid/epa (FISH OIL ORAL) Take by mouth daily. 0 Active lisinopril 10 mg oral tablet (7 sources) Angiotensin Converting Enzyme Inhibitor Start: 08-03-2023 End: 02-06-2024 take 1 tablet by mouth in the morning lisinopriL (PRINIVIL,ZESTRIL) 10 mg tablet Take 1 tablet (10 mg total) by mouth in the morning. 08/03/2023 02/06/2024 Discontinued (Therapy completed) promethazine hydrochloride 12.5 mg oral tablet (14 sources) Phenothiazine Start: 03-17-2023 End: 02-06-2024 take 1 tablet by mouth every six hours as needed for nausea and vomiting promethazine (PHENERGAN) 12.5 mg tablet Take 1 tablet (12.5 mg total) by mouth every 6 (six) hours as needed for nausea or vomiting. 30 tablet 03/17/2023 02/06/2024 Discontinued (Therapy completed) Problems Active Problems Problem Classification Problem Date Documented Date Episodic/Chronic Acquired foot deformities (20 sources) Acquired hallux valgus; Translations: [Hallux valgus (acquired), unspecified foot] Onset: 09-03-2020 11-16-2022 Chronic Allergic reactions (20 sources) Atopic dermatitis; Translations: [Intrinsic (allergic) eczema] Onset: 11-06-2020 11-16-2022 Chronic Anxiety disorders (20 sources) Anxiety; Translations: [Anxiety disorder, unspecified] Onset: 04-19-2015 11-16-2022 Chronic Chronic obstructive pulmonary disease and bronchiectasis (20 sources) Mucopurulent chronic bronchitis; Translations: [Mucopurulent chronic bronchitis] Onset: 04-05-2021 12-05-2022 Chronic Conditions associated with dizziness or vertigo (2 sources) Dizziness and giddiness; Translations: [Dizziness] Onset: 06-26-2024 Episodic Diabetes mellitus with complications (4 sources) Renal disorder due to type 2 diabetes mellitus; Translations: [Type 2 diabetes mellitus with other diabetic kidney complication] 04-22-2024 Chronic Diabetes mellitus without complication (20 sources) Type 2 diabetes mellitus without complication; Translations: [Type 2 diabetes mellitus without complications] Onset: 11-16-2022 02-25-2024 Chronic Disorders of lipid metabolism (20 sources) Hypertriglyceridemia; Translations: [Pure hyperglyceridemia] Onset: 05-26-2019 11-16-2022 Chronic Esophageal disorders (1 source) Gastroesophageal reflux disease without esophagitis; Translations: [Gastro-esophageal reflux disease without esophagitis] 02-25-2024 Chronic Essential hypertension (20 sources) Benign essential hypertension; Translations: [Essential (primary) hypertension] Onset: 04-19-2015 11-16-2022 Chronic Fluid and electrolyte disorders (2 sources) Hypokalemia; Translations: [Hyponatremia] Onset: 07-05-2023 07-02-2024 Episodic Genitourinary symptoms and ill-defined conditions (20 sources) Retained ureteric stent; Translations: [Presence of urogenital implants] Onset: 03-30-2023 05-04-2023 Chronic Headache; including migraine (20 sources) Cluster headache; Translations: [Cluster headache syndrome, unspecified, not intractable] Onset: 04-19-2015 11-16-2022 Chronic Headache; including migraine (1 source) Headache Onset: 06-26-2024 Episodic Headache; including migraine (1 source) Headache; including migraine; Translations: [Headache, unspecified] Onset: 06-26-2024 Hypertension with complications and secondary hypertension (20 sources) Hypertensive emergency; Translations: [Hypertensive emergency] Onset: 12-05-2022 12-05-2022 Chronic Influenza (1 source) Influenza Onset: 04-12-2024 Joint disorders and dislocations; trauma-related (20 sources) Derangement of right knee; Translations: [Unspecified internal derangement of right knee] Onset: 11-16-2022 11-16-2022 Chronic Malaise and fatigue (20 sources) Fatigue; Translations: [Chronic fatigue, unspecified] Onset: 11-16-2022 11-16-2022 Chronic Menstrual disorders (20 sources) Irregular periods; Translations: [Irregular menstruation, unspecified] Onset: 02-10-2020 11-16-2022 Chronic Mood disorders (20 sources) Mild major depression, single episode; Translations: [Major depressive disorder, single episode, mild] Onset: 11-16-2022 11-16-2022 Chronic Nausea and vomiting (1 source) Nausea; Translations: [Nausea] Onset: 06-26-2024 Episodic Nutritional deficiencies (20 sources) Vitamin D deficiency; Translations: [Vitamin D deficiency, unspecified] Onset: 05-04-2023 05-04-2023 Chronic Osteoarthritis (20 sources) Idiopathic osteoarthritis; Translations: [Primary osteoarthritis, unspecified site] Onset: 02-15-2017 12-05-2022 Chronic Other bone disease and musculoskeletal deformities (20 sources) Osteochondritis dissecans; Translations: [Osteochondritis dissecans of unspecified site] Onset: 04-23-2018 11-16-2022 Chronic Other circulatory disease (1 source) Personal history of other diseases of the circulatory system; Translations: [Personal history of other diseases of the circulatory system] Onset: 06-26-2024 Episodic Other connective tissue disease (3 sources) Fibromyalgia; Translations: [Fibromyalgia] 05-29-2024 Episodic Other ear and sense organ disorders (20 sources) Mixed conductive and sensorineural hearing loss, bilateral; Translations: [Mixed conductive and sensorineural hearing loss, bilateral] Onset: 04-05-2021 11-16-2022 Chronic Other endocrine disorders (20 sources) Polycystic ovary syndrome; Translations: [Polycystic ovarian syndrome] Onset: 07-01-2015 12-05-2022 Chronic Other female genital disorders (1 source) Ovarian pain; Translations: [Other specified conditions associated with female genital organs and menstrual cycle] 05-27-2024 Episodic Other inflammatory condition of skin (20 sources) Scalp psoriasis; Translations: [Psoriasis, unspecified] Onset: 11-16-2022 11-16-2022 Chronic Other nervous system disorders (20 sources) Difficulty walking; Translations: [Difficulty in walking, not elsewhere classified] Onset: 04-23-2018 11-16-2022 Chronic Other nervous system disorders (20 sources) Chronic pain; Translations: [Other chronic pain] Onset: 11-07-2016 11-16-2022 Chronic Other nervous system disorders (2 sources) Polyneuropathy, unspecified; Translations: [Polyneuropathy, unspecified] Onset: 12-19-2023 Chronic Other nervous system disorders (6 sources) Neuropathy; Translations: [Polyneuropathy, unspecified] 06-04-2024 Chronic Other nervous system disorders (1 source) Other chronic pain; Translations: [Other chronic pain] Onset: 04-02-2024 Chronic Other nutritional; endocrine; and metabolic disorders (20 sources) Insulin resistance; Translations: [Insulin resistance] Onset: 10-17-2016 11-16-2022 Chronic Other nutritional; endocrine; and metabolic disorders (20 sources) Disorder of mineral metabolism; 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, unspecified] Onset: 10-19-2022 11-16-2022 Chronic Other nutritional; endocrine; and metabolic disorders (20 sources) Obesity caused by energy imbalance; Translations: [Morbid (severe) obesity due to excess calories] Onset: 11-16-2022 11-16-2022 Chronic Other nutritional; endocrine; and metabolic disorders (20 sources) Hypomagnesemia; Translations: [Hypomagnesemia] Onset: 05-04-2023 05-04-2023 Chronic Other nutritional; endocrine; and metabolic disorders (20 sources) Body mass index 40+ - severely obese; Translations: [Body mass index (BMI) 45.0-49.9, adult] Onset: 02-06-2024 02-06-2024 Chronic Other nutritional; endocrine; and metabolic disorders (1 source) Severe obesity; Translations: [Morbid (severe) obesity due to excess calories] 05-19-2023 Chronic Other nutritional; endocrine; and metabolic disorders (2 sources) Hypomagnesemia; Translations: [Hypomagnesemia] Onset: 07-05-2023 Chronic Other screening for suspected conditions (not mental disorders or infectious disease) (1 source) Abnormal findings on diagnostic imaging of other specified body structures; Translations: [Abnormal findings on diagnostic imaging of other specified body structures] Onset: 06-26-2024 Chronic Other upper respiratory disease (20 sources) Allergic rhinitis; Translations: [Allergic rhinitis, unspecified] Onset: 07-28-2020 11-16-2022 Chronic Other upper respiratory disease (20 sources) Seasonal allergy; Translations: [Other seasonal allergic rhinitis] Onset: 11-16-2022 11-16-2022 Chronic Other upper respiratory disease (20 sources) Chronic rhinitis; Translations: [Chronic rhinitis] Onset: 05-31-2021 12-05-2022 Chronic Other upper respiratory infections (20 sources) Chronic maxillary sinusitis; Translations: [Chronic maxillary sinusitis] Onset: 04-05-2021 11-16-2022 Chronic Residual codes; unclassified (20 sources) Obstructive sleep apnea syndrome; Translations: [Obstructive sleep apnea (adult) (pediatric)] Onset: 07-02-2020 11-16-2022 Chronic Residual codes; unclassified (1 source) Daytime somnolence; Translations: [Other hypersomnia] 05-19-2023 Chronic Residual codes; unclassified (1 source) Sleep apnea Onset: 09-06-2023 Chronic Thyroid disorders (20 sources) Acquired hypothyroidism; Translations: [Hypothyroidism, unspecified] Onset: 11-16-2022 11-16-2022 Chronic Unclassified (20 sources) Patient on antidepressant monitoring plan Onset: 02-24-2023 02-24-2023 Unclassified (1 source) Foot Swelling Onset: 11-21-2023 Unclassified (1 source) Wound Infection Onset: 11-21-2023 Unclassified (1 source) foot swollen Onset: 11-21-2023 Unclassified (1 source) Generalized Body Aches Onset: 06-26-2024 Unclassified (1 source) Acute cough; Translations: [Acute cough] Onset: 04-12-2024 Unclassified (2 sources) Low back pain, unspecified; Translations: [Low back pain, unspecified] Onset: 04-02-2024 Unclassified (1 source) flank pain, bloody urine Onset: 09-27-2023 Unclassified (1 source) New Patient Onset: 01-09-2024 Urinary tract infections (2 sources) Acute cystitis without hematuria; Translations: [Escherichia coli urinary tract infection] Onset: 09-27-2023 07-02-2024 Episodic Past or Other Problems Problem Classification Problem [...] kidney failure, unspecified] Onset: 3 Resolved: 5 05-04-2023 Episodic Administrative/social admission (1 source) Patient encounter status; Translations: [Other specified counseling] 09-12-2023 Episodic Allergic reactions (20 sources) Other insect allergy status; Translations: [Allergy to insects and arachnids] Onset: 1 11-16-2022 Episodic Calculus of urinary tract (20 sources) Kidney stone; Translations: [Calculus of kidney] Onset: 3 Resolved: 4 12-05-2022 Episodic Cancer of cervix (1 source) Cervicovaginal cytology: Low grade squamous intraepithelial lesion; Translations: [Low grade squamous intraepithelial lesion on cytologic smear of cervix (LGSIL)] 01-08-2024 Episodic Deficiency and other anemia (20 sources) Anemia; Translations: [Anemia, unspecified] Onset: 3 11-16-2022 Episodic Deficiency and other anemia (20 sources) Iron deficiency anemia; Translations: [Other iron deficiency anemias] Onset: 3 05-04-2023 Episodic Genitourinary symptoms and ill-defined conditions (20 sources) Dysuria; Translations: [Dysuria] Onset: 3 11-16-2022 Episodic Malaise and fatigue (1 source) Fatigue; Translations: [Other fatigue] 05-19-2023 Episodic Mood disorders (20 sources) Mood disorders Onset: 4 Resolved: 4 10-16-2023 Nonspecific chest pain (2 sources) Chest pain, unspecified; Translations: [Chest pain] Onset: 4 Episodic Nutritional deficiencies (20 sources) Iron deficiency; Translations: [Iron deficiency] Onset: 4 02-06-2024 Episodic Open wounds of extremities (1 source) Puncture wound without foreign body, right foot, initial encounter; Translations: [Puncture wound without foreign body, right foot, initial encounter] Onset: 4 Episodic Other and unspecified benign neoplasm (20 sources) Angiomyolipoma of left kidney; Translations: [Benign lipomatous neoplasm of kidney] Onset: 3 11-16-2022 Episodic Other connective tissue disease (2 sources) Fibromyalgia; Translations: [Fibromyalgia] Onset: 4 Episodic Other gastrointestinal disorders (20 sources) Constipation; Translations: [Constipation, unspecified] Onset: 0 11-16-2022 Episodic Other lower respiratory disease (20 sources) Nodule of lung; Translations: [Solitary pulmonary nodule] Onset: 7 11-16-2022 Episodic Other lower respiratory disease (20 sources) Cough; Translations: [Cough] Onset: 3 12-05-2022 Episodic Other lower respiratory disease (1 source) Snoring; Translations: [Snoring] 05-19-2023 Episodic Other nervous system disorders (20 sources) Skin sensation disturbance; Translations: [Unspecified disturbances of skin sensation] Onset: 0 11-16-2022 Episodic Other nervous system disorders (20 sources) Abnormal gait; Translations: [Other abnormalities of gait and mobility] Onset: 3 12-05-2022 Episodic Other nervous system disorders (20 sources) Paresthesia; Translations: [Paresthesia of skin] Onset: [...] reflex] 01-09-2024 Episodic Other non-traumatic joint disorders (20 sources) Pain in lower limb; Translations: [Pain in unspecified knee] Onset: 7 12-05-2022 Episodic Other non-traumatic joint disorders (20 sources) Pain in right knee; Translations: [Pain in joint, lower leg] Onset: 3 12-05-2022 Episodic Other screening for suspected conditions (not mental disorders or infectious disease) (20 sources) Electrocardiogram abnormal; Translations: [Abnormal electrocardiogram [ECG] [EKG]] Onset: 2 Resolved: 4 12-05-2022 Episodic Other upper respiratory disease (20 sources) Perforation of nasal septum; Translations: [Other specified disorders of nose and nasal sinuses] Onset: 3 12-05-2022 Episodic Other upper respiratory infections (3 sources) Acute upper respiratory infection, unspecified; Translations: [Upper respiratory infection] Onset: 4 04-02-2024 Episodic Ovarian cyst (20 sources) Cyst of left ovary; Translations: [Unspecified ovarian cyst, left side] Onset: 4 02-06-2024 Episodic Residual codes; unclassified (1 source) Insomnia; Translations: [Insomnia, unspecified] 02-20-2024 Episodic Septicemia (except in labor) (20 sources) Sepsis; Translations: [Sepsis, unspecified organism] Onset: 3 Resolved: 4 03-10-2023 Episodic Skin and subcutaneous tissue infections (20 sources) Cellulitis; Translations: [Cellulitis, unspecified] Onset: 4 11-22-2023 Episodic Spondylosis; intervertebral disc disorders; other back problems (2 sources) Chronic low back pain; Translations: [Chronic left-sided low back pain without sciatica] 04-02-2024 Episodic Viral infection (20 sources) Condyloma acuminatum of the anogenital region; Translations: [Anogenital (venereal) warts] Onset: 0 11-16-2022 Episodic Results Test Name Value Interpretation Reference Range Facility ALL BASIC METABOLIC PANELon 07-02-2024 Anion gap [Moles/Vol] 11.5 mmol/L [facility] Calcium [Mass/Vol] 9.9 mg/dL 8.5 - 10. 1 mg/dL [facility] Chloride [Moles/Vol] 99 mmol/L 98 - 10 7 mmol/L [facility] CO2 [Moles/Vol] 28.3 mmol/L 21.0 - 32.0 mmol/L [facility] Creatinine [Mass/Vol] 0.86 mg/dL 0.55 - 1.02 mg/dL [facility] GFR/1.73 sq M.predicted CKD-EPI (S/P/Bld) [Vol rate/Area] >60 >=60 mL/min/1.73m 2 [facility] Glucose [Mass/Vol] 108 mg/dL High 74 - 106 mg/dL [facility] Interpretation and review of laboratory results Abnormal [facility] Potassium [Moles/Vol] 4.8 mmol/L 3.5 - 5.1 mmol/L [facility] Sodium [Moles/Vol] 134 mmol/L Low 136 - 145 mmol/L [facility] TBH EGFR-NON AF ANGUILLAN >60 >=60 mL/min/1.73m 2 [facility] Urea nitrogen [Mass/Vol] 18 mg/dL 7.0 - 18.0 mg/dL [facility] Urea nitrogen/Creatinine [Mass ratio] 20.9 mg/mg [facility]-2024 Interpretation and review of laboratory results Abnormal [facility] Magnesium [Mass/Vol] 1.5 mg/dL Low 1.8 - 2 .4 mg/dL [facility] CBC AND AUTO DIFFon 06-26-19 ABSOLUTE BASOPHIL 0.0 X10E9/L Normal 0.0-0.2 [facility] Comment on above: Performed By: #### C BCA, PINR, 92884-4, CMP, 37756-4, 42464-4, THYR, 70042-7 ####[facility] [place] ([id number])[address] [place] [address] 21383 ABSOLUTE NEUTROPHIL 7.8 X10E9/L High 1.5-6.6 [facility] Comment on above: Performed By: #### C BCA, PINR, 08999-5, CMP, 75053-8, 04052-7, THYR, 07055-1 ####[facility] [place] ([id number])[address] [place] [address] 84962 Basophils/100 WBC (Bld) 0.5 % Normal [facility] Comment on above: Performed By: #### C BCA, PINR, 81506-5, CMP, 92086-1, 94207-5, THYR, 49007-5 ####[facility] [place] ([id number])[address] [place] [address] 09017 Eosinophils (Bld) [#/Vol] 0.3 10*3/uL Normal 0.0-0.4 [facility] Comment on above: Performed By: #### C BCA, PINR, 04637-9, CMP, 76384-8, 85435-8, THYR, 59390-5 ####[facility] [place] ([id number])[address] [place] [address] 52591 Eosinophils/100 WBC (Bld) 3.1 % Normal [facility] Comment on above: Performed By: #### C BCA, PINR, 14182-7, CMP, 25701-1, 93467-2, THYR, 91637-5 ####[facility] [place] ([id number])[address] [place] [address] 29373 Erythrocyte distribution width (RBC) [Ratio] 14.5 % Normal 11.5-15.0 [facility] Comment on above: Performed By: #### C BCA, PINR, 88946-5, CMP, 17711-8, 51090-6, THYR, 40310-1 ####[facility] [place] ([id number])[address] [place] [address] 15008 Hematocrit (Bld) [Volume fraction] 36.2 % Normal 35-47 [facility] Comment on above: Performed By: #### C BCA, PINR, 98090-7, CMP, 34992-1, 13204-5, THYR, 94802-9 ####[facility] [place] ([id number])[address] [place] [address] 52167 Hemoglobin (Bld) [Mass/Vol] 12.1 g/dL Normal 11.7-15.5 [facility] Comment on above: Performed By: #### C BCA, PINR, 60512-4, CMP, 23583-1, 58542-4, THYR, 99757-7 ####[facility] [place] ([id number])[address] [place] [address] 17009 Lymphocytes (Bld) [#/Vol] 0.9 10*3/uL Low 1.0-3.5 [facility] Comment on above: Performed By: #### C BCA, PINR, 47225-2, CMP, 50175-3, 39186-1, THYR, 21478-5 ####[facility] [place] ([id number])[address] [place] [address] 89557 Lymphocytes/100 WBC (Bld) 9.3 % Normal [facility] Comment on above: Performed By: #### C BCA, PINR, 11928-6, CMP, 45227-2, 08804-1, THYR, 14750-5 ####[facility] [place] ([id number])[address] [place] [address] 05734 MCH (RBC) [Entitic mass] 28.5 pg Normal 27-34 [facility] Comment on above: Performed By: #### C BCA, PINR, 32640-1, CMP, 09568-7, 49417-2, THYR, 62972-6 ####[facility] [place] ([id number])[address] [place] [address] 25863 MCHC (RBC) [Mass/Vol] 33.5 g/dL Normal 32-36 [facility] Comment on above: Performed By: #### C BCA, PINR, 85254-2, CMP, 14821-5, 59242-1, THYR, 02460-1 ####[facility] [place] ([id number])[address] [place] [address] 46066 MCV (RBC) [Entitic vol] 85 fL Normal 80-100 [facility] Comment on above: Performed By: #### C BCA, PINR, 11778-5, CMP, 45359-3, 96643-9, THYR, 75366-2 ####[facility] [place] ([id number])[address] [place] [address] 12089 Monocytes (Bld) [#/Vol] 0.5 10*3/uL Normal 0-0.9 [facility] Comment on above: Performed By: #### C BCA, PINR, 88964-8, CMP, 50420-2, 89022-0, THYR, 20570-2 ####[facility] [place] ([id number])[address], [place] [address] Monocytes/100 WBC (Bld) 5.0 % Normal [facility] Comment on above: Performed By: #### C BCA, PINR, 79198-4, CMP, 78780-7, 16151-4, THYR, 69843-4 ####[facility] [place] ([id number])[address] [place] [address] 73358 Neutrophils/100 WBC (Bld) 82.1 % Normal [facility] Comment on above: Performed By: #### C BCA, PINR, 20537-3, CMP, 89963-0, 24431-1, THYR, 34469-1 ####[facility] [place] ([id number])[address] [place] [address] 71591 Platelet mean volume (Bld) [Entitic vol] 8.0 fL Normal 7-12 [facility] Comment on above: Performed By: #### C BCA, PINR, 67278-2, CMP, 77882-5, 33369-4, THYR, 11799-7 ####[facility] [place] ([id number])[address] [place] [address] 04210 Platelets (Bld) [#/Vol] 250 10*3/uL Normal 150-450 [facility] Comment on above: Performed By: #### C BCA, PINR, 78703-6, CMP, 57492-0, 63918-6, THYR, 86809-8 ####[facility] [place] ([id number])[address] [place] [address] 89395 RBC COUNT 4.25 X10E12/L Normal 3.80-5.20 [facility] Comment on above: Performed By: #### C BCA, PINR, 46743-5, CMP, 38118-0, 25193-2, THYR, 54419-0 ####[facility] [place] ([id number])[address] [place] [address] 73476 WBC (Bld) [#/Vol] 9.5 10*3/uL Normal 4.0-11.0 [facility] Comment on above: Performed By: #### C BCA, PINR, 23710-2, CMP, 51744-4, 34415-2, THYR, 31206-1 ####[facility] [place] ([id number])[address] [place] [address] 75380 COMPREHENSIVE METABOLIC PANE Dayron 06-26-2024 Albumin [Mass/Vol] 3.9 g/dL Normal 3.2-5.3 [facility] Comment on above: Performed By: #### C BCA, PINR, 72458-3, CMP, 91159-7, 07135-0, THYR, 25988-5 ####[facility] [place] ([id number])[address] [place] [address] 02692 ALP [Catalytic activity/Vol] 73 U/L Normal 39-130 [facility] Comment on above: Performed By: #### C BCA, PINR, 11278-2, CMP, 53396-3, 25094-7, THYR, 42211-3 ####[facility] [place] ([id number])[address] [place] [address] 66470 ALT [Catalytic activity/Vol] 47 U/L High 0-31 [facility] Comment on above: Performed By: #### C BCA, PINR, 18176-2, CMP, 97041-1, 05635-1, THYR, 64160-7 ####[facility] [place] ([id number])[address] [place] [address] 58197 Anion gap [Moles/Vol] 14 mmol/L Normal 5-15 [facility] Comment on above: Performed By: #### C BCA, PINR, 58516-7, CMP, 80280-2, 27434-4, THYR, 60379-2 ####[facility] [place] ([id number])[address], [place] [address] AST [Catalytic activity/Vol] 34 U/L Normal 0-41 [facility] Comment on above: Performed By: #### C BCA, PINR, 52890-2, CMP, 31603-2, 03967-1, THYR, 76621-1 ####[facility] [place] ([id number])[address] [place] [address] 23360 Bilirubin [Mass/Vol] 0.4 mg/dL Normal 0.3-1.2 [facility] Comment on above: Performed By: #### C BCA, PINR, 43037-8, CMP, 76536-4, 64372-5, THYR, 57987-3 ####[facility] [place] ([id number])[address] [place] [address] 36885 Calcium [Mass/Vol] 9.0 mg/dL Normal 8.5-10.5 [facility] Comment on above: Performed By: #### C BCA, PINR, 05506-0, CMP, 22071-6, 31053-1, THYR, 09879-9 ####[facility] [place] ([id number])[address] [place] [address] 07503 Chloride [Moles/Vol] 94 mmol/L Low 98-109 [facility] Comment on above: Performed By: #### C BCA, PINR, 13457-5, CMP, 66639-8, 59160-2, THYR, 83543-1 ####[facility] [place] ([id number])[address] [place] [address] [place] [address] CO2 [Moles/Vol] 25 mmol/L Normal 22-32 [facility] Comment on above: Performed By: #### C BCA, PINR, 47983-2, CMP, 90548-3, 17531-1, THYR, 38745-6 ####[facility] [place] ([id number])[address] [place] [address] [place] [address] Creatinine [Mass/Vol] 0.88 mg/dL Normal 0.40-1.00 [facility] Comment on above: Result Comment: METH OD TRACEABLE TO IDMS STANDARD Performed By: #### C BCA, PINR, 34885-4, CMP, 76783-9, 60760-2, THYR, 24172-2 ####[facility] [place] ([id number])[address] [place] [address] 66668 GFR/1.73 sq M.predicted among non-blacks MDRD (S/P/Bld) [Vol rate/Area] 84 mL/min/{1.73_m2} Normal >59 [facility] Comment on above: Result Comment: Reported eGFR is based on the CKD-EPI 2020 equation that does not use a race coefficient. Performed By: #### C BCA, PINR, 17520-5, CMP, 63422-9, 21815-0, THYR, 18864-0 ####[facility] [place] ([id number])[address] [place] [address] 12063 Glucose [Mass/Vol] 107 mg/dL High 65-99 [facility] Comment on above: Performed By: #### C BCA, PINR, 89160-3, CMP, 23913-3, 48419-5, THYR, 82535-3 ####[facility] [place] ([id number])[address] [place] [address] 81424 Potassium [Moles/Vol] 4.0 mmol/L Normal 3.5-5.0 [facility] Comment on above: Performed By: #### C BCA, PINR, 81926-9, CMP, 20717-8, 80903-9, THYR, 20231-3 ####[facility] [place] ([id number])[address] [place] [address] 04742 Protein [Mass/Vol] 7.7 g/dL Normal 6.0-8.0 [facility] Comment on above: Performed By: #### C BCA, PINR, 09933-2, CMP, 61164-0, 33493-1, THYR, 00856-9 ####[facility] [place] ([id number])[address] [place] [address] 90171 Sodium [Moles/Vol] 133 mmol/L Low 134-146 [facility] Comment on above: Performed By: #### C BCA, PINR, 54757-1, CMP, 44132-4, 52507-3, THYR, 32265-2 ####[facility] [place] ([id number])[address] [place] [address] 89503 Urea nitrogen [Mass/Vol] 13 mg/dL Normal 5-23 [facility] Comment on above: Performed By: #### C BCA, PINR, 65664-8, CMP, 09779-8, 07447-7, THYR, 06427-9 ####[facility] [place] ([id number])[address] [place] [address] BRAIN WO CONTon CT BRAIN WO CONT CT BRAIN WO [...] Winters MD on 06/26/2024 9:54 PM Normal [facility] CT CTA CHESTon 06-26-2024 CT CTA [...] Ott MD on 06/26/2024 11:54 PM Normal [facility] Fibrin D-dimer DDU (PPP) [Ma ss/Vol]on 06-26-2024 D DIMER 331 ng/mL DDU High <255 [facility] Comment on above: Result Comment: Results [...] level. Performed By: #### U A #### [facility] ([id number]) [address], [address] [place] [address] HCG ( test) Ql (U)o n 06-26-2024 Beta HCG ( test) Ql (U) Negative Normal NEG [facility] Comment on above: Performed By: #### U A #### [facility] ([id number]) [address], [address] [place] [address] MAGNESIUMon 06-26-2024 Magnesium [Mass/Vol] 1.1 mg/dL Low 1.8-2.6 [facility] Comment on above: Performed By: #### C BCA, PINR, 05502-2, CMP, 46855-6, 78395-4, THYR, 24922-2 ####[facility] ([id number])[address] [place] [address] 83240 PROTIME AND INRon 06-26-2024 INR Coag (PPP) [Relative time] 1.1 {INR} Normal 0.8-1.1 [facility] Comment on above: Performed By: #### C BCA, PINR, 88973-1, CMP, 19225-2, 51253-4, THYR, 89127-0 ####[facility] ([id number])[address] [place] [address] 41778 PT Coag (PPP) [Time] 12.6 s Normal 9.8-13.2 [facility] Comment on above: Result Comment: NEW REFERENCE RANGE Performed By: #### C BCA, PINR, 74798-2, CMP, 22856-0, 15500-6, THYR, 81864-0 ####[facility] ([id number])[address] [place] [address] 73193 SARS/FLU A+B/RSV by NAAT/Mol ecularon 06-26-2024 SARS/FLU [...] operators who are performing tests using either GeneXpert DX or GeneXpert Naymit systems and is limited to laboratories that [...] repeat. Fact Sheet for Healthcare Providers: https://www.fda.gov/m edia/327437/download Fact Sheet for Patients: https://www.fda.gov/m edia/433111/download Normal [facility] Comment on above: Performed By: #### U A #### [facility] ([id number]) [address] [facility] [facility] [address] [place] [address] THYROID PROFILEon 06-26-2024 Free T4 [Mass/Vol] 0.93 ng/dL Normal 0.61-1.60 [facility] Comment on above: Performed By: #### U A #### [facility] ([id number]) [address] [place] [address], [facility] [address] [place] [address] TSH 1.80 uIU/mL Normal 0.49-4.67 [facility] Comment on above: Performed By: #### U A #### [facility] ([id number]) [address] [facility] [facility] [place] [address] Troponin I.cardiac High sens itivity method [Mass/Vol]on 06-26-2024 1 HOUR TROP I, HIGH SENSITIVITY 3 ng/L Normal <16 [facility] Comment on above: Performed By: #### U A #### [facility] ([id number]) [address] [facility], [address] [place] [address] TROPONIN I, HIGH SENSITIVITY 3 ng/L Normal <16 [facility] Comment on above: Performed By: #### U A #### [facility] ([id number]) [address] [facility] [address] [place] [address] URINE CULTUREon 06-26-2024 Bacteria identified Cx Nom [...] TOBRAMYCIN S <=1 F TRIMETH/SULFAMETHOXAZ OLE S <=1/19 F Susceptible [facility] Comment on above: Performed By: #### U A #### [facility] ([id number]) [address] [facility], [address] [place] [address] URN MACROSCOPIC NURon 2024 BILIRUBIN MARGE Negative Normal NEG [facility] Comment on above: Performed By: #### U A #### [facility] ([id number]) [address] [facility], [address] [place] [address] BLOOD/HGB MARGE Negative Normal NEG [facility] Comment on above: Performed By: #### U A #### [facility] ([id number]) [address] [facility] [address] [address], [address] [place] [address] GLUCOSE MARGE Negative Normal NEG [facility] Comment on above: Performed By: #### U A #### [facility] ([id number]) [address] [place] [address], [address] [place] [address] KETONES MARGE Negative Normal NEG [facility] Comment on above: Performed By: #### U A #### [facility] ([id number]) [address] [place] [address], [address] [place] [address] LEUKOCYTE ESTERASE MARGE Trace Abnormal NEG [facility] Comment on above: Performed By: #### U A #### [facility] ([id number]) [address] [place] [address], [address] [place] [address] NITRITE MARGE Negative Normal NEG [facility] Comment on above: Performed By: #### U A #### [facility] ([id number]) [address] [place] [address], [address] [place] [address] PH MARGE 6.0 Normal 5.0-8.5 [facility] Comment on above: Performed By: #### U A #### [facility] ([id number]) [address] [place] [address], [address] [place] [address] PROTEIN MARGE Negative Normal NEG [facility] Comment on above: Performed By: #### U A #### [facility] ([id number]) [address] [place] [address], [address] [place] [address] SPECIFIC GRAVITY MARGE 1.015 Normal 1.003-1.035 [facility] Comment on above: Performed By: #### U A #### [facility] ([id number]) [address] [place] [address], [address] [place] [address] UROBILINOGEN MARGE 0.2 eu/dL Normal <1.1 [facility] Comment on above: Performed By: #### U A #### [facility] ([id number]) [address], [address] [place] [address] aPTT Coag (PPP) [Time]on aPTT Coag (Bld) [Time] 36 s Normal 26-37 Pr [facility] Comment on above: Result Comment: NEW REFERENCE RANGE Performed By: #### C BCA, PINR, 61281-2, CMP, 40061-4, 38685-7, THYR, 52993-4 ####[facility] ([id number])[address] [facility] [place], [place] [address] ALL CBC WITH AUTO DIFFon BASOPHILS ABSOLUTE AUTO 0.1 [facility] Basophils/100 WBC (Bld) 0.7 % 0.2 - 2.0 % [facility] Eosinophils/100 WBC (Bld) 5.2 % 0.9 - 7.0 % [facility] Erythrocyte distribution width (RBC) [Ratio] 13.2 % 11.0 - 15.0 % [facility] Hematocrit (Bld) [Volume fraction] 36.9 % 36.0 - 48.0 % [facility] Hemoglobin (Bld) [Mass/Vol] 12.1 g/dL 12.0 - 16.0 g/dL [facility] IMMATURE GRANULOCYTES ABS AUTO 0.02 [facility] Immature granulocytes/100 WBC (Bld) 0.2 % 0.0 - 0.5 % [facility] LYMPHOCYTES ABSOLUTE AUTO 3 [facility] Healthcare Lymphocytes/100 WBC (Bld) 33.5 % 20.5 - 60.0 % [facility] MCH (RBC) [Entitic mass] 28.7 pg 26.7 - 34.0 pg [facility] MCHC (RBC) [Mass/Vol] 32.8 g/dL 29.9 - 35.2 g/dL [facility] ([facility] [Entitic vol] 87.6 fL 81.0 - 99.0 fL [facility] MONOCYTES ABSOLUTE AUTO 0.7 [facility] Monocytes/100 WBC (Bld) 7.9 % 1.7 - 12.0 % [facility] NEUTROPHILS ABSOLUTE AUTO 4.7 [facility] Neutrophils/100 WBC (Bld) 52.5 % 43.0 - 75.0 % [facility] Platelet mean volume (Bld) [Entitic vol] 10.4 fL 9.5 - 13.5 fL [facility] TB EO # 0.5 [facility] TB PLT 289 [facility] RBC 4.21 [facility] WBC 8.9 [facility] CBC AND AUTO DIFFon 04-12-20 24 ABSOLUTE BASOPHIL 0.1 X10E9/L Normal 0.0-0.2 [facility] Comment on above: Performed By: #### C TIERAR CMP, , 51393-0 #### [facility] ([id number]) [address] [place] [address] 05804 ABSOLUTE NEUTROPHIL 5.3 X10E9/L Normal 1.5-6.6 [facility] Comment on above: Performed By: #### C TIERRA, CMP, , 47688-9 #### [facility] [place] ([id number]) [address] [place] [address] 07780 Basophils/100 WBC (Bld) 1.0 % Normal [facility] Comment on above: Performed By: #### C TIERRA, CMP, , 53101-6 #### [facility] [place] ([id number]) [address] [place] [address] 45020 Eosinophils (Bld) [#/Vol] 0.6 10*3/uL High 0.0-0.4 [facility] Comment on above: Performed By: #### C BCA, CMP, , 79583-8 #### [facility] [place] ([id number]) [address] [place] [address] 56874 Eosinophils/100 WBC (Bld) 6.1 % Normal [facility] Comment on above: Performed By: #### C BCA, CMP, , 15233-9 #### [facility] [place] ([id number]) [address] [place] [address] 69875 Erythrocyte distribution width (RBC) [Ratio] 14.1 % Normal 11.5-15.0 [facility] Comment on above: Performed By: #### C TIERRA CMP, , 90141-0 #### [facility] [place] ([id number]) [address] [place] [address] 94232 Hematocrit (Bld) [Volume fraction] 37.0 % Normal 35-47 [facility] Comment on above: Performed By: #### Festus MAYORGA CMP, , 89798-9 #### [facility] [place] ([id number]) [address] [place] [address] 35818 Hemoglobin (Bld) [Mass/Vol] 12.3 g/dL Normal 11.7-15.5 [facility] Comment on above: Performed By: #### Festus MAYORGA CMP, , 66431-7 #### [facility] [place] ([id number]) [address] [place] [address] 79849 Lymphocytes (Bld) [#/Vol] 2.8 10*3/uL Normal 1.0-3.5 [facility] Comment on above: Performed By: #### C TIERRA, CMP, , 34861-4 #### [facility] [place] ([id number]) [address] [place] [address] 33045 Lymphocytes/100 WBC (Bld) 29.4 % Normal [facility] Comment on above: Performed By: #### C BCA, CMP, , 84690-7 #### [facility] [place] ([id number]) [address] [place] [address] 55698 MCH (RBC) [Entitic mass] 28.8 pg Normal 27-34 [facility] Comment on above: Performed By: #### C BCA, CMP, , 78115-8 #### [facility] [place] ([id number]) [address] [place] [address] 35624 MCHC (RBC) [Mass/Vol] 33.3 g/dL Normal 32-36 [facility] Comment on above: Performed By: #### C ROQUE MAYORGA, , 41567-7 #### [facility] ([id number]) [address] [place] [address] 39755 MCV (RBC) [Entitic vol] 86 fL Normal 80-100 [facility] Comment on above: Performed By: #### Festus MAYORGA, CMP, , 52908-0 #### [facility] ([id number]) [address] [place] [address] 89952 Monocytes (Bld) [#/Vol] 0.8 10*3/uL Normal 0-0.9 [facility] Comment on above: Performed By: #### Festus MAYORGA CMP, , 34901-9 #### [facility] [place] ([id number]) [address] [place] [address] 53237 Monocytes/100 WBC (Bld) 8.3 % Normal [facility] Comment on above: Performed By: #### Festus MAYORGA, CMP, , 41580-6 #### [facility] ([id number]) [address] [place] [address] 81691 Neutrophils/100 WBC (Bld) 55.2 % Normal [facility] Comment on above: Performed By: #### Festus MAYORGA, CMP, , 73666-7 #### [facility] ([id number]) [address] [place] [address] 43910 Platelet mean volume (Bld) [Entitic vol] 8.1 fL Normal 7-12 [facility] Comment on above: Performed By: #### Festus MAYORGA, CMP, , 43172-3 #### [facility] ([id number]) [address] [place] [address] 75909 Platelets (Bld) [#/Vol] 360 10*3/uL Normal 150-450 [facility] Comment on above: Performed By: #### C BCA, CMP, 99823-1, 37565-4 #### [facility] [place] ([id number]) [address] [place] [address] 61168 RBC COUNT 4.28 X10E12/L Normal 3.80-5.20 [facility] Comment on above: Performed By: #### C BCA, CMP, , 04742-9 #### [facility] [place] ([id number]) [address] [place] [address] 88701 WBC (Bld) [#/Vol] 9.5 10*3/uL Normal 4.0-11.0 [facility] Comment on above: Performed By: #### C BCA, CMP, , 80234-5 #### [facility] [place] ([id number]) [address] [place] [address] 23388 COMPREHENSIVE METABOLIC PANE Dayron 04-12-2024 Albumin [Mass/Vol] 3.7 g/dL Normal 3.2-5.3 [facility] Comment on above: Performed By: #### C BCA, CMP ####[facility] [place] ([id number])[address] [place] [address] 61600 ALP [Catalytic activity/Vol] 78 U/L Normal 39-130 [facility] Comment on above: Performed By: #### C BCA, CMP ####[facility] [place] ([id number])[address] [place] [address] 47932 ALT [Catalytic activity/Vol] 63 U/L High 0-31 [facility] Comment on above: Performed By: #### C BCA, CMP ####[facility] [place] ([id number])[address] [place] [address] 09983 Anion gap [Moles/Vol] 10 mmol/L Normal 5-15 [facility] Comment on above: Performed By: #### C BCA, CMP ####[facility] ([id number])[address] [place] [address] [place] [address] AST [Catalytic activity/Vol] 78 U/L High 0-41 [facility] Comment on above: Performed By: #### C BCA, CMP ####[facility] [place] ([id number])[address] [place] [address] [place] [address] Bilirubin [Mass/Vol] 0.3 mg/dL Normal 0.3-1.2 [facility] Comment on above: Performed By: #### C BCA, CMP ####[facility] ([id number])[address] [place] [address] 12853 Calcium [Mass/Vol] 9.0 mg/dL Normal 8.5-10.5 [facility] Comment on above: Performed By: #### C BCA, CMP ####[facility] ([id number])[address] [place] [address] [place] [address] Chloride [Moles/Vol] 101 mmol/L Normal 98-109 [facility] Comment on above: Performed By: #### C BCA, CMP ####[facility] ([id number])[address] [place] [address] [place] [address] CO2 [Moles/Vol] 25 mmol/L Normal 22-32 [facility] Comment on above: Performed By: #### C BCA, CMP ####[facility] ([id number])[address] [place] [address] [place] [address] Creatinine [Mass/Vol] 0.68 mg/dL Normal 0.40-1.00 [facility] Comment on above: Result Comment: METH OD TRACEABLE TO IDMS STANDARD Performed By: #### C BCA, CMP ####[facility] ([id number])[address] [place] [address], [place] [address] eGFR (CKD-EPI) NON-RACE DEPENDENT >90 Normal >59 [facility] Comment on above: Result Comment: Reported eGFR is based on the CKD-EPI 2020 equation that does not use a race coefficient. Performed By: #### C BCA, CMP ####[facility] ([id number])[address] [place] [address] 53115 Glucose [Mass/Vol] 110 mg/dL High 65-99 [facility] Comment on above: Performed By: #### C BCA, CMP ####[facility] ([id number])[address] [place] [address] 23459 Potassium [Moles/Vol] 3.9 mmol/L Normal 3.5-5.0 [facility] Comment on above: Performed By: #### C BCA, CMP ####[facility] ([id number])[address] [place] [address] 53372 Protein [Mass/Vol] 7.5 g/dL Normal 6.0-8.0 [facility] Comment on above: Performed By: #### C BCA, CMP ####[facility] ([id number])[address] [place] [address] 95411 Sodium [Moles/Vol] 136 mmol/L Normal 134-146 [facility] Comment on above: Performed By: #### C BCA, CMP ####[facility] ([id number])[address] [place] [address] 63123 Urea nitrogen [Mass/Vol] 12 mg/dL Normal 5-23 [facility] Comment on above: Performed By: #### C BCA, CMP ####[facility] ([id number])[address] [place] [address] ABDOMEN AND PELVIS WO CON Ton [...] Dallin Campos MD on 04/12/2024 5:45 PM Normal [facility] HCG ( test) Ql (U)o n 04-12-2024 Beta HCG ( test) Ql (U) Negative Normal NEG [facility] Comment on above: Performed By: #### C BCA, CMP, 37952-0, 32377-3 #### [facility] ([id number]) [address] [place] [address], [place] [address] URINE CULTUREon 04-12-2024 Bacteria identified Cx Nom (U) SPECIMEN NOTES URINE RECEIVED WITHOUT PRESERVATIVE CULTURE RESULTS NO GROWTH AT <1000 CFU/mL Normal [facility] Comment on above: Performed By: #### 6 30-4 ####[facility] ([id number])[address] [place] [address], [address], [place] [address] URN MACROSCOPIC NURon 2023 BILIRUBIN MARGE Negative Normal NEG [facility] Comment on above: Performed By: #### C BCA, CMP, , 01859-7 #### [facility] ([id number]) [address] [place] [address] 36780 BLOOD/HGB MARGE Negative Normal NEG [facility] Comment on above: Performed By: #### C BCA, CMP, , 52012-4 #### [facility] ([id number]) [address] [place] [address] [place] [address] GLUCOSE MARGE Negative Normal NEG [facility] Comment on above: Performed By: #### C BCA, CMP, , 10358-7 #### [facility] ([id number]) [address] [place] [address] [place] [address] KETONES MARGE Trace Abnormal NEG [facility] Comment on above: Performed By: #### C BCA, CMP, , 48204-7 #### [facility] ([id number]) [address] [place] [address] [place] [address] LEUKOCYTE ESTERASE MARGE Negative Normal NEG [facility] Comment on above: Performed By: #### C BCA, CMP, , 50992-5 #### [facility] ([id number]) [address] [place] [address] [place] [address] NITRITE MARGE Negative Normal NEG [facility] Comment on above: Performed By: #### C BCA, CMP, , 93176-0 #### [facility] ([id number]) [address] [place] [address] 34562 PH MARGE 5.5 Normal 5.0-8.5 [facility] Comment on above: Performed By: #### C BCA, CMP, 95755-8, 87895-7 #### [facility] ([id number]) [address] [place] [address] 81118 PROTEIN MARGE Negative Normal NEG [facility] Comment on above: Performed By: #### C BCA, CMP, 28664-5, 70631-5 #### [facility] ([id number]) [address] [place] [address] 36716 SPECIFIC GRAVITY MARGE 1.025 Normal 1.003-1.[address] [facility] Comment on above: Performed By: #### C BCA, CMP, 85926-6, 46277-3 #### [facility] ([id number]) [address] [place] [address] 00889 UROBILINOGEN MARGE 0.2 eu/dL Normal <1.1 [facility] Comment on above: Performed By: #### C BCA, CMP, 58170-6, 54649-3 #### [facility] ([id number]) [address] [place] [address] 67633 US PELVIC WITH TRANSVAGINAL AND DUPLEXon 04-12-2024 [...] Ott MD on 04/12/2024 8:08 PM Normal [facility] XR CHEST 1 VWon 04-12-2024 XR CHEST 1 VW XR CHEST 1 VW Portable chest: HISTORY: Cough. Single view the chest was obtained Cardiac and mediastinal contours are within normal limits. Lungs are clear. There is no vascular congestion, effusion, or pneumothorax. Osseous structures appear intact. IMPRESSION: No acute findings. Finalized by Lui Vera MD on 04/12/2024 5:32 PM Normal [facility] XR CHEST 2 VWSon 04-03-2024 XR [...] Cyr MD on 04/03/2024 11:47 AM Normal [facility] POCT Influenza A/Influenza B /SARS-COV-2 Veritoron 04-02-2024 External Poct Influenza A Antigen Negative [facility] External Poct Influenza B Antigen Negative [facility] Interpretation and review of laboratory results Normal [facility] SARS-CoV-2 (COVID-19) Ag IA.rapid Ql (Resp) Negative [facility] 24 HR PHOSPHORUS,URINEon URINE PHOSPHORUS 0.8 g/24h Normal 0.4-1.3 [facility] Comment on above: Performed By: #### C ROQUE MAYORAG, , 08041-8 #### [facility] ([id number]) [address] [place] [address] 83020 24 HR UR MAGNESIUMon 024 URINE MAGNESIUM 63 mg/24h Low 72-182 [facility] Comment on above: Performed By: #### Festus MAYORGA CMP, , 36227-7 #### [facility] ([id number]) [address] [place] [address] 93277 24 HR URINE CALCIUMon 2023 URINE CALCIUM 34 mg/24h Low 50-250 [facility] Comment on above: Performed By: #### Festus MAYORGA CMP, , 94230-7 #### [facility] ([id number]) [address] [place] [address] 13417 24 HR URINE CREATININEon URINE CREATININE 1.35 g/24h Normal 0.80-1.80 [facility] Comment on above: Performed By: #### Festus MAYORGA CMP, , 21574-4 #### [facility] ([id number]) [address] [place] [address] 08190 24 HR URINE POTASSIUMon - URINE POTASSIUM 56 mmol/24h Normal 25-100 [facility] Comment on above: Performed By: #### Festus MAYORGA CMP, , 95494-3 #### [facility] ([id number]) [address] [place] [address] 48933 24 HR URINE SODIUMon 024 URINE SODIUM 329 mmol/24h High 40-220 [facility] Comment on above: Performed By: #### C BCA, CMP, , 60121-0 #### [facility] ([id number]) [address] [place] [address] 58201 24 HR URINE URIC ACIDon 03-15 URINE URIC ACID 0.6 g/24h Normal 0.3-0.8 [facility] Comment on above: Performed By: #### C BCA, CMP, , 10502-3 #### [facility] ([id number]) [address] [place] [address] 84506 Laboratory comment Jeremiah (Repo rt)on 03-31-2024 UNLISTED LAB TEST Sent to reference lab Normal [facility] Comment on above: Performed By: #### C TIERRA, CMP, , 86313-9 #### [facility] ([id number]) [address] [place] [address] 41084 Supersaturation Profile, 24h fernanda 03-31-2024 Ammonium, 24 HR, U 30 mmol/24 h Normal 15 - 56 [facility] Comment on above: Result Comment: NOTE ADDITIONAL INFORMATION This test has been modified from the jailor's instructions. Its performance characteristics were determined by [facility] in a manner consistent with CLIA requirements. This test has not been cleared or approved by the U.S. Food and Drug Administration. Performed By: #### C BCA, CMP, , 45149-2 #### [facility] ([id number]) [address] [place] [address] 60224 Body height 165 cm Normal [facility] Comment on above: Result Comment: Donell ected on 04/04 AT 0810: Previously reported as 165.1 Performed By: #### C BCA, CMP, , 16402-7 #### [facility] ([id number]) [address] [place] [address] 46092 Brushite Crystal NEG 2.34 Normal [facility] Comment on above: Result Comment: NOTE REFERENCE VALUE Reference Mean= -0.11 Performed By: #### C BCA, CMP, 87289-1, 82707-5 #### [facility] ([id number]) [address] [place] [address] 81515 Calcium Oxalate Crystal NEG 0.34 Normal Reference Mean= 1.59 [facility] Comment on above: Result Comment: NOTE PDF Report available at: [email or web address] Performed By: #### C BCA, CMP, , 57020-3 #### [facility] ([id number]) [address] [place] [address] 95543 Calcium, 24 HR, U 29 mg/24 h Normal <200 [facility] Comment on above: Performed By: #### C BCA, CMP, 92125-5, 81586-3 #### [facility] ([id number]) [address] [place] [address] 75072 Chloride, 24 HR, U 293 mmol/24 h High 34 - 286 [facility] Comment on above: Performed By: #### C BCA, CMP, , 12823-4 #### [facility] ([id number]) [address] [place] [address] 77638 Citrate Excretion, 24 HR, U 288 mg/24 h Low 314 - 1191 [facility] Comment on above: Result Comment: NOTE ADDITIONAL INFORMATION This test was developed and its performance characteristics determined by [facility] in a manner consistent with CLIA requirements. This test has not been cleared or approved by the U.S. Food and Drug Administration. Performed By: #### C BCA, CMP, , 33202-5 #### [facility] ([id number]) [address] [place] [address] Collection duration (U) 24 h Normal [facility] Comment on above: Performed By: #### C BCA, CMP, , 98627-8 #### [facility] ([id number]) [address] [place], [place] [address] Creatinine, 24 HR, U 1431 mg/24 h Normal 603 - 1783 [facility] Comment on above: Performed By: #### C TIERRA, CMP, , 25895-7 #### [facility] ([id number]) [address] [place], [place] [address] Hydroxyapatite Crystal 1.07 DG Normal Refer ence Mean= 3.62 [facility] Comment on above: Performed By: #### C BCA, CMP, , 73241-1 #### [facility] ([id number]) [address] [place], [place] [address] Interpretation See Note Normal [facility] Comment on above: Result Comment: NOTE [...] ready to review. Performed By: #### C BCA, CMP, , 53470-6 #### [facility] ([id number]) [address] [place] [address] Magnesium, 24 HR, U 73 mg/24 h Normal 51 - 269 [facility] Comment on above: Performed By: #### C BCA, CMP, , 69318-4 #### [facility] ([id number]) [address] [place] [address] Osmolality, 24 HR, U 717 mOsm/kg Normal 150 - 1150 [facility] Comment on above: Performed By: #### C BCA, CMP, , 65294-9 #### [facility] ([id number]) [address] [place] [address] 65293 Oxalate, (mg/24 HR) 27.3 mg/24 h Normal 9.7 - 40.5 [facility] Comment on above: Performed By: #### C BCA, CMP, , 27999-6 #### [facility] ([id number]) [address] [place] [address] 76087 Oxalate, (mmol/24 HR) 0.31 mmol/24 h Normal 0.11 - 0.4 6 [facility] Comment on above: Result Comment: NOTE ADDITIONAL INFORMATION This test was developed and its performance characteristics determined by [facility] in a manner consistent with CLIA requirements. This test has not been cleared or approved by the U.S. Food and Drug Administration. Performed By: #### C BCA, CMP, , 97113-3 #### [facility] ([id number]) [address] [place] [address] 90129 Patient Surface Area See Note Normal [facility] Comment on above: Result Comment: NOTE Adult values are not corrected for body surface area. Performed By: #### C BCA, CMP, , 21499-9 #### [facility] ([id number]) [address] [place] [address], [place] [address] pH, 24 HR, U 5.9 Normal 4.5 - 8.0 [facility] Comment on above: Performed By: #### C BCA, CMP, 96354-0, 52221-7 #### [facility] ([id number]) [address] [place] [address], [place] [address] Phosphorus, 24 HR, U 818 mg/24 h Normal 226 - 1797 [facility] Comment on above: Performed By: #### C BCA, CMP, , 35246-0 #### [facility] ([id number]) [address] [place] [address], [place] [address] Potassium, 24 HR, U 55 mmol/24 h Normal 16 - 105 [facility] Comment on above: Performed By: #### C BCA, CMP, , 43892-6 #### [facility] ([id number]) [address] [place] [address], [place] [address] Protein Catabolic Rate, 24 HR, U 76 g/24 h Normal 56 - 125 [facility] Comment on above: Performed By: #### C BCA, CMP, , 99035-4 #### [facility] ([id number]) [address] [place] [address], [place] [address] Sodium, 24 HR, U 340 mmol/24 h High 22 - 328 [facility] Comment on above: Performed By: #### C BCA, CMP, , 02839-6 #### [facility] ([id number]) [address] [place] [address], [place] [address] Sulfate, 24 HR, U 14 mmol/24 h Normal 7 - 47 [facility] Comment on above: Result Comment: NOTE ADDITIONAL INFORMATION This test was developed and its performance characteristics determined by [facility] in a manner consistent with CLIA requirements. This test has not been cleared or approved by the U.S. Food and Drug Administration. Performed By: #### C BCA, CMP, , 51200-9 #### [facility] ([id number]) [address] [place] [address] 91008 Urea Nitrogen, 24 HR, U 8.1 g/24 h Normal 7.0-42.0 [facility] Comment on above: Performed By: #### C BCA, CMP, , 80179-5 #### [facility] ([id number]) [address] [place] [address] 68735 Uric Acid Crystal 1.24 DG Normal Reference Mean= 0.89 [facility] Comment on above: Performed By: #### C BCA, CMP, , 46743-3 #### [facility] ([id number]) [address] [place] [address] 78341 Uric Acid, 24 HR, U 511 mg/24 h Normal 250 - 750 [facility] Comment on above: Performed By: #### C BCA, CMP, , 42258-7 #### [facility] [place][id number]) [address] [place] [address] 95332 Volume 1460 mL Normal [facility] Comment on above: Performed By: #### C BCA, CMP, , 32831-4 #### [facility] [place][id number]) [address] [place] [address] 54964 URINE VOLUME AND TIMEon 03-15 TIME 24 h Normal [facility] Comment on above: Performed By: #### C BCA, CMP, , 51647-0 #### [facility] [place][id number]) [address] [place] [address] 49804 TOTAL VOLUME 1460 mL Normal [facility] Comment on above: Performed By: #### C BCA, CMP, , 98498-9 #### [facility] [place] ([id number]) [address] [place] [address] 64579 CBC AND AUTO DIFFon 03-27-20 24 ABSOLUTE BASOPHIL 0.0 X10E9/L Normal 0.0-0.2 [facility] Comment on above: Performed By: #### C BCA, CMP, , 71099-4 #### [facility] [place] ([id number]) [address] [place] [address] 94821 ABSOLUTE NEUTROPHIL 3.8 X10E9/L Normal 1.5-6.6 [facility] Comment on above: Performed By: #### C BCA, CMP, , 29034-8 #### [facility] [place] ([id number]) [address] [place] [address] 12220 Basophils/100 WBC (Bld) 0.5 % Normal [facility] Comment on above: Performed By: #### C BCA, CMP, , 90575-5 #### [facility] [place] ([id number]) [address] [place] [address] 34686 Eosinophils (Bld) [#/Vol] 0.4 10*3/uL Normal 0.0-0.4 [facility] Comment on above: Performed By: #### C BCA, CMP, , 76496-4 #### [facility] [place] ([id number]) [address] [place] [address] 08789 Eosinophils/100 WBC (Bld) 6.3 % Normal [facility] Comment on above: Performed By: #### C BCA, CMP, , 41062-4 #### [facility] [place] ([id number]) [address] [place] [address] 03878 Erythrocyte distribution width (RBC) [Ratio] 14.2 % Normal 11.5-15.0 [facility] Comment on above: Performed By: #### C TIERRA CMP, , 78122-9 #### [facility] [place] ([id number]) [address] [place] [address] 26464 Hematocrit (Bld) [Volume fraction] 36.2 % Normal 35-47 [facility] Comment on above: Performed By: #### Festus MAYORGA CMP, , 55142-0 #### [facility] [place] ([id number]) [address] [place] [address] 41093 Hemoglobin (Bld) [Mass/Vol] 12.2 g/dL Normal 11.7-15.5 [facility] Comment on above: Performed By: #### C TIERRA CMP, , 73539-0 #### [facility] [place] ([id number]) [address] [place] [address] 13821 Lymphocytes (Bld) [#/Vol] 2.3 10*3/uL Normal 1.0-3.5 [facility] Comment on above: Performed By: #### C TIERRA, CMP, , 39275-0 #### [facility] [place] ([id number]) [address] [place] [address] 91687 Lymphocytes/100 WBC (Bld) 31.6 % Normal [facility] Comment on above: Performed By: #### C BCA, CMP, , 02741-2 #### [facility] [place] ([id number]) [address] [place] [address] 25337 MCH (RBC) [Entitic mass] 29.8 pg Normal 27-34 [facility] Comment on above: Performed By: #### C BCA, CMP, , 83468-2 #### [facility] [place] ([id number]) [address] [place] [address] 04556 MCHC (RBC) [Mass/Vol] 33.7 g/dL Normal 32-36 [facility] Comment on above: Performed By: #### C TIERRA CMP, , 26503-6 #### [facility] [place] ([id number]) [address] [place] [address] 53655 MCV (RBC) [Entitic vol] 89 fL Normal 80-100 [facility] Comment on above: Performed By: #### Festus MAYORGA, CMP, , 79944-1 #### [facility] [place] ([id number]) [address] [place] [address] 45064 Monocytes (Bld) [#/Vol] 0.6 10*3/uL Normal 0-0.9 [facility] Comment on above: Performed By: #### Festus MAYORGA CMP, , 50215-6 #### [facility] [place] ([id number]) [address] [place] [address] 03169 Monocytes/100 WBC (Bld) 8.4 % Normal [facility] Comment on above: Performed By: #### Festus MAYORGA, CMP, , 62305-8 #### [facility] [place] ([id number]) [address] [place] [address] 57994 Neutrophils/100 WBC (Bld) 53.2 % Normal [facility] Comment on above: Performed By: #### Festus MAYORGA, CMP, , 15356-2 #### [facility] [place] ([id number]) [address] [place] [address] 57276 Platelet mean volume (Bld) [Entitic vol] 8.6 fL Normal 7-12 [facility] Comment on above: Performed By: #### Festus BCA, CMP, , 43438-4 #### [facility] [place] ([id number]) [address] [place] [address] 53743 Platelets (Bld) [#/Vol] 285 10*3/uL Normal 150-450 [facility] Comment on above: Performed By: #### C BCA, CMP, , 95875-3 #### [facility] [place] ([id number]) [address] [place] [address] 03578 RBC COUNT 4.09 X10E12/L Normal 3.80-5.20 [facility] Comment on above: Performed By: #### C BCA, CMP, , 23586-5 #### [facility] [place] ([id number]) [address] [place] [address] 83055 WBC (Bld) [#/Vol] 7.1 10*3/uL Normal 4.0-11.0 [facility] Comment on above: Performed By: #### C BCA, CMP, , 86618-3 #### [facility] [place] ([id number]) [address] [place] [address] 78921 IRON PROFILEon 03-27-2024 Iron [Mass/Vol] 57 ug/dL Normal 50-170 [facility] Comment on above: Performed By: #### C BCA, CMP, , 97152-4 #### [facility] [place] ([id number]) [address] [place] [address] 74371 IRON BINDING 473 ug/dL High 250-425 [facility] Comment on above: Performed By: #### C BCA, CMP, , 29227-4 #### [facility] [place] ([id number]) [address] [place] [address] 69444 IRON SATURATION 12 % SATURATION Low 15-50 [facility] Comment on above: Performed By: #### C BCA, CMP, , 52817-4 #### [facility] [place] ([id number]) [address] [place] [address] 09326 FERRITINon 03-04-2024 Ferritin [Mass/Vol] 57 ng/mL Normal 11-307 [facility] Comment on above: Performed By: #### B MP, CBCA #### [facility] ([id number]) [address], [address] [address] Homocysteine [Moles/Vol]on 1 HOMOCYSTEINE 4.95 mcmol/L Normal 3.36-20.44 [facility] Comment on above: Performed By: #### B MP, CBCA #### [facility] ([id number]) [address], [facility] [address] [place] [address] IRON PROFILEon 03-04-2024 Iron [Mass/Vol] 70 ug/dL Normal 50-170 [facility] Comment on above: Performed By: #### B MP, CBCA #### [facility] ([id number]) [address], [address] [address] IRON BINDING 514 ug/dL High 250-425 [facility] Comment on above: Performed By: #### B MP, CBCA #### [facility] ([id number]) [address], [address] [address] IRON SATURATION 14 % SATURATION Low 15-50 [facility] Comment on above: Performed By: #### B MP, CBCA #### [facility] ([id number]) [address] [address] [place] [address] Methylmalonate [Moles/Vol]on 03-04-2024 Methylmalonic Acid, QN, P 0.14 nmol/mL Normal <=0.40 [facility] Comment on above: Result Comment: NOTE ADDITIONAL INFORMATION This test was developed and its performance characteristics determined by [facility] in a manner consistent with CLIA requirements. This test has not been cleared or approved by the U.S. Food and Drug Administration. Test Performed by: [facility] - [address] [address] [place] Supervisor: Jose Schmitz Ph.D.; CLIA# [id number] Performed By: #### B EDOUARD, CBCA #### [facility] ([id number]) [address], [address] [place] [address] VITAMIN B12on 03-04-2024 Cobalamin (Vitamin B12) [Mass/Vol] 669 pg/mL Normal 180-914 [facility] Comment on above: Performed By: #### B EDOUARD, CBCA #### [facility] ([id number]) [address], [address] [place] [address] CBC AND AUTO DIFFon 02-06-20 ABSOLUTE BASOPHIL 0.0 X10E9/L Normal 0.0-0.2 [facility] Comment on above: Performed By: #### B EDOUARD, CBCA #### [facility] ([id number]) [address], [address] [place] [address] ABSOLUTE NEUTROPHIL 4.4 X10E9/L Normal 1.5-6.6 [facility] Comment on above: Performed By: #### B EDOUARD, CBCA #### [facility] ([id number]) [address], [address] [place] [address] Basophils/100 WBC (Bld) 0.3 % Normal [facility] Comment on above: Performed By: #### B MP, CBCA #### [facility] ([id number]) [address] [address] [place] [address] Eosinophils (Bld) [#/Vol] 0.7 10*3/uL High 0.0-0.4 [facility] Comment on above: Performed By: #### B MP, CBCA #### [facility] ([id number]) [address], [address] [place] [address] Eosinophils/100 WBC (Bld) 7.6 % Normal [facility] Comment on above: Performed By: #### B EDOUARD, CBCA #### [facility] ([id number]) [address], [address] [place] [address] Erythrocyte distribution width (RBC) [Ratio] 14.4 % Normal 11.5-15.0 [facility] Comment on above: Performed By: #### B EDOUARD, CBCA #### [facility] ([id number]) [address] [address] [place] [address] Hematocrit (Bld) [Volume fraction] 36.0 % Normal 35-47 [facility] Comment on above: Performed By: #### B EDOUARD, CBCA #### [facility] ([id number]) [address] [address] [place] [address] Hemoglobin (Bld) [Mass/Vol] 12.3 g/dL Normal 11.7-15.5 [facility] Comment on above: Performed By: #### B EDOUARD, CBCA #### [facility] ([id number]) [address], [facility] [address] [place] [address] Lymphocytes (Bld) [#/Vol] 2.9 10*3/uL Normal 1.0-3.5 [facility] Comment on above: Performed By: #### B EDOUARD, CBCA #### [facility] ([id number]) [address], [address] [place] [address] Lymphocytes/100 WBC (Bld) 33.5 % Normal [facility] Comment on above: Performed By: #### B EDOUARD, CBCA #### [facility] ([id number]) [address] [address] [place] [address] MCH (RBC) [Entitic mass] 29.9 pg Normal 27-34 [facility] Comment on above: Performed By: #### B EDOUARD, CBCA #### [facility] ([id number]) [address], [address] [place] [address] MCHC (RBC) [Mass/Vol] 34.2 g/dL Normal 32-36 [facility] Comment on above: Performed By: #### B MP, CBCA #### [facility] ([id number]) [address], [address] [place] [address] MCV (RBC) [Entitic vol] 87 fL Normal 80-100 [facility] Comment on above: Performed By: #### B MP, CBCA #### [facility] ([id number]) [address], [address] [place] [address] Monocytes (Bld) [#/Vol] 0.6 10*3/uL Normal 0-0.9 [facility] Comment on above: Performed By: #### B MP, CBCA #### [facility] ([id number]) [address], [address] [place] [address] Monocytes/100 WBC (Bld) 7.4 % Normal [facility] Comment on above: Performed By: #### B MP, CBCA #### [facility] ([id number]) [address], [address] [place] [address] Neutrophils/100 WBC (Bld) 51.2 % Normal [facility] Comment on above: Performed By: #### B MP, CBCA #### [facility] ([id number]) [address], [address] [place] [address] Platelet mean volume (Bld) [Entitic vol] 8.8 fL Normal 7-12 [facility] Comment on above: Performed By: #### B MP, CBCA #### [facility] ([id number]) [address], [address] [place] [address] Platelets (Bld) [#/Vol] 308 10*3/uL Normal 150-450 [facility] Comment on above: Performed By: #### B MP, CBCA #### [facility] ([id number]) [address], [address] [place] [address] RBC COUNT 4.12 X10E12/L Normal 3.80-5.20 [facility] Comment on above: Performed By: #### B MP, CBCA #### [facility] ([id number]) [address], [address] [place] [address] WBC (Bld) [#/Vol] 8.6 10*3/uL Normal 4.0-11.0 [facility] Comment on above: Performed By: #### B MP, CBCA #### [facility] ([id number]) [address], [address] [place] [address] CBC auto differentialon 01-14 Basophils (Bld) [#/Vol] 0.0 10*3/uL [facility] Basophils/100 WBC (Bld) 0.3 % [facility] Eosinophils (Bld) [#/Vol] 0.7 10*3/uL High [facility] Eosinophils/100 WBC (Bld) 7.6 % [facility] Erythrocyte distribution width (RBC) [Ratio] 14.4 % 11.5 - 15.0 % [facility] Hematocrit (Bld) [Volume fraction] 36.0 % 35 - 47 % [facility] Hemoglobin (Bld) [Mass/Vol] 12.3 g/dL 11.7 - 15.5 g/dL [facility] Interpretation and review of laboratory results Abnormal [facility] Lymphocytes (Bld) [#/Vol] 2.9 10*3/uL [facility] Lymphocytes/100 WBC (Bld) 33.5 % [facility] MCH (RBC) [Entitic mass] 29.9 pg 27 - 34 pg [facility] MCHC (RBC) [Mass/Vol] 34.2 g/dL 32 - 36 g/dL [facility] MCV (RBC) [Entitic vol] 87 fL 80 - 100 fL [facility] Monocytes (Bld) [#/Vol] 0.6 10*3/uL [facility] Monocytes/100 WBC (Bld) 7.4 % [facility] Neutrophils (Bld) [#/Vol] 4.4 10*3/uL [facility] Neutrophils/100 WBC (Bld) 51.2 % [facility] Platelet mean volume (Bld) [Entitic vol] 8.8 fL 7 - 12 fL [facility] Platelets (Bld) [#/Vol] 308 10*3/uL [facility] RBC (Bld) [#/Vol] 4.12 10*6/uL [facility] WBC corrected for nucl RBC Auto (Bld) [#/Vol] 8.6 [facility] COMPREHENSIVE METABOLIC PANE Dayron 02-06-2024 Albumin [Mass/Vol] 4.3 g/dL Normal 3.2-5.3 [facility] Comment on above: Performed By: #### B EDOUARD CBCA #### [facility] ([id number]) [address], [address] [place] [address] ALP [Catalytic activity/Vol] 60 U/L Normal 39-130 [facility] Comment on above: Performed By: #### B EDOUARD CBCA #### [facility] ([id number]) [address] [place] [address] ALT [Catalytic activity/Vol] 41 U/L High 0-31 [facility] Comment on above: Performed By: #### B EDOUARD CBCA #### [facility] ([id number]) [address], [address] [place] [address] Anion gap [Moles/Vol] 12 mmol/L Normal 5-15 [facility] Comment on above: Performed By: #### B EDOUARD CBCA #### [facility] ([id number]) [address], [address] [place] [address] AST [Catalytic activity/Vol] 27 U/L Normal 0-41 [facility] Comment on above: Performed By: #### B EDOUARD CBCA #### [facility] ([id number]) [address] [address] [place] [address] Bilirubin [Mass/Vol] 0.2 mg/dL Low 0.3-1.2 [facility] Comment on above: Performed By: #### B EDOUARD CBCA #### [facility] ([id number]) [address] [address] [place] [address] Calcium [Mass/Vol] 9.4 mg/dL Normal 8.5-10.5 [facility] Comment on above: Performed By: #### B EDOUARD CBCA #### [facility] ([id number]) [address] [address] [place] [address] Chloride [Moles/Vol] 103 mmol/L Normal 98-109 [facility] Comment on above: Performed By: #### B EDOUARD CBCA #### [facility] ([id number]) [address] [address] [place] [address] CO2 [Moles/Vol] 23 mmol/L Normal 22-32 [facility] Comment on above: Performed By: #### B EDOUARD CBCA #### [facility] ([id number]) [address] [address] [place] [address] Creatinine [Mass/Vol] 0.72 mg/dL Normal 0.40-1.00 [facility] Comment on above: Result Comment: METH OD TRACEABLE TO IDMS STANDARD Performed By: #### B EDOUARD CBCA #### [facility] ([id number]) [address] [address] [place] [address] eGFR (CKD-EPI) NON-RACE DEPENDENT >90 Normal >59 [facility] Comment on above: Result Comment: Reported eGFR is based on the CKD-EPI 2020 equation that does not use a race coefficient. Performed By: #### B MP, CBCA #### [facility] ([id number]) [address], [address] [place] [address] Glucose [Mass/Vol] 108 mg/dL High 65-99 [facility] Comment on above: Performed By: #### B EDOUARD, CBCA #### [facility] ([id number]) [address], [address] [place] [address] Potassium [Moles/Vol] 4.8 mmol/L Normal 3.5-5.0 [facility] Comment on above: Performed By: #### B EDOUARD, CBCA #### [facility] ([id number]) [address], [address] [place] [address] Protein [Mass/Vol] 7.3 g/dL Normal 6.0-8.0 [facility] Comment on above: Performed By: #### B EDOUARD CBCA #### [facility] ([id number]) [address], [address] [place] [address] Sodium [Moles/Vol] 138 mmol/L Normal 134-146 [facility] Comment on above: Performed By: #### B EDOUARD, CBCA #### [facility] ([id number]) [address], [address] [place] [address] Urea nitrogen [Mass/Vol] 17 mg/dL Normal 5-23 [facility] Comment on above: Performed By: #### B EDOUARD CBCA #### [facility] ([id number]) [address], [address] [place] [address] Comprehensive metabolic pane dayron 02-06-2024 Albumin [Mass/Vol] 4.3 g/dL 3.2 - 5.3 g/dL [facility] ALP [Catalytic activity/Vol] 60 U/L 39 - 130 U/L [facility] ALT No additional P-5'-P [Catalytic activity/Vol] 41 U/L High 0 - 31 U/L [facility] Anion gap [Moles/Vol] 12 mmol/L 5 - 15 mmol/L [facility] AST [Catalytic activity/Vol] 27 U/L 0 - 41 U/L [facility] Bilirubin [Mass/Vol] 0.2 mg/dL Low 0.3 - 1 .2 mg/dL [facility] Calcium [Mass/Vol] 9.4 mg/dL 8.5 - 10. 5 mg/dL [facility] Chloride [Moles/Vol] 103 mmol/L 98 - 10 9 mmol/L [facility] CO2 [Moles/Vol] 23 mmol/L 22 - 32 mmol/L [facility] Creatinine [Mass/Vol] 0.72 mg/dL 0.40 - 1.00 mg/dL [facility] Comment on above: METHOD TRACEABLE TO [facility] STANDARD eGFR (CKD-EPI)non-race dependent - PINF [facility] Comment on above: Reported eGFR is based on the CKD-EPI 2020 equation that does not use a race coefficient. Glucose [Mass/Vol] 108 mg/dL High 65 - 99 mg/dL [facility] Potassium [Moles/Vol] 4.8 mmol/L 3.5 - 5.0 mmol/L [facility] Protein [Mass/Vol] 7.3 g/dL 6.0 - 8.0 g/dL [facility] Sodium [Moles/Vol] 138 mmol/L 134 - 146 mmol/L [facility] Urea nitrogen [Mass/Vol] 17 mg/dL 5 - 23 mg/dL [facility] FREE T4on 02-06-2024 Free T4 [Mass/Vol] 0.86 ng/dL Normal 0.61-1.60 [facility] Comment on above: Performed By: #### B EDOUARD CBCA #### [facility] ([id number]) [address] [facility] [facility] [place] [address] Free T4 [Mass/Vol]on 024 [facility] IRON PROFILEon 02-06-2024 Iron [Mass/Vol] 55 ug/dL Normal 50-170 [facility] Comment on above: Performed By: #### B EDOUARD, CBCA #### [facility] ([id number]) [address] [place] [address] IRON BINDING 533 ug/dL High 250-425 [facility] Comment on above: Performed By: #### B EDOUARD, CBCA #### [facility] ([id number]) [address], [address] [place] [address] IRON SATURATION 10 % SATURATION Low 15-50 [facility] Comment on above: Performed By: #### B EDOUARD, CBCA #### [facility] ([id number]) [address], [address] [place] [address] Iron and TIBCon 02-06-2024 Iron [Mass/Vol] 55 ug/dL 50 - 170 ug/dL [facility] Iron binding capacity [Mass/Vol] 533 ug/dL High 250 - 425 ug/dL [facility] Iron saturation [Mass fraction] 10 Low [facility] No Panel Informationon 02-05 Interpretation and review of laboratory results Abnormal [facility] T4, freeon 02-06-2024 Free T4 [Mass/Vol] 0.86 ng/dL 0.61 - 1. 60 ng/dL [facility] TSHon 02-06-2024 TSH Qn 3.04 m[IU]/L [facility] TSH Qnon 02-06-2024 [facility] TSH 3.04 uIU/mL Normal 0.49-4.67 [facility] Comment on above: Performed By: #### B EDOUARD, CBCA #### [facility] ([id number]) [address], [address] [place] [address] MR BRAIN WO CONTon MR BRAIN WO [...] and configuration. There is normal differentiation of aci and white matters. Diffusion-weighted study demonstrates no [...] Benson Rubin MD on 01/24/2024 12:57 PM Normal [facility] MR CERVICAL SPINE WO CONTon 01-24-2024 MR [...] Rubin MD on 01/24/2024 12:59 PM Normal [facility] US PELVISon 01-10-2024 US PELVIS TITLE [...] 01-09-2024 ANTI-MARCUM AB IGG <0.2 Normal <1.0 [facility] Comment on above: Performed By: #### B EDOUARD CBCA #### [facility] ([id number]) [address], [address] [place] [address] JO1 ANTIBODY <0.2 Normal <1.0 [facility] Comment on above: Performed By: #### B EDOUARD CBCA #### [facility] ([id number]) [address], [address] [place] [address] [employer] ANTIBODY IGG 0.6 AI Normal <1.[address] [facility] Comment on above: Performed By: #### B EDOUARD CBCA #### [facility] ([id number]) [address], [address] [place] [address] SCL 70 ANTIBODY <0.2 Normal <1.0 [facility] Comment on above: Performed By: #### B EDOUARD CBCA #### [facility] ([id number]) [address], [address] [place] [address] SSA ANTIBODY <0.2 Normal <1.0 [facility] Comment on above: Performed By: #### B MP, CBCA #### [facility] ([id number]) [address] [address] [place] [address] SSB ANTIBODY <0.2 Normal <1.0 [facility] Comment on above: Performed By: #### B MP, CBCA #### [facility] ([id number]) [address] [address] FREE T4on 01-09-2024 Free T4 [Mass/Vol] 0.73 ng/dL Normal 0.61-1.60 [facility] Comment on above: Performed By: #### B MP, CBCA #### [facility] ([id number]) [address] [address] HGB A1C (GLYCO-HGB)on 2023 Glucose [Mass/Vol] 123 mg/dL Normal [facility] Comment on above: Performed By: #### E NAP, SPE, TSHR, 3023-11, 2132-01, 29148-2, HA1C, 95858-8, SIFE #### [facility] ([id number]) [address] [address] HbA1c (Bld) [Mass fraction] 5.9 % High 4.4-5.6 [facility] Comment on above: Result Comment: NOTE ADA Guidelines Result HgbA1c Normal : less than 5.7 % Prediabetes : 5.7 % to 6.4 % Diabetes : > 6.4 % Use with caution in patients with abnormal hemoglobin variants as the half-life of red blood cells and in vivo glycation rates are affected. Performed By: #### E NAP, SPE, TSHR, 7, 2132-01, 98780-6, HA, 28887-6, SIFE #### [facility] ([id number]) [address] [place] [address], [address] [place] [address] HIV 1+2 Ab+HIV1 p24 Ag IA Ql on 01-09-2024 HIV 1 and 2 Ab/Ag Screen Non-Reactive Normal NRCT [facility] Comment on above: Result Comment: This information [...] By: #### E NAP, SPE, TSHR, 3024-7, 2132-01, 81559-6, HA1C, 12053-7, SIFE #### [facility] ([id number]) [address] [place] [address], [address] [place] [address] Homocysteine [Moles/Vol]on 01-09-2024 HOMOCYSTEINE 6.25 mcmol/L Normal 3.36-20.44 [facility] Comment on above: Performed By: #### 1 3965-9 #### [facility] ([id number]) [address] [place] [address], [address] [place] [address] Methylmalonate [Moles/Vol]on 01-09-2024 Methylmalonic Acid, QN, P 0.22 nmol/mL Normal <=0.40 [facility] Comment on above: Result Comment: NOTE ADDITIONAL INFORMATION This test was developed and its performance characteristics determined by [facility] in a manner consistent with CLIA requirements. This test has not been cleared or approved by the U.S. Food and Drug Administration. Test Performed by: [place] [address] So[place] Pits Supervisor: Jose Schmitz Ph.D.; CLIA# [id number] Performed By: #### B EDOUARD, CBCA #### [facility] ([id number]) [address] [address] SERUM IMMUNOFIXATIONon 01-08 IgA [Mass/Vol] mg/dL Low 68-378 [facility] Comment on above: Performed By: #### Romeo NUNN, CBCA #### [facility] ([id number]) [address] [address] IgG [Mass/Vol] 1004 mg/dL Normal 635-1741 [facility] Comment on above: Performed By: #### Romeo NUNN, CBCA #### [facility] ([id number]) [address], [address] [address] IgM [Mass/Vol] 60 mg/dL Normal 45-281 [facility] Comment on above: Performed By: #### Romeo NUNN, CBCA #### [facility] ([id number]) [address], [address] [address] IMMUNE PROFILE INTERP Unremarkable patte rn and quantitation, no monoclonal bands. Normal [facility] Comment on above: Performed By: #### Romeo NUNN, CBCA #### [facility] ([id number]) [address], [address] [address] SERUM PROTEIN ELECTROPHORESI Son 01-09-2024 Albumin [Mass/Vol] 3.9 g/dL Normal 3.4-5.3 [facility] Comment on above: Performed By: #### E NAP, SPE, TSHR, 3024-7, 2132-9, 00861-6, HA1C, 49972-2, SIFE #### [facility] ([id number]) [address], [address] [place] [address] ALPHA 1 GLOBULIN 0.4 g/dL Normal 0.1-0.[address] [facility] Comment on above: Performed By: #### E NAP, SPE, TSHR, 3024-7, 2131-9, 10841-6, HA1C, 60574-7, SIFE #### [facility] ([id number]) [address], [address] [place] [address] ALPHA 2 GLOBULIN 1.0 g/dL Normal 0.4-1.[address] [facility] Comment on above: Performed By: #### E NAP, SPE, TSHR, 4-7, 2131-9, 85879-1, HA1C, 04511-9, SIFE #### [facility] ([id number]) [address], [address] [place] [address] BETA GLOBULIN 0.8 g/dL Normal 0.5-1.2 [facility] Comment on above: Performed By: #### E NAP, SPE, TSHR, 4-7, 2131-9, 40351-5, HA1C, 59644-9, SIFE #### [facility] ([id number]) [address], [address] [place] [address] GAMMA GLOBULIN 0.9 g/dL Normal 0.5-1.6 [facility] Comment on above: Performed By: #### E NAP, SPE, TSHR, 3024-7, 2131-9, 24594-4, HA1C, 54319-6, SIFE #### [facility] ([id number]) [address], [address] [place] [address] PROT. ELECTROPHORESIS INTERP Unremarkable protein distribution, no monoclonal bands. Normal [facility] Comment on above: Performed By: #### E NAP, SPE, TSHR, 3024-7, 2-9, 80103-2, HA1C, 31136-4, SIFE #### [facility] ([id number]) [address], [address] [place] [address] Protein [Mass/Vol] 7.0 g/dL Normal 6.0-8.0 [facility] Comment on above: Performed By: #### E NAP, SPE, TSHR, 3023-7, 2132-01, 02254-7, HA1C, 80631-9, SIFE #### [facility] ([id number]) [address], [address] [address] T. pallidum IgG+IgM IA Ql (S )on 01-09-2024 Syphilis Total <0.2 Normal 0.0-0.8 [facility] Comment on above: Result Comment: NON REACTIVE No serologic evidence of infection to Treponema pallidum (syphilis). Repeat testing may be considered in patients with suspected acute or primary syphilis in 2 to 4 weeks. Performed By: #### B MP, CBCA #### [facility] ([id number]) [address], [address] [address] TSH WITH REFLEXon 01-09-2024 TSH 5.61 uIU/mL High 0.49-4.67 [facility] Comment on above: Performed By: #### E NAP, SPE, TSHR, 3023-11, 2132-01, 74656-6, HA1C, 98145-8, SIFE #### [facility] ([id number]) [address], [address] [address] VITAMIN B12on 01-09-2024 Cobalamin (Vitamin B12) [Mass/Vol] 179 pg/mL Low 180-914 [facility] Comment on above: Performed By: #### E NAP, SPE, TSHR, 3023-7, 2132-01, 17465-0, HA1C, 81888-6, SIFE #### [facility] ([id number]) [address] [address] [place] [address] US PELVIS TRANSVAGINALon US PELVIS TRANSVAGINAL FINDINGS: [...] 3V*on 024 XR foot LT min 3V* [facility] Main [place] [address] [place] [address] XRay Report Signed Patient: Tere Adamson MR#: [id number] : 1980 Acct:[id number] Age/Sex: 43 / F ADM Date: 11/22/23 Loc: ER Room: Type: [facility] ER Attending Dr: Copies to: Zhen Geronimo [...] Bety Grant M.D.11/22/2023 6:04 PM Dictation Location: [place] [address] Transcribed By: [facility] 11/22/231803 Dictated By: Bety Grant MD 11/22/231801 Signed By: 11/22/231803 Normal [facility] BASIC METABOLIC PANLon 11-20 Anion gap [Moles/Vol] 13 mmol/L Normal 5-15 [facility] Comment on above: Performed By: #### B RACHELLE NUNN #### [facility] ([id number]) [address], [address] [place] [address] Calcium [Mass/Vol] 9.3 mg/dL Normal 8.5-10.5 [facility] Comment on above: Performed By: #### B EDOUARD CBCA #### [facility] ([id number]) [address], [address] [place] [address] Chloride [Moles/Vol] 100 mmol/L Normal 98-109 [facility] Comment on above: Performed By: #### B RACHELLE NUNN #### [facility] ([id number]) [address], [address] [place] [address] CO2 [Moles/Vol] 24 mmol/L Normal 22-32 [facility] Comment on above: Performed By: #### B RACHELLE NUNN #### [facility] ([id number]) [address], [address] [place] [address] Creatinine [Mass/Vol] 0.76 mg/dL Normal 0.40-1.00 [facility] Comment on above: Result Comment: METH OD TRACEABLE TO IDMS STANDARD Performed By: #### B RACHELLE NUNN #### [facility] ([id number]) [address], [address] [place] [address] eGFR (CKD-EPI) NON-RACE DEPENDENT >90 Normal >59 [facility] Comment on above: Result Comment: Reported eGFR is based on the CKD-EPI 2020 equation that does not use a race coefficient. Performed By: #### B EDOUARD CBCA #### [facility] ([id number]) [address], [address] [place] [address] Glucose [Mass/Vol] 104 mg/dL High 65-99 [facility] Comment on above: Performed By: #### B MP, CBCA #### [facility] ([id number]) [address] [address] [place] [address] Potassium [Moles/Vol] 3.9 mmol/L Normal 3.5-5.0 [facility] Comment on above: Performed By: #### B MP, CBCA #### [facility] ([id number]) [address], [address] [place] [address] Sodium [Moles/Vol] 137 mmol/L Normal 134-146 [facility] Comment on above: Performed By: #### B MP, CBCA #### [facility] ([id number]) [address] [address] [place] [address] Urea nitrogen [Mass/Vol] 16 mg/dL Normal 5-23 [facility] Comment on above: Performed By: #### B MP, CBCA #### [facility] ([id number]) [address], [address] [place] [address] CBC AND AUTO DIFFon 11-21-19 24 ABSOLUTE BASOPHIL 0.1 X10E9/L Normal 0.0-0.2 [facility] Comment on above: Performed By: #### B MP, CBCA #### [facility] ([id number]) [address] [address] [place] [address] ABSOLUTE NEUTROPHIL 10.1 X10E9/L High 1.5-6.6 [facility] Comment on above: Performed By: #### B MP, CBCA #### [facility] ([id number]) [address] [address] [place] [address] Basophils/100 WBC (Bld) 0.4 % Normal [facility] Comment on above: Performed By: #### B MP, CBCA #### [facility] ([id number]) [address] [place] [address] Eosinophils (Bld) [#/Vol] 0.3 10*3/uL Normal 0.0-0.4 [facility] Comment on above: Performed By: #### B MP, CBCA #### [facility] ([id number]) [address], [facility] [address] [place] [address] Eosinophils/100 WBC (Bld) 2.1 % Normal [facility] Comment on above: Performed By: #### B MP, CBCA #### [facility] ([id number]) [address] [address] [place] [address] Erythrocyte distribution width (RBC) [Ratio] 14.3 % Normal 11.5-15.0 [facility] Comment on above: Performed By: #### B MP, CBCA #### [facility] ([id number]) [address] [address] [place] [address] Hematocrit (Bld) [Volume fraction] 37.6 % Normal 35-47 [facility] Comment on above: Performed By: #### B EDOUARD, CBCA #### [facility] ([id number]) [address] [address] [place] [address] Hemoglobin (Bld) [Mass/Vol] 13.2 g/dL Normal 11.7-15.5 [facility] Comment on above: Performed By: #### B MP, CBCA #### [facility] ([id number]) [address] [address] [place] [address] Lymphocytes (Bld) [#/Vol] 2.9 10*3/uL Normal 1.0-3.5 [facility] Comment on above: Performed By: #### B MP, CBCA #### [facility] ([id number]) [address] [address] [place] [address] Lymphocytes/100 WBC (Bld) 20.0 % Normal [facility] Comment on above: Performed By: #### B MP, CBCA #### [facility] ([id number]) [address], [address] [place] [address] MCH (RBC) [Entitic mass] 30.2 pg Normal 27-34 [facility] Comment on above: Performed By: #### B MP, CBCA #### [facility] ([id number]) [address], [address] [place] [address] MCHC (RBC) [Mass/Vol] 35.0 g/dL Normal 32-36 [facility] Comment on above: Performed By: #### B MP, CBCA #### [facility] ([id number]) [address], [address] [place] [address] MCV (RBC) [Entitic vol] 86 fL Normal 80-100 [facility] Comment on above: Performed By: #### B MP, CBCA #### [facility] ([id number]) [address], [address] [place] [address] Monocytes (Bld) [#/Vol] 0.9 10*3/uL Normal 0-0.9 [facility] Comment on above: Performed By: #### B MP, CBCA #### [facility] ([id number]) [address], [address] [place] [address] Monocytes/100 WBC (Bld) 6.6 % Normal [facility] Comment on above: Performed By: #### B MP, CBCA #### [facility] ([id number]) [address], [address] [place] [address] Neutrophils/100 WBC (Bld) 70.9 % Normal [facility] Comment on above: Performed By: #### B MP, CBCA #### [facility] ([id number]) [address], [address] [place] [address] Platelet mean volume (Bld) [Entitic vol] 8.6 fL Normal 7-12 [facility] Comment on above: Performed By: #### B MP, CBCA #### [facility] ([id number]) [address], [address] [place] [address] Platelets (Bld) [#/Vol] 319 10*3/uL Normal 150-450 [facility] Comment on above: Performed By: #### B MP, CBCA #### [facility] ([id number]) [address], [facility] [address] [place] [address] RBC COUNT 4.36 X10E12/L Normal 3.80-5.20 [facility] Comment on above: Performed By: #### B MP, CBCA #### [facility] ([id number]) [address], [facility] [address] [place] [address] WBC (Bld) [#/Vol] 14.3 10*3/uL High 4.0-11.0 [facility] Comment on above: Performed By: #### B MP, CBCA #### [facility] ([id number]) [address], [facility] [address] [place] [address] Glucose Glucometer (dC) [M ass/Vol]on 11-21-2023 Glucose [Mass/Vol] 113 mg/dL High 65-99 [facility] XR FOOT LT MIN 3 VWSon [...] Buddy Cat DO on 11/21/2023 10:13 PM Eduardo Avalos MD have personally reviewed the image(s) and agree with and/or edited the report Finalized by Eduardo Babb MD on 11/21/2023 10:21 PM Normal [facility] US PELVIS TRANSVAGINALon US PELVIS TRANSVAGINAL FINDINGS: [...] width (RBC) [Ratio] 14.6 % Normal 11.5-15.0 [facility] Comment on above: Performed By: #### C ROQUE MAYORGA, , 59566-2 #### [facility] ([id number]) [address] [place] [address] Hematocrit (Bld) [Volume fraction] 35.7 % Normal 35-47 [facility] Comment on above: Performed By: #### C TIERRA CMP, , 02299-6 #### [facility] ([id number]) [address] [place] [address] Hemoglobin (Bld) [Mass/Vol] 12.1 g/dL Normal 11.7-15.5 [facility] Comment on above: Performed By: #### C TIERRA CMP, , 28403-2 #### [facility] ([id number]) [address] [place] [address] MCH (RBC) [Entitic mass] 28.8 pg Normal 27-34 [facility] Comment on above: Performed By: #### C TIERRA CMP, , 80755-6 #### [facility] ([id number]) [address] [place] [address] MCHC (RBC) [Mass/Vol] 33.8 g/dL Normal 32-36 [facility] Comment on above: Performed By: #### C BCA, CMP, , 72582-5 #### [facility] ([id number]) [address] [place] [address] MCV (RBC) [Entitic vol] 85 fL Normal 80-100 [facility] Comment on above: Performed By: #### C BCA, CMP, , 91519-0 #### [facility] ([id number]) [address] [place] [address] Platelet mean volume (Bld) [Entitic vol] 8.0 fL Normal 7-12 [facility] Comment on above: Performed By: #### C BCA, CMP, , 75087-2 #### [facility] ([id number]) [address] [place] [address] Platelets (Bld) [#/Vol] 323 10*3/uL Normal 150-450 [facility] Comment on above: Performed By: #### C BCA, CMP, , 48390-4 #### [facility] ([id number]) [address] [place] [address] RBC COUNT 4.20 X10E12/L Normal 3.80-5.20 [facility] Comment on above: Performed By: #### C BCA, CMP, , 95003-0 #### [facility] ([id number]) [address] [place] [address] WBC (Bld) [#/Vol] 9.5 10*3/uL Normal 4.0-11.0 [facility] Comment on above: Performed By: #### C BCA, CMP, , 21816-1 #### [facility] ([id number]) [address] [place] [address] COMPREHENSIVE METABOLIC PANE Dayron 09-27-2023 Albumin [Mass/Vol] 3.9 g/dL Normal 3.2-5.3 [facility] Comment on above: Performed By: #### C BCA, CMP, , 83254-2 #### [facility] ([id number]) [address] [place] [address] ALP [Catalytic activity/Vol] 89 U/L Normal 39-130 [facility] Comment on above: Performed By: #### C BCA, CMP, , 56034-7 #### [facility] ([id number]) [address] [place] [address] ALT [Catalytic activity/Vol] 29 U/L Normal 0-31 [facility] Comment on above: Performed By: #### C BCA, CMP, , 68279-8 #### [facility] ([id number]) [address] [place] [address] Anion gap [Moles/Vol] 11 mmol/L Normal 5-15 [facility] Comment on above: Performed By: #### C BCA, CMP, , 66091-1 #### [facility] ([id number]) [address] [place] [address] AST [Catalytic activity/Vol] 19 U/L Normal 0-41 [facility] Comment on above: Performed By: #### C BCA, CMP, , 07780-0 #### [facility] ([id number]) [address] [place] [address] Bilirubin [Mass/Vol] 0.4 mg/dL Normal 0.3-1.2 [facility] Comment on above: Performed By: #### C BCA, CMP, , 09729-6 #### [facility] ([id number]) [address] [place] [address] Calcium [Mass/Vol] 8.8 mg/dL Normal 8.5-10.5 [facility] Comment on above: Performed By: #### C BCA, CMP, , 14852-8 #### [facility] ([id number]) [address] [place] [address] Chloride [Moles/Vol] 99 mmol/L Normal 98-109 [facility] Comment on above: Performed By: #### C BCA, CMP, , 52633-0 #### [facility] ([id number]) [address] [place] [address] CO2 [Moles/Vol] 26 mmol/L Normal 22-32 [facility] Comment on above: Performed By: #### C BCA, CMP, , 45864-8 #### [facility] ([id number]) [address] [place] [address] Creatinine [Mass/Vol] 0.93 mg/dL Normal 0.40-1.00 [facility] Comment on above: Result Comment: METH OD TRACEABLE TO IDMS STANDARD Performed By: #### C BCA, CMP, , 63177-5 #### [facility] ([id number]) [address] [place] [address] GFR/1.73 sq M.predicted among non-blacks MDRD (S/P/Bld) [Vol rate/Area] 79 mL/min/{1.73_m2} Normal >59 [facility] Comment on above: Result Comment: Reported eGFR is based on the CKD-EPI 2020 equation that does not use a race coefficient. Performed By: #### C BCA, CMP, , 39364-9 #### [facility] ([id number]) [address] [place] [address] Glucose [Mass/Vol] 99 mg/dL Normal 65-99 [facility] Comment on above: Performed By: #### C BCA, CMP, , 50823-7 #### [facility] ([id number]) [address] [place] [address] Potassium [Moles/Vol] 3.9 mmol/L Normal 3.5-5.0 [facility] Comment on above: Performed By: #### C BCA, CMP, , 26634-9 #### [facility] ([id number]) [address] [place] [address] Protein [Mass/Vol] 7.6 g/dL Normal 6.0-8.0 [facility] Comment on above: Performed By: #### C BCA, CMP, , 25906-8 #### [facility] ([id number]) [address] [place] [address] Sodium [Moles/Vol] 136 mmol/L Normal 134-146 [facility] Comment on above: Performed By: #### C BCA, CMP, , 46365-0 #### [facility] ([id number]) [address] [place] [address] Urea nitrogen [Mass/Vol] 13 mg/dL Normal 5-23 [facility] Comment on above: Performed By: #### C BCA, CMP, , 35575-9 #### [facility] ([id number]) [address] [place] [address] ABDOMEN AND PELVIS W CONT on [...] Ott MD on 09/27/2023 10:55 PM Normal [facility] LIPASEon 09-27-2023 Lipase [Catalytic activity/Vol] 41 U/L High 17-40 [facility] Comment on above: Performed By: #### C BCA, [facility], 66927-1, 29947-8 #### [facility] ([id number]) [address] [place] [address], [place] [address] URINE CULTUREon 09-27-2023 Bacteria identified Cx Nom [...] TOBRAMYCIN S <=1 F TRIMETH/SULFAMETHOXAZ OLE S <=/ F Susceptible [facility] Comment on above: Performed By: #### C TIERRA, CMP, , 14097-7 #### [facility] ([id number]) [address] [place] [address] URN MACROSCOPIC NURon 2023 BILIRUBIN MARGE Negative Normal NEG [facility] Comment on above: Performed By: #### C TIERRA, CMP, , 30073-0 #### [facility] ([id number]) [address] [place] [address] BLOOD/HGB MARGE Negative Normal NEG [facility] Comment on above: Performed By: #### C TIERRA CMP, , 55784-0 #### [facility] ([id number]) [address] [place] [address] [place] [address] GLUCOSE MARGE Negative Normal NEG [facility] Comment on above: Performed By: #### C TIERRA, CMP, , 12901-5 #### [facility] ([id number]) [address] [place] [address] [place] [address] KETONES MARGE Negative Normal NEG [facility] Comment on above: Performed By: #### C TIERRA, CMP, , 62439-3 #### [facility] ([id number]) [address] [place] [address] [place] [address] LEUKOCYTE ESTERASE MARGE MODERATE Abnormal NEG Pr [facility] Comment on above: Performed By: #### C TIERRA, CMP, , 77532-6 #### [facility] ([id number]) [address] [place] [address] [place] [address] NITRITE MARGE Positive Abnormal NEG [facility] Comment on above: Performed By: #### C BCA, CMP, , 48079-0 #### [facility] ([id number]) [address] [place] [address] PH MARGE 5.5 Normal 5.0-8.5 [facility] Comment on above: Performed By: #### C BCA, CMP, , 02659-5 #### [facility] ([id number]) [address] [place] [address] PROTEIN MARGE Negative Normal NEG [facility] Comment on above: Performed By: #### C BCA, CMP, , 52973-5 #### [facility] [place] ([id number]) [address] [place] [address]9990 SPECIFIC GRAVITY MARGE 1.025 Normal 1.003-1.035 [facility] Comment on above: Performed By: #### C BCA, CMP, , 26897-3 #### [facility] [place] ([id number]) [address] [place] [address] 34897 UROBILINOGEN MARGE 0.2 eu/dL Normal <1.1 [facility] Comment on above: Performed By: #### C BCA, CMP, , 18507-9 #### [facility] [place] ([id number]) [address] [place] [address] 60398 BASIC METABOLIC PANLon 09-20 Anion gap [Moles/Vol] 11 mmol/L Normal 5-15 [facility] Comment on above: Performed By: #### C BCA, BMP, 99292-1, 2777-1, 2731-8, 50383-0 #### [facility] ([id number]) [address], [address] [place] [address] Calcium [Mass/Vol] 9.2 mg/dL Normal 8.5-10.5 [facility] Comment on above: Performed By: #### C BCA, BMP, 74957-1, 2777-1, 2731-8, 12887-0 #### [facility] ([id number]) [address], [address] [place] [address] Chloride [Moles/Vol] 100 mmol/L Normal 98-109 [facility] Comment on above: Performed By: #### C BCA, BMP, 68171-6, 7-1, 2731-8, 35431-2 #### [facility] ([id number]) [address], [address] [place] [address] CO2 [Moles/Vol] 25 mmol/L Normal 22-32 [facility] Comment on above: Performed By: #### C BCA, BMP, 98536-6, 7-1, 2731-8, 64067-9 #### [facility] ([id number]) [address], [address] [place] [address] Creatinine [Mass/Vol] 0.89 mg/dL Normal 0.40-1.00 [facility] Comment on above: Result Comment: METH OD TRACEABLE TO IDMS STANDARD Performed By: #### C TIERRA, BMP, 37122-4, 7-1, 2731-8, 19064-6 #### [facility] ([id number]) [address], [address] [place] [address] GFR/1.73 sq M.predicted among non-blacks MDRD (S/P/Bld) [Vol rate/Area] 83 mL/min/{1.73_m2} Normal >59 [facility] Comment on above: Result Comment: Reported eGFR is based on the CKD-EPI 2020 equation that does not use a race coefficient. Performed By: #### C BCA, BMP, 19921-7, 2777-1, 2731-8, 93131-7 #### [facility] ([id number]) [address], [address] [place] [address] Glucose [Mass/Vol] 86 mg/dL Normal 65-99 [facility] Comment on above: Performed By: #### C BCA, BMP, 50729-9, 2777-1, 2731-8, 29336-2 #### [facility] ([id number]) [address], [address] [place] [address] Potassium [Moles/Vol] 4.1 mmol/L Normal 3.5-5.0 [facility] Comment on above: Performed By: #### C BCA, BMP, 34397-9, 7-1, 2731-8, 33207-5 #### [facility] ([id number]) [address], [address] [place] [address] Sodium [Moles/Vol] 136 mmol/L Normal 134-146 [facility] Comment on above: Performed By: #### C BCA, BMP, 82467-0, 2776-, 2730-8, 37537-2 #### [facility] ([id number]) [address], [address] [place] [address] Urea nitrogen [Mass/Vol] 19 mg/dL Normal 5-23 [facility] Comment on above: Performed By: #### C BCA, BMP, 74174-6, 2776-1, 273-8, 03588-9 #### [facility] ([id number]) [address], [address] [place] [address] CBC AND AUTO DIFFon 09-21-19 24 ABSOLUTE BASOPHIL 0.1 X10E9/L Normal 0.0-0.2 [facility] Comment on above: Performed By: #### C BCA, BMP, 18355-3, 7-1, 2731-8, 55078-4 #### [facility] ([id number]) [address], [address] [place] [address] ABSOLUTE NEUTROPHIL 4.4 X10E9/L Normal 1.5-6.6 [facility] Comment on above: Performed By: #### C BCA, BMP, 62400-1, 2777-1, 2731-8, 21440-6 #### [facility] ([id number]) [address], [address] [place] [address] Basophils/100 WBC (Bld) 0.6 % Normal [facility] Comment on above: Performed By: #### C BCA, BMP, 12559-2, 2777-1, 2731-8, 68706-0 #### [facility] ([id number]) [address], [address] [place] [address] Eosinophils (Bld) [#/Vol] 0.3 10*3/uL Normal 0.0-0.4 [facility] Comment on above: Performed By: #### C BCA, BMP, 04513-1, 2777-1, 2731-8, 20713-9 #### [facility] ([id number]) [address], [address] [place] [address] Eosinophils/100 WBC (Bld) 4.2 % Normal [facility] Comment on above: Performed By: #### C BCA, BMP, 61042-5, 7-1, 273-8, 33817-8 #### [facility] ([id number]) [address], [facility] [address] [place] [address] Erythrocyte distribution width (RBC) [Ratio] 14.8 % Normal 11.5-15.0 [facility] Comment on above: Performed By: #### C BCA, BMP, 37285-8, 2777-1, 2731-8, 10606-2 #### [facility] ([id number]) [address], [address] [place] [address] Hematocrit (Bld) [Volume fraction] 36.6 % Normal 35-47 [facility] Comment on above: Performed By: #### C BCA, BMP, 54359-3, 2777-1, 2731-8, 13300-4 #### [facility] ([id number]) [address], [address] [place] [address] Hemoglobin (Bld) [Mass/Vol] 12.2 g/dL Normal 11.7-15.5 [facility] Comment on above: Performed By: #### Festus BCA, BMP, 31843-6, 2777-1, 2731-8, 03950-6 #### [facility] ([id number]) [address], [address] [place] [address] Lymphocytes (Bld) [#/Vol] 2.9 10*3/uL Normal 1.0-3.5 [facility] Comment on above: Performed By: #### Festus BCA, BMP, 19159-0, 7-1, 2730-8, 04083-3 #### [facility] ([id number]) [address], [address] [place] [address] Lymphocytes/100 WBC (Bld) 35.8 % Normal [facility] Comment on above: Performed By: #### Festus BCA, BMP, 06537-8, 7-1, 2730-8, 27957-2 #### [facility] ([id number]) [address], [address] [place] [address] MCH (RBC) [Entitic mass] 28.6 pg Normal 27-34 [facility] Comment on above: Performed By: #### Festus BCA, BMP, 40837-9, 7-1, 2731-8, 04462-5 #### [facility] ([id number]) [address], [address] [place] [address] MCHC (RBC) [Mass/Vol] 33.3 g/dL Normal 32-36 [facility] Comment on above: Performed By: #### Festus BCA, BMP, 38754-2, 2777-1, 2731-8, 56091-7 #### [facility] ([id number]) [address], [address] [place] [address] MCV (RBC) [Entitic vol] 86 fL Normal 80-100 [facility] Comment on above: Performed By: #### Festus MAYORGA, BMP, 65026-4, 2777-1, 2731-8, 56342-8 #### [facility] ([id number]) [address], [facility] [address] [place] [address] Monocytes (Bld) [#/Vol] 0.5 10*3/uL Normal 0-0.9 [facility] Comment on above: Performed By: #### Festus MAYORGA, BMP, 87045-7, 7-1, 2731-8, 44862-9 #### [facility] ([id number]) [address] [address] [place] [address] Monocytes/100 WBC (Bld) 6.1 % Normal [facility] Comment on above: Performed By: #### Festus MAYORGA, BMP, 59540-9, 7-1, 2731-8, 37347-6 #### [facility] ([id number]) [address], [facility] [address] [place] [address] Neutrophils/100 WBC (Bld) 53.3 % Normal [facility] Comment on above: Performed By: #### Festus MAYORGA, BMP, 01549-5, 2777-1, 2731-8, 16370-4 #### [facility] ([id number]) [address], [facility] [address] [place] [address] Platelet mean volume (Bld) [Entitic vol] 8.6 fL Normal 7-12 [facility] Comment on above: Performed By: #### Festus BCA, BMP, 14553-9, 2777-1, 2731-8, 58856-1 #### [facility] ([id number]) [address] [address] [place] [address] Platelets (Bld) [#/Vol] 307 10*3/uL Normal 150-450 [facility] Comment on above: Performed By: #### C BCA, BMP, 34911-9, 2777-1, 2731-8, 69777-9 #### [facility] ([id number]) [address], [address] [place] [address] RBC COUNT 4.27 X10E12/L Normal 3.80-5.20 [facility] Comment on above: Performed By: #### C BCA, BMP, 36552-7, 7-1, 2731-8, 97792-5 #### [facility] ([id number]) [address], [address] [place] [address] WBC (Bld) [#/Vol] 8.2 10*3/uL Normal 4.0-11.0 [facility] Comment on above: Performed By: #### C BCA, BMP, 81726-2, 7-1, 273-8, 06103-9 #### [facility] ([id number]) [address], [address] [place] [address] MAGNESIUMon 09-21-2023 Magnesium [Mass/Vol] 1.3 mg/dL Low 1.8-2.6 [facility] Comment on above: Performed By: #### C BCA, BMP, 61050-8, 7-1, 2731-8, 57889-2 #### [facility] ([id number]) [address], [address] [place] [address] Osmolality (U) [Osmolality]o n 09-21-2023 URINE OSMOLALITY 748 mOsm/kg H2 Normal 300-1300 [facility] Comment on above: Performed By: #### 2 695-5 #### [facility] ([id number]) [address], [address] [place] [address] PHOSPHORUSon 09-21-2023 Phosphate [Mass/Vol] 4.4 mg/dL Normal 2.4-4.9 [facility] Comment on above: Performed By: #### C BCA, CMP, 38381-5, 31093-3 #### [facility] ([id number]) [address] [facility] [place] [address] Parathyrin.intact [Mass/Vol] on 09-21-2023 PTH INTACT 42 pg/mL Normal 12-88 [facility] Comment on above: Performed By: #### C BCA, CMP, 37899-6, 76312-7 #### [facility] ([id number]) 5 [facility] [place] [address] URINALYSISon 09-21-2023 Bilirubin Ql (U) Negative Normal NEG [facility] Comment on above: Performed By: #### U A #### [facility] ([id number]) [address], [address] [place] [address] BLOOD/HGB Trace Abnormal NEG [facility] Comment on above: Performed By: #### U A #### [facility] ([id number]) [address], [address] [place] [address] Color (U) YELLOW Normal YELLOW [facility] Comment on above: Performed By: #### U A #### [facility] ([id number]) [address], [address] [place] [address] Glucose Ql (U) Negative Normal NEG [facility] Comment on above: Performed By: #### U A #### [facility] ([id number]) [address] [place] [address] Ketones Ql (U) Negative Normal NEG [facility] Comment on above: Performed By: #### U A #### [facility] ([id number]) [address], [address] [place] [address] Leukocyte esterase Test strip Ql (U) Large Abnormal NEG [facility] Comment on above: Performed By: #### U A #### [facility] ([id number]) [address], [address] [place] [address] MUCOUS PRESENT Abnormal NONE [facility] Comment on above: Performed By: #### U A #### [facility] ([id number]) [address], [address] [place] [address] Nitrite Ql (U) Positive Abnormal NEG [facility] Comment on above: Performed By: #### U A #### [facility] ([id number]) [address], [address] [place] [address] pH (U) 6.0 [pH] Normal 5.0-8.5 [facility] Comment on above: Performed By: #### U A #### [facility] ([id number]) [address], [address] [place] [address] Protein Ql (U) Trace Abnormal NEG [facility] Comment on above: Performed By: #### U A #### [facility] ([id number]) [address], [address] [place] [address] R.B.CELLS 4 /hpf Normal 0-5 [facility] Comment on above: Performed By: #### U A #### [facility] ([id number]) [address], [address] [place] [address] Specific gravity (U) [Rel density] 1.021 Normal 1.003-1.035 [facility] Comment on above: Performed By: #### U A #### [facility] ([id number]) [address], [address] [place] [address] SQUAMOUS EPITHELIUM 8 /hpf High 0-5 [facility] Comment on above: Performed By: #### U A #### [facility] ([id number]) [address], [address] [place] [address] TURBIDITY HAZY Abnormal CLEAR [facility] Comment on above: Performed By: #### U A #### [facility] ([id number]) [address], [address] [place] [address] Urobilinogen (U) [Mass/Vol] mg/dL Normal <1.1 [facility] Comment on above: Performed By: #### U A #### [facility] ([id number]) [address] [facility] [place] [address] W.B.CELLS 124 /hpf High 0-5 [facility] Comment on above: Performed By: #### U A #### [facility] ([id number]) [address], [address] [place] [address] Vitamin D+Metabolites [Mass/ Vol]on 09-21-2023 VITAMIN D 25 HYD TOT 44.7 ng/mL Normal 30-100 [facility] Comment on above: Result Comment: Vitamin D status 25 [place] Vitamin D Deficiency <20 ng/mL Insufficiency 20-29 ng/mL Sufficiency 30-100 ng/mL Toxicity >100 ng/mL NOTE: A pediatric reference range has not been established by the jailor of this kit. The [employer] recommends a Vitamin D level of = or >20ng/mL in infants and children. Performed By: #### C [facility], 29174-4, 59733-5 #### [facility] ([id number]) [address] [place] [address], [place] [address] BI MAMMOGRAM SCREENING TOMOS YNTHESIS BILATERALon 08-17-2023 BI MAMMOGRAM SCREENING TOMOSYNTHESIS BILATERAL [...] IS VERY IMPORTANT TO YOUR HEALTH. THE [employer] GUIDELINES RECOMMEND THAT WOMEN 40 [...] Not Available CBC AND AUTO DIFFon 07-05-19 ABSOLUTE BASOPHIL 0.1 X10E9/L Normal 0.0-0.2 [facility] Comment on above: Performed By: #### C BCA, CMP, 12498-4, 51516-3 #### [facility] ([id number]) [address] [place] [address] ABSOLUTE NEUTROPHIL 5.8 X10E9/L Normal 1.5-6.6 [facility] Comment on above: Performed By: #### C BCA, CMP, , 12937-7 #### [facility] ([id number]) [address] [place] [address] Basophils/100 WBC (Bld) 0.6 % Normal [facility] Comment on above: Performed By: #### C BCA, CMP, , 70064-9 #### [facility] ([id number]) [address] [place] [address] Eosinophils (Bld) [#/Vol] 0.3 10*3/uL Normal 0.0-0.4 [facility] Comment on above: Performed By: #### C TIERRA, CMP, , 60836-1 #### [facility] ([id number]) [address] [place] [address] Eosinophils/100 WBC (Bld) 2.8 % Normal [facility] Comment on above: Performed By: #### C BCA, CMP, , 45419-1 #### [facility] ([id number]) [address] [place] [address] Erythrocyte distribution width (RBC) [Ratio] 14.7 % Normal 11.5-15.0 [facility] Comment on above: Performed By: #### C TIERRA, CMP, , 92306-1 #### [facility] ([id number]) [address] [place] [address] Hematocrit (Bld) [Volume fraction] 36.1 % Normal 35-47 [facility] Comment on above: Performed By: #### C TIERRA, CMP, , 55396-8 #### [facility] ([id number]) [address] [place] [address] Hemoglobin (Bld) [Mass/Vol] 12.2 g/dL Normal 11.7-15.5 [facility] Comment on above: Performed By: #### C BCA, CMP, , 80084-4 #### [facility] ([id number]) [address] [place] [address] Lymphocytes (Bld) [#/Vol] 2.4 10*3/uL Normal 1.0-3.5 [facility] Comment on above: Performed By: #### C BCA, CMP, , 36759-2 #### [facility] ([id number]) [address] [place] [address] Lymphocytes/100 WBC (Bld) 25.9 % Normal [facility] Comment on above: Performed By: #### C BCA, CMP, , 91580-3 #### [facility] ([id number]) [address] [place] [address] MCH (RBC) [Entitic mass] 28.1 pg Normal 27-34 [facility] Comment on above: Performed By: #### C BCA, CMP, , 28495-1 #### [facility] ([id number]) [address] [place] [address] MCHC (RBC) [Mass/Vol] 33.8 g/dL Normal 32-36 [facility] Comment on above: Performed By: #### C BCA, CMP, , 29863-1 #### [facility] ([id number]) [address] [place] [address] MCV (RBC) [Entitic vol] 83 fL Normal 80-100 [facility] Comment on above: Performed By: #### C BCA, CMP, , 23588-1 #### [facility] ([id number]) [address] [place] [address] Monocytes (Bld) [#/Vol] 0.6 10*3/uL Normal 0-0.9 [facility] Comment on above: Performed By: #### C BCA, CMP, , 99584-2 #### [facility] ([id number]) [address] [place] [address] Monocytes/100 WBC (Bld) 7.0 % Normal [facility] Comment on above: Performed By: #### C BCA, CMP, , 41409-4 #### [facility] ([id number]) [address] [place] [address] Neutrophils/100 WBC (Bld) 63.7 % Normal [facility] Comment on above: Performed By: #### C BCA, CMP, , 01511-1 #### [facility] ([id number]) [address] [place] [address] Platelet mean volume (Bld) [Entitic vol] 8.1 fL Normal 7-12 [facility] Comment on above: Performed By: #### C BCA, CMP, , 70471-6 #### [facility] ([id number]) [address] [place] [address] Platelets (Bld) [#/Vol] 318 10*3/uL Normal 150-450 [facility] Comment on above: Performed By: #### C BCA, CMP, , 08310-4 #### [facility] ([id number]) [address] [place] [address] RBC COUNT 4.34 X10E12/L Normal 3.80-5.20 [facility] Comment on above: Performed By: #### C BCA, CMP, , 67262-9 #### [facility] ([id number]) [address] [place] [address] WBC (Bld) [#/Vol] 9.1 10*3/uL Normal 4.0-11.0 [facility] Comment on above: Performed By: #### C BCA, CMP, , 81621-2 #### [facility] ([id number]) [address] [place] [address] COMPREHENSIVE METABOLIC PANE Dayron 07-05-2023 Albumin [Mass/Vol] 4.2 g/dL Normal 3.2-5.3 [facility] Comment on above: Performed By: #### C BCA, CMP, , 46233-7 #### [facility] ([id number]) [address] [place] [address] ALP [Catalytic activity/Vol] 84 U/L Normal 39-130 [facility] Comment on above: Performed By: #### C BCA, CMP, , 40106-1 #### [facility] ([id number]) [address] [place] [address] ALT [Catalytic activity/Vol] 35 U/L High 0-31 [facility] Comment on above: Performed By: #### C BCA, CMP, , 02226-8 #### [facility] ([id number]) [address] [place] [address] Anion gap [Moles/Vol] 8 mmol/L Normal 5-15 [facility] Comment on above: Performed By: #### C BCA, CMP, , 32624-5 #### [facility] ([id number]) [address] [place] [address] AST [Catalytic activity/Vol] 26 U/L Normal 0-41 [facility] Comment on above: Performed By: #### C BCA, CMP, , 70782-3 #### [facility] ([id number]) [address] [place] [address] Bilirubin [Mass/Vol] 0.5 mg/dL Normal 0.3-1.2 [facility] Comment on above: Performed By: #### C BCA, CMP, , 26411-2 #### [facility] ([id number]) [address] [place] [address] Calcium [Mass/Vol] 8.9 mg/dL Normal 8.5-10.5 [facility] Comment on above: Performed By: #### C BCA, CMP, , 73162-6 #### [facility] ([id number]) [address] [place] [address]28 Chloride [Moles/Vol] 101 mmol/L Normal 98-109 [facility] Comment on above: Performed By: #### C TIERRA, CMP, , 83544-7 #### [facility] ([id number]) [address] [place] [address]42 CO2 [Moles/Vol] 24 mmol/L Normal 22-32 [facility] Comment on above: Performed By: #### C TIERRA, CMP, , 76391-7 #### [facility] ([id number]) [address] [place] [address] 11982 Creatinine [Mass/Vol] 0.80 mg/dL Normal 0.40-1.00 [facility] Comment on above: Result Comment: METH OD TRACEABLE TO IDMS STANDARD Performed By: #### C TIERRA, ROQUE, , 68282-1 #### [facility] ([id number]) [address] [place] [address] eGFR (CKD-EPI) NON-RACE DEPENDENT >90 Normal >59 [facility] Comment on above: Result Comment: Reported eGFR is based on the CKD-EPI 2020 equation that does not use a race coefficient. Performed By: #### C TIERRA, CMP, , 77855-4 #### [facility] ([id number]) [address] [place] [address]99 Glucose [Mass/Vol] 104 mg/dL High 65-99 [facility] Comment on above: Performed By: #### C BCA, CMP, , 77495-1 #### [facility] ([id number]) [address] [place] [address]41 Potassium [Moles/Vol] 3.4 mmol/L Low 3.5-5.0 [facility] Comment on above: Performed By: #### C TIERRA, CMP, , 20154-3 #### [facility] ([id number]) [address] [place] [address]60 Protein [Mass/Vol] 7.8 g/dL Normal 6.0-8.0 [facility] Comment on above: Performed By: #### C BCA, CMP, , 13860-4 #### [facility] ([id number]) [address] [place] [address] 72792 Sodium [Moles/Vol] 133 mmol/L Low 134-146 [facility] Comment on above: Performed By: #### C BCA, CMP, , 78161-8 #### [facility] ([id number]) [address] [place] [address]681 Urea nitrogen [Mass/Vol] 12 mg/dL Normal 5-23 [facility] Comment on above: Performed By: #### C BCA, CMP, , 22738-7 #### [facility] ([id number]) [address] [place] [address] MAGNESIUMon 07-05-2023 Magnesium [Mass/Vol] 1.5 mg/dL Low 1.8-2.6 [facility] Comment on above: Performed By: #### C BCA, CMP, , 84918-2 #### [facility] [place] ([id number]) [address] [place] [address] [id number] TROPONIN Ion 07-05-2023 Troponin I.cardiac [Mass/Vol] ng/mL Normal 0.00-0.04 [facility] Comment on above: Performed By: #### C BCA, CMP, , 01729-6 #### [facility] [place] ([id number]) [address] [place] [address] [id number] XR CHEST 1 VWon 07-05-2023 XR CHEST [...] Faria MD on 07/05/2023 7:36 PM Normal [facility] US Spleenon 07-12-2022 US Spleen Comparison, [...] by Mike Green on 07/12/2022 1108 Normal [facility] CT Chest w/o Contraston 06-15 [...] by Zhen Lopes on 06/28/2022 1155 Normal [facility] SCREENING MAMMOGRAM W/MARCUS, BILATERAL*on 06-10-2022 [...] VERY IMPORTANT TO YOUR HEALTH. THE CURRENT [employer] GUIDELINES RECOMMENDS ANNUAL MAMMOGRAPHY BEGINNING AT AGE 40 THIS FACILITY USES A REMINDER SYSTEM TO ENSURE ALL PATIENTS RECEIVE REMINDER NOTIFICATIONS AT THE APPROPRIATE TIME BASED ON THE RECOMMENDATIONS OF THIS EXAM. Report reported and signed by Raheem Alcaraz on 06/10/2022 0936 Normal [facility] US Liveron 06-10-2022 US Liver [...] by Maciel Murcia on 06/10/2022 1225 Normal [facility] US Renal/Bladderon US Renal/Bladder CLINICAL [...] by Maciel Murcia on 06/10/2022 1230 Normal [facility] Specialist XR Abdomen 2 Viewson 023 XR [...] by Maciel Murcia on 06/07/2022 1133 Normal [facility] Specialist XR Ribs Bilateral w/ PA Ches t*on 06-07-2022 XR Ribs Bilateral w/ PA Chest* CLINICAL HISTORY: Left lower rib pain. COMPARISON: 09/23/2021. RESULT: No consolidation. No pleural effusion. No pneumothorax. Stable cardiomediastinal silhouette. No acute displaced rib fracture. No acute osseous findings. IMPRESSION: No acute radiographic abnormality. Report reported and signed by Maciel Murcia on 06/07/2022 1132 Normal [facility] Specialist Outside Recordson 02-17-2022 Outside Records [id number] .[id number]:127 Normal [facility] Physician Orderon 02-17-2022 Physician Order [id number] .00CD:127 Normal [facility] XR Knee Complete Right*on XR Knee Complete [...] by DONALD FRANCISCO on 01/22/2022 1419 Normal [place] [facility] Specialist ALT (SGPT)on 2021 ALT [Catalytic activity/Vol] 62 U/L High 6-33 [facility] Specialist Comment on above: Result Comment: 04/14 Female reference range changed. Performed By: #### A LT, AST, CBCAD #### [facility] [address] [place], [place] [id number] AST (SGOT)on 2021 AST [Catalytic activity/Vol] 46 U/L High 9-34 [facility] Specialist Comment on above: Performed By: #### A LT, AST, CBCAD ####[facility] [address] [place], [place] [id number] Complete Blood Count with Au to Diffon 2021 Basophils (Bld) [#/Vol] 0.08 10*3/uL Normal 0.00-0.20 [facility] Specialist Comment on above: Performed By: #### A LT, AST, CBCAD #### [facility] [address] [place], [place] [id number] Basophils/100 WBC (Bld) 0.9 % Normal [facility] Specialist Comment on above: Performed By: #### A LT, AST, CBCAD #### [facility] [address] [place], [place] [id number] Eosinophils (Bld) [#/Vol] 0.60 10*3/uL High 0.02-0.50 [facility] Specialist Comment on above: Performed By: #### A LT, AST, CBCAD #### [facility] [address] [place], [place] [id number] Eosinophils/100 WBC (Bld) 6.6 % Normal [facility] Special[facility] Comment on above: Performed By: #### A LT, AST, CBCAD #### [facility] [address] [place], [place] [id number] Erythrocyte distribution width (RBC) [Ratio] 15.0 % Normal 11.0-15.0 [facility] Specialist Comment on above: Performed By: #### A LT, AST, CBCAD #### [facility] [address] [place], [place] [id number] Hematocrit (Bld) [Volume fraction] 35.7 % Normal 35.0-47.0 [facility] Comment on above: Performed By: #### A LT, AST, CBCAD #### [facility] [address] [place], [place] [id number] Hemoglobin (Bld) [Mass/Vol] 11.1 g/dL Low 11.6-15.5 [facility] Specialist Comment on above: Performed By: #### A LT, AST, CBCAD #### [facility] [address] [place], [place] [id number] Lymphocytes (Bld) [#/Vol] 2.9 10*3/uL Normal 0.9-3.9 [facility] Specialist Comment on above: Performed By: #### A LT, AST, CBCAD #### [facility] [address] [place], [place] [id number] Lymphocytes/100 WBC (Bld) 31.9 % Normal [facility] Special[facility] Comment on above: Performed By: #### A LT, AST, CBCAD #### [facility] [address] [place], [place] [id number] MCH (RBC) [Entitic mass] 26.6 pg Low 27.0-33.0 [facility] Specialist Comment on above: Performed By: #### A LT, AST, CBCAD #### [facility] [address] [place], [place] [id number] MCHC (RBC) [Mass/Vol] 31.1 g/dL Low 32.0-36.0 [facility] Comment on above: Performed By: #### A LT, AST, CBCAD #### [facility] [address] [place], [place] [id number] MCV (RBC) [Entitic vol] 86 fL Normal 80-100 [facility] Specialist Comment on above: Performed By: #### A LT, AST, CBCAD #### [facility] [address] [place], [place] [id number] Monocytes (Bld) [#/Vol] 0.6 10*3/uL Normal 0.2-0.9 [facility] Specialist Comment on above: Performed By: #### A LT, AST, CBCAD #### [facility] [address] [place], [place] [id number] Monocytes/100 WBC (Bld) 7.0 % Normal [facility] Specialist Comment on above: Performed By: #### A LT, AST, CBCAD #### [facility] [address] [place], [place] [id number] Neutrophils (Bld) [#/Vol] 4.8 10*3/uL Normal 1.5-7.8 [facility] Specialist Comment on above: Performed By: #### A LT, AST, CBCAD #### [facility] [address] [place], [place] [id number] Neutrophils/100 WBC (Bld) 53.3 % Normal [facility] Specialist Comment on above: Performed By: #### A LT, AST, CBCAD #### [facility] [address] [place], [place] [id number] Platelet mean volume (Bld) [Entitic vol] 11.10 fL Normal 7.50-12.50 [facility] Comment on above: Performed By: #### A LT, AST, CBCAD #### [facility] [address] [place], [place] [id number] Platelets (Bld) [#/Vol] 290 10*3/uL Normal 140-400 [facility] Specialist Comment on above: Performed By: #### A LT, AST, CBCAD #### [facility] [address] [place], [place] [id number] RBC (Bld) [#/Vol] 4.17 10*6/uL Normal 3.90-5.20 [facility] Comment on above: Performed By: #### A LT, AST, CBCAD #### [facility] [address] [place], [place] [id number] RDW-SD 47.0 fL Normal 37.0-50.0 [facility] Specialist Comment on above: Performed By: #### A LT, AST, CBCAD #### [facility] [address] [place], [place] [id number] WBC (Bld) [#/Vol] 9.1 10*3/uL Normal 3.8-11.[address] [facility] Comment on above: Performed By: #### A LT, AST, CBCAD #### [facility] [address] [place], [place] [id number] TSH w/ Reflex to Free T4on 0 2021 TSH 1.860 uIU/mL Normal 0.400-4.500 [facility] Specialist Comment on above: Performed By: #### T SH reflex FT4 ####[facility] [address] [place], [place] [id number] Complete Blood Count with Au to Diffon 09-23-2021 Basophils (Bld) [#/Vol] 0.05 10*3/uL Normal 0.00-0.20 [facility] Comment on above: Performed By: #### C KEYSHA, CMP #### [facility] [address] [place], [place] [id number] Basophils/100 WBC (Bld) 0.5 % Normal [facility] Comment on above: Performed By: #### C KEYSHA, CMP #### [facility] [address] [place], [place] [id number] Eosinophils (Bld) [#/Vol] 0.50 10*3/uL Normal 0.02-0.50 [facility] Comment on above: Performed By: #### C KEYSHA, CMP #### [facility] [address] [place], [place] [id number] Eosinophils/100 WBC (Bld) 5.0 % Normal [facility] Comment on above: Performed By: #### C KEYSHA, CMP #### [facility] [address] [place], [place] [id number] Erythrocyte distribution width (RBC) [Ratio] 15.8 % High 11.0-15.0 [facility] Comment on above: Performed By: #### C BCAD, CMP #### [facility] [address] [place], [place] [id number] Hematocrit (Bld) [Volume fraction] 34.6 % Low 35.0-47.0 [facility] Specialist Comment on above: Performed By: #### C BCAD, CMP #### [facility] [address] [place], [place] [id number] Hemoglobin (Bld) [Mass/Vol] 10.9 g/dL Low 11.6-15.5 [facility] Specialist Comment on above: Performed By: #### C BCAD, CMP #### [facility] [address] [place], [place] [id number] Lymphocytes (Bld) [#/Vol] 2.8 10*3/uL Normal 0.9-3.9 [facility] Comment on above: Performed By: #### C KEYSHA, CMP #### [facility] [address] [place], [place] [id number] Lymphocytes/100 WBC (Bld) 27.6 % Normal [facility] Comment on above: Performed By: #### C KEYSHA, CMP #### [facility] [address] [place], [place] [id number] MCH (RBC) [Entitic mass] 26.6 pg Low 27.0-33.0 [facility] Comment on above: Performed By: #### C KEYSHA, CMP #### [facility] [address] [place], [place] [id number] MCHC (RBC) [Mass/Vol] 31.5 g/dL Low 32.0-36.0 [facility] Comment on above: Performed By: #### C KEYSHA, CMP #### [facility] [address] [place], [place] [id number] MCV (RBC) [Entitic vol] 84 fL Normal 80-100 [facility] Comment on above: Performed By: #### C KEYSHA, CMP #### [facility] [address] [place], [place] [id number] Monocytes (Bld) [#/Vol] 0.7 10*3/uL Normal 0.2-0.9 [facility] Comment on above: Performed By: #### C KEYSHA, CMP #### [facility] [address] [place], [place] [id number] Monocytes/100 WBC (Bld) 7.4 % Normal [facility] Comment on above: Performed By: #### C KEYSHA, CMP #### [facility] [address] [place], [place] [id number] Neutrophils (Bld) [#/Vol] 5.9 10*3/uL Normal 1.5-7.8 [facility] Comment on above: Performed By: #### C KEYSHA, CMP #### [facility] [address] [place], [place] [id number] Neutrophils/100 WBC (Bld) 59.0 % Normal [facility] Comment on above: Performed By: #### C BCAD, CMP #### [facility] [address] [place], [place] [id number] Platelet mean volume (Bld) [Entitic vol] 10.60 fL Normal 7.50-12.50 [facility] Comment on above: Performed By: #### C BCAD, CMP #### [facility] [address] [place], [place] [id number] Platelets (Bld) [#/Vol] 308 10*3/uL Normal 140-400 [facility] Comment on above: Performed By: #### C KEYSHA, CMP #### [facility] [address] [place], [place] [id number] RBC (Bld) [#/Vol] 4.10 10*6/uL Normal 3.90-5.20 [facility] Comment on above: Performed By: #### C BCAD, CMP #### [facility] [address] [place], [place] [id number] RDW-SD 48.4 fL Normal 37.0-50.0 [facility] Specialist Comment on above: Performed By: #### C BCAThelma, CMP #### [facility] [address] [place], [place] [id number] WBC (Bld) [#/Vol] 10.0 10*3/uL Normal 3.8-11.0 [facility] Comment on above: Performed By: #### C BCAD, CMP #### [facility] [address] [place], [place] [id number] Comprehensive Metabolic Pane [facility] 09-23-2021 Albumin [Mass/Vol] 4.9 g/dL Normal 3.6-5.[address] [facility] Comment on above: Performed By: #### C BCAD, CMP #### [facility] [address] [place], [place] [id number] Albumin/Globulin [Mass ratio] 2.0 {ratio} Normal 1.0-2.5 [facility] Specialist Comment on above: Performed By: #### C BCAD, CMP #### [facility] [address] [place], [place] [id number] ALP [Catalytic activity/Vol] 70 U/L Normal 35-119 [facility] Comment on above: Performed By: #### C BCAD, CMP #### [facility] [address] [place], [place] [id number] ALT [Catalytic activity/Vol] 60 U/L High 6-33 [facility] Comment on above: Result Comment: 04/14 Female reference range changed. Performed By: #### C BCAD, CMP #### [facility] [address] [place], [place] [id number] Anion gap [Moles/Vol] 21 mmol/L High 12-20 [facility] Comment on above: Result Comment: Effe ctive 05/20/2019 reference range changed. Performed By: #### C BCAD, CMP #### [facility] [address] [place], [place] [id number] AST [Catalytic activity/Vol] 90 U/L High 9-34 [facility] Comment on above: Performed By: #### C BCAD, CMP #### [facility] [address] [place], [place] [id number] BUN/CREA 26 Ratio High 6-22 [facility] Comment on above: Performed By: #### C BCAD, CMP #### [facility] [address] [place] [id number] Calcium [Mass/Vol] 10.0 mg/dL Normal 8.6-10.[address] [facility] Comment on above: Performed By: #### C BCAD, CMP #### [facility] [address] [place], [place] [id number] Chloride [Moles/Vol] 99 mmol/L Normal 98-107 [facility] Comment on above: Performed By: #### C BCAD, CMP #### [facility] [address] [place], [place] [id number] CO2 [Moles/Vol] 22 mmol/L Normal 20-31 [facility] Comment on above: Performed By: #### C BCAD, CMP #### [facility] [address] [place], [place] [id number] Creatinine [Mass/Vol] 0.6 mg/dL Normal 0.6-1.4 [facility] Comment on above: Performed By: #### C BCAD, CMP #### [facility] [address] [place], [place] [id number] eGFRAA 127 mL/min/1.73m2 Normal >60 [facility] Specialist Comment on above: Performed By: #### C BCAD, CMP #### [facility] [address] [place], [place] [id number] eGFRNAA 105 mL/min/1.73m2 Normal >60 [facility] Specialist Comment on above: Performed By: #### C BCAD, CMP #### [facility] [address] [place], [place] [id number] Globulin (S) [Mass/Vol] 2.4 g/dL Normal 1.9-3.7 [facility] Help Comment on above: Performed By: #### C BCAD, CMP #### [facility] [address] [place], [place] [id number] Glucose [Mass/Vol] 97 mg/dL Normal 65-99 [facility] Help Comment on above: Result Comment: For FASTING Glucose --- ADA reference ranges: Normal 65-99 mg/dl Prediabetes 100-125 Diabetes >/= 126 Performed By: #### C BCAD, CMP #### [facility] [address] [place], [place] [id number] Potassium [Moles/Vol] 4.4 mmol/L Normal 3.5-5.5 [facility] Comment on above: Performed By: #### C BCAD, CMP #### [facility] [address] [place], [place] [id number] Protein [Mass/Vol] 7.3 g/dL Normal 6.1-8.1 [facility] Comment on above: Performed By: #### C BCAD, CMP #### [facility] [address] [place], [place] [id number] Sodium [Moles/Vol] 137 mmol/L Normal 135-146 [facility] Counter Help Comment on above: Performed By: #### C BCAD, CMP #### [facility] [address] [place], [place] [id number] TBIL <0.3 Normal [facility] Comment on above: Performed By: #### C BCAD, CMP #### [facility] [address] [place], [place] [id number] Urea nitrogen [Mass/Vol] 16 mg/dL Normal 7-25 [facility] Comment on above: Performed By: #### C BCAD, CMP #### [facility] [address] [place], [place] [id number] Free T4on 09-23-2021 Free T4 [Mass/Vol] 1.14 ng/dL Normal 0.80-1.[address] [facility] Comment on above: Performed By: #### F T4, TSH reflex FT4 ####[facility] [address] [place], [place] [id number] Hemoglobin A1Con 09-23-2021 EAG 142.72 Normal [facility] Comment on above: Performed By: #### A 1C #### [facility] [address] [place], [place] [id number] HbA1c (Bld) [Mass fraction] 6.6 % High 4.0-6.0 [facility] Comment on above: Performed By: #### A 1C #### [facility] [address] [place], [place] [id number] Q - B-TYPE NATRIURETIC (BNP) on 09-23-2021 Natriuretic peptide B (Bld) [Mass/Vol] 20 pg/mL Normal <100 [facility] Specialist Comment on above: Order Comment: [facility] performed at: QPT, [employer] [facility], [address] [place] [address], [address] [place], [address], [facility] Laboratory Gunsmith: Tripp Azevedo MDQuest Collection Date/Time: [id number] Results Received Date/Time: [id number] Reported Date/Time: Result Comment: BNP levels increase with age in the general population with the highest values seen in individuals greater than 75 years of age. Reference: J. Am. Jelena. Cardiol. 2002; 40:976-982. Performed By: #### 3 7386F ####[facility] [address] [place] [address] Q - THINPREP(R) TIS AND HPV MRNA E6/E7 RFL HPV 16/18/45on 09-23-2021 CLINICAL INFORMATION: None given Normal [facility] Comment on above: Order Comment: [facility] performed at: [facility], [facility], [address] [place] [address], [address], [place], [address], [facility] Laboratory Gunsmith: Aneta BerumenTestflores performed at: [facility], [employer] [facility], [address] [place] [address], [address] [place] [address], [address] [place] [address], [facility] Gunsmith: Tripp Azevedo MDQuest Collection Date/Time: [id number] Results Received Date/Time: [id number] Reported Date/Time: FASTING: NO Result Comment: [HFK ] Performed By: #### 9 1414 ####[facility] [address] [place] [address] COMMENT SEE NOTE Normal [facility] Specialist Comment on above: Order Comment: [facility] performed at: [facility], [facility], [address] [facility], [address], [place], [place], [address] [place] [address], [facility] Laboratory Gunsmith: Aneta Stewart performed at: [employer], [facility] [place], [address] [place] [address], [address] [place] [address], [address] [place] [address], [facility] Gunsmith: Tripp Azevedo MDQuest Collection Date/Time: [id number] Results Received Date/Time: [id number] Reported Date/Time: FASTING: NO Result Comment: EXPL [...] Performed By: #### 9 1414 ####[facility] [address] [place] [address] COMMENT: SEE NOTE Normal [facility] Specialist Comment on above: Order Comment: [facility] performed at: [facility], [facility], [address], [address], [place], [address], [facility] Laboratory Gunsmith: Aneta BerumenTestflores performed at: [facility], [employer] [facility], [place], [address] [place] [address], [address] [place] [address], [address] [place] [address], [facility] Gunsmith: Tripp Azevedo MDQuest Collection Date/Time: [id number] Results Received Date/Time: [id number] Reported Date/Time: FASTING: NO Result Comment: This Pap test has been evaluated with computer assisted technology. Suggest clinical correlation and follow-up as clinically appropriate [HFK] Performed By: #### 9 1414 ####[facility] [address] [place] [address] JOURNEYMAN ELECTRICIAN: SEE NOTE Normal See Note: [facility] Comment on above: Order Comment: [facility] performed at: [facility], [facility], [address], [address], [place], [address], [facility] Gunsmith: Aneta Stewart performed at: [place], [facility] [place], [address] [place] [address], [address] [place] [address], [address] [place] [address], [facility] Gunsmith: Tripp Azevedo MDQuest Collection Date/Time: [id number] Results Received Date/Time: [id number] Reported Date/Time: FASTING: NO Result Comment: Refe rence Range: ZL, CT(ASCP) CT screening location: [place] [address]. [HFK] Performed By: #### 9 1414 ####[facility] [address] [place] [address] GENERAL CATEGORIZATION: EPITHELIAL CELL ABNORMALITY Abnormal [facility] Comment on above: Order Comment: [facility] performed at: [facility], [facility], [address] [place] [address], [place], [address], [facility] Gunsmith: Aneta Stewart performed at: [place], [employer], [address] [place] [address], [phone], [facility] Laboratory Gunsmith: Tripp Clemons Collection Date/Time: [id number] Results Received Date/Time: [id number] Reported Date/Time: FASTING: NO Result Comment: [HFK ] Performed By: #### 9 1414 ####[facility] [address] [place] [address] HPV mRNA E6/E7 Detected Abnormal Not Detected [facility] Comment on above: Order Comment: [facility] performed at: [facility], [address] [place] [address], [facility] [place], [address], [facility] Laboratory Gunsmith: Aneta Stewart performed at: [employer], [employer], [address] [place] [address], [phone], [facility] Laboratory Gunsmith: Tripp Clemons Collection Date/Time: Results Received Date/Time: Reported Date/Time: FASTING: NO Result Comment: Meth odology: Tower Observer-Mediated Amplification This assay detects E6/E7 viral messenger RNA (mRNA) from 14 high-risk HPV types (16,18,31,33,35,39,45,51,52,56,58,59,66,68). The analytical performance characteristics of this assay have been determined by [employer]. The modifications have not been cleared or approved by the FDA. This assay has been validated pursuant to the CLIA regulations and is used for clinical purposes. For additional information, please refer to http://education.[employer].Moblication/faq/FFH275p5 (This link if provided for information/ educational purposes only.) [O6K] Performed By: #### 9 1414 ####[facility] [address] [place] [address] INTERPRETATION/RESULT: Low Grade Squamou s Intraepithelial Lesion (LSIL) Abnormal [facility] Counter Help Comment on above: Order Comment: [facility] performed at: [facility], [facility], [address], [address], [place], [address], [facility] Laboratory Gunsmith: Aneta BerumenTestflores performed at: [facility], [facility], [place], [address] [place] [address], [address] [place] [address], [phone], [facility] Laboratory Gunsmith: Tripp Clemons Collection Date/Time: [id number] Results Received Date/Time: [id number] Reported Date/Time: FASTING: NO Result Comment: [HFK ] Performed By: #### 9 1414 ####[facility] [address] [place] [address] LMP: None given Normal [facility] Specialist Comment on above: Order Comment: [facility] performed at: [facility], [facility], [address], [address], [place], [address], [facility] Laboratory Gunsmith: Aneta Stewart performed at: [facility], [facility], [place], [address] [place] [address], [address] [place] [address], [phone], Ballistics Laboratory Gunsmith: Tripp Clemons Collection Date/Time: [id number] Results Received Date/Time: [id number] Reported Date/Time: FASTING: NO Result Comment: [HFK ] Performed By: #### 9 1414 ####[facility] [address] [place] [address] PATHOLOGIST: SEE NOTE Normal [facility] Specialist Comment on above: Order Comment: [facility] performed at: [facility], [facility], [address], [address], [place], [address], [facility] Laboratory Gunsmith: Aneta Stewart performed at: [employer], [facility] [place], [address] [place] [address], [address] [place] [address], [phone], Ballistics Laboratory Gunsmith: Tripp Azevedo MDQuest Collection Date/Time: [id number] Results Received Date/Time: [id number] Reported Date/Time: FASTING: NO Result Comment: Javon Puga MD Board Certified in Anatomic Pathology and Cytopathology (electronic signature) For questions regarding this report call Anatomic Pathology at [phone] Ap Puga MD, First Aid Officer [employer] [place], [place] [HFK] Performed By: #### 9 1414 ####[facility] [address] [place] [address] PREV. BX: None given Normal [facility] Counter Help Comment on above: Order Comment: [facility] performed at: [facility], [facility], [address] [place] [address], [phone], [facility] Laboratory Gunsmith: Aneta Stewart performed at: [employer], [employer], [address] [place] [address], [phone], [facility]istics Laboratory Gunsmith: Tripp Azevedo MDQuest Collection Date/Time: [id number] Results Received Date/Time: [id number] Reported Date/Time: FASTING: NO Result Comment: [HFK ] Performed By: #### 9 1414 ####[facility] [address] [place] [address] PREV. PAP: None given Normal [facility] Counter Help Comment on above: Order Comment: [facility] performed at: [facility], [address] [facility], [facility] [place], [address], [facility] Laboratory Gunsmith: Aneta Stewart performed at: [facility], [place], [address] [place] [address], [address] [place] [address], [phone], Ballistics Laboratory Gunsmith: Tripp Azevedo MDQuest Collection Date/Time: [id number] Results Received Date/Time: [id number] Reported Date/Time: FASTING: NO Result Comment: [HFK ] Performed By: #### 9 1414 ####[facility] [address] [place] [address] SOURCE: None given Normal [facility] Comment on above: Order Comment: Quest performed at: [facility], [facility], [address], [address], [place], [place], [address] [place] [address], Ballistics Laboratory Gunsmith: Aneta BerumenTesting performed at: O, [employer] [facility], [address] [place] [address], [address] [place] [address], [address] [place] [address], Ballistics Laboratory Gunsmith: Tripp Azevedo MDQuest Collection Date/Time: [id number] Results Received Date/Time: [id number] Reported Date/Time: FASTING: NO Result Comment: [HFK ] Performed By: #### 9 1414 ####[facility] [address] [place] [address] STATEMENT OF ADEQUACY: SEE NOTE [facility] Comment on above: Order Comment: Quest performed at: [facility], [facility], [address], [address], [place], [place], [address] [place] [address], Ballistics Laboratory Gunsmith: Aneta BerumenTestflores performed at: [place], [employer] [facility], [address] [place] [address], [address] [place] [address], [address] [place] [address], Ballistics Laboratory Gunsmith: Tripp Azevedo MDQuest Collection Date/Time: [id number] Results Received Date/Time: [id number] Reported Date/Time: FASTING: NO Result Comment: Sati sfactory for evaluation. Endocervical/transformation zone component present. [HFK] Performed By: #### 9 1414 ####[facility] [address] [place] [address] TSH w/ Reflex to Free T4on 0 - FT4 reflex Free T4 Normal [facility] Comment on above: Performed By: #### F T4, TSH reflex FT4 ####[facility] [address] [facility] [place] [id number] TSH 4.680 uIU/mL High 0.400-4.500 [facility] io Counter Help Comment on above: Performed By: #### F T4, TSH reflex FT4 ####[facility] [address] [place], [place] [id number] XR Chest 2 Views*on 09-24-19 22 XR Chest 2 Views* FINDINGS: No acute cardiac or pulmonary disease is identified. No worrisome mass lesions or infiltrates are seen. No pulmonary edema or pneumothorax is present. Cardiac silhouette size is normal. Skeletal structures are normal. IMPRESSION: No acute cardiac or pulmonary disease Report reported and signed by Raheem Alcaraz on 09/23/2021 1414 Normal [facility] Counter Help Coding Summary.on 07-21-2021 Coding Summary. CD:[id number] G h0bWw+PGhlYWQ+GB6VJJD mV29lzHHxzQ3DL1rRSC4A GJVNXQHAHN9FNR4irSQ1T TvqV2JtdcGj YrdtiDPpXI94WBt5MYU6n JsnJJqppE3frJLyW3l1Zv NnTK41yR32ZZrvZSOpTcK 3LjZpbjsgbWFy C5ejYuJaxUQuZeq+PHRhY mxlIHdpZHRoPScxMDAlJy DucOesFB1hHs2lSTQyPXT vbGxhcHNlOiBj s0pmPUWgHBynXD0jsGxzG 8JlcBB0KRNxq6t0Jr32gA I+UBCkZVG7tSyaXYwwc74 1FbBwp0qdEQH6 aPIrZCanZXK5U56ft0M6A OAaHMFnOXK5rKA0iU6zsZ cbonfyY3JqtGBsQxD5MJA 9bYRrrJ3ylNmq seowqZ0mPen+R91KTL7NW XJAKF8OWgh7V7KzOrnyyI I+LF82XKXvUN34iLPhsLE ec8qzcDj1YhTk SCRfBXV0eMgcLAgii4PrJ XHdA58vlSKma8W7CVXguS wmtOEjOoAyxYX5nW9fLDl rsjjet0rpgelk Rzskz9yhgd07hF60H09fY YbhAVQqPAR8FHGcTPRaoT vyvc9tsW9sZh2+TXnpj0o rd1mrlDq3EfSq YNXvjtFlqOzqZSX8v1BmY t50S0KjeXwhn7RvDjz2of 38gDKro9J2bGF6XNkkSXQ swP6gKMhyBgB3 LAFpYiOvbE91rTVwLPwzG y3jvSpobAhhGS8zCGFalc seMHJeiP0wCRXkuFXudTb mBT2wRJOvxkjw e169MpJiMXJ7NITgfVToD 5ZljG6eDkSgIVUsOQRpW0 UcnPVeJXuiF001NRvrCpE 2AXSzevGeX3Ak SLYksThrNnU1p5W9Vp8Gr 8AvppfbZNQ8QSwhENOvHo P5QeLaMmP5X2WiGkf7FOV miBtgJA7kN4Vq VNKxqctqxkypbPL9KNCgF XWomN45aVZxRGbcOh3st7 T3r816WDBpZHNquY00Xd9 udDogMTBwdCBU yT8xdejvv9ckiqnjYqMxR KMpFRn9NIy9TDZbyDutNz EzJRJ4XbG9ITS2sYQvfM1 qjJyqprctiO1n Oyc+F32cjL6qLCH0KOM0m hdtRVHexqSjEP87DZ83L5 RyPjwvdGFibGU+PGRpdiB lrTneAQ0dFiBg d2qwl4ViUTmpV9CiDXXfH EehYul3MUIfOSW6jDX2hB 8vHPDbKWsos0F9cXD7G4Y zjyLksc9xt9ha FNMxMJulP22xuIXbc9G5M KJrwDO2BNYmiJhsFbIdcF 93Oyc+KSIteBhob1HcMqm uy1ryc2hvjAa9 XuTbEIWdnyUbrRiyNEI8c 2AbBl56W97yJUnlXTOeZE AbRCKpLZVmaSeoml2kuU5 wIi8+PGNvbCB3 aLJ9wU4uDEQhTaV1GRgxT 793NnEvdTJfFmemg5nho6 mhlYo8YaWdUMBshkOjnJx aVBM9b1UuXx32 S92dKAvhOCNsKGOfQQPnD CKtfTkhxt3hkJ6uHn6+PC 3uf2zpcu88nO95rSL+PHR rRHI8uPumTVyb CANnfE7yAVeiGxQ1NTPrG yUlrF90yDWzSHwfLj4viV qzoQduGX8eWIXdcftit57 8UvGhw1kaWVIr zXWiUTojLAI4I44gi9R9N JFnMXUeJSF0fRG1cG5tsI lnbjogbGVmdDsgdmVydGl yMUcpANafI772 IHRvcDsnPlBhdGllbnQgT zZbGHy1U8XpLxh6BJMceN ksIE8veYYhUDbbEw7hbWk emAnvHU4xLJIq jozhs486OeGwi0obNSXro IXgCRitZVZ1I27pp7D6MM VbJPXvSQM3oUP6cD5yiXc nbjogbGVmdDsg nxCooFevACpjUTpoJ013M HRvcDsnPkJpcnRoIERhdG F0BL01QY47rJFew3Z1uTM 5K4RaROSmwbgv txiwkCP3ZLBoENIwnK37F l9rkDkeTv9lQDEuXPU7VZ VpyLRxK4FceX3mNfYaABO fWAFmY6FmoWRw SKvrB838VDybXaF3BJGbb sGvT9WfPRAkcBgzLcS9g6 L7Kg2KF4Q7YO02VG97qWA ko7M8zDR9L6Ws IHEcdfxkvqjlbNB3VACsB LWjzF81Vv8taIjcNc3vJA YaCVQ7QNSduBXbO4IsmF6 yOiAjMDAwMDAw H2McbVLpGYmpR932ZRclE uJ3RUTziyMlZ3CvCJPkaK ehFgA7u5U7Om8XZOz7VX4 7RF46pPBox8V6 mOA6J4VfBZMukstqeions NO8SABxSPAyeG31Jh0lyY guFk9zOSOpUAZ7YTRdfNP fF8OntZ4oQmZt SVSqPQOlT8GylIDxIYxkG 967GIgtRtX0ZIGiylHhQ4 RpWWFnxAydOdG0t4S7Ky1 LJQHlYZ83TYE0 oXR1UN94UY64R3DyHdhxy GFibGU+PHRhYmxlIHdpZH RoPScxMDAlJyBzdHlsZT0 bZw7tJSGsFJSv fMkwcLFmInOpl7ihXTZeL EqiHE3ugVsrO4CujQB4KI Cgt2b4Hp21D94bJ3PzjLD +JXLdhXR2iSF1 jO2dPaEdNvB2MFgyE646Z oRetSQpXjrxm2ltq7sgxW e6CgC0BIGxvvXxjIttKIC 0w7MiJu97L71s IHdpZHRoPSIxNSUiIHZhb Rrzzr3rjP2aFy0+PGNvbC Z2hSF2pE1mLuUgFsF7AGp pR479PoVtlWDr Zwmfw7rvg4mfrHo1MvIeI AZufgFfaXajGEA3h5EeKi 63H5YcvMxqe3ZjWcw3ju2 4gXOgy3C3bZY9 D7UdNJEqznacyLLrzHnoN B3mJWPqkfmeJDUyrN6tJG DsZ7g1HaLmSkO8ELoqL6D hsiX3FYRdpAPw ZTsiAYF5I82fl1Z3GPCkA GGdGOM5eMZ8iL2dyBlqhw ogbGVmdDsgdmVydGljYWw qSLabW050TWTa rFhgLUNfrL4vYBYxqKDeq QgdZW7wAQGibynqDtcLHa dPUklBLCBFTUlMWTwvdGQ +JFQzIDM4yRqj ASycFZNncH0zUQAiR7c6S lIiYtO8ATgjO3SbNFOtqd ujVx11rQ7wAdNlQwI1AVk sS9LelcO5MQKo qPAkFJpiILJ7V55zc1H9C ECvHGVwSJV8uSW3nK1ivD lnbjogbGVmdDsgdmVydGl kFRdvVJebH578 IVUncHcnDiC8LvZrSsK4C WF2A8XtVwq4NRIyxQolWT 0bnCUhWHjeDq5ugVtuyJw xXE0sGDBorhnv DXZfnQ7jHJHapIGgwNlbS C0kTSUubuelo162YdNaIY L5RVWcmTMdB1WqsN4qYwD eQSJnXPEtT7Cq wTAvQNcgC402RLtcXiG4H XOlqmXnE8FjREDozFlyGg Q4g8D6Uy92KHRREVCvhyp vdGQ+PHRkIHN0 bJzjNEgxCNIqyQ0bAORgL 3r3DvEwNtR5GAscM2GcAZ LmwulrVo31tN0iQgFtGgV 4IHmwR1VvliP2 OFSfsLFmQHcdLSK4C98fz 9R2FLOiPSNkYRE2nBG9xX 1hbGlnbjogbGVmdDsgdmV ydGljYWwtYWxp J321NTHwaJmqAcQblZGhT TwvdGQ+SNLcMHH8dTubNX hqPELzbV7aTORzU3o9FnC wOmX2MVvpU1Mv JHMzeqrsIq32mF8yWwQnB wG9CTwlZ4ZdreA3WERihY WyAAveXIX2R11kt3N9BAC cOXPrADT2jRU8 hM7pqSbehczsuJBnjQqbd eBxuQrfMYroFNrdI075YU EgyGemNa43uLYtbOcgovU 4G8CaQywlpFS+ TI21ACYpJV09bRAbxEOih 9tgwWg7OuDuXHHsVZJ5iQ xlCCsgc9BpMHVxA13ddXF yv5O2ZEAwiEbt vSXrRuWdsGW9uT5tAImuk nxef9hfxzaqKnypz7nmps 57iN32T71vRWdkTALwPLT zMCUiIHZhbGln hl7dlC6gDd5+VTIulNB5o ZS2uF1oTkXvWuG0PSypA9 96NdSqdBQiVsnhe3doj3e ljYm3EqDmGEJw wsLhyUyxSXJ6w6GjBm54K 29sIHdpZHRoPSIyMCUiIH OvkQtsro2hbI9rUz3+PC9 oy6zkxv86cZ21 dHI+SNBoDVH6oUrxTKrpI QEwpG2dMUqzCeP5RDAlAe VwkZ30vWSjJVbnLz3piFf nnDfwZS4pEAZy wcisc282TuAdt1krLSSgq EEgFNyiOYG7U57yp2W8NH WkFZUxDWM0dRA4uT4jrPx nbjogbGVmdDsg qdNkwGqnPWozEIvfH649B FTpmCnwDeDytIZiM9iuvt EQHA4hZtwjpSV+PHRkIHN 0eWxlPSdwYWRk qQ6lMSRvJ5g3ZfRrLgT4N LjzG2NxbkU6KECuzGXpTH HmwOBPcZ8zxwhdw1gxmzk gIzAwMDAwMDt0 XWb1SZAwrPzeLcYqNBW8D xC5UBY5jJVmlL7tnQvktm ajxD1rXhv+RklOOjwvdGQ +TSPfNQI2iIhb LSspPOAhcJ2jKGHfG8u3F hQnFbY2YLifD2KegfU7AL EibWKlRBJcjKNLvM5sids ax0isskfuIeJq ROAxMXp4ZMz2AHTkcHlgU pLbKYH2RvQ8DXF9zANuyK 9xiZkssrpcfX9gCmj+TVJ OOjwvdGQ+PHRk WEQ7sUioMYcmJSQkhF1kC PAbZ7k4WiYvJtK3JMxmX9 SgfyY0OQRqaEUqNBQpiWN BqQ1gsnexf6of hfiuXlOdCDBxDHk1EXf9K TFybTllViYzZJC1KgY7BH F2yNCqlF9wiQjwykeziA8 wOyc+ZGW0DEJ1 MR93LA48G7VfIhogwXQuo +PHRhYmxlIHdpZHRoPS usXNVoTbZwkPkcNY9uEe2 yZGVyLWNvbGxh cHNl (more content not included)... Normal [facility] CT Maxillofacial w/o Contras ton 07-16-2021 CT [...] Francisco MD, V. Transcribed by: LINDA Technologist: SB [facility] Consent for Treatmenton Consent for Treatment [id number]:127 [facility] Physician Orderon 06-28-2021 Physician Order [id number]:127 [facility] Physician Orderon 05-31-2021 Physician Order [id number] .[id number]:127 [facility] Vital Signs Date Time Vital Sign Value Performing Clinician Facility 07-02-2024 13:21-0500 Body height 165.1 cm Bonifacio Diehl PA-C Work Phone: [facility] 07-02-2024 13:21-0500 Body mass index (BMI) [Ratio] 52.92 kg/m2 Bonifacio Diehl PA-C Work Phone: [facility] 07-02-2024 13:21-0500 Body temperature 97.3 [degF] Bonifacio Diehl PA-C Work Phone: [facility] 07-02-2024 13:21-0500 Body weight 144.24 kg Bonifacio Diehl PA-C Work Phone: [facility] 07-02-2024 13:21-0500 Diastolic blood pressure 92 mm[Hg] Bonifaico Diehl PA-C Work Phone: [facility] 07-02-2024 13:21-0500 Heart rate 91 /min Bonifacio Diehl PA-C Work Phone: [facility] 07-02-2024 13:21-0500 SaO2% (BldA) [Mass fraction] 97 % Bonifacio Diehl PA-C Work Phone: [facility] 07-02-2024 13:21-0500 Systolic blood pressure 142 mm[Hg] Bonifacio Diehl PA-C Work Phone: [facility] 06-13-2024 10:42-0500 Body mass index (BMI) [Ratio] 52.59 kg/m2 Alex Krzysztof DO Work Phone: [facility] 06-13-2024 10:42-0500 Body weight 143.34 kg Alex Krzysztof DO Work Phone: [facility] 06-13-2024 10:42-0500 Diastolic blood pressure 80 mm[Hg] Alex Krzysztof DO Work Phone: [facility] 06-13-2024 10:42-0500 Systolic blood pressure 130 mm[Hg] Alex Krzysztof DO Work Phone: [facility] 05-27-2024 09:28-0500 Body mass index (BMI) [Ratio] 52.72 kg/m2 Alex Krzysztof DO Work Phone: [facility] 05-27-2024 09:28-0500 Body weight 143.7 kg Alex Krzysztof DO Work Phone: [facility] 05-27-2024 09:28-0500 Diastolic blood pressure 80 mm[Hg] Alex Krzysztof DO Work Phone: [facility] 05-27-2024 09:28-0500 Systolic blood pressure 138 mm[Hg] Alex Blankenship DO Work Phone: [facility] 05-20-2024 09:16-0500 Diastolic blood pressure 88 mm[Hg] Bonifacio Diehl PA-C Work Phone: [facility] 05-20-2024 09:16-0500 Heart rate 92 /min Bonifacio Diehl PA-C Work Phone: [facility] 05-20-2024 09:16-0500 SaO2% (BldA) [Mass fraction] 96 % Bonifacio Diehl PA-C Work Phone: [facility] 05-20-2024 09:16-0500 Systolic blood pressure 128 mm[Hg] Bonifacio Diehl PA-C Work Phone: [facility] 04-02-2024 16:20-0500 Diastolic blood pressure 80 mm[Hg] Bonifacio Diehl PA-C Work Phone: [facility] 04-02-2024 16:20-0500 Systolic blood pressure 142 mm[Hg] Bonifacio Diehl PA-C Work Phone: [facility] 04-02-2024 15:23-0500 Body height 165.1 cm Bonifacio Diehl PA-C Work Phone: [facility] 04-02-2024 15:23-0500 Body mass index (BMI) [Ratio] 52.42 kg/m2 Bonifacio Diehl PA-C Work Phone: [facility] 04-02-2024 15:23-0500 Body temperature 97.11 [degF] Bonifacio Diehl PA-C Work Phone: [facility] 04-02-2024 15:23-0500 Body weight 142.88 kg Bonifacio Diehl PA-C Work Phone: [facility] 04-02-2024 15:23-0500 Heart rate 100 /min Bonifacio Diehl PA-C Work Phone: [facility] 04-02-2024 15:23-0500 SaO2% (BldA) [Mass fraction] 96 % Bonifacio Diehl PA-C Work Phone: [facility] 04-02-2024 08:27-0500 Body height 165.1 cm Chuy Frederick MD Work Phone: [facility] 04-02-2024 08:27-0500 Body mass index (BMI) [Ratio] 52.52 kg/m2 Chuy Frederick MD Work Phone: [facility] 04-02-2024 08:27-0500 Body weight 143.16 kg Chuy Frederick MD Work Phone: [facility] 04-02-2024 08:27-0500 Diastolic blood pressure 94 mm[Hg] Chuy Frederick MD Work Phone: [facility] 04-02-2024 08:27-0500 Heart rate 88 /min Chuy Frederick MD Work Phone: [facility] 04-02-2024 08:27-0500 Systolic blood pressure 172 mm[Hg] Chuy Frederick MD Work Phone: [facility] 03-31-2024 09:30-0500 Body weight 139 kg [facility] Comment on above: Result Comment: NOTE Test Performed by: [place] [address] Soaking Pits Supervisor: Jose Schmitz Ph.D.; CLIA# [id number] Corrected on 04/04 AT 0810: Previously reported as 138.8 Performed By: #### C TIERRA, [facility], [id number], [id number] #### [facility] [place] ([id number]) [address] [place] [address] 02-20-2024 08:39-0400 Diastolic blood pressure 86 mm[Hg] Bonifacio Diehl PA-C Work Phone: [facility] 02-20-2024 08:39-0400 Systolic blood pressure 150 mm[Hg] Bonifacio Diehl PA-C Work Phone: [facility] 02-20-2024 07:54-0400 Body height 165.1 cm Bonifacio Diehl PA-C Work Phone: [facility] 02-20-2024 07:54-0400 Body mass index (BMI) [Ratio] 50.92 kg/m2 Bonifacio Diehl PA-C Work Phone: [facility] 02-20-2024 07:54-0400 Body temperature 97.3 [degF] Bonifacio Diehl PA-C Work Phone: [facility] 02-20-2024 07:54-0400 Body weight 138.8 kg Bonifacio Diehl PA-C Work Phone: [facility] 02-20-2024 07:54-0400 Heart rate 89 /min Bonifacio Diehl PA-C Work Phone: [facility] 02-20-2024 07:54-0400 SaO2% (BldA) [Mass fraction] 97 % Bonifacio Diehl PA-C Work Phone: [facility] 02-06-2024 09:27-0400 Diastolic blood pressure 102 mm[Hg] Bonifacio Diehl PA-C Work Phone: [facility] 02-06-2024 09:27-0400 Systolic blood pressure 164 mm[Hg] Bonifacio Diehl PA-C Work Phone: [facility] 02-06-2024 08:59-0400 Body height 165.1 cm Bonifacio Diehl PA-C Work Phone: [facility] 02-06-2024 08:59-0400 Body mass index (BMI) [Ratio] 49.92 kg/m2 Bonifacio Diehl PA-C Work Phone: [facility] 02-06-2024 08:59-0400 Body temperature 97.5 [degF] Bonifacio Diehl PA-C Work Phone: [facility] 02-06-2024 08:59-0400 Body weight 136.08 kg Bonifacio Diehl PA-C Work Phone: [facility] 02-06-2024 08:59-0400 Heart rate 100 /min Bonifacio Diehl PA-C Work Phone: [facility] 02-06-2024 08:59-0400 SaO2% (BldA) [Mass fraction] 96 % Bonifacio Diehl PA-C Work Phone: [facility] 01-09-2024 07:59-0400 Body height 165.1 cm Chuy Frederick MD Work Phone: [facility] 01-09-2024 07:59-0400 Body mass index (BMI) [Ratio] 49.14 kg/m2 Chuy Frederick MD Work Phone: [facility] 01-09-2024 07:59-0400 Body weight 133.95 kg Chuy Frederick MD Work Phone: [facility] 01-09-2024 07:59-0400 Diastolic blood pressure 95 mm[Hg] Chuy Frederick MD Work Phone: [facility] 01-09-2024 07:59-0400 Heart rate 83 /min Chuy Frederick MD Work Phone: [facility] 01-09-2024 07:59-0400 Systolic blood pressure 164 mm[Hg] Chuy Frederick MD Work Phone: [facility] 01-08-2024 10:33-0400 Body mass index (BMI) [Ratio] 49.09 kg/m2 Sampson Pemberton CNM Work Phone: [facility] 01-08-2024 10:33-0400 Body weight 133.81 kg Sampson Pemberton CNM Work Phone: [facility] 01-08-2024 10:33-0400 Diastolic blood pressure 90 mm[Hg] Sampson Pemberton CNM Work Phone: [facility] 01-08-2024 10:33-0400 Systolic blood pressure 140 mm[Hg] Sampson Pemberton CNM Work Phone: [facility] 01-04-2024 08:50-0400 Body height 165.1 cm Raymond Whittaker DPM Work Phone: [facility] 01-04-2024 08:50-0400 Body mass index (BMI) [Ratio] 48.42 kg/m2 Raymond Whittaker DPM Work Phone: [facility] 01-04-2024 08:50-0400 Body weight 132 kg Raymond Whittaker DPM Work Phone: [facility] 01-04-2024 08:50-0400 Diastolic blood pressure 79 mm[Hg] Raymond Whittaker DPM Work Phone: [facility] 01-04-2024 08:50-0400 Heart rate 75 /min Raymond Whittaker DPM Work Phone: [facility] 01-04-2024 08:50-0400 Systolic blood pressure 124 mm[Hg] Raymond Whittaker DPM Work Phone: [facility] 12-19-2023 08:36-0400 Body height 165.1 cm Thalia Castanon MD Work Phone: [facility] 12-19-2023 08:36-0400 Body mass index (BMI) [Ratio] 48.09 kg/m2 Thalia Castanon MD Work Phone: [facility] 12-19-2023 08:36-0400 Body weight 131.09 kg Thalia Castanon MD Work Phone: [facility] 12-19-2023 08:36-0400 Diastolic blood pressure 74 mm[Hg] Thalia Castanon MD Work Phone: [facility] 12-19-2023 08:36-0400 Respiratory rate 18 /min Thalia Castanon MD Work Phone: [facility] 12-19-2023 08:36-0400 Systolic blood pressure 128 mm[Hg] Thalia Castanon MD Work Phone: [facility] 11-22-2023 16:34-0400 Body height 165.1 cm PHYSICIAN NO [facility] 11-22-2023 16:34-0400 Body temperature 98.4 [degF] PHYSICIAN NO [facility] 11-22-2023 16:34-0400 Body weight 125.1 kg PHYSICIAN NO [facility] 11-22-2023 16:34-0400 Diastolic blood pressure 85 mm[Hg] PHYSICIAN NO [facility] 11-22-2023 16:34-0400 Heart rate 86 /min PHYSICIAN NO [facility] 11-22-2023 16:34-0400 Respiratory rate 18 /min PHYSICIAN [facility] 11-22-2023 16:34-0400 SaO2% (BldA) [Mass fraction] 97 % PHYSICIAN NO [facility] 11-22-2023 16:34-0400 Systolic blood pressure 138 mm[Hg] PHYSICIAN [facility] 09-21-2023 09:40-0400 Body mass index (BMI) [Ratio] 45.26 kg/m2 Thalia Castanon MD Work Phone: [facility] 09-21-2023 09:40-0400 Body weight 123.38 kg Thalia Castanon MD Work Phone: [facility] 09-21-2023 09:40-0400 Diastolic blood pressure 90 mm[Hg] Thalia Castanon MD Work Phone: [facility] 09-21-2023 09:40-0400 Heart rate 70 /min Thalia Castanon MD Work Phone: [facility] 09-21-2023 09:40-0400 Respiratory rate 16 /min Thalia Castanon MD Work Phone: [facility] 09-21-2023 09:40-0400 Systolic blood pressure 135 mm[Hg] Thalia Castanon MD Work Phone: [facility] 09-06-2023 11:55-0400 Body height 165.1 cm Stefanycindy Mike BUTADIENE CONVERTOR OPERATOR-SURFACER Work Phone: [facility] 09-06-2023 11:55-0400 Body mass index (BMI) [Ratio] 45.26 kg/m2 Stefanycindy Mike BUTADI[employer] CONVERTOR OPERATOR-SURFACER Work Phone: [facility] 09-06-2023 11:55-0400 Body weight 123.38 kg Stefanycindy Mike BUTADIENE CONVERTOR OPERATOR-SURFACER Work Phone: [facility] 09-06-2023 11:55-0400 Diastolic blood pressure 79 mm[Hg] Stefanycindy Mike BUTADIENE CONVERTOR OPERATOR-SURFACER Work Phone: [facility] [employer] [facility] 09-06-2023 11:55-0400 Heart rate 80 /min Stefanycindy Mike BUTADIENE CONVERTOR OPERATOR-SURFACER Work Phone: [facility] [employer] [facility] 09-06-2023 11:55-0400 SaO2% (BldA) [Mass fraction] 99 % Stefanycindy Castellanosgel BUTADIENE CONVERTOR OPERATOR-SURFACER Work Phone: [facility] [employer] [facility] 09-06-2023 11:55-0400 Systolic blood pressure 131 mm[Hg] Stefanycindy Mike BUTADIENE CONVERTOR OPERATOR-SURFACER Work Phone: [facility] [employer] [facility] 06-20-2023 19:12-0500 Body height 165.[address] [facility] [employer] [facility] 06-20-2023 19:12-0500 Body mass index (BMI) [Ratio] 48.59 kg/m2 [facility]-20-[facility]23 19:12-0500 Body weight 132.45 kg Pmh 1 [facility] 05-22-2023 11:56-0500 Body height 165.1 cm Michael Quintero MD Work Phone: [facility] 05-22-2023 11:56-0500 Body mass index (BMI) [Ratio] 48.59 kg/m2 Michael Quintero MD Work Phone: [facility] 05-22-2023 11:56-0500 Body weight 132.45 kg Michael Quintero MD Work Phone: [facility] 05-22-2023 11:56-0500 Diastolic blood pressure 87 mm[Hg] Michael Quintero MD Work Phone: [facility] 05-22-2023 11:56-0500 Heart rate 83 /min Michael Quintero MD Work Phone: [facility] 05-22-2023 11:56-0500 Systolic blood pressure 129 mm[Hg] Michael Quintero MD Work Phone: [facility] 05-19-2023 09:48-0500 Body height 165.1 cm Stefanycindy Mike BUTADIENE CONVERTOR OPERATOR-SURFACER Work Phone: [facility] 05-19-2023 09:48-0500 Body mass index (BMI) [Ratio] 48.71 kg/m2 Stefany Kregel BUTADIENE CONVERTOR OPERATOR-SURFACER Work Phone: [facility] 05-19-2023 09:48-0500 Body weight 132.77 kg Stefany Kregel BUTADIENE CONVERTOR OPERATOR-SURFACER Work Phone: [facility] 05-19-2023 09:48-0500 Diastolic blood pressure 100 mm[Hg] Stefany Kregel BUTADIENE CONVERTOR OPERATOR-SURFACER Work Phone: [facility] 05-19-2023 09:48-0500 Heart rate 88 /min Stefany Kregel BUTADIENE CONVERTOR OPERATOR-SURFACER Work Phone: [facility] 05-19-2023 09:48-0500 SaO2% (BldA) [Mass fraction] 96 % Stefany Mike BUTADIENE CONVERTOR OPERATOR-SURFACER Work Phone: [facility] [employer] [facility] 05-19-2023 09:48-0500 Systolic blood pressure 139 mm[Hg] Stefany Mike BUTADIENE CONVERTOR OPERATOR-SURFACER Work Phone: [facility] Encounters Encounter Date Encounter Type Care Provider Facility Start: 07-03-2024 End: 07-09-2024 Telephone encounter Scanning Provider External [facility] Start: 07-02-2024 End: 07-02-2024 Clinisync Result Encounter Alex Krzysztof DO Work Phone: [facility] External Department Unsolicited Start: 07-02-2024 End: 07-02-2024 Clinisync Result Encounter Alex Krzysztof DO Work Phone: [facility] External Department Unsolicited Start: 07-02-2024 End: 07-02-2024 Office outpatient visit 25 minutes Bonifacio Diehl PA-C Work Phone: [facility]/Kristopher Godoy MD Comment on above: E-coli UTI (Primary Dx); Hypomagnesemia; Primary hypertension; Hyponatremia; Mineral metabolism disorder; Hypothyroidism, unspecified type; Type 2 diabetes mellitus with diabetic polyneuropathy, without long-term current use of insulin ([facility]); High urine sodium level Start: 07-02-2024 End: 07-02-2024 ambulatory [facility] Start: 06-28-2024 End: 07-03-2024 Telephone encounter [facility]hl [facility]-C [facility]Kristopher Godoy [facility] Start: 06-26-2024 End: 06-27-2024 Emergency department patient visit [facility] Nicolas DIEHL [facility] Start: 06-13-2024 End: 06-13-2024 Bamboo flowsheet Alex Krzysztof DO Work Phone: [facility] Start: 06-13-2024 End: 06-13-2024 Bamboo flowsheet Alex Krzysztof DO Work Phone: [facility] Start: 06-13-2024 End: 06-13-2024 Office outpatient visit 15 minutes Alex Krzysztof DO Work Phone: [facility] Comment on above: Arthralgia of lower leg, unspecified laterality; Pre-op examination; Pelvic pain in female; Left ovarian cyst; Amenorrhea Start: 06-13-2024 End: 06-13-2024 Preprocedural examination done Alex Krzysztof DO Work Phone: [facility] Start: 06-13-2024 End: 06-13-2024 ambulatory ALEX KRZYSZTOF Not Available Start: 06-10-2024 End: 06-10-2024 Orders Only Chuy Frederick MD Work Phone: [facility] Comment on above: Neuropathy (Primary Dx) Start: 06-04-2024 End: 06-04-2024 Orders Only Chuy Frederick MD Work Phone: [facility] Comment on above: Neuropathy (Primary Dx) Start: 06-03-2024 End: 06-03-2024 Telephone encounter Rosa Mittal MD Work Phone: [facility] Start: 05-29-2024 End: 05-29-2024 Refill Bonifacio Diehl PA-C Work Phone: [facility]/Kristopher Godoy MD Comment on above: Primary hypertension ; High urine sodium level Start: 05-29-2024 End: 05-29-2024 Office outpatient visit 25 minutes Thalia Castanon MD Work Phone: [facility] Comment on above: Fibromyalgia Start: 05-29-2024 End: 05-29-2024 ambulatory BONIFACIO DIEHL [facility] Start: 05-28-2024 End: 05-29-2024 Telephone encounter Bonifacio Diehl PA-C Work Phone: [facility]/Kristopher Godoy MD Start: 05-27-2024 [...] Not Available Start: 05-20-2024 End: 05-20-2024 ambulatory BONIFACIO DIEHL [facility] Start: 05-20-2024 End: 05-20-2024 Office outpatient visit 25 minutes Bonifacio Diehl PA-C Work Phone: [facility]Kristopher Godoy MD Comment on above: Primary hypertension (Primary Dx); Iron deficiency; Hypothyroidism, unspecified type; High urine sodium level; Type 2 diabetes mellitus with diabetic polyneuropathy, without long-term current use of insulin ([facility]); Mineral metabolism disorder; STARR on CPAP; Abnormal [...] above: Vitamin D insufficie ncy; Acquired hypothyroidism ([facility]/HCC) Hypertriglyceridemia ([facility]/HCC) Start: 04-12-2024 End: 04-12-2024 Emergency department patient visit [facility] Start: 04-03-2024 End: 04-03-2024 ambulatory [facility] Start: 04-02-2024 End: 04-02-2024 Office outpatient visit 25 minutes Bonifacio Diehl PA-C Work Phone: [facility]Kristopher Godoy MD Comment on above: URI with cough and c ongestion (Primary Dx); Primary hypertension; High urine sodium level; Iron deficiency; Hypothyroidism, unspecified type Start: 04-02-2024 End: 04-02-2024 ambulatory [facility] Start: 04-02-2024 End: 04-02-2024 Office outpatient visit 25 minutes Chuy Frederick MD Work Phone: [facility] Comment on above: Neuropathy (Primary Dx); Chronic left-sided low back pain without sciatica Start: 04-02-2024 End: 04-02-2024 ambulatory CHUY FREDERICK [facility] Start: 03-31-2024 End: 03-31-2024 ambulatory [facility] Start: 03-27-2024 End: 03-27-2024 ambulatory [facility] Start: 03-05-2024 End: 03-05-2024 Refill Bonifacio Diehl PA-C Work Phone: [facility]/Kristopher Godoy MD Start: 03-04-2024 End: 03-04-2024 ambulatory [facility] Start: 03-04-2024 End: 03-04-2024 amb[facility] Comment on above: Neuropathy (Primary Dx) Iron deficiency (Coty igor Dx) Start: 02-25-2024 End: 02-26-2024 Refill Lalo Miller MINISTER Work Phone: [facility] Comment on above: Type 2 diabetes trish itus without complication, without long- term current use of insulin ([facility]); Gastroesophageal reflux disease without esophagitis Start: 02-20-2024 End: 02-20-2024 Office outpatient visit 25 minutes Bonifacio Diehl PA-C Work Phone: [facility]/Kristopher Godoy MD Comment on above: Primary hypertension (Primary Dx); Iron deficiency; Insomnia, unspecified type; Hypothyroidism, unspecified type Start: 02-20-2024 End: 02-20-2024 ambulatory [facility] Start: 02-06-2024 End: 02-06-2024 [facility] Start: 02-06-2024 End: 02-06-2024 Office outpatient new 45 minutes Bonifacio Diehl PA-C Work Phone: [facility]/Kristopher Godoy MD Comment on above: Primary hypertension (Primary Dx); Abnormal EKG; Iron deficiency; Hypothyroidism, unspecified type; JACINTO (acute kidney injury) ([facility]); Mineral metabolism disorder; Type 2 diabetes mellitus with other diabetic kidney complication, without long-term current use of insulin ([facility]); Cyst of left ovary; Dysmenorrhea; Uric acid kidney stone; BMI 45.0-49.9, adult ([facility]) Start: 02-06-2024 End: 02-06-2024 ambulatory [facility] Start: 02-05-2024 End: 02-06-2024 Refill Justine Goldberg MINISTER Work Phone: [facility] Comment on above: Morbid (severe) obes ity due to excess calories ([facility]); Type 2 diabetes mellitus without complication, without long-term current use of insulin ([facility]) Start: 01-24-2024 End: 01-24-2024 ambulatory [facility] Start: 01-12-2024 End: 01-12-2024 Orders Only Justine Kampfer MINISTER Work Phone: [facility] Comment on above: Acquired hypothyroid ism (CMS/HCC) (Primary Dx) Start: 01-10-2024 End: 01-10-2024 Telephone encounter Rosa Mittal MD Work Phone: [facility] Start: 01-10-2024 End: 01-10-2024 ambulatory SAMPSON L FLORO Not Available Start: 01-09-2024 End: 01-09-2024 ambulatory ROSA MITTAL [facility] Start: 01-09-2024 End: 01-09-2024 Office outpatient new 45 minutes Chuy Frederick MD Work Phone: [facility] Comment on above: Tingling of both fee t (Primary Dx); Neuropathy; Hyperreflexia Start: 01-09-2024 End: 01-09-2024 ambulatory CHUY FREDERICK [facility] Start: 01-08-2024 End: 01-08-2024 Patient encounter procedure Sampson L Floro CNM Work Phone: [facility] Comment on above: Pelvic pain in femal e; Low grade squamous intraepithelial lesion on cytologic smear of cervix (LGSIL); High risk HPV infection Start: 01-08-2024 End: 01-08-2024 ambulatory SAMPSON L FLORO Not Available Start: 01-05-2024 End: 01-05-2024 Refill Justine Goldberg MINISTER Work Phone: [facility] Comment on above: Major depressive dis order, single episode, mild (HCC) (CMS/HCC) Start: 01-05-2024 End: 01-05-2024 Refill Lalo Miller MINISTER Work Phone: [facility] Comment on above: Allergic rhinitis du e to other allergic trigger, unspecified seasonality; Iron deficiency; Acquired hypothyroidism (CMS/HCC) Major depressive dis order, single episode, mild (HCC) (CMS/HCC) Start: 01-04-2024 End: 01-04-2024 [place] flowsheet Raymond Whittaker DPM Work Phone: [facility] Start: 01-04-2024 End: 01-04-2024 Bamboo flowsheet Raymond Whittaker DPM Work Phone: [facility] Start: 01-04-2024 End: 01-04-2024 Office outpatient visit 15 minutes Raymond Whittaker DPM Work Phone: [facility] Comment on above: Hav (hallux abducto valgus), left (Primary Dx); Hav (hallux abducto valgus), right; Acquired deformity of left toe; Type 2 diabetes mellitus without complication, without long-term current use of insulin ([facility]) Start: 01-04-2024 End: 01-04-2024 ambulatory RAYMOND WHITTAKER Not Available Start: 12-19-2023 End: 12-19-2023 Office outpatient visit 25 minutes Thalia Castanon MD Work Phone: [facility] Comment on above: Neuropathy (Primary Dx); Fibromyalgia Start: 12-19-2023 End: 12-19-2023 ambulatory ROSA MITTAL [facility] Start: 12-11-2023 End: 12-11-2023 ambulatory LALO MILLER Not Available Start: 12-11-2023 End: 12-11-2023 ambulatory SAMPSON PEMBERTON Not Available Start: 12-02-2023 End: 12-02-2023 ambulatory RAYMOND WHITTAKER Not Available Start: 11-24-2023 End: 11-24-2023 ambulatory RAYMOND WHITTAKER Not Available Start: 11-22-2023 End: 11-22-2023 Emergency department patient visit PHYSICIAN PATRICIA [facility] Work Phone: Start: 11-21-2023 End: 11-22-2023 Emergency department patient visit KAL ROBERTS [facility] Start: 11-21-2023 End: 11-21-2023 Emergency department patient visit KAL ROBERTS [facility] Start: 11-21-2023 End: 11-21-2023 ambulatory TANNER Jason RODRIGUEZ Not Available Start: 11-08-2023 End: 11-08-2023 ambulatory SAMPSON Cady CASTROO Not Available Start: 11-08-2023 End: 11-08-2023 ambulatory SAMPSON Cady FLORO Not Available Start: 11-06-2023 End: 11-06-2023 Refill Leandro Chapman BUTADIENE CONVERTOR OPERATOR-SURFACER Work Phone: [facility] Start: 11-06-2023 End: 11-06-2023 ambulatory JUSTINE KAMPFER Not Available Start: 10-16-2023 End: 10-16-2023 ambulatory LALO MILLER Not Available Start: 10-10-2023 End: 10-10-2023 ambulatory TANNER A RODRIGUEZ Not Available Start: 09-27-2023 End: 09-28-2023 Emergency department patient visit CLAUDIA CARLSON [facility] Start: 09-27-2023 End: 09-27-2023 ambulatory FRED COTTER Not Available Start: 09-21-2023 End: 09-21-2023 Office outpatient visit 25 minutes Thalia Castanon MD Work Phone: [facility] Comment on above: Fibromyalgia Start: 09-21-2023 End: 09-21-2023 ambulatory JOSÉ Hughes [facility] Start: 09-15-2023 End: 09-15-2023 Telephone encounter Carly WINTERS [facility] Start: 09-06-2023 End: 09-06-2023 Office outpatient visit 25 minutes Stefany Mike BUTADIENE CONVERTOR OPERATOR-SURFACER Work Phone: [facility] Comment on above: STARR (obstructive sle ep apnea) (Primary Dx); CPAP use counseling; Morbid obesity with body mass index (BMI) of 45.0 to 49.9 in adult ([facility]) Start: 09-06-2023 End: 09-06-2023 ambulatory STEFANY MIKE [facility] Start: 08-17-2023 End: 08-17-2023 ambulatory JUSTINE KAMPFER Not Available Start: 08-16-2023 End: 08-16-2023 ambulatory SHELBI WELLS Not Available Start: 08-14-2023 End: 08-14-2023 ambulatory LALO MILLER Not Available Start: 07-07-2023 End: 07-07-2023 ambulatory ALEX BLANKENSHIP Not Available Start: 07-06-2023 End: 07-06-2023 ambulatory LALO MILLER Not Available Start: 07-05-2023 End: 07-06-2023 Emergency department patient visit KIRILL Granados JUANA [facility] Start: 06-22-[address] [facility] Comment on above: STARR (obstructive sle ep apnea) (Primary Dx) Start: 06-20-2023 End: 06-20-2023 Clinical Support [facility] Unit 1 [facility] Comment on above: STARR (obstructive sle ep apnea) Start: 05-22-2023 Telephone encounter Stefany christie BUTADIENE CONVERTOR OPERATOR-SURFACER Work Phone: [facility] - Sleep Disorders Comment on above: Sleep Lab (HST) Start: 05-22-2023 End: 05-22-2023 Office outpatient visit 25 minutes Michael Quintero MD Work Phone: [facility] Comment on above: Nephrolithiasis (Coty igor Dx); Angiomyolipoma of left kidney; Mineral metabolism disorder Start: 05-19-2023 End: 05-19-2023 Office outpatient new 45 minutes Stefany Mike BUTADIENE CONVERTOR OPERATOR-SURFACER Work Phone: [facility] Comment on above: STARR (obstructive sle ep apnea) (Primary Dx); Fatigue, unspecified type; Class 3 severe obesity with body mass index (BMI) of 45.0 to 49.9 in adult, unspecified obesity type, unspecified whether serious comorbidity present ([facility]-HCC); Snoring; Excessive daytime sleepiness Start: 07-16-2021 End: 07-17-2021 ambulatory Belgica Naranjo Facility[facility] Procedures Date Procedure Procedure Detail Performing Clinician Start: 07-02-2024 ALL BASIC METABOLIC PANEL Alex Krzysztof DO Work Phone: Start: 07-02-2024 ALL MAGNESIUM Alex Rashid io DO Work Phone: Start: 05-27-2024 ALL CBC WITH AUTO DIFF Alex Krzysztof DO Work Phone: Start: 04-02-2024 POCT INFLUENZA A/INF LUENZA B/SARS-COV-2 VERITOR Bonifacio Diehl PA-C Work Phone: Start: 02-20-2024 Follow-up visit Follow-up BONIFACIO DIEHL Start: 02-06-2024 Adult depression scr eening assessment [...] 11-02-2027 Screening for malignant neoplasm of cervix [facility] Start: 11-07-2026 Screening for malignant neoplasm of cervix Pap Smear [facility] Start: 07-02-2025 Adult BMI Screening Adult BMI Screening [facility] Start: 07-02-2025 Tobacco Screening Tobacco Screening [facility] Start: 05-29-2025 Tobacco Screening Tobacco Screening [facility] Start: 05-20-2025 Tobacco Screening Tobacco Screening [facility] Start: 05-05-2025 Glaucoma screening Diabetes: Retinopathy Screening [facility] Start: 04-12-2025 Adult BMI Screening Adult BMI Screening [facility] Start: 04-02-2025 Adult BMI Screening Adult BMI Screening [facility] Start: 04-02-2025 Tobacco Screening Tobacco Screening [facility] Start: 02-19-2025 Adult BMI Screening Adult BMI Screening [facility] Start: 02-19-2025 Tobacco Screening Tobacco Screening [facility] Start: 02-05-2025 Adult BMI Screening Adult BMI Screening [facility] Start: 02-05-2025 Depression Screening [facility]ening [facility] Start: 02-05-2025 Tobacco Screening Tobacco Screening [facility] Start: 01-08-2025 Adult BMI Screening Adult BMI Screening [facility] Start: 01-08-2025 Depression Screening Depression Screening [facility] Start: 01-08-2025 Tobacco Screening Tobacco Screening [facility] Start: 12-18-2024 Adult BMI Screening Adult BMI Screening [facility] Start: 12-18-2024 Tobacco Screening Tobacco Screening [facility] Start: 12-11-2024 Urine screening for protein Diabetes: Urine Protein Screening [facility] Start: 10-31-2024 End: 10-31-2024 Patient encounter procedure 10/31/2024 9:45 AM EDT Office Visit [facility] [address] [phone] Thalia Castanon MD [address] [address] [facility] Start: 10-01-2024 End: 10-01-2024 Patient encounter procedure 10/01/2024 8:30 AM EDT Office Visit [facility] [address] [place] [phone] Chuy Frederick MD [address] [place] [address] [facility] Start: 09-26-2024 Adult BMI Screening Adult BMI Screening [facility] Start: 09-26-2024 Tobacco Screening Tobacco Screening [facility] Start: 09-23-2024 End: 09-23-2024 Patient encounter procedure 09/23/2024 9:00 AM EDT Office Visit [facility] [address] [facility] [address] [place] [address] Jaime Vora MD [address], [facility] [address] [place] [address] [facility] Start: 09-20-2024 Adult BMI Screening Adult BMI Screening [facility] Start: 09-20-2024 Tobacco Screening Tobacco Screening [facility] Start: 09-11-2024 Tobacco Screening Tobacco Screening [facility] Start: 09-05-2024 Adult BMI Screening Adult BMI Screening [facility] Start: 09-05-2024 Tobacco Screening Tobacco Screening [facility] Start: 08-16-2024 Screening for malignant neoplasm of breast Mammogram [facility] Start: 07-23-2024 End: 07-23-2024 Patient encounter procedure 07/23/2024 1:00 PM EDT Office Visit [facility] [address] [place] [phone] Fior Williamson PA [address] [place] [address] [facility] Start: 07-16-2024 End: 07-16-2024 Patient encounter procedure 07/16/2024 8:30 AM EST Office Visit [facility]/Kristopher Godoy MD [address] [place] [phone] Bonifacio Diehl, PARiccardoC [address] [place] [address] [facility]Kristopher Godoy MD Start: 07-08-2024 End: 07-08-2024 Patient encounter procedure 07/08/2024 8:30 AM EST Office Visit [facility] [address] [facility] [address] [place] [address] Jaime Vora MD [address], [address] [place] [address] [facility] Start: 06-20-2024 Adult BMI Screening Adult BMI Screening [facility] Start: 06-20-2024 Urine screening for protein [facility] Start: 06-20-2024 End: 06-20-2024 Patient encounter procedure 06/20/2024 9:15 AM EST Office Visit [facility] [address] [phone] Thalia Castanon MD [address] [address] [facility] Start: 06-13-2024 End: 06-13-2024 Patient encounter procedure [facility] Comment on above: Arrived Start: 05-29-2024 End: 05-29-2024 Patient encounter procedure 05/29/2024 8:30 AM EST Office Visit [facility] [address] [phone] Thalia Castanon MD [address] [address] [facility] Start: 05-27-2024 End: 05-27-2024 Patient encounter procedure [facility] Comment on above: Left ovarian cyst; Pain of ovary Start: 05-22-2024 Adult BMI Screening Adult BMI Screening [facility] Start: 05-22-2024 Tobacco Screening Tobacco Screening [facility] Start: 05-20-2024 End: 05-20-2024 Patient encounter procedure 05/20/2024 8:00 AM EST Office Visit [facility]/Kristopher Godoy MD [address] [place] [phone] Bonifacio Diehl PARiccardoC [address] [place] [address] [facility]Kristopher Godoy MD Start: 05-19-2024 Adult BMI Screening Adult BMI Screening [facility] Start: 05-19-2024 Tobacco Screening Tobacco Screening [facility] Start: 04-10-2024 Hemoglobin A1c measurement Diabetes: Hemoglobin A1C [facility] Start: 04-10-2024 End: 04-10-2024 Patient encounter procedure 04/10/2024 10:45 AM EST Office Visit [facility] [phone] Stefany Mike, BUTADIENE CONVERTOR OPERATOR-[facility] [address] [facility], [address] [place], [place] [phone] [facility] Start: 04-02-2024 End: 04-02-2024 Patient encounter procedure 04/02/2024 3:30 PM EST Office Visit [facility]/Kristopher Godoy MD [address] [place] [phone] Bonifacio Diehl PATobias [address] [place] [address] [facility]Kristopher Godoy MD Start: 04-02-2024 End: 04-02-2025 XR Chest PA and Lateral X-ray chest 2 views Imaging Routine URI with cough and congestion Expected: 04/02/2024, Expires: 04/02/2025 [facility] Work Phone: Comment on above: Expected: 04/02/2024, Expires: Start: 04-02-2024 End: 04-02-2024 Patient encounter procedure 04/02/2024 8:30 AM EST Office Visit [facility] [address] [place] [address] Chuy Frederick MD [address] [place] [address] [facility] Start: 04-01-2024 End: 04-01-2024 Patient encounter procedure 04/01/2024 8:00 AM EST Office Visit [facility]/Kristopher Godoy MD [address] [place] [phone] Bonifacio Diehl, PA-C [address] [place] [address] [facility]Kristopher Godoy MD Start: 03-28-2024 End: 03-28-2024 Patient encounter procedure 03/28/2024 9:45 AM EST Office Visit [facility] [address] [place] [address] Thalia Castanon MD [address] [address] [facility] Start: 03-22-2024 End: 02-19-2025 CBC W Auto Differential panel - Blood CBC auto differential Lab Routine Iron deficiency Expected: 03/22/2024 (Approximate), Expires: 02/19/2025 [facility] Work Phone: Comment on above: Expected: 03/22/2024 (Approximate), Expi res: 02/19/2025 Start: 03-22-2024 End: 02-19-2025 Iron and TIBC Iron and TIBC Lab Routine Iron deficiency Expected: 03/22/2024 (Approximate), Expires: 02/19/2025 [facility] Comment on above: Expected: 03/22/2024 (Approximate), Expi res: 02/19/2025 Start: 03-13-2024 Hemoglobin A1c measurement Diabetes: Hemoglobin A1C [facility] Start: 03-04-2024 End: 03-04-2024 Patient encounter procedure 03/04/2024 8:30 AM EDT Appointment [facility] - Neurophysiology [address] [place] [address] [facility] Start: 02-23-2024 End: 01-11-2025 TSH W/REFLEX TO FT4 TSH W/REFLEX TO FT4 Lab Routine Acquired hypothyroidism (CMS/HCC) Expected: 02/23/2024 (Approximate), Expires: 01/11/2025 [facility] Work Phone: Comment on above: Expected: 02/23/2024 (Approximate), Expi res: 01/11/2025 Start: 02-21-2024 End: 02-21-2024 Patient encounter procedure 02/21/2024 10:30 AM EDT Office Visit [facility] [address] [place] [phone] Stefany Mike, BUTADIENE CONVERTOR OPERATOR-SURFACER [address] [place] [address], [place] [phone] [facility] Start: 02-20-2024 End: 02-20-2024 Patient encounter procedure 02/20/2024 8:00 AM EDT Office Visit [facility]/Kristopher Godoy MD [address] [place] [phone] Bonifacio Diehl, PARiccardoC [address] [place] [address] [facility]/Kristopher Godoy MD Start: 02-06-2024 End: 02-06-2024 Patient encounter procedure 02/06/2024 9:00 AM EDT Office Visit [facility]/Kristopher Godoy MD [address] [place] [address] Bonifacio Diehl PA-C [address] [place] [address] [facility]/Kristopher Godoy MD Start: 01-24-2024 End: 01-24-2024 Patient encounter procedure [facility] Start: 01-14-2024 COVID-19 Vaccine ( season) COVID-19 Vaccine ( season) [facility] Start: 01-14-2024 COVID-19 Vaccine () COVID-19 Vaccine () [facility] Start: 01-14-2024 Influenza vaccination [facility] Start: 01-10-2024 End: 01-10-2024 Professional / ancillary services management 01/10/2024 9:00 AM EDT Ancillary Procedure [facility] [address] [place] [address] [facility] Start: 01-09-2024 End: 01-08-2025 MR Brain WO contrast MR brain without contrast Imaging Routine Hyperreflexia Expected: 01/09/2024, Expires: 01/08/2025 [facility] Comment on above: Expected: 01/09/2024, Expires: Start: 01-09-2024 End: 01-08-2025 MR Cervical spine WO contrast MR cervical spine without contrast Imaging Routine Hyperreflexia Expected: 01/09/2024, Expires: 01/08/2025 [facility] Comment on above: Expected: 01/09/2024, Expires: Start: 01-08-2024 End: 01-07-2025 Tissue exam Tissue exam Pathology and Cytology Routine Low grade squamous intraepithelial lesion on cytologic smear of cervix (LGSIL) High risk HPV infection Expected: 01/08/2024 (Approximate), Expires: 01/07/2025 [facility] Comment on above: Expected: 01/08/2024 (Approximate), Expi res: 01/07/2025 Start: 01-08-2024 End: 01-07-2025 US Pelvis US pelvis Imaging Routine Pelvic pain in female Expected: 01/08/2024, Expires: 01/07/2025 [facility] Work Phone: Comment on above: Expected: 01/08/2024, Expires: Start: 01-08-2024 End: 01-08-2024 Patient encounter procedure 01/08/2024 10:30 AM EDT Procedure Visit [facility] FNR OB [address] [place] [id number] Sampson Pemberton, [facility] [address] [place] [address] [facility] Start: 01-04-2024 End: 01-04-2024 Patient encounter procedure 01/04/2024 2:30 PM EDT Procedure Visit [facility] [address] [place] [phone] Sampson Pemberton, [facility] [address] [place] [address] [facility] Start: 01-04-2024 End: 01-04-2024 Patient encounter procedure 01/04/2024 8:50 AM EDT Office Visit [facility] [address] [facility] [address] [place] [address] Raymond Whittaker, DPEllen [address] [facility] [address] [place] [address] Hav (hallux abducto valgus), left (Primary Dx); Hav (hallux abducto valgus), right; Acquired deformity of left toe; Type 2 diabetes mellitus without complication, without long-term current use of insulin ([facility]) [facility] Comment on above: Hav (hallux abducto valgus), left (Prima ry Dx); Hav (hallux abducto valgus), right; Acquired deformity of left toe; Type 2 diabetes mellitus without complication, without long-term current use of insulin ([facility]) Start: 11-22-2023 End: 11-22-2023 Patient encounter procedure 11/22/2023 9:30 AM EDT Office Visit [facility] [place] [phone] Stefany Mike, BUTADIENE CONVERTOR OPERATOR-SURFACER [facility] [address] [address] [facility] Start: 09-21-2023 End: 09-21-2023 Patient encounter procedure 09/21/2023 9:45 AM EDT Office Visit [facility] Rheumatology [address] [facility] [address] [place] [address] Thalia Castanon MD [address] [place] [address] [facility] Start: 09-06-2023 End: 09-06-2023 Patient encounter procedure 09/06/2023 11:45 AM EDT Office Visit [facility] [address] [place] [address] [place] [phone] Stefany Mike BUTADIENE CONVERTOR OPERATOR-SURFACER [address] [place] [address] [facility] Start: 07-19-2023 End: 07-19-2023 Patient encounter procedure 07/19/2023 11:45 AM EST Office Visit [facility] [address] [place] [address] [place] [phone] Michael Quintero MD [address] [place] [address] [facility] Start: 05-22-2023 End: 05-22-2023 Patient encounter procedure 05/22/2023 11:45 AM EST Office Visit [facility] [address] [place] [address] [address] [place] [address] Michael Quintero MD [facility] [place] [address] [facility] Start: 03-03-2023 DTaP,Tdap and Td Vaccines (8 - Td or Tdap) DTaP,Tdap and Td Vaccines (8 - Td or Tdap) [facility] Start: 01-13-2023 COVID-19 Vaccine ( season) COVID-19 Vaccine ( season) [facility] Start: 2001 Screening for malignant neoplasm of cervix Pap Smear [facility] Start: 1998 Adult BMI Follow Up Plan Adult BMI Follow Up Plan [facility] Start: 1998 Diabetic foot examination Diabetic Foot Exam [facility] Start: 1992 Depression Screening Depression Screening [facility] Start: 1980 Glaucoma screening Diabetic Ophthalmology Exam [facility] CBC W Auto Different ial panel - Blood CBC and differential Lab Routine Left ovarian cyst Pain of ovary Amenorrhea Pelvic pain in female Ordered: 05/27/2024 [facility] Comment on above: Ordered: 05/27/2024 Cobalamin (Vitamin B 12) [Mass/volume] in Serum or Plasma Vitamin B12 Lab Routine Tingling of both feet 01/09/2024 9:13 AM EDT [facility] Cobalamin (Vitamin B 12) [Mass/volume] in Serum or Plasma Vitamin B12 Lab Routine Neuropathy 03/04/2024 9:51 AM EDT [facility] End: 01-08-2025 Cyanocobalamin vitamin b-12 Vitamin B12 Lab Routine Tingling of both feet 1 Occurrences starting 01/09/2024 until 01/08/2025 [facility] Comment on above: 1 Occurrences starting 01/09/2024 until 01/08/2025 End: 03-04-2025 Cyanocobalamin vitamin b-12 Vitamin B12 Lab Routine Neuropathy 1 Occurrences starting 03/04/2024 until 03/04/2025 [employer] Work Phone: Comment on above: 1 Occurrences starting 03/04/2024 until 03/04/2025 End: 01-08-2025 EMG NCV EMG NCV Neurology Routine Tingling of both feet 1 Occurrences starting 01/09/2024 until 01/08/2025 [employer] Comment on above: 1 Occurrences starting 01/09/2024 until 01/08/2025 End: 01-08-2025 TAVARES Panel TAVARES Panel Lab Routine Tingling of both feet 1 Occurrences starting 01/09/2024 until 01/08/2025 [employer] Comment on above: 1 Occurrences starting 01/09/2024 until 01/08/2025 TAVARES Panel TAVARES Panel Lab Ro utine Tingling of both feet 01/09/2024 9:13 AM EDT [employer] End: 03-04-2025 Ferritin [Mass/volume] in Serum or Plasma Ferritin Lab Routine Iron deficiency 1 Occurrences starting 03/04/2024 until 03/04/2025 [employer] Work Phone: Comment on above: 1 Occurrences starting 03/04/2024 until 03/04/2025 Ferritin [Mass/volum e] in Serum or Plasma Ferritin Lab Routine Iron deficiency 03/04/2024 9:51 AM EDT [employer] hCG, quantitative, hCG, quantitative, Lab Routine Left ovarian cyst Pain of ovary Amenorrhea Pelvic pain in female Ordered: 05/27/2024 [employer] Comment on above: Ordered: 05/27/2024 Hemoglobin A1c/Hemoglobin.total in Blood Hemoglobin A1c Lab Routine Left ovarian cyst Pain of ovary Amenorrhea Pelvic pain in female Ordered: 05/27/2024 [employer] Comment on above: Ordered: 05/27/2024 End: 01-08-2025 Hemoglobin A1c/Hemoglobin.total in Blood Hemoglobin A1c Lab Routine Tingling of both feet 1 Occurrences starting 01/09/2024 until 01/08/2025 [employer] Work Phone: Comment on above: 1 Occurrences starting 01/09/2024 until 01/08/2025 Hemoglobin A1c/Hemoglobin.total in Blood Hemoglobin A1c Lab Routine Tingling of both feet 01/09/2024 9:13 AM EDT [employer] End: 01-08-2025 HIV 1&2 AB/AG Screen (P24 AG) HIV 1&2 AB/AG Screen (P24 AG) Lab Routine Tingling of both feet 1 Occurrences starting 01/09/2024 until 01/08/2025 [employer] Comment on above: 1 Occurrences starting 01/09/2024 until 01/08/2025 HIV 1+2 Ab+HIV1 p24 Ag [Presence] in Serum or Plasma by Immunoassay HIV 1&2 AB/AG Screen (P24 AG) Lab Routine Tingling of both feet 01/09/2024 9:13 AM EDT [employer] End: 05-19-2024 Home sleep study Home sleep study [facility] Routine STARR (obstructive sleep apnea) 1 Occurrences starting 05/19/2023 until 05/19/2024 [employer] Work Phone: Comment on above: 1 Occurrences starting 05/19/2023 until 05/19/2024 Homocysteine [Moles/volume] in Serum or Plasma Homocysteine total Lab Routine Tingling of both feet 01/09/2024 9:14 AM EDT [facility] Homocysteine [Moles/volume] in Serum or Plasma Homocysteine total Lab Routine Neuropathy 03/04/2024 9:52 AM EDT [employer] End: 01-08-2025 Homocysteine total Homocysteine total Lab Routine Tingling of both feet 1 Occurrences starting 01/09/2024 until 01/08/2025 [employer] Comment on above: 1 Occurrences starting 01/09/2024 until 01/08/2025 End: 03-04-2025 Homocysteine total Homocysteine total Lab Routine Neuropathy 1 Occurrences starting 03/04/2024 until 03/04/2025 [employer] Comment on above: 1 Occurrences starting 03/04/2024 until 03/04/2025 End: 03-04-2025 Iron and TIBC Iron and TIBC Lab Routine Iron deficiency 1 Occurrences starting 03/04/2024 until 03/04/2025 [employer] Comment on above: 1 Occurrences starting 03/04/2024 until 03/04/2025 Iron and TIBC Iron and TIBC La b Routine Iron deficiency 03/04/2024 9:51 AM EDT [employer] End: 05-21-2024 [employer] 48 Hour [employer] 48 Hour Lab Routine Nephrolithiasis 1 Occurrences starting 05/22/2023 until 05/21/2024 [employer] [facility] Work Phone: Comment on above: 1 Occurrences starting 05/22/2023 until 05/21/2024 End: 07-02-2025 Magnesium [Mass/volume] in Serum or Plasma Magnesium Lab Routine Hypomagnesemia 1 Occurrences starting 07/02/2024 until 07/02/2025 [employer] Work Phone: Comment on above: 1 Occurrences starting 07/02/2024 until 07/02/2025 Methylmalonate [Moles/volume] in Serum or Plasma Methylmalonic Acid, QN, P Lab Routine Tingling of both feet 01/09/2024 9:13 AM EDT [employer] Methylmalonate [Moles/volume] in Serum or Plasma Methylmalonic Acid, QN, P Lab Routine Neuropathy 03/04/2024 9:51 AM EDT [employer] End: 01-08-2025 Methylmalonic Acid, QN, P Methylmalonic Acid, QN, P Lab Routine Tingling of both feet 1 Occurrences starting 01/09/2024 until 01/08/2025 [employer] Comment on above: 1 Occurrences starting 01/09/2024 until 01/08/2025 End: 03-04-2025 Methylmalonic Acid, QN, P Methylmalonic Acid, QN, P Lab Routine Neuropathy 1 Occurrences starting 03/04/2024 until 03/04/2025 [employer] Comment on above: 1 Occurrences starting 03/04/2024 until 03/04/2025 Patient Education Cellulitis (Sk in Infection), Adult (DC) [facility] Work Phone: Patient referral [facility] Work Phone: Prolactin Prolactin Lab Ro utine Left ovarian cyst Pain of ovary Amenorrhea Pelvic pain in female Ordered: 05/27/2024 [facility] Comment on above: Ordered: 05/27/2024 End: 01-08-2025 Protein electrophoresis, serum Protein electrophoresis, serum Lab Routine Tingling of both feet 1 Occurrences starting 01/09/2024 until 01/08/2025 [facility] Comment on above: 1 Occurrences starting 01/09/2024 until 01/08/2025 Protein electrophoresis, serum Protein electrophoresis, serum Lab Routine Tingling of both feet 01/09/2024 9:13 AM EDT [facility] End: 01-08-2025 Serum Immunofixation Serum Immunofixation Lab Routine Tingling of both feet 1 Occurrences starting 01/09/2024 until 01/08/2025 [facility] Comment on above: 1 Occurrences starting 01/09/2024 until 01/08/2025 Serum Immunofixation Serum Immun ofixation Lab Routine Tingling of both feet 01/09/2024 9:13 AM EDT [facility] End: 01-08-2025 Syphilis Total(Unknown Syphilis Status) Syphilis Total(Unknown Syphilis Status) Lab Routine Tingling of both feet 1 Occurrences starting 01/09/2024 until 01/08/2025 [facility] Comment on above: 1 Occurrences starting 01/09/2024 until 01/08/2025 Thyrotropin [Units/volume] in Serum or Plasma TSH Lab Routine Left ovarian cyst Pain of ovary Amenorrhea Pelvic pain in female Ordered: 05/27/2024 [facility] Work Phone: Comment on above: Ordered: 05/27/2024 Treponema pallidum IgG+IgM Ab [Presence] in Serum by Immunoassay Syphilis Total(Unknown Syphilis Status) Lab Routine Tingling of both feet 01/09/2024 9:13 AM EDT [facility] End: 01-08-2025 TSH with Reflex TSH with Reflex Lab Routine Tingling of both feet 1 Occurrences starting 01/09/2024 until 01/08/2025 [facility] Comment on above: 1 Occurrences starting 01/09/2024 until 01/08/2025 TSH with Reflex TSH with Reflex Lab Routine Tingling of both feet 01/09/2024 9:13 AM EDT [facility] Immunizations Immunization Date Immunization Notes Care Provider Fa cil[place] 04-01-2023 influenza, injectabl e, quadrivalent, preservative free Raymond Whittaker DPM Work Phone: [facility] 04-01-2023 influenza virus vacc ine, unspecified formulation Stefany Mike BUTADIENE CONVERTOR OPERATOR-SURFACER Work Phone: [facility] 07-30-2022 Hepatitis B vaccine (recombinant), CpG adjuvanted Raymond Whittaker DPM Work Phone: [facility] 07-30-2022 pneumococcal polysaccharide vaccine, 23 valent Raymond Whittaker DPM Work Phone: [facility] 03-26-2022 Seasonal, quadrivale nt, recombinant, injectable influenza vaccine, preservative free Raymond Whittaker DPM Work Phone: [facility] 02-19-2022 SARS-COV-2 (COVID-19 ) vaccine, mRNA, spike protein, LNP, bivalent, preservative free, 30 mcg/0.3 mL dose, lillie-sucrose formulation Raymond Whittaker DPM Work Phone: [facility] 03-20-2021 Pfizer Purple Cap SARS-CoV-2 Vaccination Raymond Whittaker DPM Work Phone: [facility] 02-04-2021 influenza, injectabl e, quadrivalent, preservative free Raymond Whittaker DPM Work Phone: [facility] 03-03-2020 influenza, injectabl e, quadrivalent, preservative free Raymond Whittaker DPM Work Phone: [facility] 05-23-2019 influenza, injectabl e, quadrivalent, preservative free Raymond Whittaker DPM Work Phone: [facility] 03-18-2019 influenza, injectabl e, quadrivalent, contains preservative Raymond Whittaker DPM Work Phone: [facility] 02-12-2019 hepatitis A vaccine, adult dosage Raymond Whittaker DPM Work Phone: [facility] 02-27-2018 influenza, injectabl e, quadrivalent, preservative free Raymond Whittaker DPM Work Phone: [facility] 03-28-2016 influenza, injectabl e, quadrivalent, preservative free Raymond Brown DPM Work Phone: [facility] 08-15-2015 pneumococcal Conjuga te, unspecified formulation Raymond Brown DPM Work Phone: [facility] 03-03-2015 influenza, injectabl e, quadrivalent, preservative free Raymond Brown DPM Work Phone: [facility] 03-10-2014 influenza, seasonal, injectable, preservative free Raymond Brown DPM Work Phone: [facility] 04-05-2013 influenza, seasonal, injectable Raymond Brown DPM Work Phone: [facility] 03-03-2013 tetanus toxoid, redu tiffanie diphtheria toxoid, and acellular pertussis vaccine, adsorbed Raymond Brown DPM Work Phone: [facility] 12-12-2012 tetanus toxoid, redu tiffanie diphtheria toxoid, and acellular pertussis vaccine, adsorbed Rayomnd Brown DPM Work Phone: [facility] 05-04-2009 novel influenza-H1N1 -09, preservative-free, injectable Raymond Brown DPM Work Phone: [facility] 10-26-1998 hepatitis B vaccine, pediatric or pediatric/adolescent dosage Raymond Brown DPM Work Phone: [facility] 10-26-1998 TD(adult) unspecifie d formulation Raymond Brown DPM Work Phone: [facility] 05-26-1998 hepatitis B vaccine, pediatric or pediatric/adolescent dosage Raymond Brown DPM Work Phone: [facility] 04-22-1998 hepatitis B vaccine, pediatric or pediatric/adolescent dosage Raymond Brown DPM Work Phone: [facility] 07-29-1992 measles, mumps and rubella virus vaccine Raymond Brown DPM Work Phone: [facility] 07-29-1992 TD(adult) unspecifie d formulation Raymond Van DPM Work Phone: [facility] 07-29-1992 trivalent poliovirus vaccine, live, oral Raymond Brown DPM Work Phone: [facility] 08-24-1982 diphtheria, tetanus toxoids and pertussis vaccine Raymond Brown DPM Work Phone: [facility] 08-24-1982 trivalent poliovirus vaccine, live, oral Raymond Brown DPM Work Phone: [facility] 02-04-1982 measles, mumps and rubella virus vaccine Raymond Brown DPM Work Phone: [facility] 05-19-1981 diphtheria, tetanus toxoids and pertussis vaccine Raymond Brown DPM Work Phone: [facility] 05-19-1981 trivalent poliovirus vaccine, live, oral Raymond Brown DPM Work Phone: [facility] 02-20-1981 diphtheria, tetanus toxoids and pertussis vaccine Raymond Brown DPM Work Phone: [facility] 02-20-1981 trivalent poliovirus vaccine, live, oral Raymond Brown DPM Work Phone: [facility] 1980 diphtheria, tetanus toxoids and pertussis vaccine Raymond Brown DPM Work Phone: [facility] 1980 trivalent poliovirus vaccine, live, oral Raymond Brown DPM Work Phone: [facility] Payers Date Payer Category Payer Self-pay 2021 Medicaid [id number] 2021 Unknown [id number] 2020 Medicaid [id number] 2020 Medicaid HMO [facility] MEDICAID Member Subscriber Plan / Payer (Effective 2020-Present) Name: Tere Adamson Relation to Subscriber: Self Name: Tere Adamson Payer ID: [id number] (NAIC) Group ID: [id number] Type: Not on file Address: [place] [phone] [id number] 2020 Private Health Insurance [id number] 2020 Private Health Insurance [id number] 1980 Unknown [id number] 2.0.1.340779.3.579. 2.727 1980 Unknown [id number] 2.840.1.924867.3.579. 2.1285 1980 Unknown [id number] 2.0.1.791576.3.579. 2.1285 1980 Unknown [id number] 2.0.1.218794.3.579. 2.1285 1980 Unknown [id number] 20.1.193508.3.579. 2.1285 1980 Unknown [id number] 2.840.1.163821.3.579. 2.1285 1980 Unknown [id number] 2.840.1.801296.3.579. 2.1285 1980 Unknown [id number] 2.840.1.433554.3.579. 2.1285 1980 Unknown [id number] 2.840.1.101508.3.579. 2.1285 1980 Unknown [id number] 2.16.840.1.159850.3.579. 2.1258 1980 Unknown [id number] 2.16.840.1.566858.3.579. 2.1258 1980 Unknown [id number] 2.16.840.1.160282.3.579. 2.1258 1980 Unknown [id number] 2.16.840.1.637657.3.579. 2.1258 1980 Unknown [id number] 2.16.840.1.864262.3.579. 2.1258 1980 Unknown [id number] 2.840.1.006361.3.579. 2.1258 1980 Unknown [id number] 2.840.1.318798.3.579. 2.1258 1980 Unknown [id number] 2.840.1.999738.3.579. 2.1258 1980 Unknown [id number] 2.840.1.737021.3.579. 2.1258 1980 Unknown [id number] 2.840.1.095563.3.579. 2.1258 1980 Unknown [id number] 2.840.1.903412.3.579. 2.1258 1980 Unknown [id number] 2.840.1.867577.3.579. 2.1258 1980 Unknown [id number] 2.16.840.1.345777.3.579. 2.1258 1980 Unknown [id number] 2.16840.1.389844.3.579. 2.1258 1980 Unknown [id number] 2.16.840.1.402551.3.579. 2.1258 1980 Unknown [id number] 2.840.1.374954.3.579. 2.1258 1980 Unknown [id number] 2.840.1.286037.3.579. 2.1258 1980 Unknown [id number] 2.16.840.1.831842.3.579. 2.1258 1980 Unknown [id number] 2.16.840.1.763811.3.579. 2.1258 1980 Unknown [id number] 2.840.1.221787.3.579. 2.1258 1980 Unknown [id number] 2.16.840.1.271433.3.579. 2.1258 1980 Unknown [id number] 2.840.1.017987.3.579. 2.1285 1980 Unknown [id number] 2.840.1.100667.3.579. 2.1285 1980 Unknown [id number] 20.1.954815.3.579. 2.1285 1980 Unknown [id number] 2.840.1.839111.3.579. 2.1285 1980 Unknown [id number] 2840.1.002037.3.579. 2.1285 1980 Unknown [id number] 2.840.1.934242.3.579. 2.1285 1980 Unknown [id number] 2840.1.349009.3.579. 2.1285 1980 Unknown [id number] 2.840.1.547515.3.579. 2.1285 1980 Unknown [id number] 2.840.1.723657.3.579. 2.1285 1980 Unknown [id number] 2.840.1.832448.3.579. 2.1285 1980 Unknown [id number] 2.840.1.055132.3.579. 2.1285 1980 Unknown [id number] 2.16.840.1.809076.3.579. 2.1285 1980 Unknown [id number] 2.16.840.1.566864.3.579. 2.1285 1980 Unknown [id number] 2.16.840.1.708053.3.579. 2.1285 1980 Unknown [id number] 2.16.840.1.166204.3.579. 2.1285 1980 Unknown [id number] 2.16.840.1.104143.3.579. 2.1285 1980 Unknown [id number] 2.16840.1.249437.3.579. 2.1285 1980 Unknown [id number] 2.840.1.973379.3.579. 2.1285 1980 Unknown [id number] 2.840.1.060410.3.579. 2.1285 1980 Unknown [id number] 2.16840.1.198817.3.579. 2.1285 1980 Unknown [id number] 2.16840.1.856242.3.579. 2.1286 Unknown Noam BC/ [id number] Unknown [id number] 2..840.1.782906.3.579. 2.531 Social History Date Type Detail Facility Start: 10-20-2021 End: 11-22-2023 Tobacco smoking status NHIS Never smoked tobacco (finding) [facility] Start: 1980 Sex Assigned At Female [facility] Start: 10-20-2021 End: 11-01-2022 Tobacco use and exposure Smokeless tobacco non-user [facility] Start: 01-08-2024 End: 06-13-2024 Alcoholic beverage intake Ex-drinker (finding) [facility] Start: 06-25-2020 End: 11-16-2022 History of Social function [facility] Start: 06-25-2020 End: 11-16-2022 Humiliation, Afraid, Rape, and Kick questionnaire [HARK] [facility] Within the last year , have you been afraid of your partner or ex-partner? Patient declined [facility] Are you now , , , , never or living with a partner? Never [facility] Do you feel stress - tense, restless, nervous, or anxious, or unable to sleep at night because your mind is troubled all the time - these days [OSQ] To some extent [facility] Start: 02-07-2023 Alcohol Comment Caffeine intak e : 2-3 times/week, soda/pop [facility] Start: 07-27-2022 Gender identity Identifies as female gender (finding) [facility] Start: 10-03-2022 Sexual orientation Heterosexual (fin ding) [facility] Start: 04-02-2024 End: 07-02-2024 Alcoholic beverage intake Lifetime non-drinker (finding) [facility] How hard is it for y ou to pay for the very basics like food, housing, medical care, and heating Not very hard [facility] Start: 12-18-2014 Sex Female (finding) [facility] NEGATED: Highlighted rowStart: NINF History of tobacco use Passive smoker [facility] Medical Equipment Procedure Code Equipment Code Equipment Origin al Text Equipment Identifier Dates [id number], [id number], [id number], [id number], [id number] Start: 09-24-2021 [facility]-03/29/2023 [id number] Start: 03-29-2023 Goals Date Patient Goal Desired Activity /State Personal health goal Personal health goal Comment on above: Formatting of this n ote might be different from the original. Evaluation of progress towards goal: safe transition from hospital to home with family support. Clinical Notes 05-19-2023 to 07-03-2024 Telephone Encounter - Suma Durán - 07/03/2024 11:29 AM ESTTelephone Encounter - Suma Durán - 07/03/2024 11:29 AM ESTTelephone Encounter - Bonifacio Diehl PA-C - 07/03/2024 11:29 AM EST Note Date & Type Note Facility 07-03-[address] Blankenship's office called stating patient is getting surgery done and needs clearance due to the low magnesium. Patient has not gotten magnesium redrawn yet. New magnesium 1.5 Mg has come up nicely from 1.1 up to 1.5. Please have her ask her rn anesthetist to review and clear, who in managing her electrolyte disorder. From IM/PCP standpoint there are no contraindications to surgery Patient notified documented in this encounter [facility] 07-03-[address] Blankenship's office called stating patient is getting surgery done and needs clearance due to the low magnesium. Patient has not gotten magnesium redrawn yet. [facility] 07-03-2024 Telephone encounter Note [facility] Telephone encounter Note Mg has come up nicely from 1.1 up to 1.5. Please have her ask her rn anesthetist to review and clear, who in managing her electrolyte disorder. From IM/PCP standpoint there are no contraindications to surgery [facility] 07-03-2024 Telephone encounter Note Patient notified [employer] [employer] 07-03-2024 Miscellaneous Notes LM to schedule new pt appt. [facility] encounter Note LM to schedule new pt appt. [facility] International 07-02-2024 History of Present illness Narrative Subjective Patient ID: Tere Adamson is a 43 y.o. female. Chief Complaint Chief Complaint Patient presents with Follow-up ER f/u, magnesium low, UTI still on abx HPI HPI 06/26/24 [facility] ED for headache, fever, dizziness, photophobia. DX with low mg, only 1.1. Also dx with E.Coli UTI. Neg troponins, normal EKG. CT head and chest negative. TX with IV magnesium, IV fluids, IV tylenol. Already taking MG 800mg BID (1600mg) daily. Her MG was only 1.1 in ED. Has been running low. [employer]. Had drawn today. No headache, feels good. MG today of 1.5 on labs drawn at [facility]. Pt states ED called her. Told + UTI. 06/29/24 she was started via ED on Keflex 500mg QID x 7 days. Still has burning today. Culture + E.coli. Drug resistant to ampicillin and cefazolin. Past Medical History Past Medical History: Diagnosis Date Abnormal EKG Acute kidney injury ([facility]-HCC) 03/06/23 DAVID positive 12/2023 COVID-19 04/2020 Diabetes mellitus ([facility]) Elevated lactic acid level 03/06/2023 Fibromyalgia High [...] mineral metabolism workup. ==== 09/19/2022 ==== d Nodule of lower lobe of left lung 06/2024 CT, stable, unchanged 9mm Obesities, morbid ([facility]) Pneumonia diagnosed with double pneumonia 03/10/23 Sepsis, due to unspecified organism, unspecified whether acute organ dysfunction present ([facility]) 03/06/2023 Sleep apnea Does not use CPAP Tachycardia Ureterolithiasis 03/06/2023 Visual impairment Past Surgical History Past Surgical History: Procedure Laterality Date CHOLECYSTECTOMY CYSTOSCOPY EXCHANGE STENT URETER Right 03/29/2023 Performed by Michael Quintero MD at [facility] CYSTOSCOPY INSERTION STENT URETER Right 03/06/2023 Performed by Michael Quintero MD at [facility] CYSTOSCOPY REMOVAL STENT Right 04/10/2023 Performed by Michael Quintero MD at [facility] LASER HOLMIUM URETEROSCOPY RENAL STONES < OR=1CM Right 03/29/2023 Performed by Michael Quintero MD at [facility] WRIST SURGERY Right tendonitis surgery Family History [...] very hard Food Insecurity: No Food Insecurity (06/26/2024) Hunger Screening Food Insecurity - Worry: Never True Food Insecurity - Inability: Never True Transportation Needs: No Transportation Needs (01/30/2024) PRAPARE - Transportation Lack of Transportation (Medical): No Lack of Transportation (Non-Medical): No Physical Activity: Unknown (11/21/2023) Received from [facility] Exercise Vital Sign Days of Exercise per Week: 5 days Minutes of Exercise per Session: Not on file Stress: Stress Concern Present (11/16/2022) Received from [facility] [employer] - Occupational Stress Questionnaire Feeling of Stress : To some extent Social Connections: Unknown (11/16/2022) Received from [facility] Social Connection and Isolation Panel [NHANES] Frequency of Communication with Friends and Family: More than three times a week Frequency of Social Gatherings with Friends and Family: More than three times a week Attends Rastafari Services: Patient declined Active Member of Clubs or Organizations: Patient declined Attends Club or Organization Meetings: Patient declined Marital Status: Never Interpersonal Safety: Patient Declined (11/16/2022) Received from [facility] Humiliation, Afraid, Rape, and Kick questionnaire Fear [...] morning for 180 days. 90 tablet 1 cetirizine (ZyrTEC) 10 mg tablet Take 1 [...] tablet by mouth in the morning for 180 days. 90 tablet 1 losartan-hydroCHLOROthiazide (HYZAAR) 50-12.5 mg per tablet TAKE 1 TABLET BY MOUTH IN THE MORNING 30 tablet 1 magnesium oxide (MAGOX) 400 [...] morning for 180 days. 180 capsule 1 ondansetron ODT (ZOFRAN ODT) 4 mg disintegrating tablet Dissolve 1 tablet (4 mg total) on tongue every 8 (eight) hours as needed for nausea or vomiting. 20 tablet 0 ONETOUCH DELICA PLUS LANCET 30 gauge [facility] ONETOUCH ULTRA TEST strip pregabalin (LYRICA) 100 mg capsule Take 1 capsule (100 mg total) by mouth in the morning and 1 capsule (100 mg total) before bedtime. 180 capsule 2 pregabalin (LYRICA) 50 mg capsule Take 1 capsule (50 mg total) by mouth in the morning and 1 capsule (50 mg total) before bedtime. 180 capsule 2 riboflavin, vitamin B2, 400 mg tablet Take 400 mg by mouth in the morning. tiZANidine (ZANAFLEX) 4 mg tablet One tab at 8 PM each night 90 tablet 3 VICTOZA 3-KELSI 0.6 mg/0.1 mL (18 mg/3 mL) pen injector ADMINISTER 1.8 MG UNDER THE SKIN IN THE MORNING 9 mL 1 buPROPion SR (WELLBUTRIN SR) 150 mg 12 hr tablet Take 1 tablet (150 mg total) by mouth in the morning and 1 tablet (150 mg total) before bedtime. Do all this for 180 days. 180 tablet 1 nitrofurantoin, macrocrystal-monohydrate, (MACROBID) 100 mg capsule Take 1 capsule (100 mg total) by mouth in the morning and 1 capsule (100 mg total) before bedtime. Do all this for 7 days. 14 capsule 0 ONETOUCH ULTRA2 METER [facility] No current facility-administered medications for this visit. Review of Systems Review of Systems Constitutional: Negative for appetite change, fatigue and fever. HENT: Negative for congestion, ear pain, sinus pressure, sinus pain and sore throat. Respiratory: Negative for cough, shortness of breath and wheezing. Cardiovascular: Negative for chest pain, palpitations and leg swelling. Gastrointestinal: Negative for abdominal pain, diarrhea, nausea and vomiting. Genitourinary: Positive for urgency. Negative for dysuria (burning with urine, odor) and flank pain. Musculoskeletal: Negative for back pain, myalgias and neck pain. Skin: Negative for rash and wound. Neurological: Negative for dizziness, weakness, numbness and headaches. Psychiatric/Behavioral: Negative for confusion and sleep disturbance. The patient is not nervous/anxious. Objective Vitals BP (!) 142/92 Pulse 91 Temp 36.3 C (97.3 F) Ht 165.1 cm (5' 5 ) Wt (!) 144.2 kg (318 lb) LMP 06/11/2024 (Exact Date) SpO2 97% BMI 52.92 kg/m Physical Exam Physical Exam Vitals and [...] Judgment normal. Recent Pertinent Labs and Radiology CLINICAL INFORMATION: Pulmonary emboli. Shortness of breath. [...] acute findings. No evidence of pulmonary embolus. Assessment/Plan 1. E-coli UTI 2. Hypomagnesemia - Magnesium; Future - [facility], [place]; Future 3. Primary hypertension 4. Hyponatremia 5. Mineral metabolism disorder 6. Hypothyroidism, unspecified type 7. Type 2 diabetes mellitus with diabetic polyneuropathy, without long-term current use of insulin ([facility]) 8. High urine sodium level Medications Discontinued During This Encounter Medication Reason buPROPion SR (WELLBUTRIN SR) 150 mg 12 hr tablet Reorder CEPHalexin (KEFLEX) 500 mg capsule Alternate therapy Patient Instructions E.coli UTI -Stop keflex, drug resistant to cephalosporins and pcn -Begin Macrobid 100mg BID x 7 days. Avoid high strenuous exercises, tendon increase risk. -repeat urine in 2 weeks. Hypomagnesium: Unknown etiology. Taking MG 800mg BID. Was still low at 1.1. repeat MG up to 1.5 today. Refer to rn anesthetist. Hyponatremeia: Na of 134. Add salt to food. Bonifacio Diehl PA-C 07/02/24 [id number] documented in this encounter [facility] 07-02-2024 Instructions Bonifacio Diehl PA-C - 07/02/2024 1:30 PM EST E.coli UTI -Stop keflex, drug resistant to cephalosporins and pcn -Begin Macrobid 100mg BID x 7 days. Avoid high strenuous exercises, tendon increase risk. -repeat urine in 2 weeks. Hypomagnesium: Unknown etiology. Taking MG 800mg BID. Was still low at 1.1. repeat MG up to 1.5 today. Refer to rn anesthetist. Hyponatremeia: Na of 134. Add salt to food. The following attachments cannot be sent through Care Everywhere.Acute Cystitis Discharge Instructions (Portuguese)Hypomagnesemia (Portuguese)documented in this encounter [facility] 06-28-2024 Miscellaneous Notes Patient called, was in the ER - [facility] this past week, low magnesium. Needs a follow up appt, can this be done thru MyChart Video. documented in this encounter [facility] 06-28-2024 Telephone encounter Note Patient called, was in the ER - [facility] this past week, low magnesium. Needs a follow up appt, can this be done thru [facility]Chart Video. [facility] History of Present illness Narrative Reason for Appointment: Patient ID: Tere Adamson is a 43 y.o. female who presents for Pre-op Visit Patient presents today for Pre Op appointment. Patient is scheduled to undergo Diagnostic Laparoscopy, possible JUAN DIEGO, possible FOE, possible BSO and D&C Hysteroscopy, possible Myosure on 07/12/[address] Blankenship at [facility]. MEDICATIONS Current Outpatient Medications Medication Instructions [...] IF USED. ergocalciferol (Vitamin D2) 1.25 MG (17615 UT) capsule TAKE 1 CAPSULE(1.25 MG) BY [...] 3 TO 5 MINUTES THEN RINSE Lancets (Udex [employer] Plus Qariaw23C) misc TEST EVERY MORNING DIRECTED levothyroxine (SYNTHROID) [...] THE MORNING. 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 Anogenital warts 02/20/2020 Anxiety 04/19/2015 Benign essential hypertension ([facility]/HCC) 04/19/2015 Chronic fatigue 11/16/2022 Chronic maxillary sinusitis 04/05/2021 Cluster headache, not intractable 10/19/2017 Constipation 05/26/2019 Difficulty walking 04/23/2018 Dysuria 11/16/2022 HTN (hypertension) ([facility]/HCC) 10/13/2021 Hypertriglyceridemia ([facility]) 05/26/2019 Insulin resistance 10/17/2016 Intrinsic atopic dermatitis 11/06/2020 Irregular periods 02/10/2020 Lung nodule 11/07/2016 Major depressive disorder, single episode, mild (HCC) ([facility]) 11/16/2022 Mineral metabolism disorder 10/19/2022 Mixed conductive and sensorineural hearing loss of both ears 04/05/2021 Morbid (severe) obesity due to excess calories ([facility]) 11/16/2022 Obstructive sleep apnea 07/02/2020 Osteochondritis dissecans 04/23/2018 Other chronic pain 11/07/2016 Scalp psoriasis ([facility]) 11/16/2022 Seasonal allergic reaction 11/16/2022 Skin sensation disturbance 01/22/2020 Tension-type headache, not intractable 04/19/2015 Type 2 diabetes mellitus without complication, without long-term current use of insulin ([facility]) 11/16/2022 Internal derangement of right knee 11/16/2022 Arthralgia of lower leg 02/15/2017 Abnormal EKG 10/13/2021 Cough 12/05/2022 COVID-19 05/24/2020 Hypertensive emergency ([facility]) 12/05/2022 Impaired gait and mobility 12/05/2022 Mucopurulent chronic bronchitis ([facility]) 04/05/2021 Nephrolithiasis 09/19/2022 Pain in right knee 12/05/2022 Perforation of nasal septum 12/05/2022 Paresthesia of skin 12/05/2022 Polycystic ovarian syndrome 07/01/2015 PTSD (post-traumatic stress disorder) ([facility]) 09/28/2017 Chronic rhinitis 05/31/2021 Primary osteoarthritis 02/15/2017 Chronic pansinusitis 05/31/2021 Cluster headache syndrome 10/19/2017 PCOS (polycystic ovarian syndrome) 07/01/2015 Elevated lactic acid level 03/06/2023 Sepsis ([facility]) 03/06/2023 Ureterolithiasis 03/06/2023 Acute kidney failure, unspecified ([facility]) 05/04/2023 Hypomagnesemia 05/04/2023 Other iron deficiency anemias 05/04/2023 Ureteral stent retained 03/30/2023 Vitamin D deficiency, unspecified 05/04/2023 Mixed obsessional thoughts and acts ([facility]) 08/16/2023 Cellulitis 12/11/2023 Resolved Ambulatory Problems Diagnosis Date Noted No Resolved Ambulatory Problems Past Medical History: Diagnosis Date Allergic Anemia Chronic kidney disease 03-06-23 Depression (CMS/HCC) Disease of thyroid gland (CMS/HCC) Fibromyalgia GERD (gastroesophageal reflux disease) Hematuria History of medical problems 2007 Hyperlipidemia (CMS/HCC) Hypertension (CMS/HCC) Nasal septum perforation [...] disorder (CMS/HCC) Obesity Polycystic ovary Sepsis (CMS/HCC) Social History Tobacco Use Smoking status: Never [...] [place] Thyroid disease Father [place] Hyperlipidemia Father [place] SURGICAL HISTORY Past Surgical History: Procedure Laterality [...] nursing note reviewed. Exam conducted with a security guard dispatcher present. Vitals: Estimated body mass index is [...] reviewed, and patient is to proceed to [facility] OR. Follow Up: Patient is to follow up between 1-2 weeks post operative to assess proper healing and recovery from procedure. Documented by Larissa Peña LPN on behalf of: Alex Blankenship DO documented in this encounter [facility] 06-03-2024 Telephone encounter Note Pt transferred out of practice last Jan when Nga left and now wants to come back into practice. I explained that when a patient transferes out of practice they could not return. She wanted to get your approval. As she states that it was previously approved. Current appointment has been cancelled until your decision. [facility] 06-03-2024 Miscellaneous Notes Pt transferred out of practice last Jan when Nga left and now wants to come back into practice. I explained that when a patient transferes out of practice they could not return. She wanted to get your approval. As she states that it was previously approved. Current appointment has been cancelled until your decision. documented in this encounter [facility] 05-29-2024 History of Present illness Narrative Images from the original note were not included. [address] [facility] [address] [facility] [id number] This virtual visit was made in the [facility] Date of Service: 05/29/2024 Subjective: Tere Adamson is a 43 y.o. female who [...] ULTRA TEST strip ONETOUCH ULTRA2 METER misc pregabalin (LYRICA) 100 mg capsule Take 1 [...] 78 (H) 04/12/2024 Imaging: Assessment and Plan: Tere Adamson is a 43 y.o. female patient [...] is being used in lieu of a ifid-se-upza encounter because of current pandemic situation related to Covid-19. This is to avoid [id number] contact whenever possible and limit spread of [...] or corrected. Thank you for your understanding. [facility] Rheumatology Dr. Thalia Castanon MD [address] [place] [address], [address] [place] [address] Office: [phone] [facility] 05-28-2024 Miscellaneous Notes Please see Patient's message 05/27/2024 Noted A1C of 6.6 via secretary bookkeeper. Tere was off metformin 500mg qd for a [...] 500mg once daily. [facility]24 Telephone encounter Note Please see Patient's message 05/27/2024 [facility] Telephone encounter Note Noted A1C of 6.6 via secretary bookkeeper. Tere was off metformin 500mg qd for a [...] 3 months, continue metformin 500mg once daily. [facility] History of Present illness Narrative Reason for Appointment: Patient ID: Tere Adamson is a 43 y.o. female who [...] IF USED. ergocalciferol (Vitamin D2) 1.25 MG (13200 UT) capsule TAKE 1 CAPSULE(1.25 MG) BY [...] 3 TO 5 MINUTES THEN RINSE Lancets (Udex Delica Plus [id number]) misc TEST EVERY MORNING DIRECTED levothyroxine (SYNTHROID) [...] THE MORNING. 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 Anogenital warts 02/20/2020 Anxiety 04/19/2015 Benign essential hypertension ([facility]) 04/19/2015 Chronic fatigue 11/16/2022 Chronic maxillary sinusitis 04/05/2021 Cluster headache, not intractable 10/19/2017 Constipation 05/26/2019 Difficulty walking 04/23/2018 Dysuria 11/16/2022 HTN (hypertension) (CMS/[facility]) 10/13/2021 Hypertriglyceridemia ([facility]) 05/26/2019 Insulin resistance 10/17/2016 Intrinsic atopic dermatitis 11/06/2020 Irregular periods 02/10/2020 Lung nodule 11/07/2016 Major depressive disorder, single episode, mild (HCC) ([facility]) 11/16/2022 Mineral metabolism disorder 10/19/2022 Mixed conductive and sensorineural hearing loss of both ears 04/05/2021 Morbid (severe) obesity due to excess calories ([facility]) 11/16/2022 Obstructive sleep apnea 07/02/2020 Osteochondritis dissecans 04/23/2018 Other chronic pain 11/07/2016 Scalp psoriasis ([facility]) 11/16/2022 Seasonal allergic reaction 11/16/2022 Skin sensation disturbance 01/22/2020 Tension-type headache, not intractable 04/19/2015 Type 2 diabetes mellitus without complication, without long-term current use of insulin ([facility]) 11/16/2022 Internal derangement of right knee 11/16/2022 Arthralgia of lower leg 02/15/2017 Abnormal EKG 10/13/2021 Cough 12/05/2022 COVID-19 05/24/2020 Hypertensive emergency ([facility]) 12/05/2022 Impaired gait and mobility 12/05/2022 Mucopurulent chronic bronchitis ([facility]) 04/05/2021 Nephrolithiasis 09/19/2022 Pain in right knee 12/05/2022 Perforation of nasal septum 12/05/2022 Paresthesia of skin 12/05/2022 Polycystic ovarian syndrome 07/01/2015 PTSD (post-traumatic stress disorder) ([facility]) 09/28/2017 Chronic rhinitis 05/31/2021 Primary osteoarthritis 02/15/2017 Chronic pansinusitis 05/31/2021 Cluster headache syndrome 10/19/2017 PCOS (polycystic ovarian syndrome) 07/01/2015 Elevated lactic acid level 03/06/2023 Sepsis ([facility]/HCC) 03/06/2023 Ureterolithiasis 03/06/2023 Acute kidney failure, unspecified ([facility]/HCC) 05/04/2023 Hypomagnesemia 05/04/2023 Other iron deficiency anemias 05/04/2023 Ureteral stent retained 03/30/2023 Vitamin D deficiency, unspecified 05/04/2023 Mixed obsessional thoughts and acts ([facility]/HCC) 08/16/2023 Cellulitis 12/11/2023 Resolved Ambulatory Problems Diagnosis Date Noted No Resolved Ambulatory Problems Past Medical History: Diagnosis Date Allergic Anemia Chronic kidney disease 03-06-23 Depression (CMS/HCC) Disease of thyroid gland (CMS/HCC) Fibromyalgia GERD (gastroesophageal reflux disease) Hematuria History of medical problems 2006 Hyperlipidemia (CMS/HCC) Hypertension (CMS/HCC) Nasal septum perforation Neuromuscular disorder ([facility]) Obesity Polycystic ovary HISTORY PAST MEDICAL HISTORY SOCIAL HISTORY Past Medical History: Diagnosis Date Allergic Anemia Anxiety Chronic kidney disease 03-06-23 Chronic pansinusitis Chronic rhinitis COVID-19 04/2020 Depression ([facility]/HCC) Disease of thyroid gland (CMS/HCC) Fibromyalgia GERD (gastroesophageal reflux disease) Hematuria History of medical problems 2006 Hole in septum of nose Hyperlipidemia (CMS/HCC) Hypertension (CMS/HCC) Insulin resistance Nasal septum perforation Neuromuscular disorder ([facility]) Obesity Polycystic ovary Sepsis ([facility]) Social History Tobacco Use Smoking status: Never Passive exposure: Never Smokeless tobacco: Never Vaping Use Vaping status: Never Used Substance Use Topics Alcohol use: Not Currently Comment: Caffeine intake : 2-3 times/week, soda/pop Drug use: Never FAMILY HISTORY Family History Problem Relation Name Age of Onset Thyroid disease Mother Ryis Hypertension Mother Yris Arthritis Mother Yris Depression Mother Yris Hypertension Father Candy Thyroid disease Father Candy Hyperlipidemia Father Candy SURGICAL HISTORY Past Surgical History: Procedure Laterality [...] nursing note reviewed. Exam conducted with a security guard dispatcher present. Vitals: Estimated body mass index is [...] Alex Blankenship DO documented in this encounter [facility] 05-20-2024 History of Present illness Narrative Subjective Patient ID: Tere Adamson is a 43 y.o. female. Chief [...] 01/24/2024 Brain MRI- Normal. Specialist: Dr. José Hicks- rn anesthetist. Dr. Quintero, urologist. Angle Pemberton- 01/08/24 colposcopy. Repeat in [address] Romero-Ramu operations engineer Dr. Frederick-neurologist Dr. Fonseca-Non Licensed Operator. Echo UTD 01/2023- normal. No yearly recheck advised. Past Medical Hisory Past Medical History: Diagnosis Date Abnormal EKG Acute kidney injury ([facility]) 03/06/23 DAVID positive 12/2023 COVID-19 04/2020 Diabetes [...] workup. ==== 09/19/2022 ==== d Obesities, morbid ([facility]) Pneumonia diagnosed with double pneumonia 03/10/23 Sepsis, due to unspecified organism, unspecified whether acute organ dysfunction present ([facility]) 03/06/2023 Sleep apnea Does not use CPAP Tachycardia Ureterolithiasis 03/06/2023 Visual impairment Past Surgical History Past Surgical History: Procedure Laterality Date CHOLECYSTECTOMY CYSTOSCOPY EXCHANGE STENT URETER Right 03/29/2023 Performed by Michael Quintero MD at [facility] CYSTOSCOPY INSERTION STENT URETER Right 03/06/2023 Performed by Michael Quintero MD at [facility] CYSTOSCOPY REMOVAL STENT Right 04/10/2023 Performed by Michael Quintero MD at [facility] LASER HOLMIUM URETEROSCOPY RENAL STONES < OR=1CM Right 03/29/2023 Performed by Michael Quintero MD at [facility] WRIST SURGERY Right tendonitis surgery Family History [...] No Physical Activity: Unknown (11/21/2023) Received from [facility] Exercise Vital Sign Days of Exercise per Week: 5 days Minutes of Exercise per Session: Not on file Stress: Stress Concern Present (11/16/2022) Received from [facility] [employer] of Occupational Health - Occupational Stress Questionnaire Feeling of Stress : To some extent Social Connections: Unknown (11/16/2022) Received from [facility] Social Connection and Isolation Panel [NHANES] Frequency of Communication with Friends and Family: More than three times a week Frequency of Social Gatherings with Friends and Family: More than three times a week Attends Rastafari Services: Patient declined Active Member of Clubs or Organizations: Patient declined Attends Club or Organization Meetings: Patient declined Marital Status: Never Interpersonal Safety: Patient Declined (11/16/2022) Received from [facility] Humiliation, Afraid, Rape, and Kick questionnaire Fear [...] 1 ONETOUCH DELICA PLUS LANCET [facility] ON[facility]CH ULTRA TEST strip ONETOUCH ULTRA2 METER [facility] pregabalin (LYRICA) 100 mg capsule Take 1 [...] polyneuropathy, without long-term current use of insulin ([facility]) 6. Mineral metabolism disorder 7. STARR on [...] no taste good Bonifacio Diehl PA-C 05/20/24 0921 documented in this encounter [facility] 05-20-2024 Instructions Bonifacio Diehl PA-C - 05/20/2024 8:15 AM EST Routine visit: HTN: Continue losartan 50/12.5mg daily Iron Def: Improved, continue BID ferrous sulfate B12 def: Improved with B12 oral supplementation STARR: Known STARR. CPAP compliance stress. Insomnia: Continue melatonin 10mg at night. Insulin Resistant: Remain on metformin 500mg qd. documented in this encounter [facility] 04-25-2024 History of Present illness Narrative Med refills sent Bonifacio Diehl PA-C 04/25/24 1322 documented in this encounter [facility] 04-22-2024 Miscellaneous Notes Good afternoon, I [...] for the cyst on my left ovary. Angle sent the referral and I am hoping he can help or just take everything out inside of me. Have a great day! Restart as metformin 500mg qd. Message sent to pt. documented in this encounter [facility] 04-22-2024 Telephone encounter Note Good afternoon, I [...] for the cyst on my left ovary. Angle sent the referral and I am hoping he can help or just take everything out inside of me. Have a great day! R 04-22-2024 Telephone encounter Note Restart as metformin 500mg qd. Message sent to pt. R 04-02-2024 History of Present illness Narrative Images from the original note were not included. Subjective Patient ID: Tere Adamson is a 43 y.o. female. Chief [...] 01/24/2024 Brain MRI- Normal. Specialist: Dr. José Hicks- rn anesthetist. Dr. Quintero, urologist. Angle Pemberton- 01/08/24 colposcopy. Repeat in [address] Romero-[place] operations engineer Dr. Frederick-neurologist Dr. Fonseca-Non Licensed Operator. Echo UTD 01/2023- normal. No yearly recheck advised. Past Medical History Past Medical History: Diagnosis Date Abnormal EKG Acute kidney injury ([facility]) 03/06/23 DAVID positive 12/2023 COVID-19 04/2020 Diabetes mellitus ([facility] Elevated lactic acid level 03/06/2023 Fibromyalgia High [...] workup. ==== 09/19/2022 ==== d Obesities, morbid ([facility]) Pneumonia diagnosed with double pneumonia 03/10/23 Sepsis, due to unspecified organism, unspecified whether acute organ dysfunction present ([facility]) 03/06/2023 Sleep apnea Does not use CPAP Tachycardia Ureterolithiasis 03/06/2023 Visual impairment Past Surgical History Past Surgical History: Procedure Laterality Date CHOLECYSTECTOMY CYSTOSCOPY EXCHANGE STENT URETER Right 03/29/2023 Performed by Michael Quintero MD at [facility] CYSTOSCOPY INSERTION STENT URETER Right 03/06/2023 Performed by Michael Quintero MD at [facility] CYSTOSCOPY REMOVAL STENT Right 04/10/2023 Performed by Michael Quintero MD at [facility] LASER HOLMIUM URETEROSCOPY RENAL STONES < OR=1CM Right 03/29/2023 Performed by Michael Quintero MD at [facility] WRIST SURGERY Right tendonitis surgery Family History [...] No Physical Activity: Unknown (11/21/2023) Received from [facility] Exercise Vital Sign Days of Exercise per Week: 5 days Minutes of Exercise per Session: Not on file Stress: Stress Concern Present (11/16/2022) Received from [facility] [employer] Health - Occupational Stress Questionnaire Feeling of Stress : To some extent Social Connections: Unknown (11/16/2022) Received from [facility], [facility] Social Connection and Isolation Panel [NHANES] Frequency of Communication with Friends and Family: More than three times a week Frequency of Social Gatherings with Friends and Family: More than three times a week Attends Rastafari Services: Patient declined Active Member of Clubs or Organizations: Patient declined Attends Club or Organization Meetings: Patient declined Marital Status: Never Interpersonal Safety: Patient Declined (11/16/2022) Received from [facility] Humiliation, Afraid, Rape, and Kick questionnaire Fear [...] 3 ONETOUCH DELICA PLUS LANCET 30 gauge [facility] ONETOUCH ULTRA TEST strip pregabalin (LYRICA) 100 [...] days. 30 tablet 1 ONETOUCH ULTRA2 METER [facility] tiZANidine (ZANAFLEX) 4 mg tablet One and [...] Reading Date Result Priority Chuy Frederick MD [phone] 03/04/2024 Routine Narrative Purpose: Evaluation of a [...] of this study will be uploaded to [employer]. Electromyographer: Calculus of kidney [N20.0] Vitamin D deficiency, unspecified [E55.9] Contains abnormal data Sodium, urine, 24 hour Order: [id number] Status: Final result Visible to patient: Yes (seen) Next appt: 04/10/2024 at 10:45 AM in Pulmonary Medicine (STEFANY MIKE, BUTADIENE CONVERTOR OPERATOR-[facility]) Dx: Calculus of kidney; Vitamin D [...] PA-C 04/02/24 1630 [facility] Instructions Bonifacio Diehl PA-C - 04/02/2024 [...] Everywhere.Viral Upper Respiratory Infection Discharge Instructions, Adult (Portuguese)documented in this encounter [facility] 04-02-2024 History of Present illness Narrative Images from the original note were not included. [address] [id number] Tere Adamson is a 43 y.o. right-handed female [...] She sometimes takes APAP for this. At [facility] 01/08, I scheduled an EMG with me [...] MgOx 1200 mg per day per her rn anesthetist, as her serum Mg is persistently low) [...] Take by mouth daily. ONETOUCH ULTRA2 METER misc pregabalin (LYRICA) 100 mg capsule Take 1 capsule (100 mg total) by mouth in the morning and 1 capsule (100 mg total) before bedtime. 180 capsule 3 tiZANidine (ZANAFLEX) 4 mg tablet One and half tab at 8:00 p.m.each night 135 tablet 1 No current facility-administered medications for this visit. Past Medical History: Diagnosis Date Abnormal EKG Acute kidney injury ([facility]) 03/06/23 DAVID positive 12/2023 COVID-19 04/2020 Diabetes mellitus ([facility] Elevated lactic acid level 03/06/2023 Fibromyalgia High [...] workup. ==== 09/19/2022 ==== d Obesities, morbid ([facility]) Pneumonia diagnosed with double pneumonia 03/10/23 Sepsis, due to unspecified organism, unspecified whether acute organ dysfunction present ([facility]) 03/06/2023 Sleep apnea Does not use CPAP Tachycardia Ureterolithiasis 03/06/2023 Visual impairment Family History Problem Relation Age of Onset Hypertension Mother Hypothyroidism Mother Hyperthyroidism Father Past Surgical History: Procedure Laterality Date CHOLECYSTECTOMY CYSTOSCOPY EXCHANGE STENT URETER Right 03/29/2023 Performed by Michael Quintero MD at [facility] CYSTOSCOPY INSERTION STENT URETER Right 03/06/2023 Performed by Michael Quintero MD at [facility] CYSTOSCOPY REMOVAL STENT Right 04/10/2023 Performed by Michael Quintero MD at [facility] LASER HOLMIUM URETEROSCOPY RENAL STONES < OR=1CM Right 03/29/2023 Performed by Michael Quintero MD at [facility] WRIST SURGERY Right tendonitis surgery Allergies Allergen [...] No Physical Activity: Unknown (11/21/2023) Received from [facility] Exercise Vital Sign Days of Exercise per Week: 5 days Minutes of Exercise per Session: Not on file Stress: Stress Concern Present (11/16/2022) [facility] [employer] [employer] Health - Occupational Stress Questionnaire Feeling of Stress : To some extent Social Connections: Unknown (11/16/2022) [facility] Social Connection and Isolation Panel [NHANES] Frequency of Communication with Friends and Family: More than three times a week Frequency of Social Gatherings with Friends and Family: More than three times a week Attends Rastafari Services: Patient declined Active Member of Clubs or Organizations: Patient declined Attends Club or Organization Meetings: Patient declined Marital Status: Never Interpersonal Safety: Patient Declined (11/16/2022) Received from [facility] Healthcare, [facility] Humiliation, Afraid, Rape, and Kick questionnaire Fear [...] IgG 01/09/2024 <0.2 <1.0 AI Final Anti [employer] VIEWER 01/09/2024 0.6 <1.0 AI Final Scleroderma scl-70 01/09/2024 <0.2 <1.0 AI Final Anti RAMILA-1 01/09/2024 <0.2 <1.0 AI Final Total Protein [...] EtOH, tobacco, or drug use. Works as contract paralegal. NEURO EXAM: Mental Status: alert, oriented to [...] left-sided low back pain without sciatica - [facility] - [place] / [place] - [place] ID; Future Tere Adamson is a 43 y.o. right-handed female [...] -Increase Lyrica to 100 mg BID -f/u 6m Chuy Frederick MD Route Process Administrator of Neurology [facility] 04/02/24 I spent 34 minutes of total [...] for specific details. documented in this encounter [facility] [employer] [facility] 04-02-2024 Instructions Chuy Frederick MD - 04/02/2024 [...] me with your care. Chuy Frederick MD Route Process Administrator of Neurology [facility] 04/02/24 documented in this encounter [employer] 02-20-2024 History of Present illness Narrative Subjective Patient ID: Tere Adamson is a 43 y.o. female. Chief [...] 300 mg at bedtime as prescribed by operations engineer. Discussed patient we not prescribed both same time. Labs reviewed, iron deficiency noted. ROS: Awake 2-3 times at night. Not awake to void. Past Medical History Past Medical History: Diagnosis Date Abnormal EKG Acute kidney injury ([facility]) 03/06/23 DAVID positive 12/2023 COVID-19 04/2020 Diabetes mellitus ([facility]) Elevated lactic acid level 03/06/2023 Fibromyalgia High [...] workup. ==== 09/19/2022 ==== d Obesities, morbid ([facility] Pneumonia diagnosed with double pneumonia 03/10/23 Sepsis, due to unspecified organism, unspecified whether acute organ dysfunction present ([facility]) 03/06/2023 Sleep apnea Does not use CPAP Tachycardia Ureterolithiasis 03/06/2023 Visual impairment Past Surgical History Past Surgical History: Procedure Laterality Date CHOLECYSTECTOMY CYSTOSCOPY EXCHANGE STENT URETER Right 03/29/2023 Performed by Michael Quintero MD at [facility] CYSTOSCOPY INSERTION STENT URETER Right 03/06/2023 Performed by Michael Quintero MD at [facility] CYSTOSCOPY REMOVAL STENT Right 04/10/2023 Performed by Michael Quintero MD at [facility] LASER HOLMIUM URETEROSCOPY RENAL STONES < OR=1CM Right 03/29/2023 Performed by Michael Quintero MD at [facility] WRIST SURGERY Right tendonitis surgery Family History [...] No Physical Activity: Unknown (11/21/2023) Received from [facility] Healthcare Exercise Vital Sign Days of Exercise per Week: 5 days Minutes of Exercise per Session: Not on file Stress: Stress Concern Present (11/16/2022) Received from [facility] Stem of Occupational Health - Occupational Stress Questionnaire Feeling of Stress : To some extent Social Connections: Unknown (11/16/2022) Received from [facility] Social Connection and Isolation Panel [NHANES] Frequency of Communication with Friends and Family: More than three times a week Frequency of Social Gatherings with Friends and Family: More than three times a week Attends Rastafari Services: Patient declined Active Member of Clubs or Organizations: Patient declined Attends Club or Organization Meetings: Patient declined Marital Status: Never Interpersonal Safety: Patient Declined (11/16/2022) Received from [facility] Humiliation, Afraid, Rape, and Kick questionnaire Fear [...] morning. ONETOUCH DELICA PLUS LANCET 30 gauge [facility] ONETOUCH ULTRA TEST strip ONETOUCH ULTRA2 METER [facility] tiZANidine (ZANAFLEX) 4 mg tablet One and [...] PA-C 02/20/24 1142 documented in this encounter [employer] 02-20-2024 Instructions Bonifacio Diehl PA-C - 02/20/2024 [...] through Care Everywhere.Good Food Sources of Iron (Portuguese)[facility] History of Present illness Narrative Subjective Patient ID: Tere Adamson is a 43 y.o. female. Chief Complaint Chief Complaint Patient presents with New Patient Est care HPI HPI Initial MINISTER eval with 43 y/o previous pt of Dr. Rosa Mittal who has niddm, htn, starr and not using cpap, h/o JACINTO 03/06/23, abnormal EKG, Hld, hypothyroidism, Obesity bmi of 49 BP high today. Taking metoprolol. Lisinopril 10mg qd pt has been off for a few months (renal specialist d/c ROBIN and hctz). 02/2023-H/O sepsis from right renal stone obstruction of 9mm, JACINTO. Labs: 11/2023 TSH-3.92 11/2023. CMP-glucose of 112. Cr-0.71/GFR up 108. A1C-6.0 Sed rate- 24 DAVID- Positive 01/24/2024 Brain MRI- Normal. Specialist: Dr. José Hicks- rn anesthetist. Dr. Quintero, urologist. Angle Daisymac- 01/08/24 colposcopy. Repeat in [address] Maldonado operations engineer Dr. Frederick-neurologist Dr. Fonseca-Non Licensed Operator. Echo UTD 01/2023- normal. No yearly recheck advised. Past Medical History Past Medical History: Diagnosis Date Abnormal EKG Acute kidney injury ([facility]) 03/06/23 DAVID positive 12/2023 COVID-19 04/2020 Diabetes mellitus ([facility] Elevated lactic acid level 03/06/2023 Fibromyalgia High [...] workup. ==== 09/19/2022 ==== d Obesities, morbid ([facility]) Pneumonia diagnosed with double pneumonia 03/10/23 Sepsis, due to unspecified organism, unspecified whether acute organ dysfunction present ([facility]) 03/06/2023 Sleep apnea Does not use CPAP Tachycardia Ureterolithiasis 03/06/2023 Visual impairment Past Surgical History Past Surgical History: Procedure Laterality Date CHOLECYSTECTOMY CYSTOSCOPY EXCHANGE STENT URETER Right 03/29/2023 Performed by Michael Quintero MD at [facility] CYSTOSCOPY INSERTION STENT URETER Right 03/06/2023 Performed by Michael Quintero MD at [facility] CYSTOSCOPY REMOVAL STENT Right 04/10/2023 Performed by Michael Quintero MD at [facility] LASER HOLMIUM URETEROSCOPY RENAL STONES < OR=1CM Right 03/29/2023 Performed by Michael Quintero MD at [facility] WRIST SURGERY Right tendonitis surgery Family History [...] No Physical Activity: Unknown (11/21/2023) Received from [facility] Exercise Vital Sign Days of Exercise per Week: 5 days Minutes of Exercise per Session: Not on file Stress: Stress Concern Present (11/16/2022) Received from [facility], [facility] Stem of Occupational Health - Occupational Stress Questionnaire Feeling of Stress : To some extent Social Connections: Unknown (11/16/2022) Received from [facility], [facility] Social Connection and Isolation Panel [NHANES] Frequency of Communication with Friends and Family: More than three times a week Frequency of Social Gatherings with Friends and Family: More than three times a week Attends Rastafari Services: Patient declined Active Member of Clubs or Organizations: Patient declined Attends Club or Organization Meetings: Patient declined Marital Status: Never Interpersonal Safety: Patient Declined (11/16/2022) Received from [facility], [facility] Humiliation, Afraid, Rape, and Kick questionnaire Fear [...] mcg total) by mouth in the morning. metFORMIN (GLUCOPHAGE) 1000 mg tablet Take 1 [...] morning. ONETOUCH DELICA PLUS LANCET 30 gauge [facility] ONETOUCH ULTRA TEST strip ONETOUCH ULTRA2 METER [facility] tiZANidine (ZANAFLEX) 4 mg tablet One and half tab at 8:00 p.m.each night 135 tablet 1 losartan (COZAAR) 25 mg tablet Take 1 tablet (25 mg total) by mouth in the morning for 30 days. 30 tablet 0 magnesium oxide (MAGOX) 400 mg tablet Take 2 tablets (800 mg total) by mouth in the morning and 2 tablets (800 mg total) before bedtime. 1600mg daily. VICTOZA 3-KELSI 0.6 mg/0.1 mL (18 mg/3 mL) pen injector Inject 0.3 mL (1.8 mg total) under the skin in the morning for 60 days. 9 mL 1 No current facility-administered medications [...] patient is not nervous/anxious. Objective Vitals BP (!) 164/102 Pulse 100 Temp 36.4 C (97.5 F) Ht 165.1 cm (5' 5 ) Wt 136.1 kg (300 lb) LMP 12/14/2023 (Approximate) SpO2 96% BMI 49.92 kg/m Physical Exam Physical Exam Vitals and nursing note reviewed. Constitutional: General: She is not in acute distress. Appearance: She is well-developed. She is obese. HENT: Head: Normocephalic and atraumatic. Right Ear: [...] Judgment normal. Recent Pertinent Labs and Radiology Interpretation Summary Left Ventricle: Left ventricle appears normal in size. There is mild increased wall thickness/hypertrophy. Systolic function is low normal to mildly decreased with an ejection fraction of 50-55%. Right Ventricle: Right ventricular size appears normal. The right ventricular basal diameter is 37.0 mm. Systolic function is normal. No significant valvular stenosis or regurgitation. Study Information Study Details A complete echo was performed using complete 2D, color flow Doppler and spectral Doppler. Definity study was performed. Myocardial Findings Left Ventricle Left ventricle appears normal in size. There is mild increased wall thickness/hypertrophy. Systolic function is low normal to mildly decreased with an ejection fraction of 50-55%. No obvious regional wall motion abnormalities. There is abnormal septal motion. Lateral E' is 10.30 cm/s. Medial E' is 6.74 cm/s. Right Ventricle Right ventricular size appears normal. The right ventricular basal diameter is 37.0 mm. Systolic function is normal. Left Atrium Left atrium volume index is normal. The left atrial volume index is 23.5 mL/m2. Right Atrium Right atrium is mildly dilated. The right atrial area is 21.7 cm2. Aortic Valve The aortic valve is trileaflet. There is no regurgitation or stenosis. Mitral Valve Mitral valve structure is normal. There is lmffd-wd-sjmo regurgitation. Tricuspid Valve Tricuspid valve appears to be normal. There is trace regurgitation. RVSP calculated at 29 mmHg. RVSP is based on RA pressure of 3 mmHg. Pulmonic Valve The pulmonic valve was not well visualized. There is trace regurgitation. Ascending Aorta The aortic root is normal in size. IVC/SVC The right atrial pressure is estimated at 3 mmHg. IVC appears normal. There is normal collapse with deep inspiration. Pericardium There is no pericardial effusion. Assessment/Plan 1. Primary hypertension 2. Abnormal EKG 3. Iron deficiency - Comprehensive metabolic panel; Future - CBC auto differential; Future - Iron and TIBC; Future 4. Hypothyroidism, unspecified type - T4, free; Future - TSH; Future 5. JACINTO (acute kidney injury) ([facility]) - Comprehensive metabolic panel; Future 6. Mineral metabolism disorder 7. Type 2 diabetes mellitus with other diabetic kidney complication, without long-term current use of insulin ([facility]) 8. Cyst of left ovary 9. Dysmenorrhea 10. Uric acid kidney stone 11. BMI 45.0-49.9, adult ([facility]) Medications Discontinued During This Encounter Medication Reason diazePAM (VALIUM) 2 mg tablet Therapy completed DULoxetine (CYMBALTA) 20 mg capsule Alternate therapy promethazine (PHENERGAN) 12.5 mg tablet Therapy completed lisinopriL (PRINIVIL,ZESTRIL) 10 mg tablet Therapy completed DULoxetine 40 mg capsule,delayed release(DR/EC) Alternate therapy magnesium oxide (MAGOX) 400 mg tablet Reorder VICTOZA 3-KELSI 0.6 mg/0.1 mL (18 mg/3 mL) pen injector Reorder Patient Instructions Established MINISTER care. Labs today HTN, uncontrolled: Begin Losartan 25mg qd. Monitor bp at home. Log and bring in 2 wk RF Victoza Bonifacio Diehl PA-C 02/06/24953 documented in this encounter [facility] [facility] 02-06-2024 Instructions Bonifacio Diehl PA-C - 02/06/2024 9:00 AM EDT Established MINISTER care. Labs today HTN, uncontrolled: Begin Losartan 25mg qd. Monitor bp at home. Log and bring in 2 wk RF Monseza The following attachments cannot be sent through Care Everywhere.Losartan, ADULT (Portuguese)documented in this encounter [facility] 01-10-2024 Telephone encounter Note Pt has questions about her lab results. She had received some but not all results [phone] [facility] 01-10-2024 Miscellaneous Notes Pt has questions about her lab results. She had received some but not all results [phone] documented in this encounter [facility] 01-09-2024 History of Present illness Narrative Images from the original note were not included. [address] [id number] Tere Adamson is a 43 y.o. right-handed female [...] morning. ONETOUCH DELICA PLUS LANCET 30 gauge [facility] ONETOUCH ULTRA TEST strip ONETOUCH ULTRA2 METER [facility] tiZANidine (ZANAFLEX) 4 mg tablet One and [...] Diagnosis Date Abnormal EKG Acute kidney injury ([facility]) 03/06/23 Diabetes mellitus ([facility] Fibromyalgia High cholesterol HTN (hypertension) Insulin resistance Kidney stones Obesities, morbid ([facility]) Pneumonia diagnosed with double pneumonia 03/10/23 Sleep apnea Does not use CPAP Tachycardia Visual impairment History reviewed. No pertinent family history. Past Surgical History: Procedure Laterality Date CHOLECYSTECTOMY CYSTOSCOPY EXCHANGE STENT URETER Right 03/29/2023 Performed by Michael Quintero MD at [facility] CYSTOSCOPY INSERTION STENT URETER Right 03/06/2023 Performed by Michael Quintero MD at [facility] CYSTOSCOPY REMOVAL STENT Right 04/10/2023 Performed by Michael Quintero MD at [facility] LASER HOLMIUM URETEROSCOPY RENAL STONES < OR=1CM Right 03/29/2023 Performed by Michael Quintero MD at [facility] WRIST SURGERY Right tendonitis surgery Allergies Allergen [...] Resource Strain: Patient Declined (11/16/2022) Received from [facility], [facility] Overall Financial Resource Strain (CARDIA) Difficulty of Paying Living Expenses: Patient declined Food Insecurity: No Food Insecurity (01/09/2024) Hunger Screening Food Insecurity - Worry: Never True Food Insecurity - Inability: Never True Transportation Needs: Patient Declined (11/16/2022) Received from [facility], [facility] PRAPARE - Transportation Lack of Transportation (Medical): Patient declined Lack of Transportation (Non-Medical): Patient declined Physical Activity: Unknown (11/21/2023) Received from [facility] Exercise Vital Sign Days of Exercise per Week: 5 days Minutes of Exercise per Session: Not on file Stress: Stress Concern Present (11/16/2022) Received from [facility] Stem of Occupational Health - Occupational Stress Questionnaire Feeling of Stress : To some extent Social Connections: Unknown (11/16/2022) Received from [facility] Social Connection and Isolation Panel [NHANES] Frequency of Communication with Friends and Family: More than three times a week Frequency of Social Gatherings with Friends and Family: More than three times a week Attends Rastafari Services: Patient declined Active Member of Clubs or Organizations: Patient declined Attends Club or Organization Meetings: Patient declined Marital Status: Never Interpersonal Safety: Patient Declined (11/16/2022) Received from [facility] Humiliation, Afraid, Rape, and Kick questionnaire Fear [...] EtOH, tobacco, or drug use. Works as [employer]. NEURO EXAM: Mental Status: alert, oriented to [...] Neuropathy - [facility] [place], [place] 2. Tingling of both feet - [...] - MR cervical spine without contrast; Future Tere Adamson is a 43 y.o. right-handed female [...] can be purchased over the counter, but [employer]bench is the most reliable way to find them. If you have the option of multiple different brands, I recommend using brands that are [facility] certified (though this option does not exist for all supplements--for example, I have not found a brand of riboflavin that is [facility] certified). -Please keep a headache diary. This can be done via an tre, or by marking a calendar on days you have headaches. Tracking your headache frequency is important in order to figure out if a medication is working. -Increase GBP to 600 mg QHS. If this causes too much sedation Chuy Frederick MD Route Process Administrator of Neurology [facility] 01/09/24 I spent >45 minutes of total [...] for specific details. documented in this encounter [employer] 01-09-2024 Instructions Chuy Frederick MD - 01/09/2024 [...] can be purchased over the counter, but Amazon is the most reliable way to find them. If you have the option of multiple different brands, I recommend using brands that are [facility] certified (though this option does not exist for all supplements--for example, I have not found a brand of riboflavin that is [facility] certified). -Please keep a headache diary. This can be done via an tre, or by marking a calendar on days you have headaches. Tracking your headache frequency is important in order to figure out if a medication is working. Thank you for entrusting me with your care. Chuy Frederick MD Route Process Administrator of Neurology [facility] 01/09/24 documented in this encounter [employer] 01-08-2024 History of Present illness Narrative PROBLEM VISIT Tere Adamson is 43 y.o. a patient of [facility] CLOSING MANAGER Here for colposcopy Last pap: Last mammogram: No LMP recorded. History: Past Medical History: Diagnosis Date Allergic Anemia Anxiety Chronic kidney disease 03-06-23 Chronic pansinusitis Chronic rhinitis COVID-19 04/2020 Depression (CMS/HCC) Disease of thyroid gland (CMS/HCC) Fibromyalgia GERD (gastroesophageal reflux disease) Hematuria History of medical problems 2007 Hole in septum of nose Hyperlipidemia (CMS/HCC) [...] Thyroid disease Father Angeles Hyperlipidemia Father Angeles @[email or web address]@ Allergies: Allergies Allergen Reactions Dulaglutide Headache Levofloxacin [...] EVERY MORNING DIRECTED Blood Glucose Monitoring Suppl ([email or web address] TOUCH ULTRA 2) w/Device kit buPROPion SR [...] each 0 ergocalciferol (Vitamin D2) 1.25 MG (60893 UT) capsule TAKE 1 CAPSULE(1.25 MG) BY [...] MINUTES THEN RINSE 120 mL 0 Lancets (GoLive! Mobileuch Delica Plus [id number]) misc TEST EVERY MORNING DIRECTED 100 each [...] NOT CRUSH OR CHEW 90 capsule 1 Udex Ultra test strip USE DIRECTED EVERY MORNING [...] Instructions on file for this visit. Rosa iMlian MA,01/08/2024 10:40 AM documented in this encounter [facility] 01-04-2024 History of Present illness Narrative Patient: Tere Adamson : 1980 PCP: Rosa Mittal MD [...] MINI PEN NEEDLES 31G X 5 MM misc, USE EVERY MORNING DIRECTED, Disp: , Rfl: [...] Rfl: 0 ergocalciferol (Vitamin D2) 1.25 MG (18657 UT) capsule, TAKE 1 CAPSULE(1.25 MG) BY [...] RINSE, Disp: 120 mL, Rfl: 0 Lancets (OneTouch Delica Plus [id number]) [facility], TEST EVERY MORNING DIRECTED, Disp: 100 each, [...] OR CHEW, Disp: 90 capsule, Rfl: 1 TameTouch Ultra test strip, USE DIRECTED EVERY MORNING, [...] Insecurity: No Food Insecurity (11/21/2023) Received from [facility] Hunger Screening Within the past 12 months [...] on file Stress: Stress Concern Present (11/16/2022) [place] Stem of Occupational Health - Occupational Stress Questionnaire Feeling of Stress : To some extent Social Connections: Unknown (11/16/2022) Social Connection and Isolation Panel [NHANES] Frequency of Communication with Friends and Family: More than three times a week Frequency of Social Gatherings with Friends and Family: More than three times a week Attends Rastafari Services: Patient declined Active Member of Clubs or Organizations: Patient declined Attends Club or Organization Meetings: Patient declined Marital Status: Never Intimate Partner Violence: Patient Declined (11/16/2022) Humiliation, Afraid, Rape, and Kick questionnaire Fear of Current or Ex-Partner: Patient declined Emotionally Abused: Patient declined Physically Abused: Patient declined Sexually Abused: Patient declined Housing Stability: Low Risk (03/09/2023) Received from [employer], [employer], [employer] Housing Instability Are you worried or concerned [...] cool tibia to toes b/l NEURO: 5.07 [place] Janet monofilament test positive to digits and [...] complication, without long-term current use of insulin ([facility]) PLAN Patient to continue with oral anti [...] Raymond Whittaker DPM documented in this encounter [facility] 12-19-2023 History of Present illness Narrative Images from the original note were not included. [address] [address] Date of Service: 12/19/2023 Subjective: Tere Adamosn is a 43 y.o. female who presents [...] morning. ONETOUCH DELICA PLUS LANCET 30 gauge [facility] ONETOUCH ULTRA TEST strip ONETOUCH ULTRA2 METER [facility] DULoxetine (CYMBALTA) 60 mg capsule Take 1 [...] AST 19 09/27/2023 Imaging: Assessment and Plan: Tere Adamson is a 43 y.o. female patient [...] 180 capsule; Refill: 1 2. Neuropathy - [facility] [place], [place]; Future At this point patient is [...] or corrected. Thank you for your understanding. [facility] Physicians Rheumatology Dr. Thalia Castanon MD [address] [facility], [address] [place] [address] Office: [phone] documented in this encounter [facility] 09-21-2023 History of Present illness Narrative Images from the original note were not included. [address] [facility] [address] Date of Service: 09/21/2023 Subjective: Tere Adamson is a 42 y.o. female who [...] morning. ONETOUCH DELICA PLUS LANCET 30 gauge misc [...] AST 26 07/05/2023 Imaging: Assessment and Plan: Tere Adamson is a 42 y.o. female patient [...] or corrected. Thank you for your understanding. [facility] Rheumatology Dr. Thalia Castanon MD [address] [facility], [address] [place] [address] Office: [phone] documented in this encounter [facility] 09-15-2023 Miscellaneous Notes FAXED PAP SUPPLY ALONG WITH SUPPORTIVE DOCUMENTATION TO [facility]. documented in this encounter [facility] 09-15-2023 Telephone encounter Note FAXED PAP SUPPLY ALONG WITH SUPPORTIVE DOCUMENTATION TO [facility]. [facility] 09-06-2023 History of Present illness Narrative Images from the original note were not included. Chief Complaint: Te[facility]on [facility] for [...] humidifier. Cleaning supplies with soap and water. [place] Sleepiness Scale: Sitting and Reading: Slight Chance [...] Abnormal EKG Acute kidney injury (CMS-HCC) 03/06/23 Diabetes mellitus ([facility]) Fibromyalgia High cholesterol HTN (hypertension) Insulin resistance Kidney stones Obesities, morbid ([facility]) Pneumonia diagnosed with double pneumonia 03/10/23 Sleep [...] Rfl: ONETOUCH DELICA PLUS LANCET 30 gauge [facility], , Disp: , Rfl: ONETOUCH ULTRA TEST strip, , Disp: , Rfl: ONETOUCH ULTRA2 METER [facility], , Disp: , Rfl: promethazine (PHENERGAN) 12.5 [...] Resource Strain: Patient Declined (11/16/2022) Received from [facility] Overall Financial Resource Strain (CARDIA) Difficulty of Paying Living Expenses: Patient declined Food Insecurity: No Food Insecurity (07/05/2023) Hunger Screening Food Insecurity - Worry: Never True Food Insecurity - Inability: Never True Transportation Needs: Patient Declined (11/16/2022) Received from [facility] PRAPARE - Transportation Lack of Transportation (Medical): Patient declined Lack of Transportation (Non-Medical): Patient declined Physical Activity: Patient Declined (11/16/2022) Received from [facility] Exercise Vital Sign Days of Exercise per Week: Patient declined Minutes of Exercise per Session: Patient declined Stress: Stress Concern Present (11/16/2022) Received from [facility] Stem of Occupational Health - Occupational Stress Questionnaire Feeling of Stress : To some extent Social Connections: Unknown (11/16/2022) [facility] Social Connection and Isolation Panel [NHANES] Frequency of Communication with Friends and Family: More than three times a week Frequency of Social Gatherings with Friends and Family: More than three times a week Attends Rastafari Services: Patient declined Active Member of Clubs or Organizations: Patient declined Attends Club or Organization Meetings: Patient declined Marital Status: Never Interpersonal Safety: Patient Declined (11/16/2022) [facility] Humiliation, Afraid, Rape, and Kick questionnaire Fear [...] Chemistry Component Value Date/Time K 3.4 (L) 07/05/2023 1854 CL 101 07/05/2023 1854 CO2 24 07/05/2023 1854 BUN 12 07/05/20231853 CREATININE 0.80 07/05/20231853 GLU 104 (H) 07/05/20231853 Component Value Date/Time CALCIUM 8.9 07/05/20231853 ALKPHOS 84 07/05/20231853 AST 26 07/05/20231853 ALT [...] (4%)=22.5 events/hour; Ji SpO2=73.0%; APAP 5-20 DME: [employer] Data card was available for PAP usage [...] not to drive if sleepy, and to box puller if sleepiness occurs while driving. Above [...] that have escaped final proofreading. Stefany Mike [facility] Office: [phone] 8:42 AM on 09/12/2023 CC: MD Stefany Ramirez APRN-CNP 09/12/23 0849 documented in this encounter [facility] 09-06-2023 Instructions KRISTINA Pope - 09/06/2023 11:45 AM EDT If you re looking for general health and wellness resources, please visit [email or web address]. documented in this encounter [facility] 06-22-2023 Miscellaneous Notes Received results message from with 06/20/23 HST interp, ok for APAP 5-20 per . Images from the original note were not included. Faxed all information to [facility] for APAP setup. Patient informed through MyChart and by phone. RV with rescheduled from 11/22/23 to 09/06/23 for compliance. Confirmation received. documented in this encounter [facility] 06-22-2023 Telephone encounter Note Received results message from with 06/20/23 HST interp, ok for APAP 5-20 per . [facility] 06-22-2023 Telephone encounter Note Images from the original note were not included. Faxed all information to [facility] for APAP setup. Patient informed through MyChart and by phone. RV with SK rescheduled from 11/22/23 to 09/06/23 for compliance. Confirmation received. [facility] 05-22-2023 Miscellaneous Notes Litholink order placed for 24hr x2 documented in this encounter [facility] 05-22-2023 Telephone encounter Note [employer] order placed for 24hr x2 [facility] 05-22-2023 Evaluation + Plan note Associated Problem(s): Mineral metabolism disorder Litho link did not further ever particular reason process or specimen. This will be reordered. Will see her back. Taking into consideration the make up for stone. [facility] 05-22-2023 Miscellaneous Notes Associated Problem(s): Mineral metabolism disorder Litho link did not further ever particular reason process or specimen. This will be reordered. Will see her back. Taking into consideration the make up for stone. documented in this encounter [facility] 05-22-2023 History of Present illness Narrative Images from the original note were not included. [address] [place] [address] [facility] [address] Patient: Tere Adamson Date of : 1980 Encounter Date: [...] Diagnosis Date Abnormal EKG Acute kidney injury ([facility]-HCC) 03/06/23 Diabetes mellitus ([facility]) Fibromyalgia High cholesterol HTN (hypertension) Insulin resistance Kidney stones Obesities, morbid ([facility]) Pneumonia diagnosed with double pneumonia 03/10/23 Sleep apnea Does not use CPAP Tachycardia Visual impairment Past Surgical History: Procedure Laterality Date CHOLECYSTECTOMY CYSTOSCOPY EXCHANGE STENT URETER Right 03/29/2023 Performed by Michael Quintero MD at [facility] CYSTOSCOPY INSERTION STENT URETER Right 03/06/2023 Performed by Michael Quintero MD at [facility] CYSTOSCOPY REMOVAL STENT Right 04/10/2023 Performed by Michael Quintero MD at [facility] LASER HOLMIUM URETEROSCOPY RENAL STONES < OR=1CM Right 03/29/2023 Performed by Michael Quintero MD at [facility] WRIST SURGERY Right tendonitis surgery History reviewed. [...] morning. ONETOUCH DELICA PLUS LANCET 30 gauge [facility] ONETOUCH ULTRA TEST strip ONETOUCH ULTRA2 METER [facility] promethazine (PHENERGAN) 12.5 mg tablet Take 1 [...] Normal. Gait - Normal. Assessment and Plan: Tere was seen today for follow-up. Diagnoses and [...] for your understanding. [facility] Miscellaneous Notes 05/19 received HST order 05/22 Called PT LM to schedule sleep study. HST order and 05/19 Cee notes in [facility] Telephone encounter Note 05/19 received HST order 05/22 Called PT RIZWANA to schedule sleep study. HST order and 05/19 [facility] History of Present illness Narrative Chief Complaint: Tere Adamson is a 42 y.o. female present for initial visit regarding suspected [facility] Sleep Questionnaire 05/19/2023 9:56 AM EST - [...] use phone/computer in bed? Yes Number of otutdy-co-cjv-night awakenings per night? 2-3 Cause of awakenings [...] Abnormal EKG Acute kidney injury (CMS-HCC) 03/06/23 Diabetes mellitus (CMS-HCC) Fibromyalgia High cholesterol HTN (hypertension) Insulin resistance Kidney stones Obesities, morbid ([facility]-H[facility]) Pneumonia diagnosed with double pneumonia 03/10/23 Sleep [...] , Disp: , Rfl: ONETOUCH ULTRA2 METER misc, , Disp: , Rfl: promethazine (PHENERGAN) 12.5 [...] Yakelin Yañez DO on 05/10/2023 8:04 AM Benson Avalos MD have personally reviewed the image(s) and [...] 05/19/2024 Order Specific Question: Follow Up Answer: [facility] to read and follow patient. [...] to stop the activity if sleepiness occurs (box puller at the next safe opportunity if [...] and during sleep). CC: MD Stefany Ramirez [facility] Office: [phone] 10:11 AM on 05/19/2023 This note is dictated with the use of M*Modal.Please note that this dictation was completed with computer voice recognition software. Quite often unanticipated grammatical, syntax, homophones, and other interpretive errors are inadvertently transcribed by the computer software. Please disregard these errors. Please excuse any errors that have escaped final proofreading. KRISTINA Pope 05/19/23 1012 documented in this encounter [facility] [employer] [facility] 05-19-2023 Instructions KRISTINA oPpe - 05/19/2023 9:45 AM EST If you re looking for general health and wellness resources, please visit [email or web address]. documented in this encounter [facility] Evaluation note No assessment inform ation [facility] Work Phone: Evaluation note Diagnosis Type 2 diabetes mellitus without complication, without long-term current use of insulin (CMS/HCC) Gastroesophageal reflux disease without esophagitis Esophageal reflux [facility] Diagnosis Vitamin D insufficiency Acquired hypothyroidism (CMS/HCC) Unspecified hypothyroidism [facility] Diagnosis Hypertriglyceridemia (CMS/HCC) Pure hyperglyceridemia [facility] Diagnosis Nephrolithiasis- Primary Calculus of kidney 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, without long- term current use of insulin ([facility]-HCC)- Primary [facility] Diagnosis Hav (hallux abducto valgus), left- Primary Hav (hallux abducto valgus), right Acquired deformity of left toe Type 2 diabetes mellitus without complication, without long-term current use of insulin (CMS/HCC) [facility] Diagnosis Major depressive disorder, single episode, mild (HCC) (CMS/HCC) Major depressive disorder, single episode, mild documented [...] depressive disorder, single episode, mild (HCC) (CMS/HCC) Major depressive disorder, single episode, mild documented [...] polyneuropathy, without long-term current use of insulin ([facility]) 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 STARR on CPAP Abnormal EKG Nonspecific abnormal electrocardiogram (ECG) (EKG) [facility] Diagnosis Left ovarian cyst Other and unspecified ovarian cyst Pain of ovary Amenorrhea Absence of menstruation Pelvic pain in female Unspecified symptom associated with female genital organs documented in this encounter 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 Primary hypertension Unspecified essential hypertension High urine sodium level documented [facility]* Diagnosis Nephrolithiasis- Primary Calculus of kidney 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 Neuropathy- Primary Mononeuritis of unspecified site documented [facility]* Diagnosis Nephrolithiasis- Primary Calculus of kidney 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* Diagnosis STARR (obstructive sleep apnea)- Primary Obstructive sleep apnea (adult) (pediatric) Fatigue, unspecified type Class 3 severe obesity with body mass index (BMI) of 45.0 to 49.9 in adult, unspecified obesity type, unspecified whether serious comorbidity present ([facility]) Snoring Other dyspnea and respiratory abnormality Excessive daytime sleepiness documented [facility] Diagnosis STARR (obstructive sleep apnea)- Primary Obstructive sleep apnea (adult) (pediatric) CPAP use counseling Morbid obesity with body mass index (BMI) of 45.0 to 49.9 in adult ([facility]) documented [facility]* Diagnosis Nephrolithiasis- Primary Calculus of kidney 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 documented [facility]* Diagnosis Fibromyalgia Unspecified myalgia and myositis documented [facility]* Diagnosis STARR (obstructive sleep apnea) Obstructive sleep apnea (adult) (pediatric) documented [facility]* Diagnosis STARR (obstructive sleep apnea)- Primary Obstructive sleep apnea (adult) (pediatric) documented [facility]* Diagnosis Neuropathy- Primary Mononeuritis of unspecified site Fibromyalgia Unspecified myalgia and myositis documented [facility]* Diagnosis Tingling of both feet- Primary Neuropathy Mononeuritis of unspecified site Hyperreflexia Abnormal reflex documented [facility]* Diagnosis Primary hypertension- Primary Unspecified essential hypertension Iron deficiency Disorders of iron metabolism Insomnia, unspecified type Hypothyroidism, unspecified type documented [facility]* Diagnosis Nephrolithiasis- Primary Calculus of kidney 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 Neuropathy- Primary Mononeuritis of unspecified site documented [facility]* Diagnosis Nephrolithiasis- Primary Calculus of kidney 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 Iron deficiency- Primary Disorders of iron metabolism documented [facility]* Diagnosis Primary hypertension- Primary Unspecified essential hypertension Abnormal EKG Nonspecific abnormal electrocardiogram (ECG) (EKG) Iron deficiency Disorders of iron metabolism Hypothyroidism, unspecified type JACINTO (acute kidney injury) ([facility]) 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, without long- term current use of insulin ([facility]) Cyst of left ovary Other and unspecified ovarian cyst Dysmenorrhea Uric acid kidney stone Uric acid nephrolithiasis BMI 45.0-49.9, adult [place] [facility]* Diagnosis Nephrolithiasis- Primary Calculus of kidney 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 Neuropathy- Primary Mononeuritis of unspecified site Chronic left-sided low back pain without sciatica [facility] Diagnosis Nephrolithiasis- Primary Calculus of kidney 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 URI with cough and congestion- Primary Primary hypertension Unspecified essential hypertension High urine sodium level Iron deficiency Disorders of iron metabolism Hypothyroidism, unspecified type [facility] Diagnosis Nephrolithiasis- Primary Calculus of kidney 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 E-coli UTI- Primary Hypomagnesemia Disorders of magnesium metabolism Primary hypertension Unspecified essential hypertension Hyponatremia Hyposmolality and/or hyponatremia 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 Hypothyroidism, unspecified type Type 2 diabetes mellitus with diabetic polyneuropathy, without long-term current use of insulin ([facility] High urine sodium level [facility] [...] Health SystemInstructionsNot on filedocumented in this encounter [facility] Consultation (Routine) - Pending Review Specialty Diagnoses / Procedures Referred By Mahesh granados Referred To Contact Neurology Diagnoses Neuropathy Thalia Castanon MD [address] [address] [facility] Neurology [address] [place] [address] Referral ID Status Reason Start Date Expiration Date Visits Requested Visits Authorized Pending Review Specialty Services Required 12/19/2023 12/18/2024 1 1 * Medication Prior Authorization - Closed Specialty Diagnoses / Procedures Referred By Mahesh granados Referred To Contact Diagnoses Fibromyalgia Thalia Castanon MD [address] [address] Referral ID Status Reason Start Date Expiration Date Visits Re quested Visits Authorized [id number] Closed 1 1 [facility] Summary Purpose Family History No Family [...] Code 03/06/2023 4:22 PM 03/09/2023 4:27 PM Date Activated Date Inactivated Comments 03/06/2023 4:22 PM 03/09/2023 4:27 PM Chief Complaint and Reason for Visit Chief Complaint L foot pain/numbness Reason for Referral Specialty Diagnoses / Procedures Referred By Contac t Referred To Contact Diagnoses STARR (obstructive sleep apnea) Procedures Home sleep study Stefany Mike, BUTADIENE CONVERTOR OPERATOR-RAMONA [address] [facility], [address] [place] [address] Referral ID Status Reason Start Date Expiration Date V isits Requested Visits Authorized [id number] Pending Review 05/19/2023 05/18/2024 1 1 Specialty Diagnoses / Procedures Referred By Contac t Referred To Contact Diagnoses Thalia Mcrae MD [address] [facility] [address] [place] [address] Referral ID Status Reason Start Date Expiration Date Visits Re quested Visits Authorized [id number] Closed 1 1 Referral ID Status Reason Start Date Expiration Date Visits Re quested Visits Authorized [id number] Closed 1 1 Specialty Diagnoses / Procedures Referred By Contac t Referred To Contact Diagnoses Tingling of both feet Chuy Frederick MD [address] [place] [id number] Referral ID Status Reason Start Date Expiration Date V isits Requested Visits Authorized [id number] Pending Review 1 1 Specialty Diagnoses / Procedures Referred By Contac t Referred To Contact Diagnoses Tingling of both feet Procedures EMG NCV Chuy Frederick MD [address] [place] [address] Referral ID Status Reason Start Date Expiration Date V isits Requested Visits Authorized [id number] Pending Review 01/09/2024 01/08/2025 1 1 Specialty Diagnoses / Procedures Referred By Contac t Referred To Contact Radiology Diagnoses Hyperreflexia Procedures MR cervical spine without contrast Chuy Frederick MD [address] [place] [address] [facility] [address] [place] [address] Phone: [phone] Referral ID Status Reason Start Date Expiration Date V isits Requested Visits Authorized [id number] Pending Review 01/09/2024 01/08/2025 1 1 Specialty Diagnoses / Procedures Referred By Mahesh granados Referred To Contact Radiology Diagnoses Hyperreflexia Procedures MR brain without contrast Chuy Frederick MD [address] [place] [address] [facility] [address] [place] [address] Phone: [phone] Referral ID Status Reason Start Date Expiration Date V isits Requested Visits Authorized [id number] Pending Review 01/09/2024 01/08/2025 1 1 Additional Source Comments INFORMATION SOURCE (unrecogn ized section and content) DATE CREATED AUTHOR 02/18/2022 [facility] DATE CREATED AUTHOR AUTHOR'S ORGANIZ ATION 07/13/2022 [facility] dical Specialist DATE CREATED AUTHOR AUTHOR'S ORGANIZ ATION 11/29/2023 [facility] DATE CREATED AUTHOR AUTHOR'S ORGANIZ ATION 06/01/2024 [facility] DATE CREATED AUTHOR AUTHOR'S ORGANIZ ATION 06/15/2024 [facility] dical Specialists EPIC DATE CREATED AUTHOR AUTHOR'S ORGANIZ ATION 07/01/2024 [facility] DATE CREATED AUTHOR AUTHOR'S ORGANIZ ATION 07/04/2024 [facility] Care Teams (unrecognized sec tion and content) Team Status: Active Member Role Status Dates PHYSICIAN NO FAMILY Primary Care Provider Active Team Status: Inactive Member Role Status Dates PHYSICIAN NO FAMILY Primary Care Provider Active Start: November 22, 2023 End: November 22, 2023 Zhen Greonimo APRN Emergency Provider Active Start: November 22, 2023 End: November 22, 2023 Yard Coordinator Relationship Specialty Start Date End Date Sampson Pemberton CNM [address] [place] [address] Obstetrics and Gynecology 11/01/22 Yard Coordinator Relationship Specialty Start Date End Date Sampson Pemberton CNM [address] [place] [address] Obstetrics and Gynecology 11/01/22 Yard Coordinator Relationship Specialty Start Date End Date Bonifacio Diehl PA-C [address] [facility] [address] [place] [id number] PCP - General Physician Millwright Instructor 02/06/24 Yard Coordinator Relationship Specialty Start Date End Date Rosa Mittal MD [address] [place] [id number] PCP - General Family Medicine 11/01/22 Sampson Pemberton CNM [address] [place] [id number] Obstetrics and Gynecology 11/01/22 Yard Coordinator Relationship Specialty Start Date End Date Rosa Mittal MD [address] [place] [id number] PCP - General Family Medicine 11/01/22 Sampson Pemberton CNM [address] [place] [id number] Obstetrics and Gynecology 11/01/22 Yard Coordinator Relationship Specialty Start Date End Date Rosa Mittal MD [address] [place] [id number] PCP - General Family Medicine 11/01/22 Sampson Pemberton CNM [address] [place] [address] Obstetrics and Gynecology 11/01/22 Yard Coordinator Relationship Specialty Start Date End Date Rosa Mittal MD [address] [place] [id number] PCP - General Family Medicine 11/01/22 Sampson Pemberton CNM [address] [place] [id number] Obstetrics and Gynecology 11/01/22 Yard Coordinator Relationship Specialty Start Date End Date Rosa Mittal MD [address] [place] [id number] PCP - General Family Medicine 11/01/22 Sampson Pemberton CNM [address] [place] [address] Obstetrics and Gynecology 11/01/22 Yard Coordinator Relationship Specialty Start Date End Date Rosa Mittal MD [address] [place] [address] PCP - General Family Medicine 11/01/22 Sampson Pemberton CNM [address] [place] [id number] Obstetrics and Gynecology 11/01/22 Yard Coordinator Relationship Specialty Start Date End Date Rosa Mittal MD [address] [place] [address] PCP - General Family Medicine 11/01/22 02/05/24 Sampson Pemberton CNM [address] [place] [id number] Obstetrics and Gynecology 11/01/22 Yard Coordinator Relationship Specialty Start Date End Date Bonifacio Diehl PA-C [address] [place] [id number] PCP - General Physician Millwright Instructor 02/06/24 Yard Coordinator Relationship Specialty Start Date End Date Bonifacio Diehl PA [address] [place] [address] PCP - General Family Medicine 05/27/24 Sampson Pemberton CNM [address] [place] [address] Obstetrics and Gynecology 11/01/22 Yard Coordinator Relationship Specialty Start Date End Date Bonifacio Diehl PA [address] [place] [address] PCP - General Family Medicine 05/27/24 Smapson Pemberton CNM [address] [place] [address] Obstetrics and Gynecology 11/01/22 Yard Coordinator Relationship Specialty Start Date End Date Bonifacio Diehl PA [address] [place] [address] PCP - General Family Medicine 05/27/24 Sampson Pemberton CNM [address] [place] [address] Obstetrics and Gynecology 11/01/22 Yard Coordinator Relationship Specialty Start Date End Date Bonifacio Diehl PA-C [address] [place] [address] PCP - General Physician Millwright Instructor 02/06/24 Yard Coordinator Relationship Specialty Start Date End Date Bonifacio Diehl PA-C [address] [place] [address] PCP - General Physician Millwright Instructor 02/06/24 Yard Coordinator Relationship Specialty Start Date End Date Bonifacio Diehl PA-C [address] [place] [address] PCP - General Physician Millwright Instructor 02/06/24 Yard Coordinator Relationship Specialty Start Date End Date Bonifacio Diehl PA [address] [place] [address] PCP - General Family Medicine 06/03/24 Sampson Pemberton CNM [address] [place] [address] Obstetrics and Gynecology 11/01/22 Yard Coordinator Relationship Specialty Start Date End Date Bonifacio Diehl PA-C [address] [place] [address] PCP - General Physician Millwright Instructor 02/06/24 Yard Coordinator Relationship Specialty Start Date End Date Bonifacio Diehl PA-C [address] [place] [address] PCP - General Physician Millwright Instructor 02/06/24 Yard Coordinator Relationship Specialty Start Date End Date Bonifacio Diehl PA [address] [place] [address] PCP - General Family Medicine 06/03/24 Sampson Pemberton CNM [address] [place] [address] Obstetrics and Gynecology 11/01/22 Yard Coordinator Relationship Specialty Start Date End Date Bonifacio Diehl PA [address] [place] [address] PCP - General Family Medicine 06/03/24 Sampson Pemberton CNM [address] [place] [address] Obstetrics and Gynecology 11/01/22 Yard Coordinator Relationship Specialty Start Date End Date Rosa Mittal MD [address] [place] [address] PCP - General Family Medicine 04/03/23 Yard Coordinator Relationship Specialty Start Date End Date Rosa Mittal MD [address] [place] [address] PCP - General Family Medicine 04/03/23 Yard Coordinator Relationship Specialty Start Date End Date Rosa Mittal MD [address] [place] [address] PCP - General Family Medicine 04/03/23 Yard Coordinator Relationship Specialty Start Date End Date Rosa Mittal MD [address] [place] [address] PCP - General Family Medicine 04/03/23 Yard Coordinator Relationship Specialty Start Date End Date Rosa Mittal MD [address] [place] [address] PCP - General Family Medicine 04/03/23 Yard Coordinator Relationship Specialty Start Date End Date Rosa Mittal MD [address] [place] [address] PCP - General Family Medicine 04/03/23 Yard Coordinator Relationship Specialty Start Date End Date Rosa Mittal MD [address] [place] [address] PCP - General Family Medicine 04/03/23 Yard Coordinator Relationship Specialty Start Date End Date Rosa Mittal MD [address] [place] [address] PCP - General Family Medicine 04/03/23 Yard Coordinator Relationship Specialty Start Date End Date Rosa Mittal MD [address] [place] [address] PCP - General Family Medicine 04/03/23 Yard Coordinator Relationship Specialty Start Date End Date Rosa Mittal MD [address] [place] [address] PCP - General Family Medicine 04/03/23 Yard Coordinator Relationship Specialty Start Date End Date Rosa Mittal MD [address] [place] [address] PCP - General Family Medicine 04/03/23 Yard Coordinator Relationship Specialty Start Date End Date Bonifacio Diehl PA-C [address] [place] [address] PCP - General Physician Millwright Instructor 02/06/24 Yard Coordinator Relationship Specialty Start Date End Date Bonifacio Diehl PA-C [address] [place] [address] PCP - General Physician Millwright Instructor 02/06/24 Yard Coordinator Relationship Specialty Start Date End Date Bonifacio Diehl PA-C [address] [place] [address] PCP - General Physician Millwright Instructor 02/06/24 Yard Coordinator Relationship Specialty Start Date End Date Bonifacio Diehl PA-C [address] [place] [address] PCP - General Physician Millwright Instructor 02/06/24 Yard Coordinator Relationship Specialty Start Date End Date Bonifacio Diehl PA-C [address] [place] [address] PCP - General Physician Millwright Instructor 02/06/24 Yard Coordinator Relationship Specialty Start Date End Date Bonifacio Diehl PA-C [address] [place] [address] PCP - General Physician Millwright Instructor 02/06/24 Yard Coordinator Relationship Specialty Start Date End Date Bonifacio Diehl PA [address] [place] [address] PCP - General Family Medicine 06/03/24 Sampson Pemberton CNM [address] [place] [address] Obstetrics and Gynecology 11/01/22 Yard Coordinator Relationship Specialty Start Date End Date Bonifacio Diehl PA-C [address] [place] [address] PCP - General Physician Millwright Instructor 06/26/24 Yard Coordinator Relationship Specialty Start Date End Date Bonifacio Diehl PA-C [address] [place] [address] PCP - General Physician Millwright Instructor 06/26/24 Yard Coordinator Relationship Specialty Start Date End Date Bonifacio Diehl PA-C [address] [place] [address] PCP - General Physician Millwright Instructor 06/26/24 Yard Coordinator Relationship Specialty Start Date End Date Bonifacio Diehl PA-C [address] [place] [address] PCP - General Physician Millwright Instructor 06/26/24 Goals (unrecognized section and content) Goals may be documented in a n alternate section Reason for Visit (unrecogniz ed section and content) Reason Comments Med Refill Reason Comments Foot Orthotics Orthotics P/U, cellu litis F/U Reason Onset Date Comments Med Refill 01/05/2024 Reason Comments Hypertension Diabetes BP med change, resta rted metformin, sinus Reason Comments ovary pain Specialty Diagnoses / Procedures Referred By Mahesh granados Referred To Contact Obstetrics and Gynecology Diagnoses Left ovarian cyst Pain of ovary Procedures [place] OFFICE/OUTPATIENT NEW HIGH MDM Sampson Pemberton, CNM [address] [place] [address] Phone: tel: fax: Alex Blankenship, [address] [place] [address] Phone: tel: fax: Referral ID Status Reason Start Date Expiration Date Visits Requested Visits Authorized [id number] Pending Review Specialty Services Required 04/15/2024 10/12/2024 1 1 Reason Comments Pre-op Visit Reason Comments New Patient SnoringHST: 07/05/19 21Not on PAP Therapy Reason Comments Sleep Apnea ComplianceSetup: HST: 06/20/2023ME: MSC Reason Onset Date Comments Sleep Lab 05/22/2023 HST Reason Comments Follow-up Reason Comments Follow-up Specialty Diagnoses / Procedures Referred By Contac t Referred To Contact Diagnoses STARR (obstructive sleep apnea) Procedures Home sleep study Juanito Mikecishen Lazar, BUTADIENE CONVERTOR OPERATOR-SURFACER [address] [facility], [address] [place] [address] Referral ID Status Reason Start Date Expiration Date Visits Re quested Visits Authorized [id number] Closed 05/19/2023 05/18/2024 1 1 Reason Onset Date Comments Med Refill 06/22/2023 Reason Comments New Patient Specialty Diagnoses / Procedures Referred By Contac t Referred To Contact Neurology Diagnoses Neuropathy Thalia Castanon MD [address] [facility] [address] [place] [address] [facility] Neurology [address] [place] [address] Referral ID Status Reason Start Date Expiration Date Visits Requested Visits Authorized [id number] Pending Review Specialty Services Required 12/19/2023 12/18/2024 1 1 Reason Comments Follow-up 2 week f/u, did not check BP at home, weight gain, not sleeping, labs completed Reason Onset Date Comments Med Refill 03/04/2024 Reason Comments New Patient Est care Reason Onset Date Comments Med Refill 03/05/2024 Reason Comments Follow-up Reason Comments Follow-up 6 week f/u, EMG comp leted, MRI brain comp, neurologist, nephrology appt today, labs comp Reason Comments Follow-up ER f/u, magnesium lo w, UTI still on abx FOR RECORDS PERTAINING TO PATIENTS WHO ARE [...] BE BASED ON THE PRIMARY CLINICAL RECORDS. [employer] [facility]. provides no warranty or guarantee of the accuracy or completeness of information in this document.
[2024-07-12 06:21] LABS: Basophils Absolute Auto 0.1 10^3/uL (0.0-0.1); Basophils Percent Auto 0.8 % (0.2-2.0); Eosinophils Absolute Auto 0.5 10^3/uL (0.0-0.7); Eosinophils Percent Auto 4.8 % (0.9-7.0); Hematocrit 36.4 % (36.0-48.0); Immature Granulocytes Abs Auto 0.12 10^3/uL (0.00-0.03); Immature Granulocytes Pct Auto 1.1 % (0.0-0.5); Lymphocytes Absolute Auto 3.5 10^3/uL (1.2-3.8); Lymphocytes Percent Auto 32.6 % (20.5-60.0); Mean Corpuscular Hemoglobin 28.7 pg (26.7-34.0); Mean Corpuscular Volume 87.1 fL (81.0-99.0); Mean Platelet Volume 10.1 fL (9.5-13.5); Monocytes Absolute Auto 0.7 10^3/uL (0.3-0.8); Monocytes Percent Auto 6.8 % (1.7-12.0); Neutrophils Absolute Auto 5.8 10^3/uL (1.4-6.5); Neutrophils Percent Auto 53.9 % (43.0-75.0); Platelet Count 318 10^3/uL (150-450); Red Blood Count 4.18 10^6/uL (4.20-5.40); White Blood Count 10.7 10^3/uL (4.0-11.0)
[2024-07-12 06:27] LABS: Magnesium 1.3 mg/dL (1.8-2.4)
[2024-07-12 06:44] LABS: HCG Quantitative <1 mIU/mL
[2024-07-12] MEDS: LACTATED RINGER'S SOLUTION 1,000 ML 50 ML IV ×2 (06:56→08:51)
[2024-07-12] MEDS: MAGNESIUM SULFATE/D5W 1 GM/100 ML PREMIX IV (07:11)
--- NOTE | 2024-07-12 08:47 | PM.ONB ---
Brief Operative Note Date of procedure: 07/12/24 Pre-op diagnosis general: pelvic pain, dysmenorrhea, menorrhagia Post-op diagnosis: same as pre-op Procedure: NAME OF PROCEDURE: [d&c hysteroscopy with myosure, diagnostic laparosocpy] PROCEDURE: The patient was taken back to the Operating Room where she was prepped and draped in normal sterile fashion after being placed under general anesthesia without difficulty. She was also placed in the dorsal lithotomy position. A weighted speculum was placed in the patient?s vagina. The anterior lip of the cervix was identified and grasped with a single tooth tenaculum. The patient?s uterus was then sounded roughly to [?9] cm. The patient was then gently dilated using Hegar dilators. The hysteroscope was passed through the patient?s cervix into the uterus. Both ostia were identified. fluffy appearing endometrium. No gross evidence of polyps, fibroids or malignancy. The myosure apparatus was placed through the hysteroscope and engaged, endometrial currettings sent of to pathology. The hysteroscope was then removed from the patient's uterus.? At that point, gentle curettage was performed until a gritty texture was noted. The endometrial curettings were sent out to pathology.? The single tooth tenaculum was then removed from the patient's anterior lip of the cervix where excellent hemostasis was noted. A sponge stick was placed into the patient's vagina. Attention was turned to the patient's abdomen, where a small umbilical incision was made. The fascia was tented using Kimberly clamps and the fascia was entered sharply. The peritoneum was identified tented up and entered sharply, trocar was placed however insufflation was unable to be performed dt pt body habitus and adhesions. At this point i decided to abort the procedure for patient safety. Sponge stick was removed from the patient's vagina. The patient's infraumbilical fascia was closed using #0 Vicryl on a GI needle. The patient's skin was closed laterally and infraumbilically using 4-0 Vicryl. The patient tolerated the procedure well. Sponge, lap and needle counts were correct x 2. The patient was taken to Recovery Room in stable condition. Anesthesia: TED Surgeon: Alex Blankenship Senior Business Development Manager: Grace Rodriguez Estimated blood loss (mL): 5 Pathology: other (endometrial currettings) Condition: stable Disposition: PACU Urinary Catheter Management Urinary Catheter Management Urethral: Cath placed during this visit: no
== END 2024-07-12 10:25 | disposition home or self-care (01) ==
PROVIDERS: Anesthesiology; Family Provider Family Medicine; Visit Provider Obstetrics & Gynecology
PROC: (CPT 840; principal; 2024-07-12 07:30)
DX: R10.2 Pelvic and perineal pain (principal); N83.202 Unspecified ovarian cyst, left side; N91.2 Amenorrhea, unspecified; Z90.49 Acquired absence of other specified parts of digestive tract; E66.01 Morbid (severe) obesity due to excess calories; Z68.43 Body mass index [BMI] 50.0-59.9, adult; Z53.8 Procedure and treatment not carried out for other reasons; Z79.84 Long term (current) use of oral hypoglycemic drugs; G47.33 Obstructive sleep apnea (adult) (pediatric); E78.5 Hyperlipidemia, unspecified; I10 Essential (primary) hypertension; K21.9 Gastro-esophageal reflux disease without esophagitis; E11.9 Type 2 diabetes mellitus without complications; H91.90 Unspecified hearing loss, unspecified ear; E07.9 Disorder of thyroid, unspecified
CPT/HCPCS: 49320; 58558; 36415; 83735; 84702; 85025; 88305; J0131; J1100; J1885; J2250; J2371; J2405; J2704; J3010; J3475